=== PATIENT | female | born 1940 | race Caucasian/White ===

== ENCOUNTER 2017-04-05 08:13 | Day surgery (SDC) | payer MEDICARE, OTHER ==
[~2017-04-05 08:13] MED LIST: Lactated Ringers 1,000 ML IV SCH
[2017-04-05] MEDS ORDERED: Propofol 200 MG/20 ML SDV ONE (10:00)
[2017-04-05] MEDS ORDERED: fentaNYL 100 MCG/2 ML SDV ONE (10:00)
[2017-04-05 11:32] VITALS: BP 106/58
--- NOTE | 2017-04-05 15:38 | OR ---
PREOPERATIVE DIAGNOSIS: Screening colonoscopy. POSTOPERATIVE DIAGNOSES: Colonic polyps x3, pancolonic diverticulosis. PROCEDURE PROPOSED: Total flexible colonoscopy. PROCEDURE DONE: Total flexible colonoscopy with hot snare polypectomy x3. INDICATION: This is a 77-year-old female who comes in for screening colonoscopy. Her last examination was 12 years ago. She denies any symptomatology. She does have a history of breast cancer. TECHNIQUE: The patient was brought to the endoscopy suite and placed in left lateral decubitus position. She was sedated with propofol per CARDIOGRAPH OPERATOR. The flexible video colonoscope was then passed transanally and, under visualization, advanced to the cecum. She was found to have an adenomatous polyp in the cecum that was removed by hot snare technique and retrieved with suction. This was removed in 2 pieces. She was noted to have some diverticulosis in the right colon also. The transverse colon was unremarkable as well as the descending colon. The sigmoid colon revealed some diverticulosis and at 20 cm, 2 adenomatous polyps were found, both removed by hot snare technique and retrieved with suction. The rectum was normal. The scope was then withdrawn. She tolerated the procedure well. FINAL IMPRESSION: 1. Colonic polyps x3, removed. 2. Pancolonic diverticulosis. PLAN: She will be sent a letter with pathology report, but I felt at her age that she needs no future examinations. SCM: 04/05/2017 10:36:07 MODL: 04/05/2017 14:19:05 /[id number]
--- NOTE | 2017-04-08 11:37 | LETTER ---
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 Normally, we would wait 5 years and recommend a repeat exam, but based on your age, I feel that you do not need any future examinations. If you have any further questions regarding this, feel free to call. Respectfully,
== END 2017-04-05 12:19 | disposition home or self-care (01) ==
LOC: VM.SDS 08:13
PROVIDERS: ATTEND Surgery
DX: Z12.11 Encounter for screening for malignant neoplasm of colon (principal); D12.0 Benign neoplasm of cecum; K57.30 Diverticulosis of large intestine without perforation or abscess without bleeding; D69.6 Thrombocytopenia, unspecified; F41.9 Anxiety disorder, unspecified; F32.9 Major depressive disorder, single episode, unspecified; I48.1 Persistent atrial fibrillation; E11.42 Type 2 diabetes mellitus with diabetic polyneuropathy; M16.0 Bilateral primary osteoarthritis of hip; E78.5 Hyperlipidemia, unspecified; M10.9 Gout, unspecified; I11.0 Hypertensive heart disease with heart failure; I50.30 Unspecified diastolic (congestive) heart failure; H25.9 Unspecified age-related cataract; H35.3190 Nonexudative age-related macular degeneration, unspecified eye, stage unspecified; K21.9 Gastro-esophageal reflux disease without esophagitis; G47.33 Obstructive sleep apnea (adult) (pediatric); E53.8 Deficiency of other specified B group vitamins; E66.9 Obesity, unspecified; G25.81 Restless legs syndrome; E11.36 Type 2 diabetes mellitus with diabetic cataract; Z86.718 Personal history of other venous thrombosis and embolism; Z79.01 Long term (current) use of anticoagulants; Z79.51 Long term (current) use of inhaled steroids; Z79.84 Long term (current) use of oral hypoglycemic drugs; Z79.899 Other long term (current) drug therapy; Z88.0 Allergy status to penicillin; Z88.1 Allergy status to other antibiotic agents; Z88.7 Allergy status to serum and vaccine; Z88.8 Allergy status to other drugs, medicaments and biological substances; Z91.013 Allergy to seafood; Z91.048 Other nonmedicinal substance allergy status; Z99.89 Dependence on other enabling machines and devices; Z68.35 Body mass index [BMI] 35.0-35.9, adult
CPT/HCPCS: 00810; 36415; 45385; 82962; 85610; J2704; J3010; J7120; 88305

== ENCOUNTER 2017-10-19 16:06 | Inpatient (IN) | payer MEDICARE, OTHER ==
[2017-10-19] MEDS ORDERED: Sodium Chloride 0.9% 10 ML Syringe FLUSH PRN (16:22)
[2017-10-19 17:34] LABS: CHLORIDE,CL 104 mmol/L (98-107); SODIUM,NA 139 mmol/L (136-145)
[2017-10-19] MEDS ORDERED: Iopamidol 612 MG/ML 100 ML Bottle IVPUSH ONE (18:02)
[2017-10-19] MEDS ORDERED: Furosemide 40 MG/4 ML VIAL IV ONE ×2 (19:03→19:04)
[2017-10-19] MEDS ORDERED: Sodium Chloride 0.9% 500 ML IV ONE (19:03)
[2017-10-19] MEDS ORDERED: Cephalexin 500 MG Cap PO SCH (21:10)
[2017-10-19] MEDS ORDERED: Loratadine 10 MG Tab PO PRN (21:13)
[2017-10-19] MEDS ORDERED: Acetaminophen/HYDROcodone 325-5 MG Tab PO SCH (21:25)
[2017-10-19] MEDS ORDERED: Acetaminophen/HYDROcodone 325-5 MG Tab PO PRN (21:26)
[2017-10-19] MEDS ORDERED: Gabapentin 100 MG Cap PO SCH (21:45)
[2017-10-19] MEDS ORDERED: Pramipexole 0.125 MG Tab PO SCH (21:45)
[2017-10-19] MEDS ORDERED: Formoterol/Mometasone 200-5 MCG 8.8 GM Inhaler IH SCH (21:45)
[2017-10-19] MEDS ORDERED: HYDROCODONE PO SCH (22:05)
[2017-10-19] MEDS ORDERED: ACETAMINOPHEN PO SCH (22:05)
[2017-10-19] MEDS ORDERED: HYDROCODONE PO PRN (22:06)
[2017-10-19] MEDS ORDERED: ACETAMINOPHEN PO PRN (22:06)
[2017-10-19] MEDS ORDERED: SYMBICORT INH SCH (22:11)
[2017-10-19] MEDS ORDERED: GABAPENTIN 100 MG PO SCH (22:18)
[2017-10-19] MEDS ORDERED: ESCITALOPRAM 20 MG PO SCH (22:30)
[2017-10-19] MEDS ORDERED: LOVASTATIN 20 MG PO SCH (22:45)
[2017-10-19] MEDS ORDERED: ATENOLOL 100 MG PO SCH (22:45)
[2017-10-19] MEDS: CEPHALEXIN 500 MG PO SCH (22:59)
[2017-10-19] MEDS: PRAMIPEXOLE 0.25 MG PO SCH (22:59)
[2017-10-20] MEDS: Multivitamin, Stress Formula with Zinc Tab PO SCH (07:45)
[2017-10-20] MEDS: Zinc (Zinc Gluconate) 50 MG Tab PO SCH (07:45)
[2017-10-20] MEDS: Potassium Chloride 10 MEQ Tab.ER PO SCH (07:45)
[2017-10-20] MEDS: Famotidine 20 MG Tab PO SCH (07:45)
[2017-10-20] MEDS: Allopurinol 300 MG Tab PO SCH (07:45)
[2017-10-20] MEDS: CEPHALEXIN 500 MG PO SCH ×3 (07:46→20:06)
[2017-10-20] MEDS ORDERED: ENOXAPARIN SUBCUT SCH (08:00)
[2017-10-20] MEDS ORDERED: Digoxin 125 MCG Tab PO SCH (08:00)
[2017-10-20] MEDS ORDERED: SYMBICORT INH SCH (08:00)
[2017-10-20] MEDS: Pramipexole 0.125 MG Tab PO SCH ×2 (08:18→20:16)
[2017-10-20] MEDS: PRAMIPEXOLE 0.25 MG PO SCH (08:20)
[2017-10-20] MEDS ORDERED: Acetaminophen/HYDROcodone 325-5 MG Tab PO PRN (09:24)
[2017-10-20] MEDS: Furosemide 20 MG/2 ML VIAL IV SCH ×2 (09:28→16:50)
[2017-10-20 09:52] LABS: CHLORIDE,CL 103 mmol/L (98-107); SODIUM,NA 142 mmol/L (136-145)
--- NOTE | 2017-10-20 13:46 | PN ---
Progress Note for CHAI CHOUDHURY Date: 10/20/2017 Room #: VM.204 SUBJECTIVE: A 77-year-old, hospital day now #2, admitted for acute hypoxic respiratory failure after a toe surgery in [place] yesterday. The patient had an ulcer of the toe on her left foot with necrosis down to the bone. This is like her 5th surgery since June, so she had a first metatarsal head resection. After surgery, she had oxygen saturations down into the 80s. She has known moderate pulmonary hypertension. She has obstructive sleep apnea. She was requiring some oxygen, but they felt that she would do better when she got home and could use her CPAP. Otherwise, she has no history of coronary artery disease, but does have chronic atrial fibrillation. She also has reactive airway disease and is on inhalers. She did not have any rales or rhonchi documented on exam. When she got home, she was getting weaker. She tells me she just simply did not sleep at all the night before. Her daughter felt like she was doing poor enough, so they had to call the ambulance. ER provider felt she was actually cyanotic, and when she arrived at the emergency room, her saturations were 86% on room air. She never had any chest pain, but tells me in the last week or so, she had about a minute of left-sided chest pain. She otherwise has not been coughing. She feels much better today. She did receive 60 mg of IV Lasix. She also had a fluid bolus after her CT-PE protocol to protect her kidneys. She did not have a PE and her proBNP was elevated on admission to 3392. Troponin was negative. Otherwise, she states her pain in the foot is controlled, but she does have her same pain from neuropathy which is chronic and she does take hydrocodone 2 times per day for that. Otherwise, she does take Neurontin as well. OBJECTIVE: Vital Signs: Her weight was 92.4 kg, on admission it was 93.5. She had temperature of 98, pulse 73, blood pressure 96/45, respiratory rate 20, O2 of 97% on 2.5 L. Repeat blood pressure was 102/52. General: She is in no acute distress. Heart: Irregular with murmur. LUNGS: Sounds are clear to auscultation except for some minor crackles in the extreme bases. Abdomen: Nondistended, nontender. Extremities: She has around 1+ edema at both ankles. Mental Status: She is alert and orientated x3. LABORATORY DATA: Lab work does show her white count normal 6.5, hemoglobin 11.1 and stable, platelets 113, down from 114 yesterday; on 10/12/2017, her platelets were 116. Her creatinine on 10/12/2017 was also 1.35; back in July, it was 0.98. Today, sodium 142, potassium 3.9, chloride 103, bicarb 29, BUN 22, creatinine 1.5, glucose 158, lactic normal on admission yesterday, calcium 8.4. Troponin negative x2. Albumin was 3.3 yesterday. ASSESSMENT AND PLAN: 1. Acute hypoxic respiratory failure, the patient is acutely postop in the same day. She does have underlying pulmonary hypertension. This could have contributed. She does had MAC anesthesia. It is unclear how much fluid they may have given her. I have already contacted Anesthesia. At this point, she seems to be recovering. 2. Acute on chronic diastolic heart failure exacerbation. Ejection fraction was 65% back in June. We will continue with 20 mg IV b.i.d. of Lasix. Monitor blood pressures closely. 3. Mild aortic stenosis in June 2017. We will decide on repeating her echo depending on her clinical course. 4. Mild renal insufficiency. We will monitor closely with diuresis. 5. Recent foot surgery. We will notify Podiatry of her admission. She is supposed to leave the dressing in place until her followup on the . 6. Obesity. 7. Diabetes due to her increased creatinine. I will hold metformin. Monitor her Accu-Cheks q.i.d., give her insulin if needed. 8. Bradycardia with atrial fibrillation. She was monitored on telemetry. Did have a 2.6 second pause, rates were down into the low 40s. It has improved to the 70s this morning. However, we will cut back on her atenolol to 50 mg daily and hold her digoxin. She is on bridging doses of Lovenox. 9. Underlying anxiety and depression. Her condition seems stable. 10.Possible osteomyelitis. This is a chronic condition. It was resected surgically. She is not even on antibiotics. 11.Chronic pain due to osteoarthritis and peripheral neuropathy. We will continue her narcotics. PLAN: At this point, patient will continue under acute care. We will continue IV Lasix and repeat her lab work in the morning. We will continue to monitor with telemetry. MKA: 10/20/2017 12:55:18 MODL: 10/20/2017 13:38:01 /[id number] MTDD
[2017-10-20] MEDS: Gabapentin 100 MG Cap PO SCH ×2 (13:53→20:03)
[2017-10-20] MEDS ORDERED: LOVASTATIN 20 MG PO SCH (20:00)
[2017-10-20] MEDS ORDERED: Citalopram 20 MG Tab PO SCH (20:00)
[2017-10-20] MEDS ORDERED: Warfarin 5 MG Tab PO SCH (20:00)
[2017-10-20] MEDS: Acetaminophen/HYDROcodone 325-5 MG Tab PO SCH (20:00)
[2017-10-20] MEDS: ENOXAPARIN SUBCUT SCH (20:07)
[2017-10-21] MEDS: Zinc (Zinc Gluconate) 50 MG Tab PO SCH (08:00)
[2017-10-21] MEDS: Acetaminophen/HYDROcodone 325-5 MG Tab PO SCH (08:00)
[2017-10-21] MEDS: Furosemide 20 MG/2 ML VIAL IV SCH (08:00)
[2017-10-21] MEDS: Famotidine 20 MG Tab PO SCH (08:00)
[2017-10-21] MEDS: Pramipexole 0.125 MG Tab PO SCH (08:00)
[2017-10-21] MEDS: Multivitamin, Stress Formula with Zinc Tab PO SCH (08:01)
[2017-10-21] MEDS: Allopurinol 300 MG Tab PO SCH (08:01)
[2017-10-21] MEDS: Potassium Chloride 10 MEQ Tab.ER PO SCH (08:01)
[2017-10-21] MEDS: ENOXAPARIN SUBCUT SCH (08:02)
[2017-10-21] MEDS: CEPHALEXIN 500 MG PO SCH ×2 (08:02→13:12)
[2017-10-21] MEDS: Gabapentin 100 MG Cap PO SCH (13:12)
[2017-10-21 14:19] VITALS: BP 127/50
[2017-10-21] MEDS ORDERED: Simvastatin 10 MG Tab PO SCH (20:00)
[2017-10-21] MEDS ORDERED: Atenolol 50 MG Tab PO SCH (20:00)
[2017-10-22] MEDS ORDERED: metFORMIN 500 MG Tab PO SCH (08:00)
--- NOTE | 2017-10-22 11:34 | DISCH ---
PRIMARY DISCHARGE DIAGNOSES: 1. Acute on chronic diastolic heart failure exacerbation with known EF of 65% in June 2017. 2. Underlying aortic stenosis, which is mild. 3. Acute hypoxic respiratory failure secondary to heart failure exacerbation, improved. She is not requiring any oxygen on discharge. 4. Obstructive sleep apnea. 5. Chronic atrial fibrillation. 6. Recent foot surgery for osteomyelitis per Podiatry. They were able to remove it, but did put her on Keflex for a 10-day course. She had a first metatarsal tarsal head resection on the left foot. 7. Mild renal insufficiency. Her creatinine has been around 1.5 and was 1.35 at her preop on 10/12, but was 0.98 in July. She has been on metformin. 8. Obesity. 9. Diabetes, on metformin, previously on hold due to renal insufficiency. 10.Bradycardia with underlying atrial fibrillation with up to 2.6 second pauses. Atenolol dose cut back from 100 to 50 mg. 11.Underlying anxiety and depression. 12.Chronic pain due to osteoarthritis and peripheral neuropathy. REASON FOR ADMISSION: On the date of admission, this 77-year-old female was taken home after her outpatient surgery by her daughter, who is an ER nurse. Her Lasix had been held for the procedure and she received about 800 mL of fluid after further discussion with Anesthesia. After the procedure, she was slightly hypoxic, but was able to cough and take deep breaths and they felt that she was able to return home, but her saturations were in the 80s when the ambulance brought her into the emergency room, she was a little cyanotic. She was given 60 mg of IV Lasix. She felt much better the next morning. Because of her mildly elevated D-dimer, they did do a CT PE protocol, which was negative. She did receive some empiric fluids just to ensure no worsening of her kidney function. Her creatinine was 1.4 on admission and was stable at 1.5 on discharge. The patient is diuresed 600 on the first night. Otherwise, her in's and o's were basically equal, but I suspect her output was not being adequately collected as it was quite low at only 450 in 24 hours and she reported she was peeing quite a bit. She never had any chest pain during her stay. Her incision was evaluated after discussing with Podiatry. There was quite a bit of bleeding. There was even some bleeding when we looked at it, therefore one more Lovenox dose will be ordered for tonight. INR Clinic was updated. She got 5 mg of Coumadin last night. She believes she took 5 mg on the night previous. An INR on her discharge home will be 1.6, it was 1.1 on admission. Otherwise, her blood sugars were under good control. Again, metformin was stopped. She did have mild anemia to during her stay, which was stable with hemoglobin 11.1. DISCHARGE PLANS AND INSTRUCTIONS: She is going to follow up with Dr. Card in the clinic in about 2 weeks time. She will see the diamond blender as planned on the . She will decrease Coumadin to 2.5 daily and we will repeat an INR Tuesday through Home Health. She will also have a BMP and CBC around 11/01 when she has her appointment with me. Lasix doses will be kept the same for now and those doses are 40 mg in the morning, 20 mg in the afternoon. She also finished her Keflex. [id number] encounter did occur on 10/21/2017. Patient requires home health nursing for teaching and assessments of a new heart failure exacerbation with multiple medications that may need to be adjusted and monitoring for bradycardia as well as PT to do assessments and teaching due to a recent event, which was foot surgery for osteomyelitis. The patient is homebound due to her impaired mobility from the foot surgery. She requires assist of another and a walker to leave her home. I will periodically review this plan of care. Her vital signs on discharge include a temperature 97.7, pulse 78, blood pressure 127/50, respiratory rate 16, and O2 of 98% on room air. In general, she is in no acute distress. Her heart is irregular with systolic murmur. Lungs sounds were clear to auscultation bilaterally without crackles or wheezes. Abdomen has positive bowel sounds. Soft and nontender. Extremities warm and dry. She has just trace edema. Mental status, she is alert and orientated x3. Greater than 30 minutes spent. MKA: 10/21/2017 17:36:37 MODL: 10/22/2017 11:24:56 /[id number]
--- NOTE | 2017-10-24 07:40 | EDM.PDOC ---
ED HPI GENERAL MEDICAL PROBLEM - General Chief Complaint: Cardiovascular Problem Time Seen by Provider: 10/19/17 16:06 Source of Information: Reports: Patient History Limitations: Reports: No Limitations - History of Present Illness INITIAL COMMENTS - FREE TEXT/NARRATIVE: Pt. was transported to ER via ambulance. Pt. underwent bunionectomy earlier in the day, and postoperatively she was hypoxic with an O2 sat in the mid 80% range. She was subsequently discharged, and pt. daughter noticed she was short of breath and cyanotic when ambulating. She this was most noticable after she got home. She felt that the pt. was going to lose consciousness and called 911. Pt. has a history of SHERWIN and is on BiPAP. She also has a history of CHF. Improves with: Reports: Rest Worsens with: Reports: Movement Associated Symptoms: Reports: Shortness of Breath Bilateral Leg Pain Score (Numeric/FACES): 2 - Related Data Allergies Allergy/AdvReac Type Severity Reaction Status Date / Time adhesive Allergy Hives Verified 10/19/17 18:56 azithromycin [From Zithromax] Allergy Hives Verified 10/19/17 18:56 clindamycin [From Cleocin] Allergy Mouth Sores Verified 10/19/17 18:56 ezetimibe [From Zetia] Allergy Other Verified 10/19/17 18:56 tetanus toxoid, adsorbed Allergy Cannot Verified 10/19/17 18:56 Remember amoxicillin AdvReac Diarrhea Verified 10/19/17 18:56 atorvastatin calcium AdvReac Muscle Verified 10/19/17 18:56 [From Lipitor] Aches shellfish derived AdvReac Vomiting Verified 10/19/17 18:56 simvastatin [From Zocor] AdvReac Muscle Verified 10/19/17 18:56 Aches IV contrast Allergy Other Uncoded 06/04/17 14:07 Home Meds: Home Meds Allopurinol 300 mg PO DAILY 09/04/14 [History] Cyanocobalamin (Vitamin B-12) [Vitamin B-12] 500 mcg PO BID 09/04/14 [History] Digoxin 0.125 mg PO ASDIRECTED 09/04/14 [History] Escitalopram [Lexapro] 20 mg PO DAILY 09/04/14 [History] Famotidine [Pepcid] 20 mg PO DAILY 09/04/14 [History] Furosemide 40 mg PO DAILY 09/04/14 [History] Loratadine [Claritin] 10 mg PO DAILY PRN 09/04/14 [History] Lovastatin [Mevacor] 20 mg PO DAILY 09/04/14 [History] Multivitamin [Multi-Vitamin Daily] 1 tab PO DAILY 09/04/14 [History] Potassium Chloride 10 meq PO DAILY 09/04/14 [History] Acetaminophen 1 - 2 tab PO Q4H PRN 03/28/15 [History] Zinc Gluconate [Zinc] 50 mg PO DAILY 04/02/15 [History] Chlorhexidine Gluconate [Peridex] 1 applic TOP ASDIRECTED 04/01/17 [History] Fluticasone Propionate [Flonase] 1 spray NASBOTH BID 04/01/17 [History] Fluticasone/Vilanterol [Breo Ellipta 100-25 MCG Inhalation Kit] 1 puff IH BID [History] Chlorhexidine Gluconate [Peridex 0.12% Rinse] 15 ml PO ASDIRECTED 06/04/17 [ History] Furosemide [Lasix] 20 mg PO 1600 06/04/17 [History] Pramipexole [Mirapex] 0.25 mg PO BID 06/04/17 [History] Pramipexole [Mirapex] 0.5 mg PO ASDIRECTED 06/04/17 [History] Sennosides/Docusate Sodium [Senokot-S Tablet] 1 tab PO BEDTIME PRN 06/04/17 [ History] Warfarin [Coumadin] 2.5 mg PO ASDIRECTED 06/04/17 [History] Acetaminophen/HYDROcodone [[place] 325-5 MG] 1 tab PO Q6HR PRN tablet 06/05/17 [ Rx] Acetaminophen/HYDROcodone [[place] 325-5 MG] 1 tab PO BID 10/19/17 [History] Budesonide/Formoterol Fumarate [Symbicort 160-4.5 Mcg Inhaler] 1 puff IH BID 02/28 [History] Cephalexin 500 mg PO TID 10/19/17 [History] Enoxaparin [Lovenox] 100 mg SQ BID 10/19/17 [History] Gabapentin [Neurontin] 200 mg PO BID@1400,2100 10/19/17 [History] Atenolol [Tenormin] 50 mg PO BEDTIME #30 tablet 10/21/17 [Rx] Enoxaparin.100 1 each SUBCUT BID #0 10/21/17 [Rx] Past Medical History HEENT History: Reports: None, Cataract, Macular Degeneration Cardiovascular History: Reports: Afib, Blood Clots/VTE/DVT, Heart Failure, Heart Murmur, High Cholesterol, Pulmonary Hypertension Other Cardiovascular History: Aortic stenosis Respiratory History: Reports: Sleep Apnea, Other (See Below) Other Respiratory History: pneumonia 2013 Gastrointestinal History: Reports: GERD Genitourinary History: Reports: Diabetic Nephropathy, Other (See Below) Other Genitourinary History: Microscopic hematuria [employer]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: Musculoskeletal History: Reports: Gout, Osteoarthritis, Other (See Below) Other Musculoskeletal History: Restless leg syndrome Neurological History: Reports: None Psychiatric History: Reports: Anxiety, Depression Endocrine/Metabolic History: Reports: Diabetes, Type II, Obesity/BMI 30+, Other (See Below) Other Endocrine/Metabolic History: B12 deficiency Hematologic History: Reports: None Immunologic History: Reports: None Oncologic (Cancer) History: Reports: Breast Dermatologic History: Reports: Other (See Below) Other Dermatologic History: dry skin, yeast infections - Past Surgical History HEENT Surgical History: Reports: Cataract Surgery, Tonsillectomy Cardiovascular Surgical History: Reports: None Respiratory Surgical History: Reports: None GI Surgical History: Reports: Appendectomy, Cholecystectomy Female Surgical History: Reports: Hysterectomy, Mastectomy, Tubal Ligation, Other (See Below) Other Female Surgeries/Procedures: left mastectomy Endocrine Surgical History: Reports: None Neurological Surgical History: Reports: None Musculoskeletal Surgical History: Reports: Hip Replacement, Other (See Below) Other Musculoskeletal Surgeries/Procedures:: Left elbow surgery. Chronic osteomyelitis of left foot Oncologic Surgical History: Reports: Mastectomy Dermatological Surgical History: Reports: None Social & Family History - Family History Cardiac: Reports: PVD/COD Oncologic: Reports: Lung - Tobacco Use Smoking Status *Q: Never Smoker Second Hand Smoke Exposure: Yes - Caffeine Use Caffeine Use: Reports: Coffee - Recreational Drug Use Recreational Drug Use: No ED ROS GENERAL - Review of Systems Review Of Systems: See Below Constitutional: Reports: No Symptoms HEENT: Reports: No Symptoms Respiratory: Reports: Shortness of Breath Cardiovascular: Reports: No Symptoms Endocrine: Reports: No Symptoms GI/Abdominal: Reports: No Symptoms : Reports: No Symptoms Musculoskeletal: Reports: No Symptoms Skin: Reports: No Symptoms Neurological: Reports: No Symptoms Psychiatric: Reports: No Symptoms Hematologic/Lymphatic: Reports: No Symptoms Immunologic: Reports: No Symptoms ED EXAM, GENERAL - Physical Exam Exam: See Below Exam Limited By: No Limitations General Appearance: Alert, WD/WN, No Apparent Distress Eye Exam: Bilateral Eye: EOMI, Normal Fundi, Normal Inspection, PERRL Ears: Normal External Exam, Normal Canal, Hearing Grossly Normal, Normal TMs Ear Exam: Bilateral Ear: Auricle Normal, Canal Normal, TM normal Nose: Normal Inspection, Normal Mucosa, No Blood Throat/Mouth: Normal Inspection, Normal Lips, Normal Teeth, Normal Gums, Normal Oropharynx, Normal Voice, No Airway Compromise Head: Atraumatic, Normocephalic Neck: Normal Inspection, Supple, Non-Tender, Full Range of Motion Respiratory/Chest: Decreased Breath Sounds, Crackles Cardiovascular: Normal Peripheral Pulses, Regular Rate, Rhythm, No Edema, No Gallop, No JVD, No Murmur, No Rub Peripheral Pulses: 3+: Radial (L), Radial (R) GI/Abdominal: Normal Bowel Sounds, Soft, Non-Tender, No Organomegaly, No Distention, No Abnormal Bruit, No Mass (Female) Exam: Deferred Rectal (Female) Exam: Deferred Back Exam: Normal Inspection, Full Range of Motion, NT Extremities: Normal Inspection, Normal Range of Motion, Non-Tender, Normal Capillary Refill, No Pedal Edema Neurological: Alert, Oriented, CN II-XII Intact, Normal Cognition, Normal Gait, Normal Reflexes, No Motor/Sensory Deficits Psychiatric: Normal Affect, Normal Mood Skin Exam: Warm, Dry, Intact, Normal Color, No Rash Lymphatic: No Adenopathy Course - Vital Signs Last Recorded V/S: Last Vital Signs Temp 36.5 C 10/21/17 14:00 Pulse 78 10/21/17 14:00 Resp 16 10/21/17 14:00 BP 127/50 L 10/21/17 14:00 Pulse Ox 98 10/21/17 14:00 - Orders/Labs/Meds Labs: Laboratory Tests 10/19/17 10/19/17 10/19/17 Range/Units 16:54 16:54 16:54 WBC 6.2 (4.0-10.0) x10^3/uL RBC 3.79 L (4.00-5.50) x10^6/uL Hgb 11.4 L (12.0-16.0) g/dL Hct 37.5 (33.0-47.0) % MCV 98.9 H (78.0-93.0) fL MCH 30.1 (26.0-32.0) pg MCHC 30.4 L (32.0-36.0) g/dL RDW Coeff of Erum 16.7 H (10.0-15.0) % Plt Count 114 L (130-400) x10^3/uL Neut % (Auto) 64.3 (50.0-80.0) % Lymph % (Auto) 22.0 L (25.0-50.0) % Terrell % (Auto) 11.2 H (2.0-11.0) % Eos % (Auto) 2.2 (0.0-4.0) % Baso % (Auto) 0.3 (0.2-1.2) % PT 12.0 H (9.6-11.4) SEC INR 1.1 L (2.0-3.5) D-Dimer, Quantitative 0.61 H (<=0.58) mg/LFEU POC ABG pH (7.35-7.45) POC ABG pCO2 (35-45) mmHG POC ABG pO2 (80-105) mmHG POC ABG HCO3 (22-26) mmol/L POC ABG Total CO2 (23-27) mmol/L POC ABG O2 Sat (95-98) % POC ABG Base Excess (-2-3) mmol/L POC FiO2 Sodium 139 (136-145) mmol/L Potassium 4.0 (3.5-5.1) mmol/L Chloride 104 (98-107) mmol/L Carbon Dioxide 28 (21-32) mmol/L Anion Gap 11.0 (10-20) mmol/L BUN 22 H (7-18) mg/dL Creatinine 1.4 H (0.55-1.02) mg/dL Est Cr Clr Drug Dosing TNP Estimated GFR (MDRD) 36 Glucose 119 H (74-106) mg/dL Lactic Acid (0.4-2.0) mmol/L Calcium 8.4 L (8.5-10.1) mg/dL Corrected Calcium 8.96 (8.5-10.1) mg/dL Phosphorus 4.7 (2.6-4.7) mg/dL Magnesium 1.8 (1.8-2.4) mg/dL Total Bilirubin 0.6 (0.2-1.0) mg/dL AST 39 H (15-37) U/L ALT 43 (14-59) U/L Alkaline Phosphatase 95 (46-116) U/L Troponin I < 0.017 (<=0.056) ng/mL C-Reactive Protein 0.4 (<=0.9) mg/dL NT-Pro-B Natriuret Pep 3392 H (<=450) pg/mL Total Protein 6.8 (6.4-8.2) g/dL Albumin 3.3 L (3.4-5.0) g/dL Globulin 3.5 Albumin/Globulin Ratio 0.94 10/19/17 10/19/17 Range/Units 16:54 17:48 WBC (4.0-10.0) x10^3/uL RBC (4.00-5.50) x10^6/uL Hgb (12.0-16.0) g/dL Hct (33.0-47.0) % MCV (78.0-93.0) fL MCH (26.0-32.0) pg MCHC (32.0-36.0) g/dL RDW Coeff of Erum (10.0-15.0) % Plt Count (130-400) x10^3/uL Neut % (Auto) (50.0-80.0) % Lymph % (Auto) (25.0-50.0) % Terrell % (Auto) (2.0-11.0) % Eos % (Auto) (0.0-4.0) % Baso % (Auto) (0.2-1.2) % PT (9.6-11.4) SEC INR (2.0-3.5) D-Dimer, Quantitative (<=0.58) mg/LFEU POC ABG pH 7.392 (7.35-7.45) POC ABG pCO2 48 H (35-45) mmHG POC ABG pO2 69 L (80-105) mmHG POC ABG HCO3 29 H (22-26) mmol/L POC ABG Total CO2 31 H (23-27) mmol/L POC ABG O2 Sat 93 L (95-98) % POC ABG Base Excess 4 H (-2-3) mmol/L POC FiO2 0.30 Sodium (136-145) mmol/L Potassium (3.5-5.1) mmol/L Chloride (98-107) mmol/L Carbon Dioxide (21-32) mmol/L Anion Gap (10-20) mmol/L BUN (7-18) mg/dL Creatinine (0.55-1.02) mg/dL Est Cr Clr Drug Dosing Estimated GFR (MDRD) Glucose (74-106) mg/dL Lactic Acid 1.3 (0.4-2.0) mmol/L Calcium (8.5-10.1) mg/dL Corrected Calcium (8.5-10.1) mg/dL Phosphorus (2.6-4.7) mg/dL Magnesium (1.8-2.4) mg/dL Total Bilirubin (0.2-1.0) mg/dL AST (15-37) U/L ALT (14-59) U/L Alkaline Phosphatase (46-116) U/L Troponin I (<=0.056) ng/mL C-Reactive Protein (<=0.9) mg/dL NT-Pro-B Natriuret Pep (<=450) pg/mL Total Protein (6.4-8.2) g/dL Albumin (3.4-5.0) g/dL Globulin Albumin/Globulin Ratio Meds: Medications Discontinued Medications Generic Name Dose Route Start Last Admin Trade Name Pavelq PRN Reason Stop Dose Admin Hydrocodone Bitart/Acetaminophen 1 tab 10/19/17 21:25 10/19/17 23:03 [place] 325-5 Mg PO Not Given BID DOMINIK Hydrocodone Bitart/Acetaminophen 1 tab 10/19/17 21:26 [place] 325-5 Mg PO Q6H PRN Pain (moderate 4-6) Hydrocodone Bitart/Acetaminophen 1 tab 10/20/17 09:24 [place] 325-5 Mg PO Q6H PRN Pain (moderate 4-6) Hydrocodone Bitart/Acetaminophen 1 tab 10/20/17 09:26 10/21/17 08:00 [place] 325-5 Mg PO 1 tab BID DOMINIK Administration Allopurinol 300 mg 10/20/17 08:00 10/21/17 08:01 Zyloprim PO 300 mg DAILY DOMINIK Administration Atenolol 50 mg 10/21/17 20:00 Tenormin PO BEDTIME DOMINIK Cephalexin 500 mg 10/19/17 21:10 10/19/17 23:02 Keflex PO Not Given TID DOMINIK Citalopram Hydrobromide 40 mg 10/20/17 20:00 10/20/17 19:59 Celexa PO 40 mg BEDTIME DOMINIK Administration Digoxin 125 mcg 10/20/17 08:00 10/20/17 08:17 Lanoxin PO 125 mcg [id number] DOMINIK Administration Famotidine 20 mg 10/20/17 08:00 10/21/17 08:00 Pepcid PO 20 mg DAILY DOMINIK Administration Furosemide 40 mg 10/19/17 19:03 10/19/17 23:02 Lasix IV 10/19/17 19:04 Not Given ONETIME ONE Furosemide 60 mg 10/19/17 19:04 10/19/17 19:15 Lasix IV 10/19/17 19:05 60 mg ONETIME ONE Administration Furosemide 20 mg 10/20/17 09:00 10/21/17 08:00 Lasix IV 20 mg BIDDIURETIC DOMINIK Administration Gabapentin 200 mg 10/19/17 21:45 10/19/17 23:03 Neurontin PO Not Given BID@1400,2100 DOMINIK Gabapentin 200 mg 10/20/17 09:32 10/21/17 13:12 Neurontin PO 200 mg BID@1400,2100 DOMINIK Administration Sodium Chloride 500 mls @ 500 mls/hr 10/19/17 19:03 10/19/17 19:14 Normal Saline IV 10/19/17 20:02 500 mls/hr ONETIME ONE Administration Iopamidol 100 ml 10/19/17 18:02 10/19/17 18:29 Isovue-300 (61%) IVPUSH 10/19/17 18:03 100 ml ONETIME ONE Administration Loratadine 10 mg 10/19/17 21:13 Claritin PO DAILY PRN Allergies Metformin HCl 500 mg 10/22/17 08:00 Glucophage PO BIDMEALS [facility] Mometasone Furoate/Formoterol Fumar 0 puff 10/19/17 21:45 10/19/17 23:03 Dulera 200-5 Mcg IH Not Given BIDRT DOMINIK Cephalexin 500mg ( 1 each 10/20/17 12:00 10/21/17 13:12 Own Supply) PO 1 each TID DOMINIK Administration Enoxaparin 100mg ( 1 each 10/20/17 20:00 10/21/17 08:02 Own Supply) SUBCUT 1 each BID DOMINIK Administration Lovastatin 20mg (Own 1 each 10/20/17 20:00 10/20/17 20:55 Supply) PO Not Given BEDTIME DOMINIK Symbicort 160/4.5 ( 1 puff 10/20/17 20:00 10/21/17 08:04 Own Supply) PO 1 puff BID DOMINIK Administration PtomAtenolol 100 0 each 10/19/17 22:45 10/19/17 23:00 Mg Tab PO 1 each BEDTIME DOMINIK Administration PtomEnoxaparin 0 each 10/20/17 08:00 10/20/17 07:47 100 Mg/1 Ml Syringe SUBCUT 1 each BID DOMINIK Administration PtomEscitalopram 0 each 10/19/17 22:30 10/19/17 23:00 20 Mg Tab PO 1 each BEDTIME DOMINIK Administration PtomLovastatin 0 each 10/19/17 22:45 10/19/17 23:00 20 Mg Tab PO 1 each BEDTIME DOMINIK Administration PtomCephalexin 0 each 10/19/17 22:01 10/20/17 07:46 500 Mg Cap PO 1 each TID DOMINIK Administration Ptom 0 each 10/19/17 22:05 10/20/17 07:47 Acetaminophen/ PO 1 each Hydro[place] 325-5 Mg BID DOMINIK Administration Tab Ptom 0 each 10/19/17 22:06 10/19/17 23:00 Acetaminophen/ PO 1 each [place] 325-5 Mg Q6H PRN Administration Tab Pain (moderate 4-6) PtomSymbicort 0 each 10/19/17 22:11 160/4.5 Inh INH BIDRT DOMINIK PtomGabapentin 0 each 10/19/17 22:18 10/19/17 22:59 100 Mg Cap PO 1 each BID@1400,2100 DOMINIK Administration PtomPramipexole 0 each 10/19/17 22:31 10/20/17 08:20 0.25 Mg Tab PO Not Given BID DOMINIK PtomSymbicort 0 each 10/20/17 08:00 10/20/17 07:48 160/4.5 Inh INH 1 each BID@0800,1999 DOMINIK Administration Potassium Chloride 10 meq 10/20/17 08:00 10/21/17 08:01 Klor-Con 10 PO 10 meq DAILY DOMINIK Administration Pramipexole Dihydrochloride 0.25 mg 10/19/17 21:45 10/19/17 23:03 Mirapex PO Not Given BID DOMINIK Pramipexole Dihydrochloride 0.25 mg 10/20/17 08:15 10/21/17 08:00 Mirapex PO 0.25 mg BID DOMINIK Administration Senna/Docusate Sodium 1 tab 10/19/17 21:13 Senna Plus PO BEDTIME PRN Constipation Simvastatin 10 mg 10/21/17 20:00 Zocor PO BEDTIME DOMINIK Sodium Chloride 10 ml 10/19/17 16:22 Saline Flush FLUSH ASDIRECTED PRN Keep Vein Open Vitamin B Complex/Vit C/Vit E/Zinc 1 tab 10/20/17 08:00 10/21/17 08:01 Stress Formula With Zinc PO 1 tab DAILY DOMINIK Administration Warfarin Sodium 5 mg 10/20/17 20:00 10/20/17 20:04 Coumadin PO 5 mg BEDTIME DOMINIK Administration Zinc Gluconate 50 mg 10/20/17 08:00 10/21/17 08:00 Zinc PO 50 mg DAILY DOMINIK Administration Departure - Departure Time of Disposition: 19:42 Disposition: Admitted As Inpatient 64 Clinical Impression: Respiratory failure, CHF (congestive heart failure) - Discharge Information
== END 2017-10-21 16:05 | disposition home health service (06) | DRG 291 ==
LOC: VM.ED 16:06 → VM.MS 19:28
PROVIDERS: ADMIT Internal Medicine; ATTEND Internal Medicine
DX: I11.0 Hypertensive heart disease with heart failure (principal); I50.9 Heart failure, unspecified; J96.91 Respiratory failure, unspecified with hypoxia; J96.01 Acute respiratory failure with hypoxia; I50.33 Acute on chronic diastolic (congestive) heart failure; I48.91 Unspecified atrial fibrillation; G47.33 Obstructive sleep apnea (adult) (pediatric); H35.30 Unspecified macular degeneration; I27.20 Pulmonary hypertension, unspecified; I35.0 Nonrheumatic aortic (valve) stenosis; K21.9 Gastro-esophageal reflux disease without esophagitis; E11.21 Type 2 diabetes mellitus with diabetic nephropathy; M10.9 Gout, unspecified; M19.90 Unspecified osteoarthritis, unspecified site; G25.81 Restless legs syndrome; F41.9 Anxiety disorder, unspecified; F32.9 Major depressive disorder, single episode, unspecified; E66.9 Obesity, unspecified; E53.8 Deficiency of other specified B group vitamins; I48.2 Chronic atrial fibrillation; N28.9 Disorder of kidney and ureter, unspecified; R00.1 Bradycardia, unspecified; E11.42 Type 2 diabetes mellitus with diabetic polyneuropathy; G89.29 Other chronic pain; R79.1 Abnormal coagulation profile; J45.909 Unspecified asthma, uncomplicated; Z85.3 Personal history of malignant neoplasm of breast; Z90.49 Acquired absence of other specified parts of digestive tract; Z90.710 Acquired absence of both cervix and uterus; Z88.7 Allergy status to serum and vaccine; R06.02 Shortness of breath; R23.0 Cyanosis; Z89.422 Acquired absence of other left toe(s); Z79.84 Long term (current) use of oral hypoglycemic drugs; Z88.8 Allergy status to other drugs, medicaments and biological substances; Z88.1 Allergy status to other antibiotic agents; Z91.041 Radiographic dye allergy status; Z86.718 Personal history of other venous thrombosis and embolism; Z91.013 Allergy to seafood; Z79.01 Long term (current) use of anticoagulants; Z79.899 Other long term (current) drug therapy; Z90.12 Acquired absence of left breast and nipple; Z96.649 Presence of unspecified artificial hip joint
CPT/HCPCS: 36415; 36600; 71045; 71275; 80048; 80053; 82803; 82962; 83605; 83735; 83880; 84100; 84484; 85025; 85379; 85610; 86140; 87040; 93005; 94760; 96374; 97116-GP; 97161-GP; 99285; A9270-GY; J1940; J7040; Q9967

== ENCOUNTER 2017-11-15 20:35 | Emergency (ER) | payer MEDICARE, OTHER ==
[2017-11-15] MEDS ORDERED: Sodium Chloride 0.9% 10 ML Syringe FLUSH PRN (22:09)
[2017-11-15 22:40] LABS: CHLORIDE,CL 106 mmol/L (98-107); SODIUM,NA 142 mmol/L (136-145)
[2017-11-15 23:41] VITALS: BP 102/51
--- NOTE | 2017-11-17 07:31 | EDM.PDOC ---
ED HPI GENERAL MEDICAL PROBLEM - General Chief Complaint: General Time Seen by Provider: 11/15/17 20:50 Source of Information: Reports: Patient History Limitations: Reports: No Limitations - History of Present Illness INITIAL COMMENTS - FREE TEXT/NARRATIVE: Pt. presents to ER with complaints of lightheadedness and feeling faint. She was admitted to this facility with CHF following outpatient surgery a month ago. At that time, they increased her lasix to 60mg daily total from 40mg per day. She has also been outside weeding her garden and working in her yard and states that she doesn't tend to drink a lot of water. Pt. denies any chest pain or shortness of breath. She states that she has not been weighing herself. She states that she feels lightheaded, but is not experiencing any vertigo. - Related Data Allergies Allergy/AdvReac Type Severity Reaction Status Date / Time adhesive Allergy Hives Verified 11/15/17 21:02 azithromycin [From Zithromax] Allergy Hives Verified 11/15/17 21:02 clindamycin [From Cleocin] Allergy Mouth Sores Verified 11/15/17 21:02 ezetimibe [From Zetia] Allergy Other Verified 11/15/17 21:02 tetanus toxoid, adsorbed Allergy Cannot Verified 11/15/17 21:02 Remember amoxicillin AdvReac Diarrhea Verified 11/15/17 21:02 atorvastatin calcium AdvReac Muscle Verified 11/15/17 21:02 [From Lipitor] Aches shellfish derived AdvReac Vomiting Verified 11/15/17 21:02 simvastatin [From Zocor] AdvReac Muscle Verified 11/15/17 21:02 Aches IV contrast Allergy Other Uncoded 11/15/17 21:02 Home Meds: Home Meds Allopurinol 300 mg PO DAILY 09/04/14 [History] Cyanocobalamin (Vitamin B-12) [Vitamin B-12] 500 mcg PO BID 09/04/14 [History] Digoxin 0.125 mg PO ASDIRECTED 09/04/14 [History] Escitalopram [Lexapro] 20 mg PO DAILY 09/04/14 [History] Famotidine [Pepcid] 20 mg PO DAILY 09/04/14 [History] Furosemide 40 mg PO DAILY 09/04/14 [History] Loratadine [Claritin] 10 mg PO DAILY PRN 09/04/14 [History] Lovastatin [Mevacor] 20 mg PO DAILY 09/04/14 [History] Multivitamin [Multi-Vitamin Daily] 1 tab PO DAILY 09/04/14 [History] Potassium Chloride 10 meq PO DAILY 09/04/14 [History] Acetaminophen 1 - 2 tab PO Q4H PRN 03/28/15 [History] Zinc Gluconate [Zinc] 50 mg PO DAILY 04/02/15 [History] Chlorhexidine Gluconate [Peridex] 1 applic TOP ASDIRECTED 04/01/17 [History] Fluticasone Propionate [Flonase] 1 spray NASBOTH BID 04/01/17 [History] Fluticasone/Vilanterol [Breo Ellipta 100-25 MCG Inhalation Kit] 1 puff IH BID [History] Chlorhexidine Gluconate [Peridex 0.12% Rinse] 15 ml PO ASDIRECTED 06/04/17 [ History] Furosemide [Lasix] 20 mg PO 1600 06/04/17 [History] Pramipexole [Mirapex] 0.25 mg PO BID 06/04/17 [History] Pramipexole [Mirapex] 0.5 mg PO ASDIRECTED 06/04/17 [History] Sennosides/Docusate Sodium [Senokot-S Tablet] 1 tab PO BEDTIME PRN 06/04/17 [ History] Warfarin [Coumadin] 2.5 mg PO ASDIRECTED 06/04/17 [History] Acetaminophen/HYDROcodone [[place] 325-5 MG] 1 tab PO Q6HR PRN tablet 06/05/17 [ Rx] Acetaminophen/HYDROcodone [[place] 325-5 MG] 1 tab PO BID 10/19/17 [History] Budesonide/Formoterol Fumarate [Symbicort 160-4.5 Mcg Inhaler] 1 puff IH BID 02/28 [History] Cephalexin 500 mg PO TID 10/19/17 [History] Enoxaparin [Lovenox] 100 mg SQ BID 10/19/17 [History] Gabapentin [Neurontin] 200 mg PO BID@1400,2100 10/19/17 [History] Atenolol [Tenormin] 50 mg PO BEDTIME #30 tablet 10/21/17 [Rx] Enoxaparin.100 1 each SUBCUT BID #0 05/11/18 [Rx] Past Medical History HEENT History: Reports: None, Cataract, Macular Degeneration Cardiovascular History: Reports: Afib, Blood Clots/VTE/DVT, Heart Failure, Heart Murmur, High Cholesterol, Pulmonary Hypertension Other Cardiovascular History: Aortic stenosis Respiratory History: Reports: Sleep Apnea, Other (See Below) Other Respiratory History: pneumonia 2014 Gastrointestinal History: Reports: GERD Genitourinary History: Reports: Diabetic Nephropathy, Other (See Below) Other Genitourinary History: Microscopic hematuria FRONT END SPECIALIST History: Reports: Musculoskeletal History: Reports: Gout, Osteoarthritis, Other (See Below) Other Musculoskeletal History: Restless leg syndrome Neurological History: Reports: None Psychiatric History: Reports: Anxiety, Depression Endocrine/Metabolic History: Reports: Diabetes, Type II, Obesity/BMI 30+, Other (See Below) Other Endocrine/Metabolic History: B12 deficiency Hematologic History: Reports: None Immunologic History: Reports: None Oncologic (Cancer) History: Reports: Breast Dermatologic History: Reports: Other (See Below) Other Dermatologic History: dry skin, yeast infections - Past Surgical History HEENT Surgical History: Reports: Cataract Surgery, Tonsillectomy Cardiovascular Surgical History: Reports: None Respiratory Surgical History: Reports: None GI Surgical History: Reports: Appendectomy, Cholecystectomy Female Surgical History: Reports: Hysterectomy, Mastectomy, Tubal Ligation, Other (See Below) Other Female Surgeries/Procedures: left mastectomy Endocrine Surgical History: Reports: None Neurological Surgical History: Reports: None Musculoskeletal Surgical History: Reports: Hip Replacement, Other (See Below) Other Musculoskeletal Surgeries/Procedures:: Left elbow surgery. Chronic osteomyelitis of left foot Oncologic Surgical History: Reports: Mastectomy Dermatological Surgical History: Reports: None Social & Family History - Family History Cardiac: Reports: PVD/COD Oncologic: Reports: Lung - Tobacco Use Smoking Status *Q: Never Smoker - Caffeine Use Caffeine Use: Reports: Coffee - Recreational Drug Use Recreational Drug Use: No ED ROS GENERAL - Review of Systems Review Of Systems: See Below Constitutional: Reports: Fatigue HEENT: Reports: No Symptoms Respiratory: Reports: No Symptoms Cardiovascular: Reports: Lightheadedness Endocrine: Reports: No Symptoms GI/Abdominal: Reports: No Symptoms : Reports: No Symptoms Musculoskeletal: Reports: No Symptoms Skin: Reports: No Symptoms Neurological: Reports: No Symptoms Psychiatric: Reports: No Symptoms Hematologic/Lymphatic: Reports: No Symptoms Immunologic: Reports: No Symptoms ED EXAM, GENERAL - Physical Exam Exam: See Below Exam Limited By: No Limitations General Appearance: Alert, WD/WN, No Apparent Distress Eye Exam: Bilateral Eye: EOMI, Normal Fundi, Normal Inspection, PERRL Ears: Normal External Exam, Normal Canal, Hearing Grossly Normal, Normal TMs Ear Exam: Bilateral Ear: Auricle Normal, Canal Normal, TM normal Nose: Normal Inspection, Normal Mucosa, No Blood Throat/Mouth: Normal Inspection, Normal Lips, Normal Teeth, Normal Gums, Normal Oropharynx, Normal Voice, No Airway Compromise Head: Atraumatic, Normocephalic Neck: Normal Inspection, Supple, Non-Tender, Full Range of Motion Respiratory/Chest: No Respiratory Distress, Lungs Clear, Normal Breath Sounds, No Accessory Muscle Use, Chest Non-Tender Cardiovascular: Normal Peripheral Pulses, Regular Rate, Rhythm, No JVD, No Murmur, Other (Grade 3 systolic ejection murmur) GI/Abdominal: Normal Bowel Sounds, Soft, Non-Tender, No Organomegaly, No Distention, No Abnormal Bruit, No Mass (Female) Exam: Deferred Rectal (Female) Exam: Deferred Back Exam: Normal Inspection, Full Range of Motion, NT Extremities: Normal Inspection, Normal Range of Motion, Non-Tender, Normal Capillary Refill, No Pedal Edema Neurological: Alert, Oriented, CN II-XII Intact, Normal Cognition, Normal Gait, Normal Reflexes, No Motor/Sensory Deficits Psychiatric: Normal Affect, Normal Mood Skin Exam: Warm, Dry, Intact, Normal Color, No Rash Lymphatic: No Adenopathy EKG INTERPRETATION Rhythm: NSR Course - Vital Signs Last Recorded V/S: Last Vital Signs Temp 37.0 C 11/15/17 20:35 Pulse 74 11/15/17 23:09 Resp 16 11/15/17 20:35 BP 102/51 L 11/15/17 23:09 Pulse Ox 95 11/15/17 20:35 - Orders/Labs/Meds Labs: Laboratory Tests 11/15/17 11/15/17 11/15/17 Range/Units 22:02 22:07 22:07 WBC 6.5 (4.0-10.0) x10^3/uL RBC 4.15 (4.00-5.50) x10^6/uL Hgb 12.3 (12.0-16.0) g/dL Hct 39.5 (33.0-47.0) % MCV 95.2 H (78.0-93.0) fL MCH 29.6 (26.0-32.0) pg MCHC 31.1 L (32.0-36.0) g/dL RDW Coeff of Erum 15.7 H (10.0-15.0) % Plt Count 133 (130-400) x10^3/uL Neut % (Auto) 53.2 (50.0-80.0) % Lymph % (Auto) 32.8 (25.0-50.0) % [place] % (Auto) 11.4 H (2.0-11.0) % Eos % (Auto) 2.3 (0.0-4.0) % Baso % (Auto) 0.3 (0.2-1.2) % PT 25.0 H D (9.6-11.4) SEC INR 2.4 (2.0-3.5) Sodium 142 (136-145) mmol/L Potassium 3.9 (3.5-5.1) mmol/L Chloride 106 (98-107) mmol/L Carbon Dioxide 29 (21-32) mmol/L Anion Gap 10.9 (10-20) mmol/L BUN 36 H (7-18) mg/dL Creatinine 1.5 H (0.55-1.02) mg/dL Est Cr Clr Drug Dosing 25.16 mL/min Estimated GFR (MDRD) 33 Glucose 105 (74-106) mg/dL Calcium 8.9 (8.5-10.1) mg/dL Corrected Calcium 9.14 (8.5-10.1) mg/dL Phosphorus 4.3 (2.6-4.7) mg/dL Magnesium 2.1 (1.8-2.4) mg/dL Total Bilirubin 0.6 (0.2-1.0) mg/dL AST 39 H (15-37) U/L ALT 37 (14-59) U/L Alkaline Phosphatase 128 H (46-116) U/L Troponin I < 0.017 (<=0.056) ng/mL C-Reactive Protein 0.6 (<=0.9) mg/dL NT-Pro-B Natriuret Pep 2986 H (<=450) pg/mL Total Protein 7.5 (6.4-8.2) g/dL Albumin 3.7 (3.4-5.0) g/dL Globulin 3.8 Albumin/Globulin Ratio 0.97 Meds: Medications Discontinued Medications Generic Name Dose Route Start Last Admin Trade Name Freq PRN Reason Stop Dose Admin Sodium Chloride 10 ml 11/15/17 22:09 Saline Flush FLUSH ASDIRECTED PRN Keep Vein Open Departure - Departure Time of Disposition: 23:20 Disposition: Home, Self-Care 01 Clinical Impression: Dehydration, Diastolic CHF due to valvular disease - Discharge Information Instructions: Heart Failure, [id number] Referrals: Rea Card, [Primary Care Provider] - Forms: ED Department Discharge Additional Instructions: Decrease your lasix dose by 20mg a day for 3 days. Follow-up in clinic in 5-7 days. The likely cause of your shortness of breath is due to your heart valve problems (likely aortic valve stenosis). Return to ER if you have chest pain, shortness of breath, if passing out.
== END 2017-11-15 23:20 | disposition home or self-care (01) ==
LOC: VM.ED 20:35
DX: I11.0 Hypertensive heart disease with heart failure (principal); I50.30 Unspecified diastolic (congestive) heart failure; E86.0 Dehydration; E11.21 Type 2 diabetes mellitus with diabetic nephropathy; E66.9 Obesity, unspecified; Z88.8 Allergy status to other drugs, medicaments and biological substances; Z88.1 Allergy status to other antibiotic agents; Z91.013 Allergy to seafood; Z91.041 Radiographic dye allergy status; Z79.899 Other long term (current) drug therapy
CPT/HCPCS: 36415; 71046; 80053; 83735; 83880; 84100; 84484; 85025; 85610; 86140; 93005; 93010; 99284; 99284-GF-25

== ENCOUNTER 2018-10-24 11:30 | Inpatient (IN) | payer MEDICARE, OTHER ==
[2018-10-24] MEDS ORDERED: Hydrocortisone 1% Crm 30 GM Tube TOP PRN (12:55)
[2018-10-24] MEDS ORDERED: Ondansetron 4 MG Tab.DIS PO PRN (12:55)
[2018-10-24] MEDS ORDERED: Torsemide 20 MG Tab PO PRN (12:55)
[2018-10-24] MEDS ORDERED: Bisacodyl 5 MG Tab PO PRN (12:55)
[2018-10-24] MEDS ORDERED: Nitroglycerin 0.4 MG Tab.SL SL PRN (12:55)
[2018-10-24] MEDS ORDERED: Fluticasone Propionate Nasal Spray 16 GM Bottle NASBOTH PRN (12:55)
[2018-10-24] MEDS ORDERED: Warfarin 5 MG Tab PO SCH (13:00)
--- NOTE | 2018-10-24 13:55 | CR ---
[id number] RAD/RAD Chest PA And Lateral EXAM: FRONTAL AND LATERAL CHEST INDICATION: Congestive heart failure. COMPARISON: November 15, 2017. DISCUSSION: Stable cardiomegaly with mild central vascular congestion. A small metallic device overlies the left lower lobe airway, correlate with bronchial stent placement history. Small bilateral pleural effusions are new relative to the prior study. IMPRESSION: 1. Cardiomegaly with mild pulmonary edema and small bilateral pleural effusions consistent with congestive heart failure. Jose Manuel Prince MD 10/24/18 1382 Thank you for allowing us to participate in the care of your patient.
[2018-10-24] MEDS: Zinc (Zinc Gluconate) 50 MG Tab PO SCH (16:15)
[2018-10-24] MEDS: Torsemide 20 MG Tab PO SCH (16:15)
[2018-10-24] MEDS: Pramipexole 0.125 MG Tab PO SCH (16:15)
[2018-10-24] MEDS: Acetaminophen/HYDROcodone 325-5 MG Tab PO SCH ×2 (16:15→20:31)
[2018-10-24] MEDS: Cyanocobalamin (Vitamin B12) 1,000 MCG Tab PO SCH (16:15)
[2018-10-24] MEDS: Gabapentin 100 MG Cap PO SCH ×2 (16:15→20:30)
[2018-10-24] MEDS: Allopurinol 300 MG Tab PO SCH (16:15)
--- NOTE | 2018-10-24 18:50 | HP ---
CHIEF COMPLAINT: Weakness post surgery. HISTORY OF PRESENT ILLNESS: The patient is an 78-year-old female who underwent right toe surgery with amputation due to nonhealing ulcer that is related to cellulitis and diabetic neuropathy of her foot. She had been on vancomycin postop and then was just switched to Augmentin. The patient has gained 7 pounds since surgery. She had gone to [facility] on 10/18/2018, had surgery on 10/20/2018. She normally has Dr. Rea Card as her provider. She normally has Dr. Roby Gardner as her screen machine operator with Dr. Panchito Card with on-call had done her surgery. The patient does feel little bit short of breath. She does have noted chronic atrial fibrillation. Her daughter is an RN and closely involved with the patient's care. MEDICATIONS: The patient's medications that she is currently on are, Augmentin, her Coumadin has just been recently restarted, the patient has taken digoxin 125 mcg 1 pill 6 days a week skipping Wednesdays, [place] 5/ one pill twice a day, multivitamin 1 pill a day, zinc 50 mg 1 pill every day, Tylenol 500 mg takes 2 pills as needed, Zyloprim 300 mg 1 pill daily at 4 p.m., Tenormin 50 mg 1 pill daily at bedtime, Symbicort 160/4.5 one puff b.i.d., possibly she is on Keflex, vitamin B12 1000 mcg 1 pill twice a day, Lexapro 20 mg 1 pill at bedtime, Pepcid 20 mg 1 pill at night, Flonase 1 spray each nostril twice a day, Neurontin 100 mg 1 pill in the morning and 2 in the evening, lovastatin 20 mg 1 pill daily, nitroglycerin 0.4 p.r.n. chest pain x3, Zofran 4 mg tablets every 6 hours as needed, Protonix 40 mg 1 pill daily, Mirapex 0.25 mg 1 pill at 4 and 2 pills 2 hours before bedtime, Senokot 1 pill twice a day, Aldactone 25 mcg 2 pills once a day, Demadex 20 mg 1 pill a day as needed for fluid and 20 mg 2 pills twice a day, Coumadin per nursing protocol. ALLERGIES: Adhesive, Zithromax, amoxicillin causes diarrhea, Cleocin causes mouth sores, peppers which gets upset stomach, Lipitor with myalgias. The patient had IVP dye reaction 40 years ago, but no problems with CT dye. Seasonal allergies, shellfish, crabs, tetanus toxoids, Zetia with LFT elevation, Zocor, myalgias. PAST MEDICAL HISTORY: She had osteomyelitis of her left foot, anxiety, aortic stenosis, arthritis, atrial fib, chronic breast cancer, cellulitis, cataract surgery, CHF and uses steroid. She has had breast cancer, depression, type 2 diabetes mellitus, diabetic neuropathy, diastolic CHF. She has had DVTs in the past, gastroesophageal reflux disease, gout of her left hand, heart failure with an implantable device called a CardioMEMS placed by Dr. Kohli 03/01/2018 due to severe pulmonary hypertension and elevated pulmonary pressure. She has had hyperlipidemia, hypertension, swelling of her legs, hematuria, osteoarthritis, obesity, obstructive sleep apnea, osteopenia, primary hypertension, reactive airway disease, restless legs syndrome, sleep apnea, shortness of breath, syncope, vitamin B12 deficiency. PAST SURGICAL HISTORY: She has had amputation of her 4th toe in the past in 2014, amputation of left in 2015. She has had amputation on 05/31/2017, amputation on 07/17/2017, amputation of the left on 06/12/2018, amputation of left on and now amputation of right great toe on 10/20/2018. She has had an appendectomy, bunionectomy on 10/19/2017. She has had cataract surgery bilaterally. She has had cholecystectomy, elbow fracture surgery on the left, hysterectomy, mastectomy in 2002 on the left, tonsillectomy, total hip on the right on 03/24/2015. She has had Yag laser surgery. FAMILY MEDICAL HISTORY: Mother has had lung cancer. Father had heart disease. Sister had heart disease and cataracts. Maternal grandmother with glaucoma. A niece had breast cancer. SOCIAL HISTORY: She is . She has 3 children, one daughter is an RN who works at [employer]. 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 She has never smoked. She will occasionally consume alcohol on a monthly basis. REVIEW OF SYSTEMS: She does feel more short of breath. No chest pain. She has had some grayish stools. Does have dressing on her right foot. Does have dry ulcer on her left foot. Mood has been good. OBJECTIVE: Vital Signs: Objectively, her vital signs show that her weight is 89.72 kg, temperature is 35.9, pulse 69, blood pressure is 141/63, respirations 18, saturations are 95. General: Objectively, she is alert, pleasant to visit with. HEENT: Pharynx is normal. Pupils reactive to light. Heart: Irregularly irregular with a 3/6 systolic ejection murmur. Lungs: Some crackles on bases. Abdomen: Soft and nontender. Extremities: Lower extremities have 1+ edema. Her right toe is dressed. Her left second toe has a scab at the end of her toe, which is dry. There is no surrounding erythema. Neurologic: She is alert, pleasant to visit with. IMPRESSION: 1. Postamputation of right great toe. 2. Weakness. 3. Congestive heart failure with pulmonary hypertension. 4. Chronic atrial fibrillation. 5. Type 2 diabetes mellitus. 6. Obstructive sleep apnea. 7. Hypercholesterolemia. 8. Chronic kidney disease stage 3. 9. Chronic diastolic heart failure. 10.Restless legs syndrome. 11.Mood disorder. PLAN: The patient will be admitted to swing bed for rehab with strengthening to get stronger to be able to return home. She will have physical therapy and occupational therapy. We will check a chest x-ray to see about her fluid with her weight gain that she has had 10 pounds over the past week's time and she just may need resumption of her diuretic medications. Also, her INR will need to be monitored carefully, and her code level status is do not resuscitate/do not intubate. Dr. Rea Card will assume her care when she returns next week. In the meantime, we will care for the patient while she is here. We will do lab work tomorrow. GM10/24/2018 12:55:22 MODL: 10/24/2018 18:42:33 /[id number]
[2018-10-24] MEDS: Citalopram 20 MG Tab PO SCH (20:27)
[2018-10-24] MEDS: Cephalexin 500 MG Cap PO SCH (20:28)
[2018-10-24] MEDS: Pramipexole 0.5 MG Tab PO SCH (20:29)
[2018-10-24] MEDS: Atenolol 50 MG Tab PO SCH (20:32)
[2018-10-25 07:07] LABS: ANION GAP 12.2 mmol/L (10-20)
[2018-10-25] MEDS: Spironolactone 25 MG Tab PO SCH (07:48)
[2018-10-25] MEDS: Torsemide 20 MG Tab PO SCH ×2 (07:49→15:58)
[2018-10-25] MEDS: Digoxin 125 MCG Tab PO SCH (07:49)
[2018-10-25] MEDS: Multivitamins with Iron/Calcium/Folic Acid/Minerals Tab PO SCH (07:50)
[2018-10-25] MEDS: Cephalexin 500 MG Cap PO SCH ×2 (07:50→20:47)
[2018-10-25] MEDS: Cyanocobalamin (Vitamin B12) 1,000 MCG Tab PO SCH ×2 (07:50→15:57)
[2018-10-25] MEDS: Famotidine 20 MG Tab PO SCH (07:50)
[2018-10-25] MEDS: [UNRECOGNIZED DRUG - OTHER] IH SCH (07:51)
[2018-10-25] MEDS: VILANTEROL IH SCH (07:51)
[2018-10-25] MEDS: Acetaminophen 500 MG Tab PO PRN ×2 (07:52→13:36)
[2018-10-25] MEDS: Magnesium Oxide 400 MG Tab PO SCH ×2 (08:47→20:46)
[2018-10-25] MEDS: Zinc (Zinc Gluconate) 50 MG Tab PO SCH (15:57)
[2018-10-25] MEDS: Pramipexole 0.125 MG Tab PO SCH (15:57)
[2018-10-25] MEDS: Acetaminophen/HYDROcodone 325-5 MG Tab PO SCH ×2 (15:58→20:47)
[2018-10-25] MEDS: Allopurinol 300 MG Tab PO SCH (15:58)
[2018-10-25] MEDS: Gabapentin 100 MG Cap PO SCH ×2 (15:58→20:49)
[2018-10-25] MEDS: Citalopram 20 MG Tab PO SCH (20:47)
[2018-10-25] MEDS: Pramipexole 0.5 MG Tab PO SCH (20:49)
[2018-10-25] MEDS: LOVASTATIN 20 MG PO SCH (20:50)
[2018-10-25] MEDS: Atenolol 50 MG Tab PO SCH (20:55)
[2018-10-26] MEDS: Acetaminophen 500 MG Tab PO PRN (06:22)
[2018-10-26] MEDS: Digoxin 125 MCG Tab PO SCH (08:00)
[2018-10-26] MEDS: Torsemide 20 MG Tab PO SCH ×2 (08:01→16:37)
[2018-10-26] MEDS: Magnesium Oxide 400 MG Tab PO SCH ×2 (08:01→20:48)
[2018-10-26] MEDS: Spironolactone 25 MG Tab PO SCH (08:02)
[2018-10-26] MEDS: Cyanocobalamin (Vitamin B12) 1,000 MCG Tab PO SCH ×2 (08:02→16:37)
[2018-10-26] MEDS: Famotidine 20 MG Tab PO SCH (08:02)
[2018-10-26] MEDS: Cephalexin 500 MG Cap PO SCH ×2 (08:03→20:48)
[2018-10-26] MEDS: [UNRECOGNIZED DRUG - OTHER] IH SCH (09:34)
[2018-10-26] MEDS: VILANTEROL IH SCH (09:34)
[2018-10-26] MEDS ORDERED: Acetaminophen/HYDROcodone 325-5 MG Tab PO PRN (10:32)
[2018-10-26] MEDS: Gabapentin 100 MG Cap PO SCH ×2 (16:37→20:48)
[2018-10-26] MEDS: Zinc (Zinc Gluconate) 50 MG Tab PO SCH (16:38)
[2018-10-26] MEDS: Allopurinol 300 MG Tab PO SCH (16:38)
[2018-10-26] MEDS: Pramipexole 0.125 MG Tab PO SCH (16:38)
[2018-10-26] MEDS: Acetaminophen/HYDROcodone 325-5 MG Tab PO SCH ×2 (16:39→20:49)
[2018-10-26] MEDS: Citalopram 20 MG Tab PO SCH (20:48)
[2018-10-26] MEDS: Atenolol 50 MG Tab PO SCH (20:50)
[2018-10-26] MEDS: Pramipexole 0.5 MG Tab PO SCH (20:50)
[2018-10-26] MEDS: LOVASTATIN 20 MG PO SCH (20:51)
[2018-10-27 06:04] VITALS: BP 110/58
[2018-10-27] MEDS ORDERED: Torsemide 20 MG Tab PO SCH (08:00)
[2018-10-27] MEDS: Cyanocobalamin (Vitamin B12) 1,000 MCG Tab PO SCH (08:37)
[2018-10-27] MEDS: Multivitamins with Iron/Calcium/Folic Acid/Minerals Tab PO SCH (08:37)
[2018-10-27] MEDS: Cephalexin 500 MG Cap PO SCH (08:37)
[2018-10-27] MEDS: Digoxin 125 MCG Tab PO SCH (08:37)
[2018-10-27] MEDS: Magnesium Oxide 400 MG Tab PO SCH (08:39)
[2018-10-27] MEDS: Famotidine 20 MG Tab PO SCH (08:39)
[2018-10-27] MEDS: Spironolactone 25 MG Tab PO SCH (08:39)
[2018-10-27] MEDS: [UNRECOGNIZED DRUG - OTHER] IH SCH (08:45)
[2018-10-27] MEDS: VILANTEROL IH SCH (08:45)
--- NOTE | 2018-10-27 10:07 | PN ---
Progress Note for CHAI CHOUDHURY Date: 10/27/2018 Room #: VM.206 SUBJECTIVE: The patient is getting better. She feels that she will be able to manage at home. She did have more pain yesterday and we did have to add some p.r.n. pain medications for her. Also, with her heart device that she had a study the other night, showed that she was retaining some fluid and so they recommend increasing her diuretics from the [facility]. The patient's daughter also feels the patient is ready to go home. The patient does not request home health to see her. OBJECTIVE: Vital Signs: Her weight is 85.8 kg which is down 4 kg from admission, which is 8 pounds. Her blood pressure is 110/58, pulse 66, saturations are 98%. Skin: [place], warm, and dry. Extremities: Her right toe was dressed as well as left second toe was dressed. Heart: Irregularly irregular with a 2/6 systolic ejection murmur. Lungs: Diminished breath sounds on bases, but no crackles. LABORATORY DATA: Her INR today is 1.7, which is just down slightly. Her blood sugar is 124. Her lab had been done on 10/25/2018, which showed her hemoglobin 10.9, white blood cell count 6.2, platelets 147. Sodium is 142, potassium 4.2, creatinine 1.4, BUN 36, glucose 109. Her magnesium had been 1.4. ProBNP is 5608, albumin 2.9. Urine had been checked on admission, was normal, digoxin level was normal 1.33. IMPRESSION: 1. Weakness post right great toe amputation. 2. Left second toe ulcer. 3. Diabetic foot ulcerations. 4. Congestive heart failure with slight exacerbation. 5. Chronic atrial fibrillation. 6. Type 2 diabetes mellitus. 7. Hypomagnesemia. 8. Sleep apnea. 9. Hypercholesterolemia. PLAN: The patient wants to go home today. She is safe per therapies for ambulation. We had increased her Demadex last evening. She will need to be follow up with Dr. Rea Card, in a week's time. GM10/27/2018 08:37:54 MODL: 10/27/2018 09:26:31 /[id number]
--- NOTE | 2018-10-28 04:49 | DISCH ---
PRIMARY DIAGNOSES: 1. Deconditioning post right great toe amputation. 2. Congestive heart failure exacerbation. 3. Diabetic ulcer on left great toe. 4. Recent osteomyelitis. 5. Hypomagnesemia. 6. Chronic atrial fibrillation. 7. Type 2 diabetes mellitus. 8. Pulmonary hypertension. 9. Obstructive sleep apnea. SUMMARY OF HOSPITAL COURSE: The patient came to swing bed after deconditioning post right toe amputation. She was noted to be quite weak, having a difficult time getting around. She has been on vancomycin. She was switched to Augmentin. It is to note that while she had been at the hospital in [place], she had gained 7 to 10 pounds which family was concerned about. She was feeling a bit short of breath when she came here. OBJECTIVE: Vital Signs: Objectively, her weight was 89.7 kg, temperature was 35, pulse 69, blood pressure is 141/63, respirations 18, saturations 95. Extremities: Have 1+ edema. Her right great toe was dressed. Second toe had a scab at the end of it, but was dry around it, not red. SUMMARY OF SWING BED COURSE: The patient received PT and OT. She had had a chest x-ray which did show some mild bilateral pleural effusions. It was felt that her being back on her regular diuretics would help. To note her daily weight was monitored, and her weight had gone down by 3 kg the first day she was here. However, on the night of 10/26/2018 after doing an overnight heart failure monitor test, there was concern that she had pulmonary congestion, so they had recommended increasing her Demadex to 60 mg b.i.d. By 10/27/2018, her weight was down to 85.8 kg. Her laboratory data when she was admitted showed her hemoglobin was 10.9, white blood cell count 6.2, platelets 147. INR was 1.8. Sodium 142, potassium 4.2, creatinine 1.4, GFR 36. Glucoses were monitored which stayed between 100 to 200. Her magnesium was low at 1.4 on admission. LFTs were normal. Albumin was low at 2.9. Urinalysis was normal. Digoxin level was normal at 1.33. The patient rapidly improved with physical therapy and family is willing to be discharged home by 10/27/2018. Her magnesium level had not been checked as I had been planning to repeat lab work on 10/30/2018 for the patient, but in light of her wanting to go home will allow her to go home and not do any followup lab work until she is seen in the clinic as an outpatient. Her last INR at the hospital was 1.7 on 10/27/2018. The patient did have to have some p.r.n. pain pills ordered as well as she was having some breakthrough pain. MEDICATIONS: At the time of discharge are, 1. Allopurinol 300 mg 1 pill daily. 2. Lexapro 20 mg 1 pill at bedtime. 3. Pepcid 20 mg 1 pill daily. 4. Mevacor 20 mg 1 pill at bedtime. 5. Digoxin 0.125 mg daily. 6. Vitamin B12 of 1000 mcg daily. 7. Multivitamin 1 pill daily. 8. Zinc 50 mg 1 pill daily. 9. Flonase 1 spray b.i.d. p.r.n. 10.She takes Mirapex 0.25 mg. She will take 1 pill at 1600 and 2 pills as directed. 11.Her Coumadin is at 2.5 mg pill, take as directed. 12.Symbicort 160 one puff b.i.d. 13.[place] 325/5 one pill daily at 1600. 14.Atenolol 50 mg 1 pill at bedtime. 15.Tylenol 1000 mg q.4 hours p.r.n. 16.Bisacodyl 5 mg 1 pill daily p.r.n. 17.Neurontin 200 mg at bedtime and 100 mg in the morning. 18.Anusol 1 applicator q.4 hours p.r.n. 19.Nitroglycerin 0.4 every 5 minutes x3 p.r.n. chest pain. 20.Zofran 4 mg q.6 hours p.r.n. 21.Spironolactone 50 mg 1 pill daily. 22.Torsemide 20 mg 1 pill daily as needed. 23.Keflex 50 mg 1 p.o. b.i.d. for another day. 24.Tylenol/hydrocodone 325/5 one pill at bedtime. 25.Magnesium 400 mg 1 p.o. b.i.d. 26.The patient will have hydrocodone 325 one b.i.d. p.r.n. The patient will follow up with Dr. Rea Card in a week's time. The patient's resuscitation status at the time of discharge is do not resuscitate, do not intubate. GM10/27/2018 08:52:53 MODL: 10/28/2018 04:42:44 /[id number]
== END 2018-10-27 15:20 | disposition home or self-care (01) | DRG 560 ==
LOC: VM.MS 11:30
PROVIDERS: ADMIT Family Medicine; ATTEND Internal Medicine
DX: Z47.81 Encounter for orthopedic aftercare following surgical amputation (principal); I13.0 Hypertensive heart and chronic kidney disease with heart failure and stage 1 through stage 4 chronic kidney disease, or unspecified chronic kidney disease; I50.32 Chronic diastolic (congestive) heart failure; Z66 Do not resuscitate; N18.3 Chronic kidney disease, stage 3 (moderate); E11.22 Type 2 diabetes mellitus with diabetic chronic kidney disease; I48.2 Chronic atrial fibrillation; E83.42 Hypomagnesemia; I27.20 Pulmonary hypertension, unspecified; G47.33 Obstructive sleep apnea (adult) (pediatric); E11.621 Type 2 diabetes mellitus with foot ulcer; L97.529 Non-pressure chronic ulcer of other part of left foot with unspecified severity; E11.42 Type 2 diabetes mellitus with diabetic polyneuropathy; M19.90 Unspecified osteoarthritis, unspecified site; F32.9 Major depressive disorder, single episode, unspecified; K21.9 Gastro-esophageal reflux disease without esophagitis; M10.9 Gout, unspecified; E78.5 Hyperlipidemia, unspecified; G25.81 Restless legs syndrome; E53.8 Deficiency of other specified B group vitamins; Z96.641 Presence of right artificial hip joint; R53.1 Weakness; F39 Unspecified mood [affective] disorder; Z89.411 Acquired absence of right great toe; Z79.01 Long term (current) use of anticoagulants; Z88.1 Allergy status to other antibiotic agents; Z91.041 Radiographic dye allergy status; Z88.7 Allergy status to serum and vaccine; Z88.8 Allergy status to other drugs, medicaments and biological substances; Z91.018 Allergy to other foods; Z91.048 Other nonmedicinal substance allergy status; Z85.3 Personal history of malignant neoplasm of breast; Z86.718 Personal history of other venous thrombosis and embolism; Z90.49 Acquired absence of other specified parts of digestive tract; Z98.42 Cataract extraction status, left eye; Z98.41 Cataract extraction status, right eye; Z90.12 Acquired absence of left breast and nipple
CPT/HCPCS: 36415; 71046; 80053; 80162; 81003; 82962; 83735; 83880; 85025; 85610; 97110-GO; 97110-GP; 97116-GP; 97161-GP; 97165-GO; 97530-GP; A9270-GY

== ENCOUNTER 2018-11-28 16:39 | Inpatient (IN) | payer MEDICARE, OTHER ==
[2018-11-28] MEDS ORDERED: Sodium Chloride 0.9% 10 ML Syringe FLUSH PRN (16:51)
--- NOTE | 2018-11-28 17:24 | CR ---
[id number] RAD/RAD Chest PA or AP 1V EXAM: RAD Chest PA or AP 1V INDICATION: FEVER,SYNCOPAL. COMPARISON: October 24, 2018. DISCUSSION: Stable metallic foreign body overlying the left lower lobe airway consistent with bronchial stent. Cardiomediastinal silhouette is stable in size and contour. No infiltrate, effusion, pneumothorax, or edema. Low lung volumes with associated vascular crowding. IMPRESSION: No acute cardiopulmonary abnormality. Rodrick Washburn DO 11/28/18 [id number] Thank you for allowing us to participate in the care of your patient.
--- NOTE | 2018-11-28 17:53 | EDM.PDOC ---
ED HPI GENERAL MEDICAL PROBLEM - General Chief Complaint: General Stated Complaint: CONFUSION,TIRED Time Seen by Provider: 11/28/18 16:51 Source of Information: Reports: Old Records History Limitations: Reports: No Limitations - History of Present Illness INITIAL COMMENTS - FREE TEXT/NARRATIVE: Patient seen today in the clinic for being tired and weak. While there INR draw found to be elevated at 4.5 with an associated hematoma to the left anterior forehead. She does not remember how she received this injury and also stated she was incontinent of urine today as well. She denies chest pain, SOB, urinary pain, blood in urine or stools, denies abdominal pain. Does endorse weakness that has progressively worsened. Does have amputated right great toe due to diabetes complications. Duration: Getting Worse Location: Reports: Generalized Associated Symptoms: Reports: Weakness - Related Data Allergies Allergy/AdvReac Type Severity Reaction Status Date / Time adhesive Allergy Hives Verified 11/28/18 17:27 azithromycin [From Zithromax] Allergy Hives Verified 11/28/18 17:27 ezetimibe [From Zetia] Allergy Other Verified 11/28/18 17:27 tetanus toxoid, adsorbed Allergy Cannot Verified 11/28/18 17:27 Remember amoxicillin AdvReac Diarrhea Verified 11/28/18 17:27 atorvastatin calcium AdvReac Muscle Verified 11/28/18 17:27 [From Lipitor] Aches clindamycin [From Cleocin] AdvReac Mouth Sores Verified 11/28/18 17:27 shellfish derived AdvReac Vomiting Verified 11/28/18 17:27 simvastatin [From Zocor] AdvReac Muscle Verified 11/28/18 17:27 Aches IV contrast Allergy Other Uncoded 10/24/18 09:33 Home Meds: Home Meds Allopurinol 300 mg PO DAILY@1600 09/04/14 [History] Cyanocobalamin (Vitamin B-12) [Vitamin B-12] 1,000 mcg PO BID@0800,1600 [History] Digoxin 0.125 mg PO DAILY 09/04/14 [History] Escitalopram [Lexapro] 20 mg PO BEDTIME 09/04/14 [History] Famotidine [Pepcid] 20 mg PO DAILY 09/04/14 [History] Lovastatin [Mevacor] 20 mg PO BEDTIME 09/04/14 [History] Multivitamin [Multi-Vitamin Daily] 1 tab PO MOWEFR@0800 09/04/14 [History] Zinc Gluconate [Zinc] 50 mg PO DAILY@1600 04/02/15 [History] Fluticasone Propionate [Flonase] 1 spray NASBOTH BID PRN 04/01/17 [History] Pramipexole [Mirapex] 0.25 mg PO DAILY@1600 06/04/17 [History] Pramipexole [Mirapex] 0.5 mg PO ASDIRECTED 06/04/17 [History] Warfarin [Coumadin] 2.5 mg PO ASDIRECTED 06/04/17 [History] Acetaminophen/HYDROcodone [[place] 325-5 MG] 1 tab PO DAILY@1600 10/19/17 [History ] Budesonide/Formoterol Fumarate [Symbicort 160-4.5 Mcg Inhaler] 1 puff IH BID 02/28 [History] Atenolol [Tenormin] 50 mg PO BEDTIME #30 tablet 10/21/17 [Rx] Acetaminophen 1,000 mg PO Q6HR PRN 10/24/18 [History] Acetaminophen/HYDROcodone [[place] 325-5 MG] 1 tab PO BEDTIME 10/24/18 [History] Bisacodyl [Dulcolax] 5 mg PO DAILY PRN 10/24/18 [History] Gabapentin [Neurontin] 100 mg PO DAILY@1600 10/24/18 [History] Gabapentin [Neurontin] 200 mg PO BEDTIME 10/24/18 [History] Hydrocortisone [Anusol-HC] 1 applic RC Q4HR PRN 10/24/18 [History] Nitroglycerin [Nitrostat] 0.4 mg SL ASDIRECTED PRN 10/24/18 [History] Ondansetron HCl [Ondansetron] 4 mg PO Q6HR PRN 10/24/18 [History] Spironolactone [Aldactone] 50 mg PO DAILY 10/24/18 [History] Torsemide 20 mg PO ASDIRECTED PRN 10/24/18 [History] Torsemide [Demadex] 60 mg PO BIDDIURETIC #60 tablet 10/27/18 [Rx] Past Medical History HEENT History: Reports: None, Allergic Rhinitis, Cataract, Macular Degeneration , Other (See Below) Other HEENT History: astigmatism, presbyopia, myopia, pseudophakia Cardiovascular History: Reports: Afib, Blood Clots/VTE/DVT, Heart Failure, Heart Murmur, High Cholesterol, Pulmonary Hypertension Other Cardiovascular History: Aortic stenosis, leg swelling Respiratory History: Reports: Sleep Apnea, Other (See Below) Other Respiratory History: pneumonia 2014, reactive airway disease that is not asthma Gastrointestinal History: Reports: GERD Genitourinary History: Reports: Diabetic Nephropathy, Other (See Below) Other Genitourinary History: Microscopic hematuria DISEASE CASE MANAGER History: Reports: Musculoskeletal History: Reports: Gout, Osteoarthritis, Other (See Below) Other Musculoskeletal History: Restless leg syndrome Neurological History: Reports: None, Neuropathy, Diabetic, Other (See Below) Other Neuro History: syncope Psychiatric History: Reports: Anxiety, Depression Endocrine/Metabolic History: Reports: Diabetes, Type II, Obesity/BMI 30+, Osteopenia, Other (See Below) Other Endocrine/Metabolic History: B12 deficiency Hematologic History: Reports: None Immunologic History: Reports: None Oncologic (Cancer) History: Reports: Breast Dermatologic History: Reports: Cellulitis, Other (See Below) Other Dermatologic History: dry skin, yeast infections, diabetic foot ulcer, gangerene of left foot - Past Surgical History HEENT Surgical History: Reports: Cataract Surgery, Tonsillectomy, Other (See Below) Other HEENT Surgeries/Procedures: capsulotomy Cardiovascular Surgical History: Reports: None Respiratory Surgical History: Reports: None GI Surgical History: Reports: Appendectomy, Cholecystectomy Female Surgical History: Reports: Hysterectomy, Mastectomy, Tubal Ligation, Other (See Below) Other Female Surgeries/Procedures: left mastectomy Endocrine Surgical History: Reports: None Neurological Surgical History: Reports: None Musculoskeletal Surgical History: Reports: Hip Replacement, Other (See Below) Other Musculoskeletal Surgeries/Procedures:: Left elbow surgery. Chronic osteomyelitis of left foot Oncologic Surgical History: Reports: Mastectomy Dermatological Surgical History: Reports: None Social & Family History - Family History Family Medical History: Noncontributory Cardiac: Reports: PVD/COD Oncologic: Reports: Lung - Tobacco Use Smoking Status *Q: Never Smoker - Caffeine Use Caffeine Use: Reports: Tea ED ROS GENERAL - Review of Systems Review Of Systems: See Below Constitutional: Reports: Fever HEENT: Reports: No Symptoms Respiratory: Reports: No Symptoms Cardiovascular: Reports: No Symptoms Endocrine: Reports: No Symptoms GI/Abdominal: Reports: No Symptoms : Reports: Incontinence Musculoskeletal: Reports: No Symptoms Skin: Reports: No Symptoms Neurological: Reports: Weakness Psychiatric: Reports: No Symptoms Hematologic/Lymphatic: Reports: No Symptoms Immunologic: Reports: No Symptoms ED EXAM, GENERAL - Physical Exam Exam: See Below Exam Limited By: No Limitations General Appearance: Alert, WD/WN, No Apparent Distress Eye Exam: Bilateral Eye: EOMI, Normal Inspection, PERRL Ears: Normal TMs Nose: Normal Inspection, Normal Mucosa, No Blood Throat/Mouth: Other (oral mucosa dry) Head: Other (left anterior forehead with ecchmosis and swelling) Neck: Normal Inspection, Supple, Non-Tender, Full Range of Motion Respiratory/Chest: Rales (right lower lobe) Cardiovascular: Systolic Murmur, Irregularly Irregular Peripheral Pulses: 1+: Posterior Tibial (L), Posterior Tibial (R), Dorsalis Pedis (L), Dorsalis Pedis (R) GI/Abdominal: Normal Bowel Sounds, Soft, Non-Tender, No Organomegaly, No Distention, No Abnormal Bruit, No Mass Back Exam: Normal Inspection, Full Range of Motion, NT Extremities: Pedal Edema (2-3+, mild pitting) Neurological: Alert, Oriented, CN II-XII Intact, Normal Cognition, No Motor/ Sensory Deficits Psychiatric: Normal Affect, Normal Mood Skin Exam: Warm, Dry, Normal Color, No Rash, Wound/Incision (right great toe does have wound in various stages of healing with scabs. No sign of infection) Lymphatic: No Adenopathy Course - Vital Signs Last Recorded V/S: Last Vital Signs Temp 37.7 C 11/28/18 16:50 Pulse 64 11/28/18 16:50 Resp 18 11/28/18 16:50 BP 108/46 L 11/28/18 16:50 Pulse Ox 93 L 11/28/18 16:50 - Orders/Labs/Meds Orders: Active Orders 24 hr Category Date Time Status EKG 12 Lead [EKG Documentation Completion] [RC] STAT Care 11/28/18 16:53 Ordered Head wo Cont [CT] Stat Exams 11/28/18 16:51 Ordered CULTURE BLOOD [BC] Stat Lab 11/28/18 16:59 Ordered CULTURE BLOOD [BC] Stat Lab 11/28/18 16:59 Ordered DIGOXIN [CHEM] Stat Lab 11/28/18 17:06 Ordered LACTIC ACID [CHEM] Stat Lab 11/28/18 16:59 Ordered MAGNESIUM [CHEM] Stat Lab 11/28/18 16:51 Ordered PRO B-TYPE NATRIUR PEPT,BNPPRO [CHEM] Stat Lab 11/28/18 16:51 Ordered TROPONIN I [CHEM] Stat Lab 11/28/18 16:59 Ordered TSH ULTRASENSITIVE [CHEM] Stat Lab 11/28/18 16:51 Ordered UA W/MICROSCOPIC [URIN] Stat Lab 11/28/18 16:51 Ordered Sodium Chloride 0.9% [Saline Flush] Med 11/28/18 16:51 Ordered 10 ml FLUSH ASDIRECTED PRN Blood Culture x2 Reflex Set [OM.PC] Stat Oth 11/28/18 16:59 Ordered Saline Lock Insert [OM.PC] Routine Oth 11/28/18 16:51 Ordered Medication Orders Sodium Chloride (Saline Flush) 10 ml FLUSH ASDIRECTED PRN PRN Reason: Keep Vein Open Labs: Laboratory Tests 11/28/18 Range/Units 17:10 WBC 10.3 H (4.0-10.0) x10^3/uL RBC 4.16 (4.00-5.50) x10^6/uL Hgb 12.9 D (12.0-16.0) g/dL Hct 40.3 (33.0-47.0) % MCV 96.9 H (78.0-93.0) fL MCH 31.0 (26.0-32.0) pg MCHC 32.0 (32.0-36.0) g/dL RDW Coeff of Erum 14.6 (10.0-15.0) % Plt Count 103 L (130-400) x10^3/uL Neut % (Auto) 79.8 (50.0-80.0) % Lymph % (Auto) 14.1 L (25.0-50.0) % Reagan % (Auto) 5.7 (2.0-11.0) % Eos % (Auto) 0.2 (0.0-4.0) % Baso % (Auto) 0.2 (0.2-1.2) % Meds: Medications Generic Name Dose Route Start Last Admin Trade Name Freq PRN Reason Stop Dose Admin Sodium Chloride 10 ml 11/28/18 16:51 Saline Flush FLUSH ASDIRECTED PRN Keep Vein Open - Radiology Interpretation Free Text/Narrative:: Ct of head reviewed with no acute process. Chest x-ray shows no acute process Departure - Departure Time of Disposition: 19:45 Disposition: Admitted As Inpatient 64 Condition: Fair Clinical Impression: Urinary tract infection, Supratherapeutic INR, Elevated digoxin level - Discharge Information *PRESCRIPTION DRUG MONITORING PROGRAM REVIEWED*: Not Applicable *COPY OF PRESCRIPTION DRUG MONITORING REPORT IN PATIENT SHASHI: Not Applicable Forms: ED Department Discharge ED Communication - ED Communication Date/Time Date: 11/28/18 Time Called: 18:40 - Discussed Case With (1) Discussed Case With (1): Admitting Provider (Dr. Elliott contacted regarding patient. Report given, she will accept patient as acute.) - Problem List & Annotations (1) Elevated digoxin level SNOMED Code(s): 385752436 Code(s): R78.89 - FINDING OF OTH SUBSTANCES, NOT NORMALLY FOUND IN BLOOD Status: Acute Priority: Low Current Visit: Yes (2) Supratherapeutic INR SNOMED Code(s): 185030759 Code(s): R79.1 - ABNORMAL COAGULATION PROFILE Status: Acute Priority: Low Current Visit: Yes (3) Urinary tract infection SNOMED Code(s): 54735033 Code(s): N39.0 - URINARY TRACT INFECTION, SITE NOT SPECIFIED Status: Acute Priority: Low Current Visit: Yes Qualifiers: Urinary tract infection type: acute cystitis Hematuria presence: with hematuria Qualified Code(s): N30.01 - Acute cystitis with hematuria - Problem List Review Problem List Initiated/Reviewed/Updated: Yes - My Orders Last 24 Hours: My Active Orders 11/28/18 16:51 Head wo Cont [CT] Stat MAGNESIUM [CHEM] Stat PRO B-TYPE NATRIUR PEPT,BNPPRO [CHEM] Stat TSH ULTRASENSITIVE [CHEM] Stat UA W/MICROSCOPIC [URIN] Stat Sodium Chloride 0.9% [Saline Flush] 10 ml FLUSH ASDIRECTED PRN Saline Lock Insert [OM.PC] Routine 11/28/18 16:53 EKG 12 Lead [EKG Documentation Completion] [RC] STAT 11/28/18 16:59 CULTURE BLOOD [BC] Stat CULTURE BLOOD [BC] Stat LACTIC ACID [CHEM] Stat TROPONIN I [CHEM] Stat Blood Culture x2 Reflex Set [OM.PC] Stat 11/28/18 17:06 DIGOXIN [CHEM] Stat - Assessment/Plan Last 24 Hours: My Active Orders 11/28/18 16:51 Head wo Cont [CT] Stat MAGNESIUM [CHEM] Stat PRO B-TYPE NATRIUR PEPT,BNPPRO [CHEM] Stat TSH ULTRASENSITIVE [CHEM] Stat UA W/MICROSCOPIC [URIN] Stat Sodium Chloride 0.9% [Saline Flush] 10 ml FLUSH ASDIRECTED PRN Saline Lock Insert [OM.PC] Routine 11/28/18 16:53 EKG 12 Lead [EKG Documentation Completion] [RC] STAT 11/28/18 16:59 CULTURE BLOOD [BC] Stat CULTURE BLOOD [BC] Stat LACTIC ACID [CHEM] Stat TROPONIN I [CHEM] Stat Blood Culture x2 Reflex Set [OM.PC] Stat 11/28/18 17:06 DIGOXIN [CHEM] Stat Assessment:: acute cystitis with hematuria acute kidney injury elevated INR elevated digoxin level Plan: Dr. Elliott to admit to inpatient. She is here doing admission currently. Patient remained stable in the ED.
--- NOTE | 2018-11-28 18:28 | CT ---
[id number] CT/CT Head WO IV EXAM: CT Head WO IV CLINICAL DATA: FALL, HEAD HEMATOME,HIGH INR. COMPARISON STUDY: None FINDINGS: No intracranial hemorrhage, extra-axial fluid collection, mass, or acute ischemia. Generalized parenchymal atrophy with scattered areas of nonspecific white matter disease, commonly seen as sequela of chronic microvascular ischemia. Right frontal scalp hematoma without underlying calvarial fracture. Paranasal sinuses and mastoid air cells are clear. IMPRESSION: No acute intracranial findings. Rodrick Washburn DO 11/28/18 1826 Thank you for allowing us to participate in the care of your patient.
[2018-11-28] MEDS ORDERED: Lactated Ringers 1,000 ML IV SCH (18:30)
[2018-11-28] MEDS ORDERED: Ciprofloxacin 250 MG Tab PO ONE (18:51)
[2018-11-28] MEDS ORDERED: Sodium Chloride 0.9% 1,000 ML IV SCH (19:00)
[2018-11-28] MEDS ORDERED: Ciprofloxacin 500 MG Tab ONE (19:04)
[2018-11-28] MEDS ORDERED: Torsemide 20 MG Tab PO PRN (19:33)
[2018-11-28] MEDS ORDERED: HYDROCORTISONE RC PRN (19:33)
[2018-11-28] MEDS ORDERED: Fluticasone Propionate Nasal Spray 16 GM Bottle NASBOTH PRN (19:33)
[2018-11-28] MEDS ORDERED: Nitroglycerin 0.4 MG Tab.SL SL PRN (19:33)
[2018-11-28] MEDS ORDERED: Bisacodyl 5 MG Tab PO PRN (19:33)
[2018-11-28] MEDS ORDERED: Ondansetron 4 MG Tab.DIS PO PRN (19:45)
[2018-11-28] MEDS ORDERED: LOVASTATIN 20 MG PO SCH (20:00)
--- NOTE | 2018-11-28 20:42 | CT ---
[id number] CT/CT Cervical Spine WO IV Exam: CT Cervical Spine WO IV CLINICAL DATA: NECK PAIN, CONFUSION, HEAD CONTUSION. COMPARISON: None. FINDINGS: No fracture or subluxation is seen. The C1-C2 articulation is unremarkable. The prevertebral soft tissues are within normal limits. Multilevel degenerative changes of the cervical spine including loss of disc space height, facet arthropathy and osteophyte formation. These findings are most pronounced at C3-C4, and C6-C7. IMPRESSION: 1. NO ACUTE FRACTURE OR SUBLUXATION. 2. MULTILEVEL DEGENERATIVE CHANGES OF THE CERVICAL SPINE DESCRIBED ABOVE. Rodrick Washburn DO 11/28/182039 Thank you for allowing us to participate in the care of your patient.
[2018-11-28] MEDS: Acetaminophen/HYDROcodone 325-5 MG Tab PO SCH (21:28)
[2018-11-28] MEDS: Citalopram 20 MG Tab PO SCH (21:29)
[2018-11-28] MEDS: Atenolol 50 MG Tab PO SCH (21:29)
[2018-11-28] MEDS: Gabapentin 100 MG Cap PO SCH (21:30)
[2018-11-28] MEDS: Pramipexole 0.5 MG Tab PO SCH (21:31)
[2018-11-29] MEDS: Acetaminophen 500 MG Tab PO PRN ×2 (00:18→16:25)
[2018-11-29 07:29] LABS: ANION GAP 13.2 mmol/L (10-20)
[2018-11-29] MEDS ORDERED: Spironolactone 25 MG Tab PO SCH (08:00)
[2018-11-29] MEDS ORDERED: Torsemide 20 MG Tab PO SCH (08:00)
[2018-11-29] MEDS: Famotidine 20 MG Tab PO SCH (08:02)
[2018-11-29] MEDS: Multivitamins with Iron/Calcium/Folic Acid/Minerals Tab PO SCH (08:02)
[2018-11-29] MEDS: Cyanocobalamin (Vitamin B12) 1,000 MCG Tab PO SCH ×2 (08:02→16:25)
--- NOTE | 2018-11-29 09:50 | HP ---
CHIEF COMPLAINT: Confusion. HISTORY OF PRESENT ILLNESS: The patient is an 78-year-old female who came initially to the clinic to have her INR drawn. She was noted to be not making much sense. She had a bruise on her forehead. She had been incontinent when she was out playing cards, and so she was assessed by clinic RN and brought over to the emergency department. She was seen by Boni Myers, nurse practitioner, and she was noted to be not her normal self. Her family, whose daughter is an RN, works in the emergency room, came down and stated that the patient's status was different, confused. She had an incontinence episode while playing cards this afternoon in the community. She had fallen and hit her head, but the patient has no recollection of how or why it happened. The daughter was unaware that it had happened. To note, the patient had recently been placed on swing bed from 10/24/2018 to 10/27/2018 after she had deconditioned after her toe amputation surgery. The patient does have a known history of CHF, which is very touchy. While she had been hospitalized on acute care, she had gained 10 pounds. When she was discharged from swing bed, her torsemide had been resumed back to 60 mg b.i.d. The patient had lab work done in the clinic, and it had shown that her creatinine was increasing slightly, but it was about 1.8 when last checked at her clinic visit on 11/07/2018, so she was continued on the same dose of diuretic. In the emergency department, it was noted that she had a bladder infection as well as her digoxin level was elevated at 2.4. The patient did have a normal documented digoxin level at 1.33 during her swing bed stay. The patient has no idea as to when she took her last digoxin medication as certainly the timing of taking pills can affect level. When she was in the emergency room, she was given Cipro 250 mg as well as IV fluids. The patient had a head scan done which showed no acute intracranial injury, showed hematoma on her scalp. She ended up having a chest x-ray done which showed cardiomegaly, but no acute failure. She had a stent in her bronchial tubes. MEDICATIONS: That she is currently on are Tylenol 1000 mg q.6 hours p.r.n., she is on allopurinol 600 mg daily, Lexapro 20 mg at bedtime, Pepcid 20 mg daily, Mevacor 20 mg 1 pill at bedtime, digoxin 0.125 mg/2.5 ml she takes 0.125 mg daily. She takes vitamin B12 1000 mcg tablets 1 p.o. b.i.d.; multivitamin 1 pill Tuesday, Tuesday, and Tuesday; zinc gluconate 50 mg 1 pill daily; Flonase 1 spray b.i.d. p.r.n.; Mirapex 0.25 mg, she takes 2 pills as directed and 0.25 mg at 1600 hours daily. She takes Coumadin per INR Clinic. I am not certain of her maintenance dose right now. Symbicort 160/4.5, 1 puff b.i.d. Acetaminophen/hydrocodone 325/5 one pill daily at 1600 hours. Tenormin 50 mg 1 pill at bedtime. Acetaminophen 500 mg 2 pills every 6 hours as needed, bisacodyl 5 mg tablet daily p.r.n., Neurontin 2 pills at bedtime and 100 mg daily at 4 p.m., hydrocortisone AC 1 applicator q.4 hours p.r.n., nitroglycerin 0.4 sublingual q.5 minutes x3 p.r.n., Zofran 4 mg q.6 hours p.r.n., spironolactone 50 mg 1 pill daily, torsemide 20 mg 1 pill daily as needed for extra fluid, Tylenol 325/5 one pill at bedtime. Torsemide 20 mg 3 pills b.i.d. ALLERGIES: Adhesive, azithromycin, Zetia, tetanus toxoid, amoxicillin, Lipitor, clindamycin, shellfish, simvastatin, IV contrast. PAST MEDICAL HISTORY: The patient has had osteomyelitis of her left foot; anxiety; aortic stenosis; atrial fibrillation, chronic; breast cancer; cellulitis; cataract surgery; CHF; uses steroids. She has had breast cancer, depression, type 2 diabetes mellitus, diabetic neuropathy, diastolic CHF. She has had DVTs in the past. Gastroesophageal reflux disease. Gout of her hand. Heart failure with an implantable device called CardioMEMS placed by Dr. Kohli on 03/01/2018 due to severe pulmonary hypertension and elevated pulmonary pressure. She has had hyperlipidemia, hypertension, swelling of her legs, hematuria, osteoarthritis, obesity, obstructive sleep apnea, osteopenia, primary hypertension, reactive airway disease, restless legs, sleep apnea, shortness of breath, syncope, vitamin B12 deficiency. PAST SURGICAL HISTORY: She has had amputation of her 4th toe in 2014, amputation of left toe in 2015, amputation on 05/31/2017, amputation on 07/17/2017, amputation of left on 06/12/2018, amputation of left on 08/09/2018, and the right great toe amputated on 10/20/2018. She has had an appendectomy, bunionectomy 10/19/2017. She has had cataracts surgery, cholecystectomy, elbow fracture on the left, hysterectomy, mastectomy 2003 on the left, tonsillectomy, total hip on the right on 03/24/2015, and she has had a YAG laser surgery. She has also had some type of fatty tumor removed from her abdomen, unknown when or details. FAMILY MEDICAL HISTORY: Mother has had lung cancer. Father has heart disease. Sister has had heart disease, cataracts. Maternal grandmother has had glaucoma. Niece has had breast cancer. SOCIAL HISTORY: She is . She has 3 children. One daughter is an RN who works at [facility]. 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 She has never smoked. She occasionally consumes alcohol on a monthly basis. She uses CPAP at night. She does use a walker to ambulate around. REVIEW OF SYSTEMS: She does have a little bit of a headache. She does complain of a neck ache. No double vision. No nausea. No chest pain. No shortness of breath. She does complain of neck pain. She is forgetful. Mood has been good. OBJECTIVE: Vital Signs: Weight is 80.73 kg, which is down 5 kg from 10/27/2018. Her temperature is 37.7, pulse 64 and regular, blood pressure is 108/46, respiratory rate is 18, and sats are 93%. General: She is pleasant, calmly lying in the gurney. She does have a 3 cm hematoma on the top part of her scalp. There is no step-off. There is no crepitus. Her conjunctivae are clear. HEENT: Pupils are equal and reactive to light. No raccoon eyes. Tympanic membranes are normal bilaterally with no hemotympanum. The patient does complain of pain at the base of her neck. There are no bruises or swelling there. Pharynx is normal. Jaw is nontender. Neck: No thyromegaly. No carotid bruits. Heart: Irregularly irregular. Lungs: Clear to auscultation. Abdomen: Obese, soft, and nontender. No hepatosplenomegaly. Breasts: Deferred. Extremities: She does have a bruise on her left elbow. No open excoriations. Her toes are not examined as she has wraps on. Mood: She is pleasantly talkative. She is forgetful. She does not remember things. LABORATORY DATA: INR in the clinic was therapeutic. Lab in the clinic had showed her sodium is 136, potassium 4.5, creatinine 2.9 which is elevated from 2 weeks ago, glucose 172, BUN 75, GFR 16, calcium 10.2, CO2 of 29, chloride 93. Her lab done at [facility] showed that her white blood cell count was 10.3, hemoglobin 12.9, and platelets were 103; 79 segs, 14 lymphocytes. Her lactic acid was 2.0, magnesium 2.3, total bilirubin 0.9, AST 23, ALT 21, alkaline phosphatase 126, direct bilirubin 0.25, indirect bilirubin 0.65. Troponin less than 0.017. ProBNP 4474, which is lower than it had been at previous hospitalization on 10/25/2018 at 5608. Her albumin was 4.1. TSH 2.021. Urine was turbid. Specific gravity 1.010 with leukocyte esterase large, 0 to 5 red blood cells, greater than 100 white blood cells, many epithelial cells, many bacteria, rare mucus; no yeast. Digoxin level was 2.48. EKG showed atrial fibrillation, rate in the 60s. Chest x-ray was done which showed no heart failure, just showed cardiomegaly with coil in her lung. Head CT showed hematoma, but no intracranial abnormalities. IMPRESSION: 1. Confusion, multifactorial. 2. Head contusion. 3. Urinary tract infection. 4. Acute kidney injury. 5. Chronic congestive heart failure. 6. Type 2 diabetes mellitus. 7. Elevated digoxin level, unclear if it is toxic as there are no EKG changes. Unclear as to when she took her last dose. PLAN: The patient will be admitted to acute care. We will monitor her heart rhythm. Monitor her oxygen. We will monitor her blood sugars. We will currently hold her blood thinner right now because of the head contusion just to make certain she would not deteriorate overnight. We will also hold her evening dose of torsemide as she may need a dose reduction for tomorrow. We will CT scan her neck because of concerns with neck pain right now. Her code level status is do not resuscitate, do not intubate. The patient will be placed on her CPAP at night. The patient will need to get up with assistance. We will have Physical Therapy assess the patient. The patient will be admitted to Dr. Rea Card's service. However, Dr. Rea Card will not be able to see her tomorrow. I will attend to her in the morning, and she will resume her care on 12/30/2018. We will place the patient on SCDs because of not wanting to use her Coumadin right now even though she is therapeutic. To note, the patient's condition may continue to deteriorate. If she would have neurological decompensation, she would need urgent transfer to [place], and she possibly could from her current health problems. GM11/28/2018 19:55:05 MODL: 11/29/2018 01:03:10 /[id number]
--- NOTE | 2018-11-29 09:50 | PN ---
Progress Note for CHAI CHOUDHURY Date: 11/29/2018 Room #: VM.216 SUBJECTIVE: The patient has minimal pain on her head. She is thinking a little bit more clear today. She denies coughing or feeling short of breath. She otherwise has had no problems during the night. She did have a neck CT done at the time of admission to make sure there is no cervical fractures, and it came back negative and only showed arthritis in her neck. OBJECTIVE: Vital Signs: Her weight is 76.0 kg which is up 0.8 from yesterday. Her temperature is 36.7, pulse is 50 and irregular, blood pressure is 95/46, respiratory rate 16, and saturations are 91% on 2 L. General: She has bruising of her forehead, bruising of her arms. Heart: Irregularly irregular, but slow. Lungs: Clear to auscultation. Abdomen: Soft. Extremities: Lower extremities have SCDs on them. LABORATORY DATA: Her urine cultures growing gram-negative moshe. Her INR is 3.4 today, which is improved from 4.5. Sodium is 137, potassium 4.2, creatinine has stayed the same at 2.6. BUN has gone up at 71, GFR is 18, glucose is 102. Her repeat lactic acid was 1.5 from admission where it was 2.0. Her magnesium is 2.2. LFTs are normal. CRP is elevated at 6.3. ProBNP is elevated at 8114, which may be reflective of reduced renal function and not worsening CHF. Her digoxin level this morning was 2.31. IMPRESSION: 1. Confusion, multifactorial. 2. Head contusion with head hematoma. 3. Acute kidney injury from dehydration from over-diuresis. 4. Urinary tract infection with gram-negative rods. 5. Type 2 diabetes mellitus. PLAN: The patient's torsemide will be reduced to 40 b.i.d., it was held last evening. The patient's Coumadin will still be held today since she is still high. We will hold her digoxin today since her level is also still high. We will increase her IV rate to see if this helps with renal function rebound, however, need to be careful about not worsening heart failure. Dr. Rea Card to be here tomorrow to resume care. We will check an EKG tomorrow as well. GM11/29/2018 08:31:06 MODL: 11/29/2018 09:07:51 /[id number]
[2018-11-29] MEDS: Sodium Chloride 0.9% 1,000 ML IV SCH (12:30)
--- NOTE | 2018-11-29 13:51 | PCM.SN ---
- Free Text/Narrative Note: Per orders from cardiology, spironolactone is discontinued.
[2018-11-29] MEDS: Zinc (Zinc Gluconate) 50 MG Tab PO SCH (16:25)
[2018-11-29] MEDS: Allopurinol 300 MG Tab PO SCH (16:25)
[2018-11-29] MEDS: Gabapentin 100 MG Cap PO SCH ×2 (16:25→21:10)
[2018-11-29] MEDS: Pramipexole 0.125 MG Tab PO SCH (16:25)
[2018-11-29] MEDS: Torsemide 20 MG Tab PO SCH (16:26)
[2018-11-29] MEDS: Ciprofloxacin 250 MG Tab PO SCH (16:26)
[2018-11-29] MEDS ORDERED: Acetaminophen/HYDROcodone 325-5 MG Tab PO STA (18:31)
[2018-11-29] MEDS: Pramipexole 0.5 MG Tab PO SCH (21:11)
[2018-11-29] MEDS: Acetaminophen/HYDROcodone 325-5 MG Tab PO SCH (21:12)
[2018-11-29] MEDS: Citalopram 20 MG Tab PO SCH (21:12)
[2018-11-29] MEDS: Atenolol 50 MG Tab PO SCH (21:16)
[2018-11-30] MEDS ORDERED: Acetaminophen/HYDROcodone 325-5 MG Tab PO ONE (00:20)
[2018-11-30] MEDS ORDERED: Acetaminophen/HYDROcodone 325-5 MG Tab PO STA (00:45)
[2018-11-30] MEDS: Sodium Chloride 0.9% 1,000 ML IV SCH (01:56)
[2018-11-30 07:30] LABS: ANION GAP 12.8 mmol/L (10-20)
[2018-11-30] MEDS: Famotidine 20 MG Tab PO SCH (08:26)
[2018-11-30] MEDS: Cyanocobalamin (Vitamin B12) 1,000 MCG Tab PO SCH ×2 (08:26→16:12)
[2018-11-30] MEDS: Torsemide 20 MG Tab PO SCH ×2 (08:26→16:12)
[2018-11-30] MEDS: Fluticasone-Salmeterol 232-14 MCG Powder Inhalent INH SCH ×2 (08:46→21:18)
--- NOTE | 2018-11-30 09:31 | PN ---
Progress Note for CHAI CHOUDHURY Date: 11/30/2018 Room #: .216 SUBJECTIVE: Hospital day #3 on an 78-year-old admitted with confusion, fall, head injury, and UTI. Culture is growing gram negatives. She has been afebrile. She does admit to having a little bit of burning today, but states she held it too long. She otherwise states she does that, and then she has incontinence. She is not having any trouble breathing. She had renal failure on admission. Creatinine up to 2.9. Cardiology yesterday based on her readings did recommend a decrease down to torsemide 40 b.i.d. She has been getting some IV fluids. She has been consuming 100% of her meals. She does have a history of diabetes and Accu-Cheks have all been acceptable, less than 200. She is only on oral agents, but actually on no meds currently, as she had to be taken off metformin in the past due to renal insufficiency. She also has painful neuropathy, did require some extra doses of hydrocodone last night to help her sleep. OBJECTIVE: Vital Signs: Objectively, her weight is up to 81.7 kg, temp 97.8, pulse 54, blood pressure 101/44, respiratory rate 16, and O2 of 94% on 2 L. General: She is in no acute distress. Cardiovascular: Her heart is irregularly irregular with murmur. Lungs: Sounds are clear to auscultation bilaterally without crackles or wheezes. Abdomen: Nondistended. Extremities: Warm and dry. She has no edema. Mental Status: She is alert. She is orientated x3. Skin: She does have multiple bruising. LABORATORY DATA: Lab work done today does show her white count 5, hemoglobin 11.3, and platelets 81. INR 2.3. Sodium 137, potassium 3.8, chloride 99, bicarb 29, BUN 64, and creatinine 2.4. CRP 6.1. BNP down to 6238. Digoxin level down now to 1.53. ASSESSMENT AND PLAN: 1. Confusion and delirium related to urinary tract infection. 2. Gram-negative urinary tract infection, on Cipro day #3 oral, tolerating med. Culture pending. 3. Acute kidney injury from over-diuresis. This is improving. We will continue to monitor. 4. Type 2 diabetes, controlled off medications. 5. Head contusion and head hematoma. The patient's mentation is improving. 6. Atrial fibrillation with supratherapeutic INR. INR is now back in range. We can restart anticoagulation. 7. Chronic diastolic heart failure. We are adjusting diuretics and monitoring her CardioMEMS device. 8. Obesity. 9. Recent toe amputation with diabetic neuropathy, which is painful. We will get her back on her regular scheduled hydrocodone. PLAN: At this point, the patient will continue on oral torsemide 40 mg twice daily. We will restart her Coumadin today. We will continue to hold her digoxin. I will stop her atenolol and change her over to Toprol due to her renal insufficiency and heart rates down into the 40s yesterday on telemetry. Otherwise, we will stop her IV fluids and repeat lab work tomorrow. MKA: 11/30/2018 09:02:35 MODL: 11/30/2018 09:23:41 /[id number]
[2018-11-30] MEDS ORDERED: Acetaminophen/HYDROcodone 325-5 MG Tab PO SCH (16:00)
[2018-11-30] MEDS: Pramipexole 0.125 MG Tab PO SCH (16:11)
[2018-11-30] MEDS: Allopurinol 300 MG Tab PO SCH (16:12)
[2018-11-30] MEDS: Zinc (Zinc Gluconate) 50 MG Tab PO SCH (16:12)
[2018-11-30] MEDS: Gabapentin 100 MG Cap PO SCH ×2 (16:12→21:12)
[2018-11-30] MEDS: Ciprofloxacin 250 MG Tab PO SCH (16:13)
[2018-11-30] MEDS ORDERED: Metoprolol Succinate 50 MG Tab.ER PO SCH (20:00)
[2018-11-30] MEDS ORDERED: Warfarin 2.5 MG Tab PO SCH (20:00)
[2018-11-30] MEDS: Pramipexole 0.5 MG Tab PO SCH (21:12)
[2018-11-30] MEDS: Acetaminophen/HYDROcodone 325-5 MG Tab PO SCH (21:12)
[2018-11-30] MEDS: Citalopram 20 MG Tab PO SCH (21:12)
[2018-12-01 07:21] LABS: ANION GAP 11.1 mmol/L (10-20)
[2018-12-01] MEDS: Famotidine 20 MG Tab PO SCH (08:00)
[2018-12-01] MEDS: Torsemide 20 MG Tab PO SCH (08:00)
[2018-12-01] MEDS: Multivitamins with Iron/Calcium/Folic Acid/Minerals Tab PO SCH (08:00)
[2018-12-01] MEDS: Cyanocobalamin (Vitamin B12) 1,000 MCG Tab PO SCH (08:00)
[2018-12-01] MEDS: Fluticasone-Salmeterol 232-14 MCG Powder Inhalent INH SCH (08:01)
[2018-12-01 11:18] VITALS: BP 103/62
--- NOTE | 2018-12-01 13:26 | DISCH ---
PRIMARY DISCHARGE DIAGNOSES: 1. Escherichia coli urinary tract infection with acute delirium. 2. Fall. The patient unaware of passing out, but likely she became bradycardic and fell. 3. Bradycardia due to medications with digoxin. 4. Acute kidney injury from overdiuresis with furosemide and Aldactone. 5. Supratherapeutic INR with bruising over the forehead and left hip. Head CT normal. 6. Type 2 diabetes, controlled. 7. Head contusion and hematoma, improved. Normal mentation on discharge. 8. Atrial fibrillation, rate controlled. Digoxin stopped, and atenolol changed to metoprolol and decreased to 25 mg daily the morning of discharge as she still was having heart rates down as low as 39. 9. Chronic diastolic heart failure with CardioMEMS device. She was having no acute exacerbation and her dose was actually decreased to 40 mg twice daily. 10.Obesity. 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 She also has a left second toe eschar scab noted. It was not deep. No cellulitis. She does have followup plan with Podiatry. 12.Painful diabetic neuropathy and generalized osteoarthritis, on hydrocodone. 13.Restless legs syndrome. 14.Thrombocytopenia. 15.Obstructive sleep apnea. REASON FOR ADMISSION: On the date of admission, this 78-year-old female came into the clinic for an INR check, was found to be very confused, and was sent over to the ER for further evaluation as she had also had that bruise on her head. She had some incontinence, which she says she has normally when she waits too long. She really does not remember all the events of that day. Creatinine was up to 2.9. Her digoxin level was elevated. She was placed on acute cares, placed on telemetry, and had many heart rates down into the 40s and up to 2.6 second pauses. Therefore, digoxin was stopped and atenolol was adjusted, especially since it is renally cleared. Her creatinine improved down to 2.2, which is near her range, which has been fluctuating in the 1.5 to just around 2 range for quite some time. She does get quite frequent monitoring by the [facility]. White count, which was initially elevated, did normalize. She was afebrile. She was receiving Cipro, which she was tolerating. Culture grew E. coli, which was sensitive. Given her renal insufficiency and other allergies, we elected to keep her on Cipro to complete a full 5-day course. Hemoglobin on discharge was 11.8 and platelets were 85, but they dipped down to 81. She was not having any worsening bleeding. She has always been an easy bruiser because of the Coumadin. Her dose was held for several days and restarted, and she is 1.6 on discharge. Normally would take 1.25 today, but plans to take 2.5 over the weekend and recheck Tuesday. Blood sugars were all in the last 24 hours less than 154. Her proBNP was elevated on admission, but with her renal insufficiency, I am not even quite sure what that means as she was clearly dehydrated. Pressures were monitored by [place] with the CardioMEMS. They had actually come down lower than previous readings. The patient also has obstructive sleep apnea and used her home device during her stay. PHYSICAL EXAMINATION: Vital Signs: Discharge vitals include a temperature of 97.6, pulse 47, blood pressure 110/88, respiratory rate 14, and O2 of 92 and later charted at 98 on room air. General: She is in no acute distress. Heart: Regularly irregular with murmur noted. Lungs: Lung sounds are clear to auscultation bilaterally without crackles or wheezes. Abdomen: Nondistended and nontender. Extremities: Warm and dry. Actually, the patient has no edema when compared to previous exams. She did have that scabbed eschar on the left toe, but there is no swelling or surrounding redness or warmth. Mental Status: She is alert. She is orientated x3. She is answering questions appropriately, and she is quite excited and hopeful to return home. She did have temperature up to 100.6 on admission also, but had no further fevers throughout her stay. DISCHARGE PLANS AND INSTRUCTIONS: She is going home without Home Health. She declines Home Health. She will have her diabetic low-sodium diet. She will follow up with Dr. Card in the clinic on 12/07/2018 at 1 p.m. She will take Cipro for 5 more doses. She will stop the digoxin, stop the atenolol, and be on metoprolol 25 mg daily. She will return to the clinic on Tuesday for an INR, and should have her blood pressure and heart rate checked at that time. She will see Podiatry about her toe. She will be on torsemide 40 mg twice daily unless otherwise directed by Cardiology and she will be on Coumadin 2.5 daily with an INR on Tuesday. I will also check a BMP and CBC when she sees me on 12/07/2018. Greater than 30 minutes spent on this discharge process. MKA: 12/01/2018 10:43:32 MODL: 12/01/2018 13:18:29 /[id number]
[2018-12-01] MEDS ORDERED: Warfarin 2.5 MG Tab PO SCH (20:00)
== END 2018-12-01 13:45 | disposition home or self-care (01) | DRG 683 ==
LOC: VM.ED 16:39 → VM.MS 18:53
PROVIDERS: ADMIT Family Medicine; ATTEND Internal Medicine
DX: N17.9 Acute kidney failure, unspecified (principal); I50.32 Chronic diastolic (congestive) heart failure; N30.01 Acute cystitis with hematuria; R79.1 Abnormal coagulation profile; I48.2 Chronic atrial fibrillation; R79.89 Other specified abnormal findings of blood chemistry; Z77.021 Contact with and (suspected) exposure to benzene; Z88.1 Allergy status to other antibiotic agents; E78.5 Hyperlipidemia, unspecified; I11.0 Hypertensive heart disease with heart failure; G47.33 Obstructive sleep apnea (adult) (pediatric); E66.9 Obesity, unspecified; J45.909 Unspecified asthma, uncomplicated; E53.8 Deficiency of other specified B group vitamins; W19.XXXA Unspecified fall, initial encounter; S00.83XA Contusion of other part of head, initial encounter; E86.0 Dehydration; R00.1 Bradycardia, unspecified; T46.0X5A Adverse effect of cardiac-stimulant glycosides and drugs of similar action, initial encounter; T50.1X5A Adverse effect of loop [high-ceiling] diuretics, initial encounter; T50.0X5A Adverse effect of mineralocorticoids and their antagonists, initial encounter; M15.9 Polyosteoarthritis, unspecified; G25.81 Restless legs syndrome; Z91.041 Radiographic dye allergy status; Z91.013 Allergy to seafood; Z89.411 Acquired absence of right great toe; Z90.49 Acquired absence of other specified parts of digestive tract; Z88.7 Allergy status to serum and vaccine; Z98.49 Cataract extraction status, unspecified eye; Z88.8 Allergy status to other drugs, medicaments and biological substances; Z85.3 Personal history of malignant neoplasm of breast; Z88.5 Allergy status to narcotic agent; Z91.040 Latex allergy status; Z68.29 Body mass index [BMI] 29.0-29.9, adult; Z91.048 Other nonmedicinal substance allergy status; Z79.01 Long term (current) use of anticoagulants; Z79.899 Other long term (current) drug therapy; H35.30 Unspecified macular degeneration; I48.91 Unspecified atrial fibrillation; Z86.718 Personal history of other venous thrombosis and embolism; I50.9 Heart failure, unspecified; E78.00 Pure hypercholesterolemia, unspecified; G47.30 Sleep apnea, unspecified; K21.9 Gastro-esophageal reflux disease without esophagitis; E11.21 Type 2 diabetes mellitus with diabetic nephropathy; E11.40 Type 2 diabetes mellitus with diabetic neuropathy, unspecified; F32.9 Major depressive disorder, single episode, unspecified; F41.9 Anxiety disorder, unspecified
CPT/HCPCS: 36415; 51798; 70450; 71045; 72125; 80048; 80053; 80076; 80162; 81001; 82962; 83605; 83735; 83880; 84443; 84484; 85025; 85610; 86140; 87040; 87086; 87088; 87186; 93005; 94760; 96360; 96361; 97161-GP; 99284-GF; 99285-25; A9270-GY; G0515-GO; J7030; J7120

== ENCOUNTER 2019-01-13 10:17 | Emergency (ER) | payer MEDICARE, OTHER ==
[2019-01-13] MEDS ORDERED: cefTRIAXone 1 GM, Lidocaine 1% 2.1 ML IM ONE ×2 (10:43)
--- NOTE | 2019-01-13 10:43 | EDM.PDOC ---
ED HPI GENERAL MEDICAL PROBLEM - General Chief Complaint: Wound Recheck Stated Complaint: POSSIBLE INFECTION IN RT FOOT Time Seen by Provider: 01/13/19 10:37 Source of Information: Reports: Patient, RN, RN Notes Reviewed History Limitations: Reports: No Limitations - History of Present Illness INITIAL COMMENTS - FREE TEXT/NARRATIVE: Patient presents to the ED at [facility] for the evaluation of LLE redness, swelling, warmth, and erythema. Patient had a distal toe removed a little while ago and states that has been healing well. She has some discomfort/ache to the LLE. No fevers or chills. Onset: Gradual Onset Date: 01/12/19 - Related Data Allergies Allergy/AdvReac Type Severity Reaction Status Date / Time adhesive Allergy Hives Verified 01/13/19 10:18 azithromycin [From Zithromax] Allergy Hives Verified 01/13/19 10:18 ezetimibe [From Zetia] Allergy Other Verified 01/13/19 10:18 tetanus toxoid, adsorbed Allergy Cannot Verified 01/13/19 10:18 Remember amoxicillin AdvReac Diarrhea Verified 01/13/19 10:18 atorvastatin calcium AdvReac Muscle Verified 01/13/19 10:18 [From Lipitor] Aches clindamycin [From Cleocin] AdvReac Mouth Sores Verified 01/13/19 10:18 shellfish derived AdvReac Vomiting Verified 01/13/19 10:18 simvastatin [From Zocor] AdvReac Muscle Verified 01/13/19 10:18 Aches IV contrast Allergy Other Uncoded 10/24/18 09:33 Home Meds: Home Meds Allopurinol 300 mg PO DAILY@1600 09/04/14 [History] Cyanocobalamin (Vitamin B-12) [Vitamin B-12] 1,000 mcg PO BID@0800,1600 [History] Escitalopram [Lexapro] 20 mg PO BEDTIME 09/04/14 [History] Famotidine [Pepcid] 20 mg PO DAILY 09/04/14 [History] Lovastatin [Mevacor] 20 mg PO BEDTIME 09/04/14 [History] Multivitamin [Multi-Vitamin Daily] 1 tab PO MOWEFR@0800 09/04/14 [History] Zinc Gluconate [Zinc] 50 mg PO DAILY@1600 04/02/15 [History] Fluticasone Propionate [Flonase] 1 spray NASBOTH BID PRN 04/01/17 [History] Pramipexole [Mirapex] 0.25 mg PO DAILY@1600 06/04/17 [History] Pramipexole [Mirapex] 0.5 mg PO ASDIRECTED 06/04/17 [History] Warfarin [Coumadin] 2.5 mg PO ASDIRECTED 06/04/17 [History] Acetaminophen/HYDROcodone [[place] 325-5 MG] 1 tab PO DAILY@1600 10/19/17 [History ] Budesonide/Formoterol Fumarate [Symbicort 160-4.5 Mcg Inhaler] 1 puff IH BID 02/28 [History] Acetaminophen 1,000 mg PO Q6HR PRN 10/24/18 [History] Acetaminophen/HYDROcodone [[place] 325-5 MG] 1 tab PO BEDTIME 10/24/18 [History] Bisacodyl [Dulcolax] 5 mg PO DAILY PRN 10/24/18 [History] Gabapentin [Neurontin] 100 mg PO DAILY@1600 10/24/18 [History] Gabapentin [Neurontin] 200 mg PO BEDTIME 10/24/18 [History] Hydrocortisone [Anusol-HC] 1 applic RC Q4HR PRN 10/24/18 [History] Nitroglycerin [Nitrostat] 0.4 mg SL ASDIRECTED PRN 10/24/18 [History] Ondansetron HCl [Ondansetron] 4 mg PO Q6HR PRN 10/24/18 [History] Torsemide 20 mg PO ASDIRECTED PRN 10/24/18 [History] Ciprofloxacin [Ciprofloxacin HCl] 250 mg PO DAILY@1700 #5 tablet 12/01/18 [Rx] Metoprolol Succinate [Toprol XL 50mg] 25 mg PO BEDTIME #30 tab.er 12/01/18 [Rx] Torsemide [Demadex] 40 mg PO BIDDIURETIC tablet 12/01/18 [Rx] Past Medical History HEENT History: Reports: None, Allergic Rhinitis, Cataract, Macular Degeneration , Other (See Below) Other HEENT History: astigmatism, presbyopia, myopia, pseudophakia Cardiovascular History: Reports: Afib, Blood Clots/VTE/DVT, Heart Failure, Heart Murmur, High Cholesterol, Pulmonary Hypertension Other Cardiovascular History: Aortic stenosis, leg swelling Respiratory History: Reports: Sleep Apnea, Other (See Below) Other Respiratory History: pneumonia 2014, reactive airway disease that is not asthma Gastrointestinal History: Reports: GERD Genitourinary History: Reports: Diabetic Nephropathy, Other (See Below) Other Genitourinary History: Microscopic hematuria [employer]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: Musculoskeletal History: Reports: Gout, Osteoarthritis, Other (See Below) Other Musculoskeletal History: Restless leg syndrome Neurological History: Reports: None, Neuropathy, Diabetic, Other (See Below) Other Neuro History: syncope Psychiatric History: Reports: Anxiety, Depression Endocrine/Metabolic History: Reports: Diabetes, Type II, Obesity/BMI 30+, Osteopenia, Other (See Below) Other Endocrine/Metabolic History: B12 deficiency Hematologic History: Reports: None Immunologic History: Reports: None Oncologic (Cancer) History: Reports: Breast Dermatologic History: Reports: Cellulitis, Other (See Below) Other Dermatologic History: dry skin, yeast infections, diabetic foot ulcer, gangerene of left foot - Past Surgical History HEENT Surgical History: Reports: Cataract Surgery, Tonsillectomy, Other (See Below) Other HEENT Surgeries/Procedures: capsulotomy Cardiovascular Surgical History: Reports: None Respiratory Surgical History: Reports: None GI Surgical History: Reports: Appendectomy, Cholecystectomy Female Surgical History: Reports: Hysterectomy, Mastectomy, Tubal Ligation, Other (See Below) Other Female Surgeries/Procedures: left mastectomy Endocrine Surgical History: Reports: None Neurological Surgical History: Reports: None Musculoskeletal Surgical History: Reports: Hip Replacement, Other (See Below) Other Musculoskeletal Surgeries/Procedures:: Left elbow surgery. Chronic osteomyelitis of left foot Oncologic Surgical History: Reports: Mastectomy Dermatological Surgical History: Reports: None Social & Family History - Family History Family Medical History: Noncontributory Cardiac: Reports: PVD/COD Oncologic: Reports: Lung - Tobacco Use Smoking Status *Q: Never Smoker - Caffeine Use Caffeine Use: Reports: Tea - Alcohol Use Days Per Week of Alcohol Use: 7 Number of Drinks Per Day: 1 Total Drinks Per Week: 7 - Recreational Drug Use Recreational Drug Use: No ED ROS GENERAL - Review of Systems Review Of Systems: See Below Constitutional: Denies: Fever, Chills Respiratory: Denies: Shortness of Breath, Cough Cardiovascular: Denies: Chest Pain, Palpitations Skin: Reports: Erythema, Wound Neurological: Reports: No Symptoms ED EXAM, SKIN/RASH Exam: See Below Exam Limited By: No Limitations General Appearance: Alert, No Apparent Distress Respiratory/Chest: No Respiratory Distress, Lungs Clear, Normal Breath Sounds Cardiovascular: Normal Peripheral Pulses, Regular Rate, Rhythm, Other (+3 dependent pitting edema LLE; red, warm, and erythematous consistent with a cellulitis) Neurological: Alert, Oriented Skin: Warm, Dry, Intact Course - Vital Signs Last Recorded V/S: Last Vital Signs Temp 97.8 F 01/13/19 10:19 Pulse 90 01/13/19 10:19 Resp 16 01/13/19 10:19 BP 136/62 01/13/19 10:19 Pulse Ox 96 01/13/19 10:19 Departure - Departure Time of Disposition: 10:43 Disposition: Home, Self-Care 01 Condition: Good Clinical Impression: Cellulitis Qualifiers: Site of cellulitis: extremity Site of cellulitis of extremity: lower extremity Laterality: left Qualified Code(s): L03.116 - Cellulitis of left lower limb - Discharge Information *PRESCRIPTION DRUG MONITORING PROGRAM REVIEWED*: Not Applicable *COPY OF PRESCRIPTION DRUG MONITORING REPORT IN PATIENT SHASHI: Not Applicable Instructions: Cellulitis, Adult Referrals: Rea Card DO [Physician] - Additional Instructions: 1. Stay well hydrated and rest 2. Take antibiotics for the full coarse, even is symptoms are better 3. Rest, elevate, and ice lower left leg several times a day 4. Recommend seeing Dr. Card next week for a recheck 5. Call us if you have any questions or concerns - Problem List Review Problem List Initiated/Reviewed/Updated: Yes - Assessment/Plan Assessment:: Cellulitis of LLE Plan: Will give 1 gram of IM Rocephin today and have patient start Cephalexin TID for 10 days starting tomorrow. Rest, elevate, and ice the LLE several times a day. See PCP next week for a recheck.
[2019-01-13 11:28] VITALS: BP 137/53; PULSE 99
== END 2019-01-13 11:28 | disposition home or self-care (01) ==
LOC: VM.ED 10:17
DX: L03.116 Cellulitis of left lower limb (principal); E11.40 Type 2 diabetes mellitus with diabetic neuropathy, unspecified; I48.91 Unspecified atrial fibrillation; I50.9 Heart failure, unspecified; E11.21 Type 2 diabetes mellitus with diabetic nephropathy; F41.9 Anxiety disorder, unspecified; F32.9 Major depressive disorder, single episode, unspecified; K21.9 Gastro-esophageal reflux disease without esophagitis; E78.00 Pure hypercholesterolemia, unspecified; Z79.899 Other long term (current) drug therapy; Z91.09 Other allergy status, other than to drugs and biological substances; Z88.1 Allergy status to other antibiotic agents; Z88.7 Allergy status to serum and vaccine; Z91.041 Radiographic dye allergy status; Z88.8 Allergy status to other drugs, medicaments and biological substances
CPT/HCPCS: 96372; 99283; J0696; J2001

== ENCOUNTER 2019-02-18 17:27 | Inpatient (IN) | payer MEDICARE, OTHER ==
--- NOTE | 2019-02-18 17:50 | EDM.PDOC ---
ED HPI GENERAL MEDICAL PROBLEM - General Chief Complaint: Respiratory Problem Stated Complaint: Shortness of breath ongoing for last couple days Time Seen by Provider: 02/18/19 17:40 Source of Information: Reports: Patient, Family - History of Present Illness INITIAL COMMENTS - FREE TEXT/NARRATIVE: PT states over the last couple days she's been having increased shortness of breath states that her implanted CHF device cardiomems readings has been coming back elevated a little more each day. She also has complaints of bilateral foot pain and ulcerations secondary to chronic diabetic foot ulcers she was last seen Tuesday at [place] in the ER for this she has been currently getting treatment with podiatry. She has no complaints at this time currently takes Coumadin for chronic A. fib Duration: Day(s): Improves with: Reports: Medication Worsens with: Reports: None Associated Symptoms: Reports: Shortness of Breath. 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: Reports: Other (see below) (Patient takes torosomide daily for CHF) - Related Data Allergies Allergy/AdvReac Type Severity Reaction Status Date / Time adhesive Allergy Hives Verified 02/18/19 18:03 atorvastatin [From Lipitor] Allergy Muscle Verified 02/18/19 18:03 Aches azithromycin [From Zithromax] Allergy Hives Verified 02/18/19 18:03 cefazolin [From Ancef] Allergy Anaphylactic Verified 02/18/19 18:03 Shock ezetimibe [From Zetia] Allergy Other Verified 02/18/19 18:03 tetanus toxoid, adsorbed Allergy Cannot Verified 02/18/19 18:03 Remember amoxicillin AdvReac Diarrhea Verified 02/18/19 18:03 atorvastatin calcium AdvReac Muscle Verified 02/18/19 18:03 [From Lipitor] Aches clindamycin [From Cleocin] AdvReac Mouth Sores Verified 02/18/19 18:03 shellfish derived AdvReac Vomiting Verified 02/18/19 18:03 simvastatin [From Zocor] AdvReac Muscle Verified 02/18/19 18:03 Aches IV contrast Allergy Other Uncoded 10/24/18 09:33 Home Meds: Home Meds Allopurinol 300 mg PO DAILY@1600 09/04/14 [History] Cyanocobalamin (Vitamin B-12) [Vitamin B-12] 1,000 mcg PO BID@0800,1600 [History] Escitalopram [Lexapro] 20 mg PO BEDTIME 09/04/14 [History] Lovastatin [Mevacor] 20 mg PO BEDTIME 09/04/14 [History] Multivitamin [Multi-Vitamin Daily] 1 tab PO MOWEFR@0800 09/04/14 [History] Zinc Gluconate [Zinc] 50 mg PO DAILY@1600 04/02/15 [History] Fluticasone Propionate [Flonase] 1 spray NASBOTH BID PRN 04/01/17 [History] Pramipexole [Mirapex] 0.25 mg PO DAILY@1600 06/04/17 [History] Pramipexole [Mirapex] 0.5 mg PO ASDIRECTED 06/04/17 [History] Warfarin [Coumadin] 2.5 mg PO ASDIRECTED 06/04/17 [History] Budesonide/Formoterol Fumarate [Symbicort 160-4.5 Mcg Inhaler] 1 puff IH BID 02/28 [History] Acetaminophen 1,000 mg PO Q6HR PRN 10/24/18 [History] Acetaminophen/HYDROcodone [[place] 325-5 MG] 5 - 325 mg PO BID 10/24/18 [History] Gabapentin [Neurontin] 100 mg PO DAILY 10/24/18 [History] Gabapentin [Neurontin] 200 mg PO BEDTIME 10/24/18 [History] Hydrocortisone [Anusol-HC] 1 applic RC Q4HR PRN 10/24/18 [History] Nitroglycerin [Nitrostat] 0.4 mg SL ASDIRECTED PRN 10/24/18 [History] Ondansetron HCl [Ondansetron] 4 mg PO Q6HR PRN 10/24/18 [History] Metoprolol Succinate [Toprol XL 50mg] 25 mg PO BEDTIME #30 tab.er 12/01/18 [Rx] Pantoprazole Sodium [Protonix] 40 mg PO DAILY 01/13/19 [History] Torsemide [Demadex] 60 mg PO BIDDIURETIC 01/13/19 [History] Past Medical History HEENT History: Reports: None, Allergic Rhinitis, Cataract, Macular Degeneration , Other (See Below) Other HEENT History: astigmatism, presbyopia, myopia, pseudophakia Cardiovascular History: Reports: Afib, Blood Clots/VTE/DVT, Heart Failure, Heart Murmur, High Cholesterol, Pulmonary Hypertension Other Cardiovascular History: Aortic stenosis, leg swelling Respiratory History: Reports: Sleep Apnea, Other (See Below) Other Respiratory History: pneumonia 2014, reactive airway disease that is not asthma Gastrointestinal History: Reports: GERD Genitourinary History: Reports: Diabetic Nephropathy, Other (See Below) Other Genitourinary History: Microscopic hematuria GLUE MAKER 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 History: Reports: Musculoskeletal History: Reports: Gout, Osteoarthritis, Other (See Below) Other Musculoskeletal History: Restless leg syndrome Neurological History: Reports: None, Neuropathy, Diabetic, Other (See Below) Other Neuro History: syncope Psychiatric History: Reports: Anxiety, Depression Endocrine/Metabolic History: Reports: Diabetes, Type II, Obesity/BMI 30+, Osteopenia, Other (See Below) Other Endocrine/Metabolic History: B12 deficiency Hematologic History: Reports: None Immunologic History: Reports: None Oncologic (Cancer) History: Reports: Breast Dermatologic History: Reports: Cellulitis, Other (See Below) Other Dermatologic History: dry skin, yeast infections, diabetic foot ulcer, gangerene of left foot - Past Surgical History HEENT Surgical History: Reports: Cataract Surgery, Tonsillectomy, Other (See Below) Other HEENT Surgeries/Procedures: capsulotomy Cardiovascular Surgical History: Reports: None Respiratory Surgical History: Reports: None GI Surgical History: Reports: Appendectomy, Cholecystectomy Female Surgical History: Reports: Hysterectomy, Mastectomy, Tubal Ligation, Other (See Below) Other Female Surgeries/Procedures: left mastectomy Endocrine Surgical History: Reports: None Neurological Surgical History: Reports: None Musculoskeletal Surgical History: Reports: Hip Replacement, Other (See Below) Other Musculoskeletal Surgeries/Procedures:: Left elbow surgery. Chronic osteomyelitis of left foot Oncologic Surgical History: Reports: Mastectomy Dermatological Surgical History: Reports: None Social & Family History - Family History Family Medical History: Noncontributory Cardiac: Reports: PVD/COD Oncologic: Reports: Lung - Caffeine Use Caffeine Use: Reports: Tea ED ROS GENERAL - Review of Systems Review Of Systems: See Below Constitutional: Reports: No Symptoms. Denies: Fever, Chills, Malaise, Weakness , Fatigue HEENT: Reports: No Symptoms Respiratory: Reports: Shortness of Breath. Denies: Wheezing, Pleuritic Chest Pain, Cough, Sputum, Hemoptysis Cardiovascular: Reports: No Symptoms Endocrine: Reports: No Symptoms GI/Abdominal: Reports: No Symptoms : Reports: No Symptoms Musculoskeletal: Reports: Other (Bilateral heel pain secondary to ulcerations). Denies: Joint Swelling Skin: Reports: No Symptoms, Other (Noted erythema to the right ankle) Neurological: Reports: No Symptoms Psychiatric: Reports: No Symptoms Hematologic/Lymphatic: Reports: No Symptoms Immunologic: Reports: No Symptoms ED EXAM, GENERAL - Physical Exam Exam: See Below Exam Limited By: No Limitations General Appearance: Alert, WD/WN, No Apparent Distress, Other (Patient with a normal gait using a walker to enter the ER no noted dyspnea on exertion or shortness of breath and normal speech) Eye Exam: Bilateral Eye: PERRL Ears: Normal External Exam Throat/Mouth: Normal Inspection, Normal Lips, Normal Teeth, Normal Gums, Normal Oropharynx, Normal Voice, No Airway Compromise Neck: Normal Inspection, Supple, Non-Tender, Full Range of Motion, Other ( Negative JVD) Respiratory/Chest: No Respiratory Distress, Lungs Clear, Normal Breath Sounds, No Accessory Muscle Use, Chest Non-Tender Cardiovascular: Normal Peripheral Pulses, No JVD, Systolic Murmur, Other (+1 bilateral pedal edema). No: Regular Rate, Rhythm, No Edema, No Gallop, No Murmur GI/Abdominal: Normal Bowel Sounds, Soft, Non-Tender, No Organomegaly, No Distention, Other (No hepatojugular reflux) Extremities: Normal Range of Motion, Other (Noted bilateral ulcerations stage I left 4x 5 cm on the right 4 x 6 cm noted mild erythematous streaking from the ankle proximally to the distal tibia or noted). No: Normal Inspection, Non- Tender, No Pedal Edema Neurological: Alert, Oriented, CN II-XII Intact, Normal Cognition, Normal Gait, No Motor/Sensory Deficits Psychiatric: Normal Affect, Normal Mood Skin Exam: Warm, Dry, Normal Color, Erythema, Other (As noted above). No: Intact Lymphatic: No Adenopathy Course - Vital Signs Text/Narrative:: CBC BMP coags chest x-ray BNP EKG chronic A. fib no acute findings Patient will be admitted for CHF cellulitis to the right foot chronic renal insufficiency subtherapeutic Coumadin level bilateral foot ulcers Patient will be admitted by Dr. Rea Card Last Recorded V/S: Last Vital Signs Temp 36.9 C 02/18/19 17:29 Pulse 99 02/18/19 18:30 Resp 20 02/18/19 18:30 BP 115/58 L 02/18/19 18:30 Pulse Ox 89 L 02/18/19 18:30 - Orders/Labs/Meds Orders: Active Orders 24 hr Category Date Time Status EKG 12 Lead [EKG Documentation Completion] [RC] STAT Care 02/18/19 17:44 Ordered Labs: Laboratory Tests 02/18/19 02/18/19 02/18/19 Range/Units 18:02 18:02 18:02 WBC 7.8 (4.0-10.0) x10^3/uL RBC 3.53 L (4.00-5.50) x10^6/uL Hgb 10.9 L (12.0-16.0) g/dL Hct 33.7 (33.0-47.0) % MCV 95.5 H (78.0-93.0) fL MCH 30.9 (26.0-32.0) pg MCHC 32.3 (32.0-36.0) g/dL RDW Coeff of Erum 15.9 H (10.0-15.0) % Plt Count 126 L (130-400) x10^3/uL PT 13.7 H (10.0-12.8) SEC INR 1.2 L (2.0-3.5) Sodium 136 (136-145) mmol/L Potassium 4.6 (3.5-5.1) mmol/L Chloride 98 (98-107) mmol/L Carbon Dioxide 30 (21-32) mmol/L Anion Gap 12.6 (10-20) mmol/L BUN 39 H (7-18) mg/dL Creatinine 1.7 H (0.55-1.02) mg/dL Est Cr Clr Drug Dosing TNP Estimated GFR (MDRD) 29 Glucose 115 H (74-106) mg/dL Calcium 8.7 (8.5-10.1) mg/dL NT-Pro-B Natriuret Pep 5123 H (<=450) pg/mL Departure - Departure Time of Disposition: 19:00 Disposition: Admitted As Inpatient 64 Condition: Good Clinical Impression: CHF (congestive heart failure), Diabetic foot ulcers, Renal insufficiency, Cellulitis in diabetic foot - Discharge Information Forms: ED Department Discharge - Problem List & Annotations (1) CHF (congestive heart failure) SNOMED Code(s): 75268630 Code(s): I50.9 - HEART FAILURE, UNSPECIFIED Status: Acute Current Visit: Yes (2) Renal insufficiency SNOMED Code(s): 455455372, 141829235 Code(s): N28.9 - DISORDER OF KIDNEY AND URETER, UNSPECIFIED Status: Acute Current Visit: Yes (3) Cellulitis in diabetic foot SNOMED Code(s): 265520042 Code(s): E11.628 - TYPE 2 DIABETES MELLITUS WITH OTHER SKIN COMPLICATIONS; L03.119 - CELLULITIS OF UNSPECIFIED PART OF LIMB Status: Acute Current Visit : Yes (4) Diabetic foot ulcers SNOMED Code(s): 415132161 Code(s): E11.621 - TYPE 2 DIABETES MELLITUS WITH FOOT ULCER; L97.509 - NON- PRESSURE CHRONIC ULCER OTH PRT UNSP FOOT W UNSP SEVERITY Status: Acute Current Visit: Yes Qualifiers: Diabetic foot ulcer location: heel - My Orders Last 24 Hours: My Active Orders 02/18/19 17:44 EKG 12 Lead [EKG Documentation Completion] [RC] STAT - Assessment/Plan Last 24 Hours: My Active Orders 02/18/19 17:44 EKG 12 Lead [EKG Documentation Completion] [RC] STAT
--- NOTE | 2019-02-18 18:18 | CR ---
[id number] RAD/RAD Chest PA or AP 1V EXAM: FRONTAL CHEST INDICATION: Shortness of breath and history of congestive heart failure. COMPARISON: November 28, 2018. DISCUSSION: There is stable cardiomegaly with borderline central vascular congestion. No acute infiltrates are identified. A metallic device overlies the left hilum similar to the previous examination. IMPRESSION: 1. Stable cardiomegaly with borderline central vascular congestion. Jose Manuel Prince MD 02/18/19 4601 Thank you for allowing us to participate in the care of your patient.
[2019-02-18 18:35] LABS: ANION GAP 12.6 mmol/L (10-20); CHLORIDE,CL 98 mmol/L (98-107); SODIUM,NA 136 mmol/L (136-145)
[2019-02-18] MEDS ORDERED: Furosemide 40 MG/4 ML VIAL IV ONE (19:57)
[2019-02-18] MEDS ORDERED: Nitroglycerin 0.4 MG Tab.SL SL PRN (19:58)
[2019-02-18] MEDS ORDERED: Pramipexole 0.5 MG Tab PO PRN (19:58)
[2019-02-18] MEDS ORDERED: Ondansetron 4 MG Tab.DIS PO PRN (19:58)
[2019-02-18] MEDS ORDERED: Piperacillin/Tazobactam 3.375 GM in Sodium Chloride 0.9% 100 ML IV SCH (20:00)
[2019-02-18] MEDS ORDERED: Non-Formulary Medication 1 Each (Budesonide/Formoterol 1 PUFF) IH SCH (20:00)
[2019-02-18] MEDS: Citalopram 20 MG Tab PO SCH (21:00)
[2019-02-18] MEDS: Acetaminophen/HYDROcodone 325-5 MG Tab PO SCH (21:00)
[2019-02-18] MEDS: Metoprolol Succinate 25 MG Tab.ER PO SCH (21:00)
[2019-02-18] MEDS: Gabapentin 100 MG Cap PO SCH (21:00)
[2019-02-18] MEDS: Fluticasone-Salmeterol 232-14 MCG Powder Inhalent INH SCH (21:30)
[2019-02-18] MEDS ORDERED: Piperacillin/Tazobactam 4.5 GM in Sodium Chloride 0.9% 100 ML IV ONE (21:30)
--- NOTE | 2019-02-18 21:35 | HP ---
CHIEF COMPLAINT: Shortness of breath and foot pain. HISTORY OF PRESENT ILLNESS: This is an 79-year-old female with a known history of diastolic heart failure, who actually has recurrent heart failure and a CardioMEMS device. Her broker in charge has reached out to me that she has had increasing pressures over the past weeks. They are questioning if she is taking her medications appropriately. Even though she is on Coumadin, her level is also down to just 1.2. The patient denied any chest pain, but she has needed to sleep in her chair. She has not been using her CPAP when she is in her chair. She was also recently in the ER in [place] as she was trying to get into Podiatry for some bilateral heel ulcers that developed. She has had multiple previous diabetic foot ulcers and osteomyelitis, even though her diabetes is well controlled. She has painful diabetic neuropathy. She has had increasing pain. She has had some increasing redness and drainage, but no fevers. ALLERGIES: Otherwise, the patient's allergies newly, allergy is Ancef. She apparently got red when she got it prior to surgery. She is allergic to Zetia, azithromycin, atorvastatin, adhesives, tetanus, amoxicillin, Lipitor, clindamycin, shellfish, simvastatin, and IV contrast. PAST MEDICAL HISTORY: Aortic stenosis, atrial fibrillation, chronic history of breast cancer, anxiety, chronic diastolic heart failure with CardioMEMS device, depression, type 2 diabetes with painful diabetic neuropathy, remote history of DVT, GERD, hip replacement, cataract surgery, previous gout, severe pulmonary hypertension, hyperlipidemia, essential hypertension, obstructive sleep apnea, osteoarthritis, osteopenia, previous bladder infection with E coli, reactive airway disease, restless legs, and vitamin B12 deficiency. PAST SURGICAL HISTORY: She has had the multiple amputations of her toes on the left. Most recently, she has also had a right great toe amputated in 10/2018. She has had an appendectomy, bunionectomy, cataract, cholecystectomy, elbow surgery, hysterectomy, mastectomy on the left, tonsillectomy, total hip on the right, YAG laser surgery, and probably lipoma removal. FAMILY HISTORY: Mother is , had lung cancer. Father is , had heart disease. Sister with heart disease. SOCIAL HISTORY: She is . She has 3 children. Her 1 daughter, Arianna, is an emergency room nurse, who keeps an eye on her. 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 She never smoked. She does live independently. REVIEW OF SYSTEMS: General: She has not had any fever or chills. She is not aware of any significant weight changes. She had gained some weight earlier this January, but appears went back down. HEENT: No sore throat. Cardiac: No chest pain. No new palpitations, but has had orthopnea. Respiratory: No cough. Abdominal: She has been more constipated, but does not want to take laxatives, as then she gets diarrhea. Genitourinary: She has had cloudy urine, but no burning. Neurologic: She denies any increased forgetfulness, but it sounds like she has had to take a few extra pain pills due to increasing foot pain. Otherwise, all systems are reviewed and found to be negative unless otherwise stated. PHYSICAL EXAMINATION: Vital Signs: She does have a temperature of 98.4, her blood pressure of 115/58, respiratory rate of 20, and O2 of 89 on room air. General: She is in no acute distress. Heart: Irregularly irregular with murmur noted. Lungs: Lung sounds are decreased bilaterally, but no crackles or wheezes are appreciated. Abdomen: Positive bowel sounds. Soft, nondistended, and nontender. Extremities: Warm and dry. She does have an ulcer, which the skin has now been removed, to both heels, affecting the subcutaneous tissue, but it all appears to be healthy tissue, no necrotic, no deeper source to the bones. There is no active drainage. Her left 4th toe has some scabbing, but otherwise, all incisions are well healed. Mental Status: She is alert. She is orientated x3. LABORATORY DATA: Lab work does show her to have a normal white count of 7.8; hemoglobin 10.9, which is a decrease from her recent clinic hemoglobin; and platelets 126, actually up from her previous readings. INR is down to 1.2. Sodium 136, potassium 4.6, chloride 98, bicarb 30, BUN 39, creatinine 1.7, and glucose 115. ProBNP 5123. Calcium 8.7. Chest x-ray did not show any severe CHF concerns, but does have cardiomegaly with some borderline vascular congestion. Otherwise, the patient does have known atrial fibrillation. She is not having any history of stenting. No troponin had been requested. EKG shows atrial fibrillation. ASSESSMENT AND PLAN: 1. Acute on chronic diastolic heart failure exacerbation with known CardioMEMS. EF 65 % in 06/30. She also has aortic stenosis and pulmonary hypertension. We will notify the Cardiology Clinic of her admission. We can probably get her CardioMEMS reading here. It is supposed to be like around 30, and she has been up around 40. We will give her a dose of 20 mg of IV Lasix tonight, hold off on her torsemide, get her using her continuous positive airway pressure, I think that will help, with oxygen if needed. We will monitor ins and outs and daily weights. 2. Bilateral heel ulcers with a diabetic foot infection, seems to be more redness over the right ha, some redness on that left foot. Both areas are at risk for infection. Given her history, I am going to start her on some IV Zosyn. Nothing is available, however, to culture currently. We will just see how she responds. She has no history of MRSA. 3. Atrial fibrillation. She is on Coumadin. She is subtherapeutic. I will put her on deep venous thrombosis prophylaxis doses of Lovenox and give her 2.5 of Coumadin daily. Normally, she alternates with 1.25. 4. Obesity. 5. Diabetes with painful neuropathy. We will continue her Neurontin and her narcotics. We will do t.i.d. Accu-Cheks. Currently, she is diet controlled. We will give her insulin if needed. 6. Reactive airway disease. We will continue her on her inhalers. I do not believe she is having an asthma exacerbation leading to her breathing problems. 7. Essential hypertension. We will continue her home medications. 8. Anemia. We will repeat laboratory work and monitor. I think with diuresis, her hemoglobin will improve. 9. History of urinary tract infections. We will check a UA. PLAN: The patient will be admitted for acute cares. We will have her on some Lovenox and give her Coumadin. We will do wound cares. We will have her seen by Therapies. We will get Social Work involved. Anticipate she may even need a swing bed stay. The patient is agreeable. She is a code level 3. MKA: 02/18/2019 20:12:49 MODL: 02/18/2019 21:28:54 /[id number] KELLY
[2019-02-18] MEDS: Warfarin 2.5 MG Tab PO SCH (21:56)
[2019-02-18] MEDS: Enoxaparin 30 MG/0.3 ML Syringe SUBCUT SCH (22:16)
[2019-02-19] MEDS: Piperacillin/Tazobactam 3.375 GM in Sodium Chloride 0.9% 100 ML IV SCH ×3 (06:03→21:34)
[2019-02-19] MEDS: Fluticasone-Salmeterol 232-14 MCG Powder Inhalent INH SCH ×2 (06:04→20:11)
[2019-02-19] MEDS: Omeprazole 20 MG Cap.CR PO SCH (06:48)
[2019-02-19 07:16] LABS: ANION GAP 13.9 mmol/L (10-20)
[2019-02-19] MEDS: Gabapentin 100 MG Cap PO SCH ×2 (07:57→20:09)
[2019-02-19] MEDS: Multivitamin, Stress Formula with Zinc Tab PO SCH (07:57)
[2019-02-19] MEDS: Cyanocobalamin (Vitamin B12) 1,000 MCG Tab PO SCH ×2 (07:57→15:20)
[2019-02-19] MEDS: Acetaminophen/HYDROcodone 325-5 MG Tab PO SCH ×2 (07:57→20:10)
[2019-02-19] MEDS ORDERED: Pantoprazole 40 MG Tab.CR PO SCH (08:00)
[2019-02-19] MEDS: Furosemide 20 MG/2 ML VIAL IV SCH ×2 (08:32→15:19)
[2019-02-19] MEDS: Digoxin 500 MCG/2 ML Amp IVPUSH SCH ×2 (09:57→15:19)
--- NOTE | 2019-02-19 10:22 | PN ---
Progress Note for CHAI CHOUDHURY Date: 02/19/2019 Room #: [facility] SUBJECTIVE: Dictation #1 on an 79-year-old, hospital day #2 for heart failure exacerbation. She did get 40 mg of IV Lasix last night. She had a 1.9 L diuresis. She did have her CardioMEMS pressures at 48. Ideally, they should be around 30. They were going to add metolazone through the Heart Failure Clinic, but she has already been admitted. She feels her breathing is better. However, her foot pain is not any better. She has not had any fever or chills. She has been tachycardic with rates over 100 with her AFib on telemetry and some higher rates over 120. Otherwise, she is able to be on room air now, was 89% on admission. This morning, she is up to 94. She is not coughing. No abdominal pain. No chest pain. OBJECTIVE: Vital Signs: Her weight 83.59 kg, temp 97.8, pulse 102, blood pressure 105/77, respiratory rate 20, and O2 of 94% on room air. She did use her CPAP during the night. General: She is in no acute distress. Heart: Regularly irregular with murmur. Lungs: Lung sounds are clear to auscultation, but slightly decreased with some crackles in the low bases. Abdomen: Positive bowel sounds. Soft, nondistended, nontender. Extremities: Warm and dry. She does have some traces of edema. Mental Status: She is alert. She is orientated x3. LABORATORY DATA: Lab work does show her white count normal at 5.9, hemoglobin stable at 10.9, platelets 124. INR yesterday was low at 1.2. Sodium 139, potassium 3.9, chloride 109, bicarb 29, BUN 36, creatinine stable at 1.7, glucose 102, calcium 8.9, CRP 8.8, ESR was 65. UA did show 40 to 50 wbc's. ASSESSMENT: 1. [id number] diastolic heart failure exacerbation. EF 65% in 2018. We will give her 20 mg IV Lasix twice daily. She is normally on torsemide 60 b.i.d. Her blood pressures are trending lower. We will try to keep an eye on that and adjust diuretics as needed. 2. Atrial fibrillation with rapid ventricular response. I am going to restart her on digoxin 250 IV x2 today and 125 daily. We will continue with telemetry monitoring. 3. Bilateral heel ulcers and diabetic foot infection. She also has urinary tract infection. We will continue IV Zosyn and await her urine culture. 4. Obesity. 5. Painful diabetic neuropathy. She is on her Neurontin and has hydrocodone available. 6. Reactive airway disease. She is doing well. Continue home inhalers. 7. Obstructive sleep apnea. She will use her CPAP. 8. Essential hypertension. We will continue her metoprolol medication as this is also for rate control. She is otherwise on no other blood pressure medications. 9. Diabetes, diet controlled. Looks like blood sugars are looking okay. We will follow today and probably discontinue tomorrow if they are all excellent. 10.Anemia. Hemoglobin is stable. PLAN: At this point, the patient is to continue acute care. She is getting Lovenox, DVT prophylaxis doses as she is subtherapeutic on Coumadin. We will repeat an INR tomorrow. We will continue with wound cares. We will continue with IV Zosyn. We will continue with IV Lasix. Start her on IV digoxin and monitor with telemetry. She is a code level 3. MKA: 02/19/2019 09:17:49 MODL: 02/19/2019 10:15:33 /[id number]
[2019-02-19] MEDS: Pramipexole 0.125 MG Tab PO SCH (15:19)
[2019-02-19] MEDS: Allopurinol 300 MG Tab PO SCH (15:20)
[2019-02-19] MEDS: Zinc (Zinc Gluconate) 50 MG Tab PO SCH (15:20)
[2019-02-19] MEDS: Acetaminophen 500 MG Tab PO PRN (16:14)
[2019-02-19] MEDS: Citalopram 20 MG Tab PO SCH (20:09)
[2019-02-19] MEDS: Enoxaparin 30 MG/0.3 ML Syringe SUBCUT SCH (20:09)
[2019-02-19] MEDS: Warfarin 2.5 MG Tab PO SCH (20:11)
[2019-02-19] MEDS: Metoprolol Succinate 25 MG Tab.ER PO SCH (20:15)
[2019-02-20] MEDS: Omeprazole 20 MG Cap.CR PO SCH (06:04)
[2019-02-20] MEDS: Piperacillin/Tazobactam 3.375 GM in Sodium Chloride 0.9% 100 ML IV SCH (06:07)
[2019-02-20 06:46] LABS: ANION GAP 12.2 mmol/L (10-20)
[2019-02-20] MEDS: Fluticasone-Salmeterol 232-14 MCG Powder Inhalent INH SCH ×2 (07:27→20:02)
[2019-02-20] MEDS: Acetaminophen/HYDROcodone 325-5 MG Tab PO SCH ×2 (07:27→19:59)
[2019-02-20] MEDS: Furosemide 20 MG/2 ML VIAL IV SCH ×2 (07:27→15:44)
[2019-02-20] MEDS: Digoxin 125 MCG Tab PO SCH (07:28)
[2019-02-20] MEDS: Gabapentin 100 MG Cap PO SCH ×2 (07:28→20:00)
[2019-02-20] MEDS: Cyanocobalamin (Vitamin B12) 1,000 MCG Tab PO SCH ×2 (07:28→15:44)
--- NOTE | 2019-02-20 10:39 | PN ---
Progress Note for CHAI CHOUDHURY Date: 02/20/2019 Room #: VM.206 SUBJECTIVE: This is hospital day #3 on an 79-year-old admitted with a heart failure exacerbation and diabetic foot ulcers with cellulitis. She has been afebrile. She feels like her foot pain is improving. Yesterday, she was restarted on IV digoxin, bloated due to tachycardia. She still had some heart rates up into the 120s last evening, but much improved this morning. Her breathing is better. She is on IV Lasix. She has had good urine output. She is a -3 L so far. She is eating 100% of her meals including some snack of chips last night, although she states they were low salt. She does report some constipation, but did have a bowel movement yesterday. She declines laxatives. OBJECTIVE: Vital Signs: This morning, her temperature is 97.5, pulse 93, blood pressure 121/67, respiratory rate 20, O2 of 93% on 2 L. General: She is in no acute distress. Heart: Irregularly irregular with murmur noted. Lungs: Lung sounds are clear to auscultation bilaterally without crackles or wheezes. Abdomen: Nondistended, soft, nontender. Extremities: Warm and dry. No edema. Mental Status: Alert and orientated x3. LABORATORY DATA: Lab work reviewed today does show a normal white count 5.3, hemoglobin stable at 10.5, platelets 125, stable. INR 1.2, still low. Sodium 140, potassium 4.2, chloride 102, bicarb 30, BUN 34, creatinine 1.8, glucose 167, calcium 8.5. ASSESSMENT: 1. Fzbge-pj-qxrhort diastolic heart failure exacerbation, known EF 65% in 2018. We will continue with IV Lasix. We will look for her CardioMEMS reading and further discuss adjustments with Cardiology. 2. Atrial fibrillation with some improved rates on the digoxin and metoprolol. We will continue to monitor with telemetry to ensure no bradycardia. 3. Bilateral heel ulcers with diabetic foot infection. She is on now day #3 of IV Zosyn. I am switching her over to oral Augmentin. She also has urine culture that is pending. 4. Obesity. 5. Painful diabetic neuropathy. She is on her home medications. 6. Reactive airway disease. She is doing well on home inhalers. 7. Obstructive sleep apnea. She is using CPAP. 8. Essential hypertension, controlled. 9. Diet-controlled diabetes. We will discontinue Accu-Cheks. 10.Anemia. Hemoglobin is stable. PLAN: At this point, we are working on arrangements for further wound cares with the [facility]. We are doing twice a day dressing changes. Currently, she is on Lovenox due to subtherapeutic INR. We will give her 5 mg of Coumadin today, repeat an INR with lab work tomorrow. We will switch her IV Zosyn over to oral Augmentin, but continue the IV Lasix. Continue to monitor with telemetry. Wound clinic can see her Tuesday at 1 pm they recommend doing a double layer of Aquacell and otherwise using the same dressing they will work with the surgical shoe for offloading next week. MKA: 02/20/2019 09:33:28 MODL: 02/20/2019 10:29:04 /[id number] KELLY
[2019-02-20] MEDS: Allopurinol 300 MG Tab PO SCH (15:44)
[2019-02-20] MEDS: Pramipexole 0.125 MG Tab PO SCH (15:44)
[2019-02-20] MEDS: Zinc (Zinc Gluconate) 50 MG Tab PO SCH (15:44)
[2019-02-20] MEDS: Acetaminophen 500 MG Tab PO PRN (16:52)
[2019-02-20] MEDS: Amoxicillin/Clavulanate K 600-42.9 MG/5 ML Susp 125 ML Bottle PO SCH (18:12)
[2019-02-20] MEDS ORDERED: Warfarin 5 MG Tab PO SCH (20:00)
[2019-02-20] MEDS: Citalopram 20 MG Tab PO SCH (20:00)
[2019-02-20] MEDS: Enoxaparin 30 MG/0.3 ML Syringe SUBCUT SCH (20:01)
[2019-02-20] MEDS: Metoprolol Succinate 25 MG Tab.ER PO SCH (20:20)
[2019-02-21 02:09] VITALS: PULSE 77
[2019-02-21 05:49] VITALS: BP 132/75
[2019-02-21] MEDS: Omeprazole 20 MG Cap.CR PO SCH (06:34)
[2019-02-21 07:02] LABS: ANION GAP 12.9 mmol/L (10-20)
[2019-02-21] MEDS: Furosemide 20 MG/2 ML VIAL IV SCH (07:25)
[2019-02-21] MEDS: Multivitamin, Stress Formula with Zinc Tab PO SCH (07:26)
[2019-02-21] MEDS: Digoxin 125 MCG Tab PO SCH (07:26)
[2019-02-21] MEDS: Gabapentin 100 MG Cap PO SCH (07:26)
[2019-02-21] MEDS: Cyanocobalamin (Vitamin B12) 1,000 MCG Tab PO SCH (07:27)
[2019-02-21] MEDS: Amoxicillin/Clavulanate K 600-42.9 MG/5 ML Susp 125 ML Bottle PO SCH (08:03)
[2019-02-21] MEDS ORDERED: Acetaminophen/HYDROcodone 325-10 MG Tab PO PRN (09:02)
[2019-02-21] MEDS: Acetaminophen/HYDROcodone 325-5 MG Tab PO SCH (09:18)
[2019-02-21] MEDS: Fluticasone-Salmeterol 232-14 MCG Powder Inhalent INH SCH (09:47)
--- NOTE | 2019-02-21 10:05 | CR ---
[id number] RAD/RAD Chest PA And Lateral EXAM: RAD Chest PA And Lateral CLINICAL DATA: COUGH COMPARISON: CORRELATION IS MADE WITH THE EXAM OF 2018 FINDINGS: A left atrial occlusion device seen in The lungs are clear but hyperaerated The cardiomediastinal contour is prominent but stable. The left breast is not well seen currently IMPRESSION: PROBABLE AIRWAY DISEASE Tito Pan MD 02/21/19 [id number] Thank you for allowing us to participate in the care of your patient.
[2019-02-21] MEDS ORDERED: Acetaminophen/HYDROcodone 325-5 MG Tab PO SCH (16:00)
[2019-02-21] MEDS ORDERED: Pramipexole 0.5 MG Tab PO SCH (20:00)
[2019-02-21] MEDS ORDERED: Warfarin 2.5 MG Tab PO SCH (20:00)
--- NOTE | 2019-02-22 12:08 | DISCH ---
PRIMARY DISCHARGE DIAGNOSES: 1. Acute on chronic diastolic heart failure exacerbation with ejection fraction of 65%. 2. Bilateral heel ulcers with diabetic foot infection and cellulitis, improved with IV Zosyn, now tolerating Augmentin. 3. Atrial fibrillation with rapid ventricular response, but improved rates on restarting digoxin, subtherapeutic on Coumadin, getting Lovenox. 4. Obesity. 5. Diet-controlled diabetes, but with painful neuropathy. 6. Reactive airway disease. 7. Obstructive sleep apnea. 8. Essential hypertension. 9. Anemia with stable hemoglobins. REASON FOR ADMISSION: On the date of admission, this 79-year-old female with known history of heart failure, in fact, she follows with the [facility] had increasing shortness of breath. She had been sleeping in her chair. She had been unable to use her CPAP. Her CardioMEMS device had higher readings. There was some concern of how appropriately she was taking her medications and certainly her INR was very low at 1.2. The patient was admitted. She had some increasing redness and pain, especially in that right leg. She was started on IV Zosyn. She remained afebrile. White counts were normal. Her pain did improve yesterday in the afternoon. She had a little bit more pain, but she normally takes her pain pill in the afternoon and at night instead of in the morning and at night. She was given Tylenol, this helped some. Her breathing improved some. She did develop a little bit of a cough today like a tickle in her throat. Repeat x-rays were not showing any fluid or pneumonia. Overall, she did have oxygen at night with her CPAP. Otherwise, was 89% on room air when she came, so she used some oxygen initially, and was 94% on room air by discharge. She was doing well with IV Lasix 40 mg initially, then 20 b.i.d., diuresing a total of over 5 L. She was also tending to be more constipated and having diarrhea, but refusing laxatives. She was seen by PT. They felt she was doing well with walking, but OT had not seen her and cleared her to go home plus we were doing twice a day wound cares with Aquacel protective covering, wrapping with Luigi wraps to help with fluid, and arrangements are being made for outpatient wound clinic followup. The patient was agreeable to be on swing bed and transfer over to the care center if needed for further cares to help heal her diabetic foot ulcers and also to manage her heart failure. PHYSICAL EXAMINATION: Vital Signs: On discharge include weight 84 kg, temperature 97.2, pulse 77, blood pressure 132/75, respiratory rate 22, O2 of 94% on room air. General: She is in no acute distress. Heart: Irregularly irregular. Lungs: Sounds were clear to auscultation bilaterally without crackles or wheezes. Abdomen: Positive bowel sounds. Soft, nontender. Extremities: Warm and dry. Just trace edema in the ankles. Mental Status: Alert and orientated x3. Heart rates on telemetry were all now under 100 within the last 24 hours and she had previously been having tachycardic episodes up into the 120s prior to restarting digoxin, which was stopped a few months ago due to bradycardia, and her atenolol was changed to Toprol at that time. DISCHARGE PLANS AND INSTRUCTIONS: She is going over to swing bed. She will complete another day and a half of Augmentin. She is on yogurt to prevent diarrhea. She will go back on the Torsemide 60 mg twice daily. We will repeat lab work tomorrow including her INR as she did get 5 mg yesterday and will go on 2.5 daily dosing. Will be on Lovenox until INR greater than at least 1.8. We will likely transfer to [facility] for further cares once a bed is available. Wound clinic visit on 02/26 at 1 pm planned. Greater than 30 minutes spent on this discharge process. MKA: 02/21/2019 12:58:13 MODL: 02/22/2019 12:00:55 /[id number] MTDD
== END 2019-02-21 10:17 | disposition swing bed (61) | DRG 291 ==
LOC: VM.ED 17:27 → VM.MS 19:48
PROVIDERS: ADMIT Internal Medicine; ATTEND Internal Medicine
DX: I13.0 Hypertensive heart and chronic kidney disease with heart failure and stage 1 through stage 4 chronic kidney disease, or unspecified chronic kidney disease (principal); I50.33 Acute on chronic diastolic (congestive) heart failure; L97.429 Non-pressure chronic ulcer of left heel and midfoot with unspecified severity; I50.9 Heart failure, unspecified; L03.116 Cellulitis of left lower limb; L97.529 Non-pressure chronic ulcer of other part of left foot with unspecified severity; L97.519 Non-pressure chronic ulcer of other part of right foot with unspecified severity; L03.115 Cellulitis of right lower limb; M86.9 Osteomyelitis, unspecified; L97.419 Non-pressure chronic ulcer of right heel and midfoot with unspecified severity; N39.0 Urinary tract infection, site not specified; E66.9 Obesity, unspecified; G47.33 Obstructive sleep apnea (adult) (pediatric); E11.22 Type 2 diabetes mellitus with diabetic chronic kidney disease; D64.9 Anemia, unspecified; Z86.718 Personal history of other venous thrombosis and embolism; E78.00 Pure hypercholesterolemia, unspecified; I27.20 Pulmonary hypertension, unspecified; N18.9 Chronic kidney disease, unspecified; G47.30 Sleep apnea, unspecified; E11.621 Type 2 diabetes mellitus with foot ulcer; I48.2 Chronic atrial fibrillation; J45.909 Unspecified asthma, uncomplicated; K21.9 Gastro-esophageal reflux disease without esophagitis; E11.628 Type 2 diabetes mellitus with other skin complications; H35.30 Unspecified macular degeneration; I35.0 Nonrheumatic aortic (valve) stenosis; E11.21 Type 2 diabetes mellitus with diabetic nephropathy; K59.00 Constipation, unspecified; M85.80 Other specified disorders of bone density and structure, unspecified site; E11.40 Type 2 diabetes mellitus with diabetic neuropathy, unspecified; F41.9 Anxiety disorder, unspecified; Z96.641 Presence of right artificial hip joint; F32.9 Major depressive disorder, single episode, unspecified; Z96.649 Presence of unspecified artificial hip joint; R79.1 Abnormal coagulation profile; N28.9 Disorder of kidney and ureter, unspecified; M10.9 Gout, unspecified; M19.90 Unspecified osteoarthritis, unspecified site; E78.5 Hyperlipidemia, unspecified; E53.8 Deficiency of other specified B group vitamins; G25.81 Restless legs syndrome; Z90.49 Acquired absence of other specified parts of digestive tract; Z90.710 Acquired absence of both cervix and uterus; Z90.89 Acquired absence of other organs; Z90.12 Acquired absence of left breast and nipple; Z98.890 Other specified postprocedural states; Z91.048 Other nonmedicinal substance allergy status; Z85.3 Personal history of malignant neoplasm of breast; Z98.49 Cataract extraction status, unspecified eye; Z88.7 Allergy status to serum and vaccine; Z79.01 Long term (current) use of anticoagulants; Z79.899 Other long term (current) drug therapy; Z98.51 Tubal ligation status; Z88.1 Allergy status to other antibiotic agents; Z88.0 Allergy status to penicillin; Z88.8 Allergy status to other drugs, medicaments and biological substances; Z91.013 Allergy to seafood; Z91.041 Radiographic dye allergy status; Z68.35 Body mass index [BMI] 35.0-35.9, adult
CPT/HCPCS: 36415; 71045; 71046; 80048; 80053; 81001; 82962; 83880; 84484; 85025; 85027; 85610; 85652; 86140; 87086; 87088; 87186; 93005; 94660; 94760; 97161-GP; 97530-GP; 97597; 99284-GF; 99285-25; A9270-GY; J1160; J1650; J1940; J2543; J7050

== ENCOUNTER 2019-02-21 10:06 | Inpatient (IN) | payer MEDICARE, OTHER ==
[2019-02-21] MEDS ORDERED: Acetaminophen 500 MG Tab PO PRN (12:45)
[2019-02-21] MEDS ORDERED: Acetaminophen/HYDROcodone 325-10 MG Tab PO PRN (12:45)
[2019-02-21] MEDS ORDERED: Ondansetron 4 MG Tab.DIS PO PRN (12:45)
[2019-02-21] MEDS ORDERED: Nitroglycerin 0.4 MG Tab.SL SL PRN (12:45)
[2019-02-21] MEDS: Torsemide 20 MG Tab PO SCH ×2 (13:36→17:04)
[2019-02-21] MEDS: Allopurinol 300 MG Tab PO SCH (17:03)
[2019-02-21] MEDS: Amoxicillin/Clavulanate K 600-42.9 MG/5 ML Susp 125 ML Bottle PO SCH (17:03)
[2019-02-21] MEDS: Acetaminophen/HYDROcodone 325-5 MG Tab PO SCH ×2 (17:03→19:28)
[2019-02-21] MEDS: Zinc (Zinc Gluconate) 50 MG Tab PO SCH (17:04)
[2019-02-21] MEDS: Pramipexole 0.125 MG Tab PO SCH (17:04)
[2019-02-21] MEDS: Cyanocobalamin (Vitamin B12) 1,000 MCG Tab PO SCH (17:04)
[2019-02-21] MEDS: Metoprolol Succinate 25 MG Tab.ER PO SCH (19:27)
[2019-02-21] MEDS: Citalopram 20 MG Tab PO SCH (19:28)
[2019-02-21] MEDS: Pramipexole 0.5 MG Tab PO SCH (19:28)
[2019-02-21] MEDS: Gabapentin 100 MG Cap PO SCH (19:28)
[2019-02-21] MEDS: Enoxaparin 30 MG/0.3 ML Syringe SUBCUT SCH (19:29)
[2019-02-21] MEDS: Warfarin 2.5 MG Tab PO SCH (19:29)
[2019-02-21] MEDS: Fluticasone-Salmeterol 232-14 MCG Powder Inhalent INH SCH (20:00)
[2019-02-22] MEDS: Omeprazole 20 MG Cap.CR PO SCH (06:24)
[2019-02-22 06:51] LABS: ANION GAP 14.9 mmol/L (10-20)
[2019-02-22] MEDS: Digoxin 125 MCG Tab PO SCH (07:37)
[2019-02-22] MEDS: Amoxicillin/Clavulanate K 600-42.9 MG/5 ML Susp 125 ML Bottle PO SCH ×2 (07:37→18:55)
[2019-02-22] MEDS: Gabapentin 100 MG Cap PO SCH ×2 (07:37→20:25)
[2019-02-22] MEDS: Torsemide 20 MG Tab PO SCH ×2 (07:38→15:50)
[2019-02-22] MEDS: Cyanocobalamin (Vitamin B12) 1,000 MCG Tab PO SCH ×2 (07:38→15:50)
[2019-02-22] MEDS: Fluticasone-Salmeterol 232-14 MCG Powder Inhalent INH SCH ×2 (07:39→20:28)
[2019-02-22] MEDS: Allopurinol 300 MG Tab PO SCH (15:49)
[2019-02-22] MEDS: Acetaminophen/HYDROcodone 325-5 MG Tab PO SCH ×2 (15:49→20:25)
[2019-02-22] MEDS: Pramipexole 0.125 MG Tab PO SCH (15:51)
[2019-02-22] MEDS: Zinc (Zinc Gluconate) 50 MG Tab PO SCH (15:52)
[2019-02-22] MEDS: Enoxaparin 30 MG/0.3 ML Syringe SUBCUT SCH (20:24)
[2019-02-22] MEDS: Citalopram 20 MG Tab PO SCH (20:25)
[2019-02-22] MEDS: Warfarin 2.5 MG Tab PO SCH (20:25)
[2019-02-22] MEDS: Metoprolol Succinate 25 MG Tab.ER PO SCH (20:27)
[2019-02-22] MEDS: Pramipexole 0.5 MG Tab PO SCH (20:28)
[2019-02-23] MEDS ORDERED: Multivitamin, Stress Formula with Zinc Tab PO SCH (08:00)
[2019-02-23] MEDS: Omeprazole 20 MG Cap.CR PO SCH (08:02)
[2019-02-23] MEDS: Torsemide 20 MG Tab PO SCH (09:06)
[2019-02-23] MEDS: Gabapentin 100 MG Cap PO SCH (09:06)
[2019-02-23] MEDS: Cyanocobalamin (Vitamin B12) 1,000 MCG Tab PO SCH (09:07)
[2019-02-23] MEDS: Digoxin 125 MCG Tab PO SCH (09:07)
[2019-02-23] MEDS: Fluticasone-Salmeterol 232-14 MCG Powder Inhalent INH SCH (09:11)
[2019-02-23 09:22] VITALS: BP 125/68; PULSE 82
--- NOTE | 2019-02-23 11:27 | DISCH ---
PRIMARY DISCHARGE DIAGNOSES: 1. Bilateral heel ulcers with cellulitis. 2. Foot pain due to restless legs and painful diabetic neuropathy. 3. Acute on chronic diastolic heart failure exacerbation with ejection fraction 65%. 4. Atrial fibrillation with rapid ventricular response, but improved rates with medication changes. 5. Obesity. 6. Diet-controlled diabetes. 7. Reactive airway disease. 8. Obstructive sleep apnea. 9. Essential hypertension. 10.Chronic anemia with stable hemoglobin. REASON FOR ADMISSION: On the date of admission, this 79-year-old female who had completed a 3-day stay on acute care for heart failure was diuresed with IV Lasix for several liters. She was breathing better, in fact, it was over 5 L, and she was placed back on her oral torsemide. She had a repeat chest x-ray which was not showing any fluid or pneumonia. She also was monitored with telemetry and had heart rates up into the 140. She was reinstituted on digoxin and her Toprol was increased. She tolerated these changes and all heart rates were under 100 prior to discharge. She remained afebrile during her stay. She was initially on IV Zosyn and then completed a 5-day course of antibiotics with Augmentin yesterday. She was not having any diarrhea. She was still having her foot pain, gets worse later in the afternoon. She was receiving her hydrocodone, which she normally takes at home for it in addition to Tylenol. Overall, also she had CardioMEMS monitors through [facility] as well as INR monitoring daily, and she is 1.5 on discharge. She was getting Lovenox for DVT prophylaxis doses while she was here. She thinks possibly she was taking half pills at home instead of full pills. DISCHARGE PLANS AND INSTRUCTIONS: She is going over to [facility] for further cares, particularly wound cares, twice a day dressing changes on her legs and a wound care consult on Tuesday. She is walking with surgical shoes. They will do some adjustments to that when she is at the [facility]. She will also have lab work on Tuesday including an INR and a BMP. Otherwise, the [facility] does manage her diuretics torsemide currently 60 mg twice daily. She will have PT, OT at the group home. PHYSICAL EXAMINATION: Vital Signs: On discharge include a temperature of 98.7, pulse 94, weight 80.1 kg, blood pressure 125/68, respiratory rate 20, O2 of 95% on room air. General: She is in no acute distress. Heart: Regularly irregular with murmur. Lungs: Sounds are clear to auscultation bilaterally without crackles or wheezes. Abdomen: Positive bowel sounds. Nondistended, nontender. Extremities: Warm and dry. She has just trace edema. She has Luigi wraps in place. I had been evaluating the wounds on previous date, so did not examine them today. Overall, she is pleasant. She is answering questions appropriately. Agreeable to go to the group home for further cares, but does not plan to stay there permanently. Greater than 30 minutes spent on the discharge process. MKA: 02/23/2019 10:37:51 MODL: 02/23/2019 11:10:02 /[id number]
== END 2019-02-23 10:00 | DRG 292 ==
LOC: VM.MS 10:19
PROVIDERS: ADMIT Internal Medicine; ATTEND Internal Medicine
DX: I11.0 Hypertensive heart disease with heart failure (principal); L97.429 Non-pressure chronic ulcer of left heel and midfoot with unspecified severity; L97.419 Non-pressure chronic ulcer of right heel and midfoot with unspecified severity; L03.116 Cellulitis of left lower limb; L03.115 Cellulitis of right lower limb; I50.33 Acute on chronic diastolic (congestive) heart failure; I48.91 Unspecified atrial fibrillation; G47.33 Obstructive sleep apnea (adult) (pediatric); D64.9 Anemia, unspecified; E11.621 Type 2 diabetes mellitus with foot ulcer; J45.909 Unspecified asthma, uncomplicated; E11.40 Type 2 diabetes mellitus with diabetic neuropathy, unspecified; E66.9 Obesity, unspecified; G25.81 Restless legs syndrome; Z99.81 Dependence on supplemental oxygen; Z68.33 Body mass index [BMI] 33.0-33.9, adult
CPT/HCPCS: 36415; 80048; 85025; 85610; 97165-GO; A9270-GY; J1650

== ENCOUNTER 2019-03-28 16:33 | Observation (INO) | payer MEDICARE, OTHER ==
[2019-03-28] MEDS ORDERED: Sodium Chloride 0.9% 10 ML Syringe FLUSH PRN (16:39)
[2019-03-28] MEDS ORDERED: Ondansetron 4 MG/2 ML SDV IV PRN (16:39)
[2019-03-28] MEDS ORDERED: HYDROmorphone 1 MG/ML Syringe IVPUSH PRN (16:39)
[2019-03-28] MEDS ORDERED: Acetaminophen 325 MG Tab PO PRN (16:39)
[2019-03-28] MEDS ORDERED: Polyethylene Glycol 3350 Powder 17 GM Packet PO PRN (16:39)
[2019-03-28] MEDS ORDERED: Acetaminophen/HYDROcodone 325-10 MG Tab PO PRN (16:45)
[2019-03-28] MEDS ORDERED: Acetaminophen 500 MG Tab PO PRN (16:45)
[2019-03-28] MEDS ORDERED: Nitroglycerin 0.4 MG Tab.SL SL PRN (16:45)
--- NOTE | 2019-03-28 16:53 | PCM.HP.2 ---
H&P History of Present Illness - General Date of Service: 03/28/19 Admit Problem/Dx: Admission Diagnosis/Problem Admission Diagnosis/Problem Dehydration - History of Present Illness Initial Comments - Free Text/Narative: Assessment / Plan Chronic diastolic congestive heart failure (HCC) Diabetic polyneuropathy associated with diabetes mellitus due to underlying condition (HCC) Pulmonary hypertension (HCC) Diabetes mellitus due to underlying condition with diabetic polyneuropathy, without long-term current use of insulin (HCC) Chronic, continuous use of opioids Chronic atrial fibrillation shelter current use of 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 History of DVT (deep vein thrombosis) Reactive airway disease that is not asthma Tubular adenoma Dependence on supplemental oxygen Cognitive impairment LUX (acute kidney injury) (HCC) PAD (peripheral artery disease) (HCC) Intractable vomiting with nausea, unspecified vomiting type Constipation, unspecified constipation type Plan:Admit for vomiting and constipation Couple of small AFL by xrays nonspecific, will do CT to r/o SBO or other acute pathology Chronic opioids could contribute too Miralax or enema PRN LUX on CKD prior to above vomiting on chem 2d ago; will recheck now and in AM Likely iatrogenic form very high doses of diuretics, wt today 180lb, she thinks baseline is maybe closer to 190 but has been anywhere from 175 to 205 past couple of years BUN >100 and likely contraction alkalosis K bit low too Start NaCl w/ K @125cc/hr, hold diuretic should term Monitor closely given hx of CHF that appears more R sided/PAH Coumadin for hx of afib and DVT Check INR DNR PCP to follow in AM No follow-ups on file. HPI / History / ROS Constipationvery constipated for 2d. Bisacodyl tablets given, suppository and Mag citrate given with no results. Vomitingsmall amounts of bile off and on for 1-2 days Weaker/unsteady. Normally pt is independant. Afebrile now, maybe temp to 101 other day. Not eating much or drinking much. BUN quite high by recent chem 2d ago, >100, 2x baseline. Diuretics per cards/ CHF in [place] [place] [facility] Cl low, looks alkalotic. Nonsmoker. DNR, lives in [place]. Has heart failure that looks more right sided and diastolic: "acute on chronic diastolic heart failure. In fact, she has had CardioMEMS placed by Dr. Medel on March 01, 2018. At that time right heart catheterization revealed mean right atrial pressure of 15 mmHg, right ventricular systolic pressure was 81 with an end-diastolic pressure of 19. PA systolic was 78 with diastolic of 37 and a mean PA of 53 and an end expiratory wedge pressure of 29 mmHg. Her PA saturation was 44%. Cardiac output was 2.36, and pulmonary vascular resistance was around 10 Wood units. Essentially, the patient has severe mixed pulmonary hypertension, predominantly pulmonary venous hypertension and the long-standing chronic nature of which has led to some degree of pulmonary artery hypertension and RV failure." Admitted 4w ago for PAD/ulcer: "Tamiko Faria is an 79 year old female with chronic PAD and multiple toe amputations that was seen in [facility] on 02/27 where her bilateral heal ulcers were being cared for. They performed a TCOM that was concerning for chronic limb ischemia. She was transferred here for possible intervention. Vascular surgery saw her and repeated ABIs and duplex US. There were no acute vascular interventions needed. Wound nurses were consulted for heal ulcer care. Digoxin was held on admission. Discussion about her digoxin was had with the hospitalist team and pharmacy. She is rate controlled on metoprolol alone and there is concern for accumulation in setting of CKD. Will discontinue on discharge and recommend discussion with PCP on starting it again in the future if rates do not remain controlled. Could consider every other day dosing. " Medications w MedicationsPriortoVisit w Outpatient Medications Prior to Visit Medication Sig Dispense Refill magnesium citrate SOLN Take 300 mL by mouth 1 time for 1 dose 1 Bottle 0 senna-docusate sodium (SENOKOT-S;PERICOLACE) 8.6-50 MG tablet Take 1 tablet by mouth 1 time per day 30 tablet 11 torsemide (DEMADEX) 20 mg tablet Take 5 tablets (100 mg) by mouth two times a day (in the morning and mid- afternoon). 720 tablet 0 metOLazone (ZAROXOLYN) 5 mg tablet Take 1 tablet (5 mg) by mouth on Tuesday and Tuesday 15 tablet 0 potassium chloride (KLOR-CON M20) 20 MEQ CR tablet Take 4 tablets (80 mEq) by mouth 1 time per day for 1 day, THEN 2 tablets (40 mEq) 1 time per day. 190 tablet 3 HYDROcodone-acetaminophen (NORCO) 5-325 mg tablet TAKE 1 TABLET BY MOUTH AT 4 PM & TAKE 1 TABLET AT BEDTIME 60 tablet 0 gabapentin (NEURONTIN) 100 mg capsule TAKE 1 CAPSULE BY MOUTH EVERY MORNING & TAKE 2 CAPSULES BY MOUTH EVERY NIGHT AT BEDTIME 90 capsule 5 HYDROcodone-acetaminophen (NORCO) 5-325 mg tablet Earliest Fill Date: 02/28/19 Take 1 tablet at 4 pm and 1 at bedtime 30 tablet 0 metoprolol succinate (TOPROL XL) 50 mg SR tablet (24 hr) Take 1 tablet (50 mg) by mouth 1 time per day 30 tablet 0 pantoprazole (PROTONIX) 40 mg enteric coated tablet Take 1 tablet (40 mg) by mouth 1 time a day as needed for other (Specify) ( heartburn) (Patient taking differently: Take 40 mg by mouth 1 time a day in the morning ) 30 tablet 1 allopurinol (ZYLOPRIM) 300 mg tablet TAKE 1 TABLET BY MOUTH DAILY AT 4PM 90 tablet 0 lovastatin (MEVACOR) 20 mg tablet TAKE 1 TABLET BY MOUTH NIGHTLY AT BEDTIME 90 tablet 0 hydrocortisone, rectal, (ANUSOL-HC) 2.5 % cream Insert rectally Every 4 hours as needed for itching (pain relief from hemorrhoids) 30 g 0 acetaminophen (TYLENOL) 500 mg tablet Take 2 tablets (1,000 mg) by mouth every 6 hours as needed for mild pain 30 tablet 0 fluticasone (FLONASE) 50 mcg/spray nasal spray [place] 1 spray into each nostril 2 times a day as needed (congestion) cyanocobalamin (VITAMIN B-12) 1000 mcg tablet Take 1 tablet by mouth twice a day in the morning and at 4pm. Round pink speckled. 30 tablet 12 Zinc (ZINC) 50 MG CAPS TAKE ONE TABLET BY MOUTH EVERY DAY AT 4PM. 100 each 4 pramipexole (MIRAPEX) 0.25 mg tablet TAKE 1 TABLET BY MOUTH AT 4PM AND TAKE 2 TABLETS BY MOUTH 2 HOURS BEFORE BEDTIME FOR RESTLESS LEGS (Patient taking differently: Take 0.25 mg by mouth every night at bedtime TAKE 1 TABLET BY MOUTH AT 4PM AND TAKE 2 TABLETS BY MOUTH 2 HOURS BEFORE BEDTIME FOR RESTLESS LEGS) 270 tablet 3 budesonide-formoterol (SYMBICORT) 160-4.5 mcg/puff inhaler INHALE 1 PUFF ORALLY 2 TIMES A DAY SHAKE WELL BEFORE USING. RINSE MOUTH AFTER USE. (Patient taking differently: Inhale 1 puff orally 1 time per day INHALE 1 PUFF ORALLY 2 TIMES A DAY SHAKE WELL BEFORE USING. RINSE MOUTH AFTER USE.) 30.6 g 4 escitalopram (LEXAPRO) 20 mg tablet TAKE 1 TABLET BY MOUTH NIGHTLY AT BEDTIME 90 tablet 3 ondansetron (ZOFRAN) 4 mg tablet Take 1 tablet (4 mg) by mouth every 6 hours as needed for nausea or vomiting 25 tablet 0 warfarin (COUMADIN) 2.[address] [facility] Anticoagulation Pt:Take as directed. (Insurance Purposes: 1.25- 2.5 mg daily dose range) Call [phone] if ? 90 tablet 2 nitroglycerin (NITROSTAT) 0.4 mg sublingual tablet Dissolve 1 tablet (0.4 mg) under the tongue Every 5 minutes as needed for chest pain for up to 3 doses May repeat every 5 minutes for a total of 3 doses. 25 tablet 0 blood glucose test strip (ACCU-CHEK ENE) Check blood glucose 1-2 times daily. 1 box 0 lancets (ACCU-CHEK MULTICLIX) 1 box 0 MULTIPLE VITAMIN PO Take 1 tablet by mouth 3 times a week No facility-administered medications prior to visit. Allergies w w w w w Allergies l Allergen l Reactions w w Adhesives w Hives (High) and Rash w w Ancef [Cefazolin] w Anaphylaxis (High) w w w Reacted to medications in the OR. Possibly the ancef. Became itchy and hypotensive w w Zithromax [Azithromycin] w Hives (High) and Rash w w Amoxicillin w Diarrhea w w w cefalexin ok w w Cleocin [Clindamycin] w Other (Specify in Comments) w w w Mouth sores w w Ezetimibe w Other (Specify in Comments) w w w Muscle aches w w Lipitor [Atorvastatin Calcium] w Other (Specify in Comments) w w w myalgias w w Other: See Comments w Other (Specify in Comments) w w w Pt. States had IVP due reaction about 40 yrs. Ago : heart palpitations, but no problems with CT dye. w w Seasonal w Other (Specify in Comments) w w w Nasal drainage w w Shellfish-Derived Products w Nausea and Vomiting w w w Crab w w Tetanus Toxoids w Other (Specify in Comments) w w w !!!!!!! pamp lists "tetanus" As allergen!!!!!!! 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 w w Nonspecific abnormal results of liver function study w w Astigmatism w w Presbyopia w w Myopia w w Microscopic hematuria w w Osteoarthritis w w Diastolic CHF (HCC) w w Senile cataract w w Nonexudative senile macular degeneration of retina w w History of DVT (deep vein thrombosis) w w Hypertriglyceridemia w w Diabetic neuropathy (HCC) w w Pulmonary hypertension (HCC) w w Osteopenia w w Depression w w Leg swelling w w Diabetes mellitus (HCC) w w Cataract, senile - Both w w GERD (gastroesophageal reflux disease) w w Obstructive sleep apnea syndrome w w Family history of breast cancer w w RLS (restless legs syndrome) w w Seasonal allergies w w Aortic valve stenosis w w Obesity w w B12 deficiency w w Dermatochalasis w w Chronic osteomyelitis of left foot w w History of total hip replacement w w Reactive airway disease that is not asthma w w 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) w w Cataract, secondary - Both w w Pain medication agreement signed w w S/P YAG capsulotomy w w Pseudophakia - Both w w Dry senile macular degeneration - Both w w Chronic, continuous use of opioids w w Tubular adenoma w w Mixed anxiety depressive disorder w w Muscle weakness of extremity w w Osteomyelitis (HCC) w w Syncope w w Heart failure managed at heart failure clinic ([facility]) w w Dependence on supplemental oxygen w w Diabetic foot ulcer (HCC) w w Cellulitis of right lower extremity w w Acute blood loss anemia w w Gangrene of left foot ([facility]) w w E. coli UTI w w Cognitive impairment w w PAD (peripheral artery disease) ([facility]) Medical/Surgical/Family/SocialHistory w PastMedicalHistory w Past Medical History: Diagnosis Date Acute osteomyelitis of left foot (HCC) Anxiety Aortic stenosis Arthritis Atrial fibrillation (HCC) chronic Breast cancer (HCC) Cataract Cellulitis of toe of left foot CHF (congestive heart failure) ([facility]) Chronic osteomyelitis of left foot (HCC) Chronic, continuous use of opioids DCIS (ductal carcinoma in situ) Depression Dermatochalasis Diabetes mellitus (HCC) type 2 Diabetic neuropathy (HCC) Diastolic CHF (HCC) DVT (deep venous thrombosis) ([facility]) GERD (gastroesophageal reflux disease) Gout left hand Heart failure managed at heart failure clinic ([facility]) Hyperlipidemia Hypertension Hypertriglyceridemia Irregular heart beat Leg 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 of 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 Macular degeneration Microscopic hematuria Murmur OA (osteoarthritis) of hip both hips Obesity SHERWIN (obstructive sleep apnea) syndrome Osteopenia Pain medication agreement signed Pulmonary hypertension ([facility]) Reactive airway disease that is not asthma RLS (restless legs syndrome) Seasonal allergies Sleep apnea SOB (shortness of breath) on exertion Syncope Vitamin B 12 deficiency w PastSurgicalHistory w Past Surgical History: Procedure Laterality Date AMPUTATION MINOR Left 01/10/2015 Procedure: LEFT 4TH TOE DISTAL INTERPHALANGEAL JOINT AMPUTATION;; Surgeon: Panchito Card DPM AMPUTATION MINOR Left 10/28/2015 Procedure: LEFT FOOT DISTAL 3RD TOE AMPUTATION, LEFT 2ND TOE FLEXOR TENOTOMY;; Surgeon: Yariel Eaton DPM AMPUTATION MINOR Left 05/31/2017 Procedure: LEFT 2ND DIGIT DISTAL SYMES AMPUTATION ;; Surgeon: Yariel Eaton DPM AMPUTATION MINOR Left 07/17/2017 Procedure: LEFT FOOT 5th digit amputation ;; Surgeon: Roby Gardner DPM AMPUTATION MINOR Left 04/12/2018 Procedure: LEFT 3RD TOE PARTIAL AMPUTATION;; Surgeon: Roby Gardner DPM AMPUTATION MINOR Left 08/09/2018 Procedure: LEFT FOOT 4TH TOE PARTIAL AMPUTATION;; Surgeon: Roby Gardner DPM AMPUTATION MINOR Right 10/20/2018 Procedure: RIGHT HALLUX AMPUTATION;; Surgeon: Panchito Card DPM AMPUTATION MINOR Left 12/27/2018 Procedure: LEFT FOOT 2ND TOE PARTIAL AMPUTATION;; Surgeon: Roby Gardner DPM AMPUTATION MINOR Left 01/23/2019 Procedure: LEFT SECOND TOE AMPUTATION;; Surgeon: Panchito Card DPM APPENDECTOMY BUNIONECTOMY Left 10/19/2017 Procedure: LEFT FOOT FIRST METATARSAL HEAD RESECTION;; Surgeon: Roby Gardner DPM CATARACT EXTRACTION Left 11/06/2014 Dr. card CATARACT W PHACO Right 12/04/14 daniele CATARACT W PHACO CHOLECYSTECTOMY ELBOW FRACTURE SURGERY Left HYSTERECTOMY MASTECTOMY Left 2002 TONSILLECTOMY TOTAL HIP Right 03/24/2015 Procedure: ARTHROPLASTY HIP;; Surgeon: Royce Giraldo MD VAGINAL DELIVERY ONLY(WWO EPISIOTOMY & OR FORCEPS) [id number] YAG LASER Bilateral 03/04/2016 - Yag laser Capsultomy OU w FamilyHistory w Family History Problem Relation Age of Onset Not otherwise listed - Cancer Mother Lung Cancer Heart Disease Father Heart Disease Sister Cataracts Sister Glaucoma Maternal Grandmother Breast Cancer Niece 45 Macular Degeneration Neg Hx Retinal Detachment Neg Hx Amblyopia Neg Hx Blindness Neg Hx Diabetes Neg Hx Strabismus Neg Hx w SocialHistory w Social History Socioeconomic History Marital status: Spouse name: Not on file Number of children: 3 Years of education: 16 Highest education level: Not on file Occupational History 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 Negative forunexpected weight change. Respiratory: Negative forcoughand shortness of breath. Cardiovascular: Negative forchest pain,palpitationsand leg swelling. Gastrointestinal: Positive forconstipation,nauseaand vomiting. Negative for abdominal pain,blood in stooland diarrhea. Genitourinary: Positive fordecreased urine volume. Negative fordysuria. Neurological: Negative forspeech difficulty. Psychiatric/Behavioral: Negative forconfusion. Physical / Results BP 106/62 Pulse 80 Temp 98.9 F (37.2 C) (Tympanic) SpO2 95%|| Physical Exam Constitutional: She appearswell-developedand well-nourished.No distress. HENT: Mouth/Throat:Oropharynx is clear and moist. Cardiovascular:Normal rateand regular rhythm. Murmurheard. Pulmonary/Chest:Effort normaland breath sounds normal. Abdominal:Soft. There isno tenderness. There isno guarding. Musculoskeletal:Normal range of motion. She exhibits noedema. Skin: Skin iswarmand dry. She isnot diaphoretic. Psychiatric: She has anormal mood and affect. Herbehavior is normal. - Related Data Allergies/Adverse Reactions: Allergies Allergy/AdvReac Type Severity Reaction Status Date / Time cefazolin [From [facility]] Allergy Severe Anaphylactic Verified 02/21/19 13:03 Shock adhesive Allergy Intermediate Hives Verified 02/21/19 13:03 azithromycin [From Zithromax] Allergy Intermediate Hives Verified 02/21/19 13:03 ezetimibe [From Zetia] Allergy Other Verified 02/21/19 10:38 tetanus toxoid, adsorbed Allergy Cannot Verified 02/21/19 10:38 Remember amoxicillin AdvReac Diarrhea Verified 02/21/19 10:38 atorvastatin [From Lipitor] AdvReac Muscle Verified 02/21/19 13:03 Aches atorvastatin calcium AdvReac Muscle Verified 02/21/19 10:38 [From Lipitor] Aches clindamycin [From Cleocin] AdvReac Mouth Sores Verified 02/21/19 10:38 shellfish derived AdvReac Vomiting Verified 02/21/19 10:38 simvastatin [From Zocor] AdvReac Muscle Verified 02/21/19 10:38 Aches IV contrast Allergy Other Uncoded 02/21/19 10:38 Home Medications: Home Meds Allopurinol 300 mg PO DAILY@1600 09/04/14 [History] Cyanocobalamin (Vitamin B-12) [Vitamin B-12] 1,000 mcg PO BID@0800,1600 [History] Escitalopram [Lexapro] 20 mg PO BEDTIME 09/04/14 [History] Lovastatin [Mevacor] 20 mg PO BEDTIME 09/04/14 [History] Multivitamin [Multi-Vitamin Daily] 1 tab PO MOWEFR@0800 09/04/14 [History] Zinc Gluconate [Zinc] 50 mg PO DAILY@1600 04/02/15 [History] Fluticasone Propionate [Flonase] 1 spray NASBOTH BID PRN 04/01/17 [History] Pramipexole [Mirapex] 0.25 mg PO DAILY@1600 06/04/17 [History] Pramipexole [Mirapex] 0.5 mg PO ASDIRECTED 06/04/17 [History] Warfarin [Coumadin] 2.5 mg PO ASDIRECTED 06/04/17 [History] Budesonide/Formoterol Fumarate [Symbicort 160-4.5 Mcg Inhaler] 1 puff IH BID 02/28 [History] Acetaminophen 1,000 mg PO Q6HR PRN 10/24/18 [History] Acetaminophen/HYDROcodone [Ackerman 325-5 MG] 5 - 325 mg PO BID 10/24/18 [History] Gabapentin [Neurontin] 100 mg PO DAILY 10/24/18 [History] Gabapentin [Neurontin] 200 mg PO BEDTIME 10/24/18 [History] Hydrocortisone [Anusol-HC] 1 applic RC Q4HR PRN 10/24/18 [History] Nitroglycerin [Nitrostat] 0.4 mg SL ASDIRECTED PRN 10/24/18 [History] Ondansetron HCl [Ondansetron] 4 mg PO Q6HR PRN 10/24/18 [History] Pantoprazole Sodium [Protonix] 40 mg PO DAILY 01/13/19 [History] Torsemide [Demadex] 60 mg PO BIDDIURETIC 01/13/19 [History] Acetaminophen/HYDROcodone [Ackerman 325-10 MG] 1 tab PO Q12H PRN tablet 02/22/19 [ Rx] Digoxin 125 mcg PO DAILY #30 tablet 02/22/19 [Rx] Metoprolol Succinate [Toprol XL 50mg] 25 mg PO BEDTIME #30 tab.er 02/22/19 [Rx] Warfarin [Coumadin] 2.5 mg PO BEDTIME tablet 02/22/19 [Rx] Past Medical History HEENT History: Reports: None, Allergic Rhinitis, Cataract, Macular Degeneration , Other (See Below) Other HEENT History: astigmatism, presbyopia, myopia, pseudophakia Cardiovascular History: Reports: Afib, Blood Clots/VTE/DVT, Heart Failure, Heart Murmur, High Cholesterol, Pulmonary Hypertension Other Cardiovascular History: Aortic stenosis, leg swelling Respiratory History: Reports: Sleep Apnea, Other (See Below) Other Respiratory History: pneumonia 2014, reactive airway disease that is not asthma Gastrointestinal History: Reports: GERD Genitourinary History: Reports: Diabetic Nephropathy, Other (See Below) Other Genitourinary History: Microscopic hematuria 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: Reports: Musculoskeletal History: Reports: Gout, Osteoarthritis, Other (See Below) Other Musculoskeletal History: Restless leg syndrome Neurological History: Reports: None, Neuropathy, Diabetic, Other (See Below) Other Neuro History: syncope Psychiatric History: Reports: Anxiety, Depression Endocrine/Metabolic History: Reports: Diabetes, Type II, Obesity/BMI 30+, Osteopenia, Other (See Below) Other Endocrine/Metabolic History: B12 deficiency Hematologic History: Reports: None Immunologic History: Reports: None Oncologic (Cancer) History: Reports: Breast Dermatologic History: Reports: Cellulitis, Other (See Below) Other Dermatologic History: dry skin, yeast infections, diabetic foot ulcer, gangerene of left foot - Past Surgical History HEENT Surgical History: Reports: Cataract Surgery, Tonsillectomy, Other (See Below) Other HEENT Surgeries/Procedures: capsulotomy Cardiovascular Surgical History: Reports: None Respiratory Surgical History: Reports: None GI Surgical History: Reports: Appendectomy, Cholecystectomy Female Surgical History: Reports: Hysterectomy, Mastectomy, Tubal Ligation, Other (See Below) Other Female Surgeries/Procedures: left mastectomy Endocrine Surgical History: Reports: None Neurological Surgical History: Reports: None Musculoskeletal Surgical History: Reports: Hip Replacement, Other (See Below) Other Musculoskeletal Surgeries/Procedures:: Left elbow surgery. Chronic osteomyelitis of left foot Oncologic Surgical History: Reports: Mastectomy Dermatological Surgical History: Reports: None Social & Family History - Family History Family Medical History: Noncontributory Cardiac: Reports: PVD/COD Oncologic: Reports: Lung - Caffeine Use Caffeine Use: Reports: Tea H&P Review of Systems - Review of Systems: Review Of Systems: See Below Exam - Exam Exam: See Below Problem List Initiated/Reviewed/Updated: Yes Orders Last 24hrs: Active Orders 24 hr Category Date Time Status Admission Status [Patient Status] [ADT] Routine ADT 03/28/19 16:34 Active Patient Status [ADT] Routine ADT 03/28/19 16:39 Ordered Oxygen Therapy [RC] PRN Care 03/28/19 16:39 Ordered Up With Assistance [RC] ASDIRECTED Care 03/28/19 16:39 Ordered VTE/DVT Education [RC] PER UNIT ROUTINE Care 03/28/19 16:39 Ordered Vital Signs [RC] Q4H Care 03/28/19 16:39 Ordered Clear Liquid Diet [DIET] Diet 03/28/19 Dinner Ordered Abdomen Pelvis wo Cont [CT] Routine Exams 03/28/19 16:44 Ordered AMYLASE [CHEM] Routine Lab 03/28/19 16:44 Ordered BLOOD GAS VENOUS [BG] Routine Lab 03/28/19 16:44 Ordered C-REACTIVE PROTEIN [CHEM] Routine Lab 03/28/19 16:39 Ordered CBC WITH AUTO DIFF [HEME] Routine Lab 03/28/19 16:39 Ordered COMPREHENSIVE METABOLIC PN,CMP [CHEM] Routine Lab 03/28/19 16:39 Ordered DIGOXIN [CHEM] Routine Lab 03/28/19 16:47 Ordered INR,PT,PROTHROMBIN TIME [COAG] Routine Lab 03/28/19 16:47 Ordered MAGNESIUM [CHEM] Routine Lab 03/28/19 16:39 Ordered UA W/MICROSCOPIC [URIN] Routine Lab 03/28/19 16:39 Ordered Acetaminophen [Tylenol Extra Strength] Med 03/28/19 16:45 Ordered 1,000 mg PO Q6HR PRN Acetaminophen [Tylenol] Med 03/28/19 16:39 Ordered 650 mg PO Q4H PRN Acetaminophen/HYDROcodone [Ackerman 325-10 MG] Med 03/28/19 16:45 Ordered 1 tab PO Q12H PRN Acetaminophen/HYDROcodone [Ackerman 325-5 MG] Med 03/28/19 20:00 Ordered 5 - 325 mg PO BID Budesonide/Formoterol Med 03/28/19 20:00 Ordered 1 puff IH BID Escitalopram [Lexapro] Med 03/28/19 20:00 Ordered 20 mg PO BEDTIME Fluticasone Propionate [Flonase] Med 03/28/19 16:45 Ordered 1 spray NASBOTH BID PRN Gabapentin [Neurontin] Med 03/29/19 08:00 Ordered 100 mg PO DAILY Gabapentin [Neurontin] Med 03/28/19 20:00 Ordered 200 mg PO BEDTIME HYDROmorphone [Dilaudid] Med 03/28/19 16:39 Ordered 0.25 mg IVPUSH Q2H PRN Lovastatin [Mevacor] Med 03/28/19 20:00 Ordered 20 mg PO BEDTIME Metoprolol Succinate [Toprol XL] Med 03/28/19 20:00 Ordered 25 mg PO BEDTIME Nitroglycerin [Nitrostat] Med 03/28/19 16:45 Ordered 0.4 mg SL ASDIRECTED PRN Ondansetron Med 03/28/19 16:45 Ordered 4 mg PO Q6HR PRN Ondansetron [Zofran] Med 03/28/19 16:39 Ordered 4 mg IV Q4H PRN Pantoprazole [ProTONIX] Med 03/29/19 08:00 Ordered 40 mg PO DAILY Polyethylene Glycol 3350 [MiraLAX] Med 03/28/19 16:39 Ordered 17 gm PO DAILY PRN Pramipexole Med 03/29/19 16:00 Ordered 0.25 mg PO DAILY@1600 Pramipexole Med 03/28/19 16:45 Ordered 0.5 mg PO ASDIRECTED Sodium Chloride 0.9% [Saline Flush] Med 03/28/19 16:39 Ordered 10 ml FLUSH ASDIRECTED PRN Sodium Chloride 0.9% with KCl [Normal Saline with 40 Med 03/28/19 16:45 Ordered mEq KCl] 1,000 ml IV ASDIRECTED Warfarin [Coumadin] Med 03/28/19 16:45 Ordered 2.5 mg PO ASDIRECTED Warfarin [Coumadin] Med 03/28/19 20:00 Ordered 2.5 mg PO BEDTIME Peripheral IV Insertion Adult [OM.PC] Routine Oth 03/28/19 16:39 Ordered Resuscitation Status Routine Resus Stat 03/28/19 16:39 Ordered Medication Orders Acetaminophen (Tylenol) 650 mg PO Q4H PRN PRN Reason: Pain (Mild 1-3)/fever Acetaminophen (Tylenol Extra Strength) 1,000 mg PO Q6HR PRN PRN Reason: Pain Hydrocodone Bitart/Acetaminophen (Ackerman 325-10 Mg) 1 tab PO Q12H PRN PRN Reason: Pain Hydrocodone Bitart/Acetaminophen (Ackerman 325-5 Mg) tab PO BID DOMINIK Fluticasone Propionate (Flonase) gm NASBOTH BID PRN PRN Reason: Congestion Gabapentin (Neurontin) 100 mg PO DAILY DOMINIK Gabapentin (Neurontin) 200 mg PO BEDTIME DOMINIK Hydromorphone HCl (Dilaudid) 0.25 mg IVPUSH Q2H PRN PRN Reason: Pain (severe 7-10) Potassium Chloride/Sodium Chloride (Normal Saline With 40 Meq Kcl) 1,000 mls @ 125 mls/hr IV ASDIRECTED DOMINIK Lovastatin (Mevacor) 20 mg PO BEDTIME [facility]IN[facility] Metoprolol Succinate (Toprol Xl) 25 mg PO BEDTIME [facility] Nitroglycerin (Nitrostat) 0.4 mg SL ASDIRECTED PRN PRN Reason: Chest Pain Non-Formulary Medication (Budesonide/Formoterol) 1 puff IH BID DOMINIK Non-Formulary Medication (Escitalopram [Lexapro]) 20 mg PO BEDTIME [facility] Non-Formulary Medication (Ondansetron) 4 mg PO Q6HR PRN PRN Reason: Nausea Non-Formulary Medication (Pramipexole) 0.25 mg PO DAILY@1600 DOMINIK Non-Formulary Medication (Pramipexole) 0.5 mg PO ASDIRECTED [facility] Ondansetron HCl (Zofran) 4 mg IV Q4H PRN PRN Reason: Nausea/Vomiting Pantoprazole Sodium (Protonix) 40 mg PO DAILY [facility] Polyethylene Glycol (Miralax) 17 gm PO DAILY PRN PRN Reason: Constipation Sodium Chloride (Saline Flush) 10 ml FLUSH ASDIRECTED PRN PRN Reason: Keep Vein Open Warfarin Sodium (Coumadin) 2.5 mg PO BEDTIME [facility] Warfarin Sodium (Coumadin) 2.5 mg PO ASDIRECTED DOMINIK
[2019-03-28] MEDS ORDERED: Ondansetron 4 MG Tab.DIS PO PRN (17:45)
[2019-03-28] MEDS ORDERED: Pramipexole 0.5 MG Tab PO SCH ×2 (17:45→20:00)
[2019-03-28] MEDS: Sodium Chloride 0.9% with KCl 1,000 ML IV SCH ×2 (18:25→22:15)
[2019-03-28] MEDS ORDERED: Fluticasone Propionate Nasal Spray 16 GM Bottle NASBOTH PRN (18:30)
[2019-03-28 18:33] LABS: ANION GAP 12.9 mmol/L (10-20)
--- NOTE | 2019-03-28 18:42 | CT ---
[id number] CT/CT Abdomen Pelvis WO IV Exam: CT Abdomen Pelvis WO IV Clinical Data: VOMITING ABDOMINAL PAIN COMPARISON: NO PREVIOUS SIMILAR EXAM IS AVAILABLE FINDINGS: There is mild small bowel distention IV contrast was not used The gallbladder has been removed There is no evidence of appendicitis The pelvis shows no mass or adenopathy The uterus and ovaries appear to have been removed The liver and spleen show no acute abnormalities There appear to be small bilateral renal cysts There is no hydronephrosis of either kidney The aorta and pancreas show no acute abnormalities The adrenals show no acute abnormalities IMPRESSION: MILD ILEUS Tito Pan MD 03/28/19 0318 Thank you for allowing us to participate in the care of your patient.
[2019-03-28] MEDS: Non-Formulary Medication 1 Each (Budesonide/Formoterol 1 PUFF) IH SCH (19:52)
[2019-03-28] MEDS: Acetaminophen/HYDROcodone 325-5 MG Tab PO SCH (19:55)
[2019-03-28] MEDS ORDERED: Non-Formulary Medication 1 Each (Escitalopram [Lexapro] 20 MG) PO SCH ×2 (20:00)
[2019-03-28] MEDS ORDERED: Metoprolol Succinate 25 MG Tab.ER PO SCH (20:00)
[2019-03-28] MEDS ORDERED: Warfarin 2.5 MG Tab PO SCH (20:00)
[2019-03-28] MEDS ORDERED: Non-Formulary Medication 1 Each (Budesonide/Formoterol 1 PUFF) IH SCH (20:00)
[2019-03-28] MEDS ORDERED: Gabapentin 100 MG Cap PO SCH (20:00)
[2019-03-29] MEDS ORDERED: Pantoprazole 40 MG Tab.CR PO SCH (07:00)
[2019-03-29] MEDS: Acetaminophen/HYDROcodone 325-5 MG Tab PO SCH (07:28)
[2019-03-29] MEDS: Non-Formulary Medication 1 Each (Budesonide/Formoterol 1 PUFF) IH SCH (07:29)
[2019-03-29] MEDS ORDERED: Gabapentin 100 MG Cap PO SCH (08:00)
[2019-03-29 09:03] LABS: ANION GAP 14.1 mmol/L (10-20)
[2019-03-29] MEDS ORDERED: Potassium Chloride 10 MEQ Tab.ER PO SCH (09:31)
[2019-03-29 09:50] VITALS: BP 93/49; PULSE 80
[2019-03-29] MEDS ORDERED: Potassium Chloride 10 MEQ Tab.ER PO ONE (10:23)
--- NOTE | 2019-03-29 16:35 | DISCH ---
PRIMARY DISCHARGE DIAGNOSES: 1. Nausea, vomiting, and constipation with mild ileus by CT. 2. Acute on chronic renal failure probably due to dehydration from over- diuresis with elevated BUN, possibly contributing to nausea. 3. Contraction alkalosis. 4. Chronic diastolic heart failure, stable, without exacerbation. The patient did get 1.3 L of fluid and had 1 L positive fluid balance. Her breathing was good. 5. Bilateral heel ulcers, improving on exam. No sign of infection. 6. Pyuria, but no urinary tract infection symptoms, possibly due to dehydration. Culture sent. 7. Chronic atrial fibrillation, on Coumadin. INR was 1.7 on discharge. 8. Anxiety and depression. 9. Underlying cognitive impairment, mild, [facility]. 10.B12 deficiency. 11.Type 2 diabetes. 12.Gastroesophageal reflux disease. 13.Obesity. 14.Sleep apnea. 15.Peripheral arterial disease, not severe. 16.Pulmonary hypertension. 17.Restless legs syndrome. 18.Reactive airway disease that is not asthma. REASON FOR ADMISSION: On the date of admission, this 79-year-old female came in with not feeling well. She was vomiting, has not vomited now since yesterday. Has not had a bowel movement, was getting laxatives. She was found to have a creatinine up to 2.4 recently in the clinic, 2.6 at the hospital. BUN 114. She was admitted to give IV fluids to do a CT scan, which showed a mild ileus. She received some IV fluids with potassium due to her potassium level being low previously. She overall had bowel movements. No further vomiting. She was feeling well, hoping to be [facility] to the [facility]. She had no signs or symptoms of heart failure. Vitals did show her to be mildly hypotensive with 1 blood pressure 86/40, but these improved by discharge. She was eating well on a clear liquid diet and in fact was hoping to get back to a regular diet. PHYSICAL EXAMINATION: Vital Signs: Discharge vitals show weight 81.7 kg, temperature 98.4, pulse 80, blood pressure 93/49, respiratory rate 16, and 96% on room air. General: She is in no acute distress. Heart: Regularly irregular with murmur. Lungs: Sounds are clear to auscultation bilaterally without crackles or wheezes. Abdomen: Has positive bowel sounds. Soft, nontender. Extremities: Warm and dry. Just trace edema at the ankles. No pitting. She has had heel ulcers, the left she states is the worst one that is showing significant improvement with no surrounding redness or drainage from my previous exams. Mental Status: She is alert and orientated x3. DISCHARGE PLANS AND INSTRUCTIONS: She will follow up on 04/11/2019 on [facility] rounds unless she is discharged. We will do a BMP, mag, and CBC in 1 week. We will stop her metolazone, but keep her torsemide at 100 b.i.d. She will resume PT, OT at the [facility]. MKA: 03/29/2019 10:31:13 MODL: 03/29/2019 16:29:14 /[id number]
[2019-03-30] MEDS ORDERED: Warfarin 5 MG Tab PO SCH (20:00)
== END 2019-03-29 12:54 ==
LOC: INTOOBSV 16:34 → VM.MS 16:34
PROVIDERS: ADMIT Family Medicine; ATTEND Internal Medicine
DX: K56.7 Ileus, unspecified (principal); E86.0 Dehydration; K59.00 Constipation, unspecified; N17.9 Acute kidney failure, unspecified; E11.22 Type 2 diabetes mellitus with diabetic chronic kidney disease; N18.9 Chronic kidney disease, unspecified; I50.32 Chronic diastolic (congestive) heart failure; I48.20 Chronic atrial fibrillation, unspecified; I27.20 Pulmonary hypertension, unspecified; E87.3 Alkalosis; E11.51 Type 2 diabetes mellitus with diabetic peripheral angiopathy without gangrene; E11.42 Type 2 diabetes mellitus with diabetic polyneuropathy; E53.8 Deficiency of other specified B group vitamins; E66.9 Obesity, unspecified; F41.9 Anxiety disorder, unspecified; F32.9 Major depressive disorder, single episode, unspecified; K21.9 Gastro-esophageal reflux disease without esophagitis; R82.81 Pyuria; G31.84 Mild cognitive impairment of uncertain or unknown etiology; G47.30 Sleep apnea, unspecified; G25.81 Restless legs syndrome; Z88.1 Allergy status to other antibiotic agents; Z91.013 Allergy to seafood; Z88.7 Allergy status to serum and vaccine; Z88.8 Allergy status to other drugs, medicaments and biological substances; Z91.048 Other nonmedicinal substance allergy status; Z99.81 Dependence on supplemental oxygen; Z66 Do not resuscitate; Z79.01 Long term (current) use of anticoagulants; Z79.891 Long term (current) use of opiate analgesic; Z79.51 Long term (current) use of inhaled steroids; Z79.899 Other long term (current) drug therapy
CPT/HCPCS: 36415; 74176; 80048; 80053; 80162; 81001; 82150; 82803; 82962; 83735; 83880; 85025; 85610; 86140; 87086; 87088; 87186; 96360; 96361; A9270; G0378; G0379; J3480

== ENCOUNTER 2019-03-30 09:12 | Inpatient (IN) | payer MEDICARE, OTHER ==
[2019-03-30] MEDS ORDERED: cefTRIAXone 1 GM Vial IVPUSH ONE (09:40)
--- NOTE | 2019-03-30 09:55 | EDM.PDOC ---
ED HPI GENERAL MEDICAL PROBLEM - General Chief Complaint: Fever Stated Complaint: HIGH TEMPS Time Seen by Provider: 03/30/19 09:15 Source of Information: Reports: Patient History Limitations: Reports: No Limitations - History of Present Illness INITIAL COMMENTS - FREE TEXT/NARRATIVE: patient comes into the emergency department with concerns from the assisted staff of fever, increased confusion, and increased weakness. Patient was just released from the hospital approximately 24 hours prior to her emergency room visit for observation status of the possible bowel obstruction. After patient was discharged assisted state things were going fairly well for a short period time however during the night she developed a high fever of 102. They did give her Tylenol and was relieved to 101. The were concerned with increased confusion. They contacted her primary care provider who suggested she be evaluated in the emergency department. Upon arrival to the emergency department. Patient is alert and oriented and is able to describe the past 24 hours without any difficulty. She states that she does feel more weak however it is not any worse than it has been in the last week. She denies feeling short of breath despite her oxygenation been in the 80s. She also denies any concerns with headache, confusion, dizziness, chest pain, abdominal discomfort, bladder concerns, or lower extremity edema. Patient states she feels fairly well compared to when she was in the hospital. She currently has no concerns or complaints. She does not feel personally that she needs to be here in emergency department. Patient's oxygen saturation however was in the 80s upon arrival. Nursing staff initiated oxygen at 3 L nasal cannula to maintain oxygen levels at 93-94%. Onset: Gradual Location: Reports: Other Quality: Reports: Other Severity: Mild Improves with: Reports: None Worsens with: Reports: None Context: Reports: Other Associated Symptoms: Reports: No Other Symptoms (assisted staff report confusion and weakness at the assisted. ) - Related Data Allergies Allergy/AdvReac Type Severity Reaction Status Date / Time cefazolin [From Ancef] Allergy Severe Anaphylactic Verified 03/30/19 09:57 Shock adhesive Allergy Intermediate Hives Verified 03/30/19 09:57 azithromycin [From Zithromax] Allergy Intermediate Hives Verified 03/30/19 09:57 ezetimibe [From Zetia] Allergy Other Verified 03/30/19 09:57 tetanus toxoid, adsorbed Allergy Cannot Verified 03/30/19 09:57 Remember amoxicillin AdvReac Diarrhea Verified 03/30/19 09:57 atorvastatin [From Lipitor] AdvReac Muscle Verified 03/30/19 09:57 Aches atorvastatin calcium AdvReac Muscle Verified 03/30/19 09:57 [From Lipitor] Aches clindamycin [From Cleocin] AdvReac Mouth Sores Verified 03/30/19 09:57 shellfish derived AdvReac Vomiting Verified 03/30/19 09:57 simvastatin [From Zocor] AdvReac Muscle Verified 03/30/19 09:57 Aches IV contrast Allergy Other Uncoded 03/30/19 09:57 Home Meds: Home Meds Allopurinol 300 mg PO DAILY@1600 09/04/14 [History] Cyanocobalamin (Vitamin B-12) [Vitamin B-12] 1,000 mcg PO BID@0800,1600 [History] Escitalopram [Lexapro] 20 mg PO BEDTIME 09/04/14 [History] Lovastatin [Mevacor] 20 mg PO BEDTIME 09/04/14 [History] Multivitamin [Multi-Vitamin Daily] 1 tab PO MOWEFR@0800 09/04/14 [History] Zinc Gluconate [Zinc] 50 mg PO DAILY@1600 04/02/15 [History] Fluticasone Propionate [Flonase] 1 spray NASBOTH BID PRN 04/01/17 [History] Pramipexole [Mirapex] 0.25 mg PO DAILY@1600 06/04/17 [History] Pramipexole [Mirapex] 0.5 mg PO BEDTIME 06/04/17 [History] Warfarin [Coumadin] 2.5 mg PO ASDIRECTED 06/04/17 [History] Budesonide/Formoterol Fumarate [Symbicort 160-4.5 Mcg Inhaler] 1 puff IH BID 02/28 [History] Acetaminophen 1,000 mg PO Q6HR PRN 10/24/18 [History] Acetaminophen/HYDROcodone [[place] 325-5 MG] 5 - 325 mg PO BID 10/24/18 [History] Gabapentin [Neurontin] 100 mg PO DAILY 10/24/18 [History] Gabapentin [Neurontin] 200 mg PO BEDTIME 10/24/18 [History] Hydrocortisone [Anusol-HC] 1 applic RC Q4HR PRN 10/24/18 [History] Nitroglycerin [Nitrostat] 0.4 mg SL ASDIRECTED PRN 10/24/18 [History] Ondansetron HCl [Ondansetron] 4 mg PO Q6HR PRN 10/24/18 [History] Pantoprazole Sodium [Protonix] 40 mg PO WEEKLY 01/13/19 [History] Torsemide [Demadex] 100 mg PO BIDDIURETIC 01/13/19 [History] Acetaminophen/HYDROcodone [[place] 325-10 MG] 1 tab PO Q12H PRN tablet 02/22/19 [ Rx] Metoprolol Succinate [Toprol XL 50mg] 25 mg PO BEDTIME #30 tab.er 02/22/19 [Rx] Warfarin [Coumadin] 2.5 mg PO BEDTIME tablet 02/22/19 [Rx] Bisacodyl 5 mg PO ASDIRECTED PRN 03/28/19 [History] Magnesium Citrate 300 ml PO DAILY PRN 03/28/19 [History] Sennosides [Senokot] 1 tab PO DAILY 03/28/19 [History] Polyethylene Glycol 3350 [MiraLAX] 17 gm PO DAILY PRN packet 03/29/19 [Rx] Potassium Chloride [Klor-Con 10] 20 meq PO BIDMEALS #60 tab.er 03/29/19 [Rx] Past Medical History HEENT History: Reports: None, Allergic Rhinitis, Cataract, Macular Degeneration , Other (See Below) Other HEENT History: astigmatism, presbyopia, myopia, pseudophakia Cardiovascular History: Reports: Afib, Blood Clots/VTE/DVT, Heart Failure, Heart Murmur, High Cholesterol, Pulmonary Hypertension Other Cardiovascular History: Aortic stenosis, leg swelling Respiratory History: Reports: Sleep Apnea, Other (See Below) Other Respiratory History: pneumonia 2014, reactive airway disease that is not asthma Gastrointestinal History: Reports: GERD Genitourinary History: Reports: Diabetic Nephropathy, Other (See Below) Other Genitourinary History: Microscopic hematuria 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: Reports: Musculoskeletal History: Reports: Gout, Osteoarthritis, Other (See Below) Other Musculoskeletal History: Restless leg syndrome Neurological History: Reports: None, Neuropathy, Diabetic, Other (See Below) Other Neuro History: syncope Psychiatric History: Reports: Anxiety, Depression Endocrine/Metabolic History: Reports: Diabetes, Type II, Obesity/BMI 30+, Osteopenia, Other (See Below) Other Endocrine/Metabolic History: B12 deficiency Hematologic History: Reports: None Immunologic History: Reports: None Oncologic (Cancer) History: Reports: Breast Dermatologic History: Reports: Cellulitis, Other (See Below) Other Dermatologic History: dry skin, yeast infections, diabetic foot ulcer, gangerene of left foot - Past Surgical History HEENT Surgical History: Reports: Cataract Surgery, Tonsillectomy, Other (See Below) Other HEENT Surgeries/Procedures: capsulotomy Cardiovascular Surgical History: Reports: None Respiratory Surgical History: Reports: None GI Surgical History: Reports: Appendectomy, Cholecystectomy Female Surgical History: Reports: Hysterectomy, Mastectomy, Tubal Ligation, Other (See Below) Other Female Surgeries/Procedures: left mastectomy Endocrine Surgical History: Reports: None Neurological Surgical History: Reports: None Musculoskeletal Surgical History: Reports: Hip Replacement, Other (See Below) Other Musculoskeletal Surgeries/Procedures:: Left elbow surgery. Chronic osteomyelitis of left foot Oncologic Surgical History: Reports: Mastectomy Dermatological Surgical History: Reports: None Social & Family History - Family History Family Medical History: Noncontributory Cardiac: Reports: PVD/COD Oncologic: Reports: Lung - Caffeine Use Caffeine Use: Reports: Tea ED ROS GENERAL - Review of Systems Review Of Systems: See Below Constitutional: Reports: Weakness HEENT: Reports: No Symptoms Respiratory: Reports: Cough Cardiovascular: Reports: No Symptoms Endocrine: Reports: No Symptoms GI/Abdominal: Reports: No Symptoms : Reports: No Symptoms Musculoskeletal: Reports: No Symptoms Skin: Reports: No Symptoms Neurological: Reports: No Symptoms Psychiatric: Reports: No Symptoms Hematologic/Lymphatic: Reports: No Symptoms Immunologic: Reports: No Symptoms ED EXAM, GENERAL - Physical Exam Exam: See Below Exam Limited By: No Limitations General Appearance: Alert, WD/WN, No Apparent Distress Eye Exam: Bilateral Eye: PERRL Nose: Normal Inspection, Normal Mucosa Throat/Mouth: Normal Inspection, Normal Oropharynx Head: Atraumatic, Normocephalic Neck: Normal Inspection, Supple, Non-Tender, Full Range of Motion Respiratory/Chest: Respiratory Distress, Decreased Breath Sounds Cardiovascular: Normal Peripheral Pulses, Tachycardia Back Exam: Normal Inspection Extremities: Normal Inspection, Normal Range of Motion Neurological: Alert, Oriented, Normal Cognition Skin Exam: Warm, Dry, Intact Course - Vital Signs Last Recorded V/S: Last Vital Signs Temp 36.6 C 03/30/19 09:14 Pulse 108 H 03/30/19 09:14 Resp 20 03/30/19 09:14 BP 87/53 L 03/30/19 09:14 Pulse Ox 86 L 03/30/19 09:25 - Orders/Labs/Meds Orders: Active Orders 24 hr Category Date Time Status Admission Status [Patient Status] [ADT] Routine ADT 03/30/19 11:40 Active EKG 12 Lead [EKG Documentation Completion] [RC] STAT Care 03/30/19 09:42 Active Oxygen Therapy, ED [] ASDIRECTED Care 03/30/19 10:57 Active Chest wo Cont [CT] Stat Exams 03/30/19 11:38 Ordered CULTURE BLOOD [BC] Stat Lab 03/30/19 10:05 Results CULTURE BLOOD [BC] Stat Lab 03/30/19 10:05 Results Sodium Chloride 0.9% [Saline Flush] Med 03/30/19 09:40 Active 10 ml FLUSH ASDIRECTED PRN Blood Culture x2 Reflex Set [OM.PC] Stat Oth 03/30/19 09:40 Ordered Peripheral IV Insertion Adult [OM.PC] Routine Oth 03/30/19 09:40 Ordered Medication Orders Sodium Chloride (Saline Flush) 10 ml FLUSH ASDIRECTED PRN PRN Reason: Keep Vein Open Last Admin: 03/30/19 11:57 Dose: 10 ml Labs: Laboratory Tests 03/30/19 03/30/19 03/30/19 Range/Units 10:10 10:10 10:10 WBC 8.2 (4.0-10.0) x10^3/uL RBC 3.65 L (4.00-5.50) x10^6/uL Hgb 11.2 L (12.0-16.0) g/dL Hct 34.2 (33.0-47.0) % MCV 93.7 H (78.0-93.0) fL MCH 30.7 (26.0-32.0) pg MCHC 32.7 (32.0-36.0) g/dL RDW Coeff of Erum 14.8 (10.0-15.0) % Plt Count 94 L (130-400) x10^3/uL Neut % (Auto) 66.5 (50.0-80.0) % Lymph % (Auto) 22.7 L (25.0-50.0) % Dyer % (Auto) 10.6 (2.0-11.0) % Eos % (Auto) 0.0 (0.0-4.0) % Baso % (Auto) 0.2 (0.2-1.2) % PT 20.2 H (10.0-12.8) SEC INR 1.8 L (2.0-3.5) Sodium 133 L (69-191) mmol/L Potassium 3.5 (1.5-9.9) mmol/L Chloride 90 L (54-184) mmol/L Carbon Dioxide 33 H (21-32) mmol/L Anion Gap 13.5 (10-20) mmol/L BUN 118 H* (7-18) mg/dL Creatinine 3.1 H* (0.55-1.02) mg/dL Est Cr Clr Drug Dosing 10.74 mL/min Estimated GFR (MDRD) 14 Glucose 161 H (74-106) mg/dL Lactic Acid (0.4-2.0) mmol/L Calcium 9.2 (8.5-10.1) mg/dL Corrected Calcium 9.60 (8.5-10.1) mg/dL Total Bilirubin 0.8 (0.2-1.0) mg/dL AST 54 H (15-37) U/L ALT 36 (14-59) U/L Alkaline Phosphatase 150 H (46-116) U/L Troponin I (<=0.056) ng/mL NT-Pro-B Natriuret Pep 16423 H (<=450) pg/mL Total Protein 8.1 (6.4-8.2) g/dL Albumin 3.5 (3.4-5.0) g/dL Globulin 4.6 Albumin/Globulin Ratio 0.76 03/30/19 03/30/19 Range/Units 10:10 10:10 WBC (4.0-10.0) x10^3/uL RBC (4.00-5.50) x10^6/uL Hgb (12.0-16.0) g/dL Hct (33.0-47.0) % MCV (78.0-93.0) fL MCH (26.0-32.0) pg MCHC (32.0-36.0) g/dL RDW Coeff of Erum (10.0-15.0) % Plt Count (130-400) x10^3/uL Neut % (Auto) (50.0-80.0) % Lymph % (Auto) (25.0-50.0) % Dyer % (Auto) (2.0-11.0) % Eos % (Auto) (0.0-4.0) % Baso % (Auto) (0.2-1.2) % PT (10.0-12.8) SEC INR (2.0-3.5) Sodium (69-191) mmol/L Potassium (1.5-9.9) mmol/L Chloride (54-184) mmol/L Carbon Dioxide (21-32) mmol/L Anion Gap (10-20) mmol/L BUN (7-18) mg/dL Creatinine (0.55-1.02) mg/dL Est Cr Clr Drug Dosing mL/min Estimated GFR (MDRD) Glucose (74-106) mg/dL Lactic Acid 1.2 (0.4-2.0) mmol/L Calcium (8.5-10.1) mg/dL Corrected Calcium (8.5-10.1) mg/dL Total Bilirubin (0.2-1.0) mg/dL AST (15-37) U/L ALT (14-59) U/L Alkaline Phosphatase (46-116) U/L Troponin I 0.092 H* (<=0.056) ng/mL NT-Pro-B Natriuret Pep (<=450) pg/mL Total Protein (6.4-8.2) g/dL Albumin (3.4-5.0) g/dL Globulin Albumin/Globulin Ratio Meds: Medications Generic Name Dose Route Start Last Admin Trade Name Freq PRN Reason Stop Dose Admin Sodium Chloride 10 ml 03/30/19 09:40 03/30/19 11:57 Saline Flush FLUSH 10 ml ASDIRECTED PRN Administration Keep Vein Open Discontinued Medications Generic Name Dose Route Start Last Admin Trade Name Freq PRN Reason Stop Dose Admin Ceftriaxone Sodium 1 gm 03/30/19 09:40 03/30/19 10:18 Rocephin IVPUSH 03/30/19 09:41 1 gm STAT ONE Administration Furosemide 20 mg 03/30/19 11:39 03/30/19 11:57 Lasix IV 03/30/19 11:40 20 mg ONETIME ONE Administration Departure - Departure Time of Disposition: 11:45 Disposition: Admitted As Inpatient 64 Condition: Fair Clinical Impression: NSTEMI (non-ST elevated myocardial infarction), Acute kidney injury, Hypoxia, SOBOE (shortness of breath on exertion) CHF (congestive heart failure) Qualifiers: Heart failure type: unspecified Heart failure chronicity: acute on chronic Qualified Code(s): I50.9 - Heart failure, unspecified Respiratory failure Qualifiers: Chronicity: acute on chronic Respiratory failure complication: hypoxia Qualified Code(s): J96.21 - Acute and chronic respiratory failure with hypoxia - Discharge Information *PRESCRIPTION DRUG MONITORING PROGRAM REVIEWED*: Not Applicable *COPY OF PRESCRIPTION DRUG MONITORING REPORT IN PATIENT SHASHI: Not Applicable Referrals: Rea Card DO [Primary Care Provider] - Forms: ED Department Discharge - My Orders Last 24 Hours: My Active Orders 03/30/19 09:40 Sodium Chloride 0.9% [Saline Flush] 10 ml FLUSH ASDIRECTED PRN Blood Culture x2 Reflex Set [OM.PC] Stat Peripheral IV Insertion Adult [OM.PC] Routine 03/30/19 09:42 EKG 12 Lead [EKG Documentation Completion] [RC] STAT 03/30/19 10:05 CULTURE BLOOD [BC] Stat CULTURE BLOOD [BC] Stat 03/30/19 10:57 Oxygen Therapy, ED [RC] ASDIRECTED 03/30/19 11:38 Chest wo Cont [CT] Stat 03/30/19 11:40 Admission Status [Patient Status] [ADT] Routine - Assessment/Plan Last 24 Hours: My Active Orders 03/30/19 09:40 Sodium Chloride 0.9% [Saline Flush] 10 ml FLUSH ASDIRECTED PRN Blood Culture x2 Reflex Set [OM.PC] Stat Peripheral IV Insertion Adult [OM.PC] Routine 03/30/19 09:42 EKG 12 Lead [EKG Documentation Completion] [RC] STAT 03/30/19 10:05 CULTURE BLOOD [BC] Stat CULTURE BLOOD [BC] Stat 03/30/19 10:57 Oxygen Therapy, ED [RC] ASDIRECTED 03/30/19 11:38 Chest wo Cont [CT] Stat 10/18/19 11:40 Admission Status [Patient Status] [ADT] Routine Assessment:: 1. fever 2. Hypoxia 3. Respiratory failure requiring O2 Plan: 1. Labs completed. Results reviewed with the patient 2. X-ray completed in the ER. Results reviewed with patient 3. EKG completed in ER results reviewed with patient 4. Sepsis protocol utilized. Blood cultures obtained. Delay in submitting orders due to computer/[employer] issues. 5. 1gm Rocephin IV 6. IV initiated in ER. 7. Oxygen administered via Nasal Cannula to keep saturation greater than 92% 8. Dr. Rea Card contacted regarding patients status and test findings. Dr. Rea Card will contact Dr. Isaac Card who will be assuming care. 11: 25 9.11:45. Return call. Dr. Isaac Card will admit to acute care. His request prior to being admitted is to complete a chest CT without contrast for further evaluation of fluid status. 10. 20mg IV lasix given prior to admit per Dr. Rea Card request. 11. Shelter contacted regarding update and request for CHF clinic phone number for device readings: [phone] [facility]. 12. Patient updated on all test results and admission. 13. All questions and concerns addressed prior to admit.
--- NOTE | 2019-03-30 10:12 | CR ---
[id number] RAD/RAD Chest PA or AP 1V EXAM: SINGLE VIEW CHEST. INDICATION: LOW OXYGEN SATURATION COMPARISON: CORRELATION IS MADE WITH THE EXAM OF 2018 FINDINGS: Cardiac surgical changes are seen The lungs are clear The cardiac silhouette is stable IMPRESSION: NO PNEUMONIA OR EDEMA Tito Pan MD 03/30/19 1011 Thank you for allowing us to participate in the care of your patient.
[2019-03-30 10:56] LABS: ANION GAP 13.5 mmol/L (10-20)
[2019-03-30] MEDS ORDERED: Furosemide 20 MG/2 ML VIAL IV ONE (11:39)
[2019-03-30] MEDS: Sodium Chloride 0.9% 10 ML Syringe FLUSH PRN ×2 (11:57→15:03)
--- NOTE | 2019-03-30 13:33 | CT ---
[id number] CT/CT Chest WO IV Exam: CT Chest WO IV Clinical Data: SHORTNESS OF BREATH COMPARISON: CORRELATION IS MADE WITH THE EARLIER CHEST RADIOGRAPH FINDINGS: There is minimal pleural reaction bilaterally There is no pulmonary parenchymal mass or infiltrate There is no mediastinal mass or adenopathy IV contrast was not used. IMPRESSION: NO OBVIOUS ACUTE ABNORMALITY Tito Pan MD 03/30/19 2533 Thank you for allowing us to participate in the care of your patient.
[2019-03-30] MEDS ORDERED: Ondansetron 4 MG/2 ML SDV IV PRN (14:15)
[2019-03-30] MEDS ORDERED: HYDROmorphone 1 MG/ML Syringe IVPUSH PRN (14:15)
--- NOTE | 2019-03-30 14:15 | PCM.HP.2 ---
H&P History of Present Illness - General Date of Service: 03/30/19 Admit Problem/Dx: Admission Diagnosis/Problem Admission Diagnosis/Problem CHF, Congestive heart failure - History of Present Illness Initial Comments - Free Text/Narative: Chronic diastolic congestive heart failure (HCC) Diabetic polyneuropathy associated with diabetes mellitus due to underlying condition (HCC) Pulmonary hypertension (HCC) Diabetes mellitus due to underlying condition with diabetic polyneuropathy, without long-term current use of insulin (HCC) Chronic, continuous use of opioids Chronic atrial fibrillation [facility] current use of 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 History of DVT (deep vein thrombosis) Reactive airway disease that is not asthma Tubular adenoma Dependence on supplemental oxygen Cognitive impairment LUX (acute kidney injury) (HCC) PAD (peripheral artery disease) (HCC) Intractable vomiting with nausea, unspecified vomiting type Constipation, unspecified constipation type Plan: ID - Probable sepsis by O2, CRP, hypotension, tachycardia BC pending Nothing focal by CT chest/abd/pelvis UA + with GNR, UC/S pending = empiric rocephin for UTI which is only source of infection seen so far Does have remote hx of osteomyelitis Cardiac - elevated BNP, Trop likely secondary to LUX and sepsis No chest pain No CHF by imaging, last echo showed fairly normal LV - PAH seems to be bigger issue Still appears dry by exam Continue home cardiac meds for now Pulm - hypoxia likely from sepsis and PAH No PNA or CHF by CT FEV1 normal in past Supplement to keep >92% FEN, LUX on CKD Appears dry by exam and imaging 125 cc NaCl w/ 20mEq KCL Clears then ADAT GI Zofran PRN nausea Miralax PRN constipation Coumadin for past hx of DVT and Afib DNR CC: Fever, vomiting, constipation still after recent d/c HPI / History / ROS Constipationvery constipated for 4d. Bisacodyl tablets given, suppository and Mag citrate given with no results. Vomitingsmall amounts of bile off and on for 4 days Admitted 2d ago for IVF, feeling better, d/c home Temp came back again up to 102F, again without much focal sx CT Abd/pelv neg on prior stay. UA was pos, UC growing GNR Nonsmoker. DNR, lives in [place]. Has heart failure that looks more right sided and diastolic: "acute on chronic diastolic heart failure. In fact, she has had CardioMEMS placed by Dr. Medel on March 01, 2018. At that time right heart catheterization revealed mean right atrial pressure of 15 mmHg, right ventricular systolic pressure was 81 with an end-diastolic pressure of 19. PA systolic was 78 with diastolic of 37 and a mean PA of 53 and an end expiratory wedge pressure of 29 mmHg. Her PA saturation was 44%. Cardiac output was 2.36, and pulmonary vascular resistance was around 10 Wood units. Essentially, the patient has severe mixed pulmonary hypertension, predominantly pulmonary venous hypertension and the long-standing chronic nature of which has led to some degree of pulmonary artery hypertension and RV failure." Admitted 4w ago for PAD/ulcer: "Tamiko Faria is an 79 year old female with chronic PAD and multiple toe amputations that was seen in [facility] on 02/27 where her bilateral heal ulcers were being cared for. They performed a TCOM that was concerning for chronic limb ischemia. She was transferred here for possible intervention. Vascular surgery saw her and repeated ABIs and duplex US. There were no acute vascular interventions needed. Wound nurses were consulted for heal ulcer care. Digoxin was held on admission. Discussion about her digoxin was had with the hospitalist team and pharmacy. She is rate controlled on metoprolol alone and there is concern for accumulation in setting of CKD. Will discontinue on discharge and recommend discussion with PCP on starting it again in the future if rates do not remain controlled. Could consider every other day dosing. " Medications w MedicationsPriortoVisit w Outpatient Medications Prior to Visit Medication Sig Dispense Refill magnesium citrate SOLN Take 300 mL by mouth 1 time for 1 dose 1 Bottle 0 senna-docusate sodium (SENOKOT-S;PERICOLACE) 8.6-50 MG tablet Take 1 tablet by mouth 1 time per day 30 tablet 11 torsemide (DEMADEX) 20 mg tablet Take 5 tablets (100 mg) by mouth two times a day (in the morning and mid- afternoon). 720 tablet 0 metOLazone (ZAROXOLYN) 5 mg tablet Take 1 tablet (5 mg) by mouth on Tuesday and Tuesday 15 tablet 0 potassium chloride (KLOR-CON M20) 20 MEQ CR tablet Take 4 tablets (80 mEq) by mouth 1 time per day for 1 day, THEN 2 tablets (40 mEq) 1 time per day. 190 tablet 3 HYDROcodone-acetaminophen (NORCO) 5-325 mg tablet TAKE 1 TABLET BY MOUTH AT 4 PM & TAKE 1 TABLET AT BEDTIME 60 tablet 0 gabapentin (NEURONTIN) 100 mg capsule TAKE 1 CAPSULE BY MOUTH EVERY MORNING & TAKE 2 CAPSULES BY MOUTH EVERY NIGHT AT BEDTIME 90 capsule 5 HYDROcodone-acetaminophen (NORCO) 5-325 mg tablet Earliest Fill Date: 02/28/19 Take 1 tablet at 4 pm and 1 at bedtime 30 tablet 0 metoprolol succinate (TOPROL XL) 50 mg SR tablet (24 hr) Take 1 tablet (50 mg) by mouth 1 time per day 30 tablet 0 pantoprazole (PROTONIX) 40 mg enteric coated tablet Take 1 tablet (40 mg) by mouth 1 time a day as needed for other (Specify) ( heartburn) (Patient taking differently: Take 40 mg by mouth 1 time a day in the morning ) 30 tablet 1 allopurinol (ZYLOPRIM) 300 mg tablet TAKE 1 TABLET BY MOUTH DAILY AT 4PM 90 tablet 0 lovastatin (MEVACOR) 20 mg tablet TAKE 1 TABLET BY MOUTH NIGHTLY AT BEDTIME 90 tablet 0 hydrocortisone, rectal, (ANUSOL-HC) 2.5 % cream Insert rectally Every 4 hours as needed for itching (pain relief from hemorrhoids) 30 g 0 acetaminophen (TYLENOL) 500 mg tablet Take 2 tablets (1,000 mg) by mouth every 6 hours as needed for mild pain 30 tablet 0 fluticasone (FLONASE) 50 mcg/spray nasal spray [place] 1 spray into each nostril 2 times a day as needed (congestion) cyanocobalamin (VITAMIN B-12) 1000 mcg tablet Take 1 tablet by mouth twice a day in the morning and at 4pm. Round pink speckled. 30 tablet 12 Zinc (ZINC) 50 MG CAPS TAKE ONE TABLET BY MOUTH EVERY DAY AT 4PM. 100 each 4 pramipexole (MIRAPEX) 0.25 mg tablet TAKE 1 TABLET BY MOUTH AT 4PM AND TAKE 2 TABLETS BY MOUTH 2 HOURS BEFORE BEDTIME FOR RESTLESS LEGS (Patient taking differently: Take 0.25 mg by mouth every night at bedtime TAKE 1 TABLET BY MOUTH AT 4PM AND TAKE 2 TABLETS BY MOUTH 2 HOURS BEFORE BEDTIME FOR RESTLESS LEGS) 270 tablet 3 budesonide-formoterol (SYMBICORT) 160-4.5 mcg/puff inhaler INHALE 1 PUFF ORALLY 2 TIMES A DAY SHAKE WELL BEFORE USING. RINSE MOUTH AFTER USE. (Patient taking differently: Inhale 1 puff orally 1 time per day INHALE 1 PUFF ORALLY 2 TIMES A DAY SHAKE WELL BEFORE USING. RINSE MOUTH AFTER USE.) 30.6 g 4 escitalopram (LEXAPRO) 20 mg tablet TAKE 1 TABLET BY MOUTH NIGHTLY AT BEDTIME 90 tablet 3 ondansetron (ZOFRAN) 4 mg tablet Take 1 tablet (4 mg) by mouth every 6 hours as needed for nausea or vomiting 25 tablet 0 warfarin (COUMADIN) 2.5 MG tablet Anticoagulation Pt:Take as directed. (Insurance Purposes: 1.25- 2.5 mg daily dose range) Call [phone] if ? 90 tablet 2 nitroglycerin (NITROSTAT) 0.4 mg sublingual tablet Dissolve 1 tablet (0.4 mg) under the tongue Every 5 minutes as needed for chest pain for up to 3 doses May repeat every 5 minutes for a total of 3 doses. 25 tablet 0 blood glucose test strip (ACCU-CHEK ENE) Check blood glucose 1-2 times daily. 1 box 0 lancets (ACCU-CHEK MULTICLIX) 1 box 0 MULTIPLE VITAMIN PO Take 1 tablet by mouth 3 times a week No facility-administered medications prior to visit. Allergies w w w w w Allergies l Allergen l Reactions w w Adhesives w Hives (High) and Rash w w Ancef [Cefazolin] w Anaphylaxis (High) w w w Reacted to medications in the OR. Possibly the ancef. Became itchy and hypotensive w w Zithromax [Azithromycin] w Hives (High) and Rash w w Amoxicillin w Diarrhea w w w cefalexin ok w w Cleocin [Clindamycin] w Other (Specify in Comments) w w w Mouth sores w w Ezetimibe w Other (Specify in Comments) w w w Muscle aches w w Lipitor [Atorvastatin Calcium] w Other (Specify in Comments) w w w myalgias w w Other: See Comments w Other (Specify in Comments) w w w Pt. States had IVP due reaction about 40 yrs. Ago : heart palpitations, but no problems with CT dye. w w Seasonal w Other (Specify in Comments) w w w Nasal drainage w w Shellfish-Derived Products w Nausea and Vomiting w w w Crab w w Tetanus Toxoids w Other (Specify in Comments) w w w !!!!!!! pamp lists "tetanus" As allergen!!!!!!! Injection site and arm swells and gets very sore and infected w w Zocor [Simvastatin] w Other (Specify in Comments) w w w myalgia Problem List w w w Patient Active Problem List l Diagnosis w w Hyperlipidemia with target LDL less than 100 w w Anxiety state w w Chronic atrial fibrillation w w DCIS (ductal carcinoma in situ) w w Gout w w [facility] current use of 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 w w Nonspecific abnormal results of liver function study w w Astigmatism w w Presbyopia w w Myopia w w Microscopic hematuria w w Osteoarthritis w w Diastolic CHF (HCC) w w Senile cataract w w Nonexudative senile macular degeneration of retina w w History of DVT (deep vein thrombosis) w w Hypertriglyceridemia w w Diabetic neuropathy (HCC) w w Pulmonary hypertension (HCC) w w Osteopenia w w Depression w w Leg swelling w w Diabetes mellitus (HCC) w w Cataract, senile - Both w w GERD (gastroesophageal reflux disease) w w Obstructive sleep apnea syndrome w w Family history of breast cancer w w RLS (restless legs syndrome) w w Seasonal allergies w w Aortic valve stenosis w w Obesity w w B12 deficiency w w Dermatochalasis w w Chronic osteomyelitis of left foot w w History of total hip replacement w w Reactive airway disease that is not asthma w w 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 coli UTI w w Cognitive impairment w w PAD (peripheral artery disease) ([facility]) Medical/Surgical/Family/SocialHistory w PastMedicalHistory w Past Medical History: Diagnosis Date Acute osteomyelitis of left foot (HCC) Anxiety Aortic stenosis Arthritis Atrial fibrillation (HCC) chronic Breast cancer (HCC) Cataract Cellulitis of toe of left foot CHF (congestive heart failure) (HCC) Chronic osteomyelitis of left foot (HCC) Chronic, continuous use of opioids DCIS (ductal carcinoma in situ) Depression Dermatochalasis Diabetes mellitus (HCC) type 2 Diabetic neuropathy (HCC) Diastolic CHF (HCC) DVT (deep venous thrombosis) ([facility]) GERD (gastroesophageal reflux disease) Gout left hand Heart failure managed at heart failure clinic ([facility]) Hyperlipidemia Hypertension Hypertriglyceridemia Irregular heart beat Leg swelling [facility] current use of 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 Macular degeneration Microscopic hematuria Murmur OA (osteoarthritis) of hip both hips Obesity SHERWIN (obstructive sleep apnea) syndrome Osteopenia Pain medication agreement signed Pulmonary hypertension ([facility]) Reactive airway disease that is not asthma RLS (restless legs syndrome) Seasonal allergies Sleep apnea SOB (shortness of breath) on exertion Syncope Vitamin B 12 deficiency w PastSurgicalHistory w Past Surgical History: Procedure Laterality Date AMPUTATION MINOR Left 01/10/2015 Procedure: LEFT 4TH TOE DISTAL INTERPHALANGEAL JOINT AMPUTATION;; Surgeon: Panchito Card DPM AMPUTATION MINOR Left 10/28/2015 Procedure: LEFT FOOT DISTAL 3RD TOE AMPUTATION, LEFT 2ND TOE FLEXOR TENOTOMY;; Surgeon: Yariel Eaton DPM AMPUTATION MINOR Left 05/31/2017 Procedure: LEFT 2ND DIGIT DISTAL SYMES AMPUTATION ;; Surgeon: Yariel Eaton DPM AMPUTATION MINOR Left 07/17/2017 Procedure: LEFT FOOT 5th digit amputation ;; Surgeon: Roby Gardner DPM AMPUTATION MINOR Left 04/12/2018 Procedure: LEFT 3RD TOE PARTIAL AMPUTATION;; Surgeon: Roby Gardner DPM AMPUTATION MINOR Left 08/09/2018 Procedure: LEFT FOOT 4TH TOE PARTIAL AMPUTATION;; Surgeon: Roby Gardner DPM AMPUTATION MINOR Right 10/20/2018 Procedure: RIGHT HALLUX AMPUTATION;; Surgeon: Panchito Card DPM AMPUTATION MINOR Left 12/27/2018 Procedure: LEFT FOOT 2ND TOE PARTIAL AMPUTATION;; Surgeon: Roby Gardner DPM AMPUTATION MINOR Left 01/23/2019 Procedure: LEFT SECOND TOE AMPUTATION;; Surgeon: Panchito Card DPM APPENDECTOMY BUNIONECTOMY Left 10/19/2017 Procedure: LEFT FOOT FIRST METATARSAL HEAD RESECTION;; Surgeon: Roby Gardner DPM CATARACT EXTRACTION Left 11/06/2014 Dr. card CATARACT W PHACO Right 12/04/14 daniele CATARACT W PHACO CHOLECYSTECTOMY ELBOW FRACTURE SURGERY Left HYSTERECTOMY MASTECTOMY Left 2002 TONSILLECTOMY TOTAL HIP Right 03/24/2015 Procedure: ARTHROPLASTY HIP;; Surgeon: Royce Giraldo MD VAGINAL DELIVERY ONLY(WWO EPISIOTOMY & OR FORCEPS) [id number] YAG LASER Bilateral 03/04/2016 - Yag laser Capsultomy OU w FamilyHistory w Family History Problem Relation Age of Onset Not otherwise listed - Cancer Mother Lung Cancer Heart Disease Father Heart Disease Sister Cataracts Sister Glaucoma Maternal Grandmother Breast Cancer Niece 45 Macular Degeneration Neg Hx Retinal Detachment Neg Hx Amblyopia Neg Hx Blindness Neg Hx Diabetes Neg Hx Strabismus Neg Hx w SocialHistory w Social History Socioeconomic History Marital status: Spouse name: Not on file Number of children: 3 Years of education: 16 Highest education level: Not on file Occupational History 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 Negative forunexpected weight change. Respiratory: Negative forcoughand shortness of breath. Cardiovascular: Negative forchest pain,palpitationsand leg swelling. Gastrointestinal: Positive forconstipation,nauseaand vomiting. Negative for abdominal pain,blood in stooland diarrhea. Genitourinary: Positive fordecreased urine volume. dysuria. Neurological: Negative forspeech difficulty. Psychiatric/Behavioral: Negative forconfusion. Physical / Results BP 87/53 Pulse 108 Temp 98 F (Tympanic) SpO2 86%RA, 92% 3L Physical Exam Constitutional: She appearswell-developedand well-nourished.No distress. Happy, smiling, sitting in chair reading a book HENT: Mouth/Throat:Oropharynx is clear and moist. Cardiovascular:Normal rateand regular rhythm. Murmurheard. Pulmonary/Chest:Effort normaland breath sounds normal. Abdominal:Soft. There isno tenderness. There isno guarding. Musculoskeletal:Normal range of motion. She exhibits noedema. Skin: Skin iswarmand dry. She isnot diaphoretic. Psychiatric: She has anormal mood and affect. Herbehavior is normal. - Related Data Allergies/Adverse Reactions: Allergies Allergy/AdvReac Type Severity Reaction Status Date / Time cefazolin [From Ancef] Allergy Severe Anaphylactic Verified 03/30/19 09:57 Shock adhesive Allergy Intermediate Hives Verified 03/30/19 09:57 azithromycin [From Zithromax] Allergy Intermediate Hives Verified 03/30/19 09:57 ezetimibe [From Zetia] Allergy Other Verified 03/30/19 09:57 tetanus toxoid, adsorbed Allergy Cannot Verified 03/30/19 09:57 Remember amoxicillin AdvReac Diarrhea Verified 03/30/19 09:57 atorvastatin [From Lipitor] AdvReac Muscle Verified 03/30/19 09:57 Aches atorvastatin calcium AdvReac Muscle Verified 03/30/19 09:57 [From Lipitor] Aches clindamycin [From Cleocin] AdvReac Mouth Sores Verified 03/30/19 09:57 shellfish derived AdvReac Vomiting Verified 03/30/19 09:57 simvastatin [From Zocor] AdvReac Muscle Verified 03/30/19 09:57 Aches IV contrast Allergy Other Uncoded 03/30/19 09:57 Home Medications: Home Meds Allopurinol 300 mg PO DAILY@1600 09/04/14 [History] Cyanocobalamin (Vitamin B-12) [Vitamin B-12] 1,000 mcg PO BID@0800,1600 [History] Escitalopram [Lexapro] 20 mg PO BEDTIME 09/04/14 [History] Lovastatin [Mevacor] 20 mg PO BEDTIME 09/04/14 [History] Multivitamin [Multi-Vitamin Daily] 1 tab PO MOWEFR@0800 09/04/14 [History] Zinc Gluconate [Zinc] 50 mg PO DAILY@1600 04/02/15 [History] Fluticasone Propionate [Flonase] 1 spray NASBOTH BID PRN 04/01/17 [History] Pramipexole [Mirapex] 0.25 mg PO DAILY@1600 06/04/17 [History] Pramipexole [Mirapex] 0.5 mg PO BEDTIME 06/04/17 [History] Warfarin [Coumadin] 2.5 mg PO ASDIRECTED 06/04/17 [History] Budesonide/Formoterol Fumarate [Symbicort 160-4.5 Mcg Inhaler] 1 puff IH BID 02/28 [History] Acetaminophen 1,000 mg PO Q6HR PRN 10/24/18 [History] Acetaminophen/HYDROcodone [Lillian 325-5 MG] 5 - 325 mg PO BID 10/24/18 [History] Gabapentin [Neurontin] 100 mg PO DAILY 10/24/18 [History] Gabapentin [Neurontin] 200 mg PO BEDTIME 10/24/18 [History] Hydrocortisone [Anusol-HC] 1 applic RC Q4HR PRN 10/24/18 [History] Nitroglycerin [Nitrostat] 0.4 mg SL ASDIRECTED PRN 10/24/18 [History] Ondansetron HCl [Ondansetron] 4 mg PO Q6HR PRN 10/24/18 [History] Pantoprazole Sodium [Protonix] 40 mg PO DAILY 01/13/19 [History] Torsemide [Demadex] 100 mg PO BIDDIURETIC 01/13/19 [History] Acetaminophen/HYDROcodone [Lillian 325-10 MG] 1 tab PO Q12H PRN tablet 02/22/19 [ Rx] Metoprolol Succinate [Toprol XL 50mg] 25 mg PO BEDTIME #30 tab.er 02/22/19 [Rx] Warfarin [Coumadin] 2.5 mg PO BEDTIME tablet 02/22/19 [Rx] Bisacodyl 5 mg PO ASDIRECTED PRN 03/28/19 [History] Magnesium Citrate 300 ml PO DAILY PRN 03/28/19 [History] Sennosides [Senokot] 1 tab PO DAILY 03/28/19 [History] Polyethylene Glycol 3350 [MiraLAX] 17 gm PO DAILY PRN packet 03/29/19 [Rx] Potassium Chloride [Klor-Con 10] 20 meq PO BIDMEALS #60 tab.er 03/29/19 [Rx] Lovastatin 20 mg PO DAILY 03/30/19 [History] Past Medical History HEENT History: Reports: None, Allergic Rhinitis, Cataract, Macular Degeneration , Other (See Below) Other HEENT History: astigmatism, presbyopia, myopia, pseudophakia Cardiovascular History: Reports: Afib, Blood Clots/VTE/DVT, Heart Failure, Heart Murmur, High Cholesterol, Pulmonary Hypertension Other Cardiovascular History: Aortic stenosis, leg swelling Respiratory History: Reports: Sleep Apnea, Other (See Below) Other Respiratory History: pneumonia 2014, reactive airway disease that is not asthma Gastrointestinal History: Reports: GERD Genitourinary History: Reports: Diabetic Nephropathy, Other (See Below) Other Genitourinary History: Microscopic hematuria 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 ANALYST History: Reports: Musculoskeletal History: Reports: Gout, Osteoarthritis, Other (See Below) Other Musculoskeletal History: Restless leg syndrome Neurological History: Reports: None, Neuropathy, Diabetic, Other (See Below) Other Neuro History: syncope Psychiatric History: Reports: Anxiety, Depression Endocrine/Metabolic History: Reports: Diabetes, Type II, Obesity/BMI 30+, Osteopenia, Other (See Below) Other Endocrine/Metabolic History: B12 deficiency Hematologic History: Reports: None Immunologic History: Reports: None Oncologic (Cancer) History: Reports: Breast Dermatologic History: Reports: Cellulitis, Other (See Below) Other Dermatologic History: dry skin, yeast infections, diabetic foot ulcer, gangerene of left foot - Past Surgical History HEENT Surgical History: Reports: Cataract Surgery, Tonsillectomy, Other (See Below) Other HEENT Surgeries/Procedures: capsulotomy Cardiovascular Surgical History: Reports: None Respiratory Surgical History: Reports: None GI Surgical History: Reports: Appendectomy, Cholecystectomy Female Surgical History: Reports: Hysterectomy, Mastectomy, Tubal Ligation, Other (See Below) Other Female Surgeries/Procedures: left mastectomy Endocrine Surgical History: Reports: None Neurological Surgical History: Reports: None Musculoskeletal Surgical History: Reports: Hip Replacement, Other (See Below) Other Musculoskeletal Surgeries/Procedures:: Left elbow surgery. Chronic osteomyelitis of left foot Oncologic Surgical History: Reports: Mastectomy Dermatological Surgical History: Reports: None Social & Family History - Family History Family Medical History: Noncontributory Cardiac: Reports: PVD/COD Oncologic: Reports: Lung - Tobacco Use Smoking Status *Q: Never Smoker Second Hand Smoke Exposure: No - Caffeine Use Caffeine Use: Reports: None - Alcohol Use Days Per Week of Alcohol Use: 3 Number of Drinks Per Day: 0 Total Drinks Per Week: 0 - Recreational Drug Use Recreational Drug Use: No H&P Review of Systems - Review of Systems: Review Of Systems: See Below Exam - Exam Exam: See Below - Vital Signs Vital Signs: Last Vital Signs Temp 36.1 C 03/30/19 12:25 Pulse 72 03/30/19 12:25 Resp 16 03/30/19 12:25 BP 97/49 L 03/30/19 12:25 Pulse Ox 92 L 03/30/19 13:52 Weight: 81.193 kg - Patient Data Lab Results Last 24 hrs: Laboratory Results - last 24 hr 03/30/19 03/30/19 03/30/19 Range/Units 10:10 10:10 10:10 WBC 8.2 (4.0-10.0) x10^3/uL RBC 3.65 L (4.00-5.50) x10^6/uL Hgb 11.2 L (12.0-16.0) g/dL Hct 34.2 (33.0-47.0) % MCV 93.7 H (78.0-93.0) fL MCH 30.7 (26.0-32.0) pg MCHC 32.7 (32.0-36.0) g/dL RDW Coeff of Erum 14.8 (10.0-15.0) % Plt Count 94 L (130-400) x10^3/uL Neut % (Auto) 66.5 (50.0-80.0) % Lymph % (Auto) 22.7 L (25.0-50.0) % Beaver % (Auto) 10.6 (2.0-11.0) % Eos % (Auto) 0.0 (0.0-4.0) % Baso % (Auto) 0.2 (0.2-1.2) % PT 20.2 H (10.0-12.8) SEC INR 1.8 L (2.0-3.5) Sodium 133 L (69-191) mmol/L Potassium 3.5 (1.5-9.9) mmol/L Chloride 90 L (54-184) mmol/L Carbon Dioxide 33 H (21-32) mmol/L Anion Gap 13.5 (10-20) mmol/L BUN 118 H* (7-18) mg/dL Creatinine 3.1 H* (0.55-1.02) mg/dL Est Cr Clr Drug Dosing 10.74 mL/min Estimated GFR (MDRD) 14 Glucose 161 H (74-106) mg/dL Lactic Acid (0.4-2.0) mmol/L Calcium 9.2 (8.5-10.1) mg/dL Corrected Calcium 9.60 (8.5-10.1) mg/dL Total Bilirubin 0.8 (0.2-1.0) mg/dL AST 54 H (15-37) U/L ALT 36 (14-59) U/L Alkaline Phosphatase 150 H (46-116) U/L Troponin I (<=0.056) ng/mL C-Reactive Protein (<=0.9) mg/dL NT-Pro-B Natriuret Pep 12688 H (<=450) pg/mL Total Protein 8.1 (6.4-8.2) g/dL Albumin 3.5 (3.4-5.0) g/dL Globulin 4.6 Albumin/Globulin Ratio 0.76 03/30/19 03/30/19 03/30/19 Range/Units 10:10 10:10 10:10 WBC (4.0-10.0) x10^3/uL RBC (4.00-5.50) x10^6/uL Hgb (12.0-16.0) g/dL Hct (33.0-47.0) % MCV (78.0-93.0) fL MCH (26.0-32.0) pg MCHC (32.0-36.0) g/dL RDW Coeff of Erum (10.0-15.0) % Plt Count (130-400) x10^3/uL Neut % (Auto) (50.0-80.0) % Lymph % (Auto) (25.0-50.0) % Beaver % (Auto) (2.0-11.0) % Eos % (Auto) (0.0-4.0) % Baso % (Auto) (0.2-1.2) % PT (10.0-12.8) SEC INR (2.0-3.5) Sodium (69-191) mmol/L Potassium (1.5-9.9) mmol/L Chloride (54-184) mmol/L Carbon Dioxide (21-32) mmol/L Anion Gap (10-20) mmol/L BUN (7-18) mg/dL Creatinine (0.55-1.02) mg/dL Est Cr Clr Drug Dosing mL/min Estimated GFR (MDRD) Glucose (74-106) mg/dL Lactic Acid 1.2 (0.4-2.0) mmol/L Calcium (8.5-10.1) mg/dL Corrected Calcium (8.5-10.1) mg/dL Total Bilirubin (0.2-1.0) mg/dL AST (15-37) U/L ALT (14-59) U/L Alkaline Phosphatase (46-116) U/L Troponin I 0.092 H* (<=0.056) ng/mL C-Reactive Protein 12.6 H (<=0.9) mg/dL NT-Pro-B Natriuret Pep (<=450) pg/mL Total Protein (6.4-8.2) g/dL Albumin (3.4-5.0) g/dL Globulin Albumin/Globulin Ratio Result Diagrams: 03/30/19 10:10 03/30/19 10:10 Ken Results Last 24 hrs: Microbiology 03/30/19 10:05 Anaerobic Blood Culture - Final Blood - Venous - Lab Draw 03/30/19 10:05 Anaerobic Blood Culture - Final Blood - Venous Problem List Initiated/Reviewed/Updated: Yes Orders Last 24hrs: Active Orders 24 hr Category Date Time Status Admission Status [Patient Status] [ADT] Routine ADT 03/30/19 11:40 Active Daily Weight [Height and Weight] [RC] 07 Care 03/31/19 07:00 Active Oxygen Therapy [RC] 08,20 Care 03/30/19 13:52 Active CULTURE BLOOD [BC] Stat Lab 03/30/19 10:05 Results CULTURE BLOOD [BC] Stat Lab 03/30/19 10:05 Results PROCALCITONIN [REF] Routine Lab 03/30/19 10:10 Received Sodium Chloride 0.9% [Saline Flush] Med 03/30/19 09:40 Active 10 ml FLUSH ASDIRECTED PRN Blood Culture x2 Reflex Set [OM.PC] Stat Oth 03/30/19 09:40 Ordered Peripheral IV Insertion Adult [OM.PC] Routine Oth 03/30/19 09:40 Ordered Medication Orders Sodium Chloride (Saline Flush) 10 ml FLUSH ASDIRECTED PRN PRN Reason: Keep Vein Open Last Admin: 03/30/19 11:57 Dose: 10 ml
[2019-03-30] MEDS ORDERED: Bisacodyl 5 MG Tab PO PRN (14:19)
[2019-03-30] MEDS ORDERED: Magnesium Citrate Solution 296 ML Bottle PO PRN (14:19)
[2019-03-30] MEDS ORDERED: Polyethylene Glycol 3350 Powder 17 GM Packet PO PRN (14:19)
[2019-03-30] MEDS ORDERED: Nitroglycerin 0.4 MG Tab.SL SL PRN (14:19)
[2019-03-30] MEDS ORDERED: Acetaminophen 500 MG Tab PO PRN (14:19)
[2019-03-30] MEDS ORDERED: Acetaminophen/HYDROcodone 325-10 MG Tab PO PRN ×3 (14:19→16:40)
[2019-03-30] MEDS ORDERED: Warfarin 5 MG Tab PO SCH ×2 (14:30→20:00)
[2019-03-30] MEDS: NS + KCl 20mEq/L 1,000 ML IV SCH ×2 (15:03→23:07)
[2019-03-30] MEDS ORDERED: Ondansetron 4 MG Tab.DIS PO PRN (15:15)
[2019-03-30] MEDS: Pramipexole 0.125 MG Tab PO SCH (16:27)
[2019-03-30] MEDS: Potassium Chloride 10 MEQ Tab.ER PO SCH (18:40)
[2019-03-30] MEDS ORDERED: Warfarin 2.5 MG Tab PO SCH (20:00)
[2019-03-30] MEDS ORDERED: Metoprolol Succinate 50 MG Tab.ER PO SCH (20:00)
[2019-03-30] MEDS: Acetaminophen/HYDROcodone 325-5 MG Tab PO SCH (21:13)
[2019-03-30] MEDS: Pramipexole 0.5 MG Tab PO SCH (21:13)
[2019-03-30] MEDS: Gabapentin 100 MG Cap PO SCH (21:14)
[2019-03-30] MEDS: Metoprolol Succinate 50 MG Tab.ER PO SCH (21:15)
[2019-03-30] MEDS: Fluticasone-Salmeterol 232-14 MCG Powder Inhalent INH SCH (21:20)
[2019-03-31] MEDS: NS + KCl 20mEq/L 1,000 ML IV SCH (06:56)
[2019-03-31] MEDS ORDERED: Sennosides 8.6 MG Tab PO SCH (08:00)
[2019-03-31] MEDS: Potassium Chloride 10 MEQ Tab.ER PO SCH ×2 (08:11→17:28)
[2019-03-31] MEDS: Acetaminophen/HYDROcodone 325-5 MG Tab PO SCH ×2 (08:11→23:23)
[2019-03-31] MEDS: Gabapentin 100 MG Cap PO SCH ×2 (08:11→23:24)
[2019-03-31 08:12] LABS: ANION GAP 13.3 mmol/L (10-20)
[2019-03-31] MEDS: Pantoprazole 40 MG Tab.CR PO SCH (08:12)
[2019-03-31] MEDS: cefTRIAXone 1 GM Vial IVPUSH SCH (08:13)
[2019-03-31] MEDS: Fluticasone-Salmeterol 232-14 MCG Powder Inhalent INH SCH ×2 (08:13→23:26)
[2019-03-31] MEDS: A AND D TOP SCH (08:13)
--- NOTE | 2019-03-31 10:09 | PCM.PN ---
- General Info Date of Service: 03/31/19 Admission Dx/Problem (Free Text): Admission Diagnosis/Problem Admission Diagnosis/Problem CHF, Congestive heart failure Subjective Update: Patient offers no specific health concerns today. Her only concern she states is having to pay for a NH bed while she is in the hospital. She denies any problems with urination or BM's. States she has issues with constipation. Denies any SOB or chest pain. Is on chronic pain medication, so seems a bit slow with verbal responses. Functional Status: Reports: Pain Controlled, Tolerating Diet, Ambulating, Urinating. Denies: New Symptoms Pain Score: 0 - Review of Systems General: Denies: Fever, Chills Pulmonary: Denies: Shortness of Breath, Cough Cardiovascular: Denies: Chest Pain, Palpitations Gastrointestinal: Denies: Abdominal Pain, Nausea, Vomiting Skin: Reports: No Symptoms Neurological: Reports: No Symptoms - Patient Data Vitals - Most Recent: Last Vital Signs Temp 96.9 F 03/31/19 05:41 Pulse 86 03/31/19 05:41 Resp 16 03/31/19 05:41 BP 106/67 03/31/19 05:41 Pulse Ox 95 03/31/19 07:03 Weight - Most Recent: 180 lb 8 oz I&O - Last 24 Hours: Intake & Output 03/30/19 03/31/19 03/31/19 22:59 06:59 14:59 Intake Total 1600 400 Output Total 400 Balance 1200 400 Lab Results Last 24 Hours: Laboratory Results - last 24 hr 03/30/19 03/30/19 03/30/19 Range/Units 10:10 10:10 10:10 WBC 8.2 (4.0-10.0) x10^3/uL RBC 3.65 L (4.00-5.50) x10^6/uL Hgb 11.2 L (12.0-16.0) g/dL Hct 34.2 (33.0-47.0) % MCV 93.7 H (78.0-93.0) fL MCH 30.7 (26.0-32.0) pg MCHC 32.7 (32.0-36.0) g/dL RDW Coeff of [place]rum 14.8 (10.0-15.0) % Plt Count 94 L (130-400) x10^3/uL Neut % (Auto) 66.5 (50.0-80.0) % Lymph % (Auto) 22.7 L (25.0-50.0) % [place] % (Auto) 10.6 (2.0-11.0) % Eos % (Auto) 0.0 (0.0-4.0) % Baso % (Auto) 0.2 (0.2-1.2) % PT 20.2 H (10.0-12.8) SEC INR 1.8 L (2.0-3.5) Sodium 133 L (69-191) mmol/L Potassium 3.5 (1.5-9.9) mmol/L Chloride 90 L (54-184) mmol/L Carbon Dioxide 33 H (21-32) mmol/L Anion Gap 13.5 (10-20) mmol/L BUN 118 H* (7-18) mg/dL Creatinine 3.1 H* (0.55-1.02) mg/dL Est Cr Clr Drug Dosing 10.74 mL/min Estimated GFR (MDRD) 14 Glucose 161 H (74-106) mg/dL POC Glucose (74-106) mg/dL Lactic Acid (0.4-2.0) mmol/L Calcium 9.2 (8.5-10.1) mg/dL Corrected Calcium 9.60 (8.5-10.1) mg/dL Total Bilirubin 0.8 (0.2-1.0) mg/dL AST 54 H (15-37) U/L ALT 36 (14-59) U/L Alkaline Phosphatase 150 H (46-116) U/L Troponin I (<=0.056) ng/mL C-Reactive Protein (<=0.9) mg/dL NT-Pro-B Natriuret Pep 06214 H (<=450) pg/mL Total Protein 8.1 (6.4-8.2) g/dL Albumin 3.5 (3.4-5.0) g/dL Globulin 4.6 Albumin/Globulin Ratio 0.76 Procalcitonin (<0.10) ng/mL 03/30/19 03/30/19 03/30/19 Range/Units 10:10 10:10 10:10 WBC (4.0-10.0) x10^3/uL RBC (4.00-5.50) x10^6/uL Hgb (12.0-16.0) g/dL Hct (33.0-47.0) % MCV (78.0-93.0) fL MCH (26.0-32.0) pg MCHC (32.0-36.0) g/dL RDW Coeff of [place]rum (10.0-15.0) % Plt Count (130-400) x10^3/uL Neut % (Auto) (50.0-80.0) % Lymph % (Auto) (25.0-50.0) % [place] % (Auto) (2.0-11.0) % Eos % (Auto) (0.0-4.0) % Baso % (Auto) (0.2-1.2) % PT (10.0-12.8) SEC INR (2.0-3.5) Sodium (69-191) mmol/L Potassium (1.5-9.9) mmol/L Chloride (54-184) mmol/L Carbon Dioxide (21-32) mmol/L Anion Gap (10-20) mmol/L BUN (7-18) mg/dL Creatinine (0.55-1.02) mg/dL Est Cr Clr Drug Dosing mL/min Estimated GFR (MDRD) Glucose (74-106) mg/dL POC Glucose (74-106) mg/dL Lactic Acid 1.2 (0.4-2.0) mmol/L Calcium (8.5-10.1) mg/dL Corrected Calcium (8.5-10.1) mg/dL Total Bilirubin (0.2-1.0) mg/dL AST (15-37) U/L ALT (14-59) U/L Alkaline Phosphatase (46-116) U/L Troponin I 0.092 H* (<=0.056) ng/mL C-Reactive Protein (<=0.9) mg/dL NT-Pro-B Natriuret Pep (<=450) pg/mL Total Protein (6.4-8.2) g/dL Albumin (3.4-5.0) g/dL Globulin Albumin/Globulin Ratio Procalcitonin 2.95 H (<0.10) ng/mL 03/30/19 03/30/1903/31/19 Range/Units 10:10 17:46 05:48 WBC (4.0-10.0) x10^3/uL RBC (4.00-5.50) x10^6/uL Hgb (12.0-16.0) g/dL Hct (33.0-47.0) % MCV (78.0-93.0) fL MCH (26.0-32.0) pg MCHC (32.0-36.0) g/dL RDW Coeff of [place]rum (10.0-15.0) % Plt Count (130-400) x10^3/uL Neut % (Auto) (50.0-80.0) % Lymph % (Auto) (25.0-50.0) % [place] % (Auto) (2.0-11.0) % Eos % (Auto) (0.0-4.0) % Baso % (Auto) (0.2-1.2) % PT (10.0-12.8) SEC INR (2.0-3.5) Sodium (69-191) mmol/L Potassium (1.5-9.9) mmol/L Chloride (54-184) mmol/L Carbon Dioxide (21-32) mmol/L Anion Gap (10-20) mmol/L BUN (7-18) mg/dL Creatinine (0.55-1.02) mg/dL Est Cr Clr Drug Dosing mL/min Estimated GFR (MDRD) Glucose (74-106) mg/dL POC Glucose 138 H 136 H (74-106) mg/dL Lactic Acid (0.4-2.0) mmol/L Calcium (8.5-10.1) mg/dL Corrected Calcium (8.5-10.1) mg/dL Total Bilirubin (0.2-1.0) mg/dL AST (15-37) U/L ALT (14-59) U/L Alkaline Phosphatase (46-116) U/L Troponin I (<=0.056) ng/mL C-Reactive Protein 12.6 H (<=0.9) mg/dL NT-Pro-B Natriuret Pep (<=450) pg/mL Total Protein (6.4-8.2) g/dL Albumin (3.4-5.0) g/dL Globulin Albumin/Globulin Ratio Procalcitonin (<0.10) ng/mL 03/31/19 03/31/19 03/31/19 Range/Units 07:32 07:32 07:32 WBC 7.0 (4.0-10.0) x10^3/uL RBC 3.34 L (4.00-5.50) x10^6/uL Hgb 10.3 L (12.0-16.0) g/dL Hct 31.6 L (33.0-47.0) % MCV 94.6 H (78.0-93.0) fL MCH 30.8 (26.0-32.0) pg MCHC 32.6 (32.0-36.0) g/dL RDW Coeff of [place]rum 14.4 (10.0-15.0) % Plt Count 94 L (130-400) x10^3/uL Neut % (Auto) 62.9 (50.0-80.0) % Lymph % (Auto) 22.2 L (25.0-50.0) % [place] % (Auto) 14.0 H (2.0-11.0) % Eos % (Auto) 0.6 (0.0-4.0) % Baso % (Auto) 0.3 (0.2-1.2) % PT 21.7 H (10.0-12.8) SEC INR 1.9 L (2.0-3.5) Sodium 134 L (69-191) mmol/L Potassium 3.3 L (1.5-9.9) mmol/L Chloride 92 L (54-184) mmol/L Carbon Dioxide 32 (21-32) mmol/L Anion Gap 13.3 (10-20) mmol/L BUN 103 H* (7-18) mg/dL Creatinine 2.6 H (0.55-1.02) mg/dL Est Cr Clr Drug Dosing 12.81 mL/min Estimated GFR (MDRD) 18 Glucose 155 H (74-106) mg/dL POC Glucose (74-106) mg/dL Lactic Acid (0.4-2.0) mmol/L Calcium 8.5 (8.5-10.1) mg/dL Corrected Calcium (8.5-10.1) mg/dL Total Bilirubin (0.2-1.0) mg/dL AST (15-37) U/L ALT (14-59) U/L Alkaline Phosphatase (46-116) U/L Troponin I (<=0.056) ng/mL C-Reactive Protein (<=0.9) mg/dL NT-Pro-B Natriuret Pep (<=450) pg/mL Total Protein (6.4-8.2) g/dL Albumin (3.4-5.0) g/dL Globulin Albumin/Globulin Ratio Procalcitonin (<0.10) ng/mL Ken Results Last 24 Hours: Microbiology 03/30/19 10:05 Anaerobic Blood Culture - Final Blood - Venous - Lab Draw 03/30/19 10:05 Anaerobic Blood Culture - Final Blood - Venous Med Orders - Current: Current Medications Acetaminophen (Tylenol Extra Strength) 1,000 mg PO Q6HR PRN PRN Reason: Pain Hydrocodone Bitart/Acetaminophen ([place] 325-5 Mg) 1 tab PO BID [facility] Last Admin: 03/31/19 08:11 Dose: 1 tab Hydrocodone Bitart/Acetaminophen ([place] 325-10 Mg) 1 tab PO Q12HR PRN PRN Reason: PAIN Bisacodyl (Dulcolax) 5 mg PO ASDIRECTED PRN PRN Reason: Constipation Ceftriaxone Sodium (Rocephin) 1 gm IVPUSH DAILY [facility] Last Admin: 03/31/19 08:13 Dose: 1 gm Citalopram Hydrobromide (Celexa) 40 mg PO BEDTIME [facility] Gabapentin (Neurontin) 200 mg PO BEDTIME [facility] Last Admin: 03/30/19 21:14 Dose: 200 mg Gabapentin (Neurontin) 100 mg PO DAILY [facility] Last Admin: 03/31/19 08:11 Dose: 100 mg Hydromorphone HCl (Dilaudid) 0.25 mg IVPUSH Q2H PRN PRN Reason: Pain (severe 7-10) Potassium Chloride/Sodium Chloride (Normal Saline With 20 Meq Kcl) 1,000 mls @ 125 mls/hr IV ASDIRECTED [facility] Last Admin: 03/31/19 06:56 Dose: 125 mls/hr Lovastatin (Mevacor) 20 mg PO BEDTIME [facility] Last Admin: 03/30/19 22:22 Dose: Not Given Magnesium Citrate (Citrate Of Magnesia) 300 ml PO DAILY PRN PRN Reason: Constipation Metoprolol Succinate (Toprol Xl) 50 mg PO BEDTIME [facility] Last Admin: 03/30/19 21:15 Dose: 50 mg Nitroglycerin (Nitrostat) 0.4 mg SL ASDIRECTED PRN PRN Reason: Chest Pain Non-Formulary Medication 1 Each A And D Oint 1 each TOP DAILY [facility] Last Admin: 03/31/19 08:13 Dose: 1 each Ondansetron HCl (Zofran) 4 mg IV Q6H PRN PRN Reason: Nausea/Vomiting Ondansetron HCl (Zofran Odt) 4 mg PO Q6H PRN PRN Reason: Nausea/Vomiting Pantoprazole Sodium (Protonix) 40 mg PO DAILY [facility] Last Admin: 03/31/19 08:12 Dose: 40 mg Polyethylene Glycol (Miralax) 17 gm PO DAILY PRN PRN Reason: Constipation Potassium Chloride (Klor-Con 10) 20 meq PO BIDMEALS [facility] Last Admin: 03/31/19 08:11 Dose: 20 meq Pramipexole Dihydrochloride (Mirapex) 0.25 mg PO DAILY@1600 [facility] Last Admin: 03/30/19 16:27 Dose: 0.25 mg Pramipexole Dihydrochloride (Mirapex) 0.5 mg PO BEDTIME [facility] Last Admin: 03/30/19 21:13 Dose: 0.5 mg Fluticasone/Salmeterol (Fluticasone-Salmeterol 232-14 Mcg Powder Inha) 0 puff INH BID [facility] Last Admin: 03/31/19 08:13 Dose: 1 puff Senna/Docusate Sodium (Senna Plus) 1 tab PO DAILY [facility] Last Admin: 03/31/19 08:12 Dose: 1 tab Sodium Chloride (Saline Flush) 10 ml FLUSH ASDIRECTED PRN PRN Reason: Keep Vein Open Last Admin: 03/30/19 15:03 Dose: 10 ml Warfarin Sodium (Coumadin) 5 mg PO MOFR@2000 [facility] Last Admin: 03/30/19 21:14 Dose: 5 mg Warfarin Sodium (Coumadin) 2.5 mg PO SUTUWETHSA [facility] Discontinued Medications Hydrocodone Bitart/Acetaminophen ([place] 325-10 Mg) 1 tab PO Q12H PRN PRN Reason: Pain Hydrocodone Bitart/Acetaminophen ([place] 325-10 Mg) 1 tab PO BID PRN PRN Reason: PAIN Ceftriaxone Sodium (Rocephin) 1 gm IVPUSH STAT ONE Stop: 03/30/19 09:41 Last Admin: 03/30/19 10:18 Dose: 1 gm Furosemide (Lasix) 20 mg IV ONETIME ONE Stop: 03/30/19 11:40 Last Admin: 03/30/19 11:57 Dose: 20 mg Metoprolol Succinate (Toprol Xl) 25 mg PO BEDTIME [facility] Polyethylene Glycol (Miralax) 17 gm PO DAILY PRN PRN Reason: Constipation Senna (Senna) 8.6 mg PO DAILY [facility] Warfarin Sodium (Coumadin) 2.5 mg PO BEDTIME [facility] Warfarin Sodium (Coumadin) 2.5 mg PO ASDIRECTED [facility] - Exam Quality Assessment: Supplemental Oxygen, DVT Prophylaxis (chronic Coumadin use for AFib) General: Alert, Oriented, Cooperative, No Acute Distress Lungs: Clear to Auscultation, Normal Respiratory Effort Cardiovascular: Regular Rate, Regular Rhythm GI/Abdominal Exam: Soft, Non-Tender, Abnormal Bowel Sounds (Hypoactive) Skin: Warm, Dry Neurological: No New Focal Deficit - Problem List Review Problem List Initiated/Reviewed/Updated: Yes - Assessment Assessment:: 1. Acute CHF exacerbation 2. LUX on CKD 3. Hypoxia 4. DM Type 2 5. Afib 6. HTN - Plan Plan:: No changes with any medications today. Will stop IVF and give PO KCL. Recheck labs in AM. Encourage ambulation. Monitor weights. Anticipate stay 3-4 days. Patient absolutely does not want to be transferred to a higher level of care. Patient is a Code II.
[2019-03-31] MEDS ORDERED: Potassium Chloride 20 MEQ Tab.ER PO ONE (10:10)
[2019-03-31] MEDS: Pramipexole 0.125 MG Tab PO SCH (16:50)
[2019-03-31] MEDS: Pramipexole 0.5 MG Tab PO SCH (23:23)
[2019-03-31] MEDS: Citalopram 20 MG Tab PO SCH (23:24)
[2019-03-31] MEDS: Metoprolol Succinate 50 MG Tab.ER PO SCH (23:25)
[2019-03-31] MEDS: Warfarin 2.5 MG Tab PO SCH (23:29)
[2019-04-01] MEDS: Pantoprazole 40 MG Tab.CR PO SCH ×2 (06:54→08:13)
--- NOTE | 2019-04-01 07:37 | PCM.PN ---
- General Info Date of Service: 04/01/19 Admission Dx/Problem (Free Text): Admission Diagnosis/Problem Admission Diagnosis/Problem CHF, Congestive heart failure Subjective Update: Patient offers no specific health concerns today. Her only concern she states is having to pay for a NH bed while she is in the hospital. She denies any problems with urination or BM's. States she has issues with constipation. Denies any SOB or chest pain. Is on chronic pain medication, so seems a bit slow with verbal responses. Functional Status: Reports: Pain Controlled, Tolerating Diet, Urinating. Denies : New Symptoms Pain Score: 0 - Review of Systems General: Denies: Fever, Chills Pulmonary: Denies: Shortness of Breath, Cough Cardiovascular: Denies: Chest Pain, Palpitations Gastrointestinal: Denies: Abdominal Pain, Nausea, Vomiting Skin: Reports: No Symptoms Neurological: Reports: No Symptoms - Patient Data Vitals - Most Recent: Last Vital Signs Temp 95.9 F 04/01/19 05:12 Pulse 63 04/01/19 05:12 Resp 17 04/01/19 05:12 BP 99/53 L 04/01/19 05:12 Pulse Ox 87 L 04/01/19 07:09 Weight - Most Recent: 182 lb 9.6 oz I&O - Last 24 Hours: Intake & Output 03/31/19 04/01/19 04/01/19 22:59 06:59 14:59 Intake Total 2395 600 Balance 2395 600 Lab Results Last 24 Hours: Laboratory Results - last 24 hr 03/31/19 03/31/19 03/31/19 Range/Units 07:32 07:32 07:32 WBC 7.0 (4.0-10.0) x10^3/uL RBC 3.34 L (4.00-5.50) x10^6/uL Hgb 10.3 L (12.0-16.0) g/dL Hct 31.6 L (33.0-47.0) % MCV 94.6 H (78.0-93.0) fL MCH 30.8 (26.0-32.0) pg MCHC 32.6 (32.0-36.0) g/dL RDW Coeff of Erum 14.4 (10.0-15.0) % Plt Count 94 L (130-400) x10^3/uL Neut % (Auto) 62.9 (50.0-80.0) % Lymph % (Auto) 22.2 L (25.0-50.0) % [place] % (Auto) 14.0 H (2.0-11.0) % Eos % (Auto) 0.6 (0.0-4.0) % Baso % (Auto) 0.3 (0.2-1.2) % PT 21.7 H (10.0-12.8) SEC INR 1.9 L (2.0-3.5) Sodium 134 L (69-191) mmol/L Potassium 3.3 L (1.5-9.9) mmol/L Chloride 92 L (54-184) mmol/L Carbon Dioxide 32 (21-32) mmol/L Anion Gap 13.3 (10-20) mmol/L BUN 103 H* (7-18) mg/dL Creatinine 2.6 H (0.55-1.02) mg/dL Est Cr Clr Drug Dosing 12.81 mL/min Estimated GFR (MDRD) 18 Glucose 155 H (74-106) mg/dL POC Glucose (74-106) mg/dL Calcium 8.5 (8.5-10.1) mg/dL 03/31/19 03/31/19 04/01/19 Range/Units 11:55 17:27 05:29 WBC (4.0-10.0) x10^3/uL RBC (4.00-5.50) x10^6/uL Hgb (12.0-16.0) g/dL Hct (33.0-47.0) % MCV (78.0-93.0) fL MCH (26.0-32.0) pg MCHC (32.0-36.0) g/dL RDW Coeff of [place]rum (10.0-15.0) % Plt Count (130-400) x10^3/uL Neut % (Auto) (50.0-80.0) % Lymph % (Auto) (25.0-50.0) % [place] % (Auto) (2.0-11.0) % Eos % (Auto) (0.0-4.0) % Baso % (Auto) (0.2-1.2) % PT (10.0-12.8) SEC INR (2.0-3.5) Sodium (69-191) mmol/L Potassium (1.5-9.9) mmol/L Chloride (54-184) mmol/L Carbon Dioxide (21-32) mmol/L Anion Gap (10-20) mmol/L BUN (7-18) mg/dL Creatinine (0.55-1.02) mg/dL Est Cr Clr Drug Dosing mL/min Estimated GFR (MDRD) Glucose (74-106) mg/dL POC Glucose 133 H 216 H 205 H (74-106) mg/dL Calcium (8.5-10.1) mg/dL Ken Results Last 24 Hours: Microbiology 03/30/19 10:05 Aerobic Blood Culture - Preliminary Blood - Venous - Lab Draw NO GROWTH AFTER 1 DAY Anaerobic Blood Culture - Final 03/30/19 10:05 Aerobic Blood Culture - Preliminary Blood - Venous NO GROWTH AFTER 1 DAY Anaerobic Blood Culture - Final Med Orders - Current: Current Medications Acetaminophen (Tylenol Extra Strength) 1,000 mg PO Q6HR PRN PRN Reason: Pain Hydrocodone Bitart/Acetaminophen ([place] 325-5 Mg) 1 tab PO BID [facility] Last Admin: 03/31/19 23:23 Dose: 1 tab Hydrocodone Bitart/Acetaminophen ([place] 325-10 Mg) 1 tab PO Q12HR PRN PRN Reason: PAIN Bisacodyl (Dulcolax) 5 mg PO ASDIRECTED PRN PRN Reason: Constipation Last Admin: 04/01/19 00:29 Dose: 5 mg Ceftriaxone Sodium (Rocephin) 1 gm IVPUSH DAILY [facility] Last Admin: 03/31/19 08:13 Dose: 1 gm Citalopram Hydrobromide (Celexa) 40 mg PO BEDTIME [facility] Last Admin: 03/31/19 23:24 Dose: 40 mg Gabapentin (Neurontin) 200 mg PO BEDTIME [facility] Last Admin: 03/31/19 23:24 Dose: 200 mg Gabapentin (Neurontin) 100 mg PO DAILY [facility] Last Admin: 03/31/19 08:11 Dose: 100 mg Hydromorphone HCl (Dilaudid) 0.25 mg IVPUSH Q2H PRN PRN Reason: Pain (severe 7-10) Lovastatin (Mevacor) 20 mg PO BEDTIME [facility] Last Admin: 04/01/19 00:08 Dose: Not Given Magnesium Citrate (Citrate Of Magnesia) 300 ml PO DAILY PRN PRN Reason: Constipation Metoprolol Succinate (Toprol Xl) 50 mg PO BEDTIME [facility] Last Admin: 03/31/19 23:25 Dose: 50 mg Nitroglycerin (Nitrostat) 0.4 mg SL ASDIRECTED PRN PRN Reason: Chest Pain Non-Formulary Medication 1 Each A And D Oint 1 each TOP DAILY [facility] Last Admin: 03/31/19 08:13 Dose: 1 each Ondansetron HCl (Zofran) 4 mg IV Q6H PRN PRN Reason: Nausea/Vomiting Ondansetron HCl (Zofran Odt) 4 mg PO Q6H PRN PRN Reason: Nausea/Vomiting Pantoprazole Sodium (Protonix) 40 mg PO DAILY [facility] Last Admin: 04/01/19 06:54 Dose: 40 mg Polyethylene Glycol (Miralax) 17 gm PO DAILY PRN PRN Reason: Constipation Potassium Chloride (Klor-Con 10) 20 meq PO BIDMEALS [facility] Last Admin: 03/31/19 17:28 Dose: 20 meq Pramipexole Dihydrochloride (Mirapex) 0.25 mg PO DAILY@1600 [facility] Last Admin: 03/31/19 16:50 Dose: 0.25 mg Pramipexole Dihydrochloride (Mirapex) 0.5 mg PO BEDTIME [facility] Last Admin: 03/31/19 23:23 Dose: 0.5 mg Fluticasone/Salmeterol (Fluticasone-Salmeterol 232-14 Mcg Powder Inha) 0 puff INH BID [facility] Last Admin: 03/31/19 23:26 Dose: 1 puff Senna/Docusate Sodium (Senna Plus) 1 tab PO DAILY [facility] Last Admin: 03/31/19 08:12 Dose: 1 tab Sodium Chloride (Saline Flush) 10 ml FLUSH ASDIRECTED PRN PRN Reason: Keep Vein Open Last Admin: 03/30/19 15:03 Dose: 10 ml Warfarin Sodium (Coumadin) 5 mg PO MOFR@2000 [facility] Last Admin: 03/30/19 21:14 Dose: 5 mg Warfarin Sodium (Coumadin) 2.5 mg PO SUTUWETHSA [facility] Last Admin: 03/31/19 23:29 Dose: 2.5 mg Discontinued Medications Hydrocodone Bitart/Acetaminophen ([place] 325-10 Mg) 1 tab PO Q12H PRN PRN Reason: Pain Hydrocodone Bitart/Acetaminophen ([place] 325-10 Mg) 1 tab PO BID PRN PRN Reason: PAIN Ceftriaxone Sodium (Rocephin) 1 gm IVPUSH STAT ONE Stop: 03/30/19 09:41 Last Admin: 03/30/19 10:18 Dose: 1 gm Furosemide (Lasix) 20 mg IV ONETIME ONE Stop: 03/30/19 11:40 Last Admin: 03/30/19 11:57 Dose: 20 mg Potassium Chloride/Sodium Chloride (Normal Saline With 20 Meq Kcl) 1,000 mls @ 125 mls/hr IV ASDIRECTED [facility] Last Admin: 03/31/19 06:56 Dose: 125 mls/hr Metoprolol Succinate (Toprol Xl) 25 mg PO BEDTIME [facility] Polyethylene Glycol (Miralax) 17 gm PO DAILY PRN PRN Reason: Constipation Potassium Chloride (Klor-Con M20) 40 meq PO ONETIME ONE Stop: 03/31/19 10:11 Last Admin: 03/31/19 11:14 Dose: 40 meq Senna (Senna) 8.6 mg PO DAILY [facility] Warfarin Sodium (Coumadin) 2.5 mg PO BEDTIME [facility] Warfarin Sodium (Coumadin) 2.5 mg PO ASDIRECTED [facility] - Exam Quality Assessment: Supplemental Oxygen, Skin Breakdown General: Alert, Cooperative, No Acute Distress Lungs: Clear to Auscultation, Normal Respiratory Effort Cardiovascular: Regular Rate, Regular Rhythm GI/Abdominal Exam: Soft, Non-Tender, Abnormal Bowel Sounds (Hypoactive) Skin: Warm, Dry Neurological: No New Focal Deficit - Problem List Review Problem List Initiated/Reviewed/Updated: Yes - My Orders Last 24 Hours: My Active Orders 04/01/19 05:11 BASIC METABOLIC PANEL,BMP [CHEM] Routine CBC WITH AUTO DIFF [HEME] Routine INR,PT,PROTHROMBIN TIME [COAG] Routine MAGNESIUM [CHEM] Routine 04/01/19 Breakfast ADA Diabetic [[place] [employer] Diet] [DIET] - Assessment Assessment:: 1. Acute CHF exacerbation 2. LUX on CKD 3. Hypoxia 4. DM Type 2 5. Afib 6. HTN - Plan Plan:: No changes with any medications today. Upgrade diet to ADA clears. Awaiting labs this AM. Encourage ambulation. Monitor weights. Anticipate stay 3-4 days. Patient absolutely does not want to be transferred to a higher level of care. Patient is a Code II.
[2019-04-01] MEDS: Fluticasone-Salmeterol 232-14 MCG Powder Inhalent INH SCH ×2 (07:42→22:31)
[2019-04-01] MEDS: Acetaminophen/HYDROcodone 325-5 MG Tab PO SCH ×2 (07:42→22:29)
[2019-04-01] MEDS: Gabapentin 100 MG Cap PO SCH ×2 (07:42→22:28)
[2019-04-01] MEDS: Potassium Chloride 10 MEQ Tab.ER PO SCH ×2 (07:43→17:25)
[2019-04-01] MEDS: A AND D TOP SCH (07:43)
[2019-04-01] MEDS: Sodium Chloride 0.9% 10 ML Syringe FLUSH PRN (08:15)
[2019-04-01] MEDS: cefTRIAXone 1 GM Vial IVPUSH SCH (08:16)
[2019-04-01 09:13] LABS: ANION GAP 13.4 mmol/L (10-20)
[2019-04-01] MEDS: Pramipexole 0.125 MG Tab PO SCH (15:25)
[2019-04-01] MEDS: Polyethylene Glycol 3350 Powder 17 GM Packet PO PRN (20:29)
[2019-04-01] MEDS: Citalopram 20 MG Tab PO SCH (22:28)
[2019-04-01] MEDS: Metoprolol Succinate 50 MG Tab.ER PO SCH (22:29)
[2019-04-01] MEDS: Pramipexole 0.5 MG Tab PO SCH (22:29)
[2019-04-01] MEDS: Warfarin 2.5 MG Tab PO SCH (22:33)
[2019-04-02] MEDS ORDERED: Pantoprazole 40 MG Tab.CR PO SCH (07:00)
[2019-04-02 07:03] LABS: ANION GAP 10.4 mmol/L (10-20)
[2019-04-02] MEDS: Fluticasone-Salmeterol 232-14 MCG Powder Inhalent INH SCH (07:58)
[2019-04-02] MEDS: Potassium Chloride 10 MEQ Tab.ER PO SCH (07:58)
[2019-04-02] MEDS: Polyethylene Glycol 3350 Powder 17 GM Packet PO PRN (07:58)
[2019-04-02] MEDS: cefTRIAXone 1 GM Vial IVPUSH SCH (07:58)
[2019-04-02] MEDS: Acetaminophen/HYDROcodone 325-5 MG Tab PO SCH (07:59)
[2019-04-02] MEDS: Gabapentin 100 MG Cap PO SCH (07:59)
[2019-04-02] MEDS: A AND D TOP SCH (07:59)
[2019-04-02] MEDS: Sodium Chloride 0.9% 10 ML Syringe FLUSH PRN (08:00)
[2019-04-02] MEDS ORDERED: Enoxaparin 40 MG/0.4 ML Syringe SUBCUT ONE (08:10)
[2019-04-02 10:08] VITALS: BP 92/52; PULSE 78
--- NOTE | 2019-04-02 14:23 | DISCH ---
PRIMARY DISCHARGE DIAGNOSES: 1. Sepsis secondary to urinary tract infection. 2. Escherichia coli urinary tract infection. 3. Acute on chronic renal failure due to dehydration from diuresis for heart failure. 4. Chronic diastolic heart failure. 5. Severe pulmonary hypertension. 6. 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 7. Mild ileus, resolved with constipation due to continuous opioid use. 8. Chronic atrial fibrillation. 9. Remote history of deep venous thrombosis. 10.Reactive airway disease. 11.Cognitive impairment, mild. 12.Peripheral arterial disease. 13.Anxiety and depression. REASON FOR ADMISSION: On the date of admission, this 79-year-old female who had just been transferred back to the [facility] after an admit for nausea, vomiting, and constipation, was having more lethargy on the same evening that she was transferred back. She spiked a fever up to 102 the next morning, so she was transferred back to the ER for a sepsis workup. Blood cultures were negative. The urine culture from the previous admission was showing gram- negative so she received IV Rocephin. The patient had no symptoms of UTI and she states she has had them before with burning, so clinically she was not having urine infection symptoms, but it was the only source of infection, and she had actually underwent a CT abdomen on the previous observation stay. She underwent a CT of her lungs, which did not show any fluid or infection. Blood cultures were taken and were negative. She did receive some IV fluids 1 L, then she had a positive fluid balance yesterday, actually totaling 3595 with no output listed. However, I suspect that was an error. She did require some oxygen initially in her stay and her heart failure test was elevated. ProBNP was elevated up to 15,000, however, her diuretics were held and she actually improved. Troponin was 0.092, but on repeat it was normal. She did have a procalcitonin level that was 2.95. Her lactic acids were actually normal. The patient was managed medically as she had absolutely refused to be transferred to [facility] for further care. She did have INRs that were mildly subtherapeutic at 1.7 to 1.9, and she did receive a dose of Lovenox today. Her creatinine which had been 2.5 on discharge on the previous day, had went up to 3.1 and her BUN up to 118. This gradually improved today, now down to a BUN of 75, creatinine of 1.6. Her potassium was also mildly low and this was replaced orally at 3.4 on discharge. Magnesium levels were actually running higher, but she did receive some mag citrate at the [facility] to help with constipation. The patient was having bowel movements, a couple small yesterday, even 1 small this morning, but still felt she was constipated, so continued on the MiraLAX and senna. Her hemoglobins remained stable at 10.0 through her stay, actually was 14.3 on the , but suspicion was that she was very dehydrated. The patient otherwise was up feeling better today, was hoping to be discharged. Her oxygen levels had been up to 98% on her CPAP during the night, but had been in the mid 90s on room air. This morning she was around 90. Therefore, I recommended she be on oxygen at all times, especially given her known pulmonary hypertension. PHYSICAL EXAMINATION: Vital Signs: Discharging weight was 82.1 kg, temperature 97.1, pulse 56, blood pressure 92/60, respiratory rate 16, O2 of 90% on room air. General: She is in no acute distress. Heart: Regularly irregular with murmur. Lungs: Sounds are clear to auscultation bilaterally without crackles or wheezes. Abdomen: Had positive bowel sounds. It is soft, nondistended, nontender. Extremities: Warm and dry. No edema. Mental Status: She is alert. She is orientated x3. DISCHARGE PLANS AND INSTRUCTIONS: She will be going back to [facility]. She will have a CardioMEMS reading when she gets back there as that is where her equipment is. Her pulmonary diastolic pressure had been 33, but numerous readings had been up in the 40s. She is felt to have end-stage heart failure by [facility] Failure [facility]. Other discharge plans, instructions include a BMP, mag, and CBC in 1 week and INR Tuesday, and I will increase Coumadin to 5 mg Tuesday, Tuesday, Tuesday instead of just Tuesday and Tuesday, and 2.5 the rest of the week. Note sent to the [facility]R Clinic by the pharmacist. Keflex will be 250 four times a day for another 6 doses to treat her urine infection and I will see her on 04/11/2019, which is [facility] rounds. She will be on torsemide, decreased to 60 mg twice daily. We will continue the same wound cares for her heels if she does follow with the [facility]. She will be on oxygen 2 L at all times and she will continue MiraLax and senna. She may continue her hydrocodone twice daily and the additional 1 tablet every 12 hours as needed, which she did get at least 1 dose here. Greater than 30 minutes spent on this discharge process. MKA: 04/02/2019 09:51:29 MODL: 04/02/2019 14:15:45 /[id number]
== END 2019-04-02 10:10 | DRG 871 ==
LOC: VM.ED 09:12 → VM.MS 11:40
PROVIDERS: ADMIT Family Medicine; ATTEND Internal Medicine
PROC: 5A09357 Assistance with Respiratory Ventilation, Less than 24 Consecutive Hours, Continuous Positive Airway Pressure (ICD-10-PCS; principal; 2019-04-01)
DX: J96.21 Acute and chronic respiratory failure with hypoxia (principal); A41.51 Sepsis due to Escherichia coli [E. coli]; I11.0 Hypertensive heart disease with heart failure; I50.32 Chronic diastolic (congestive) heart failure; R50.9 Fever, unspecified; R41.0 Disorientation, unspecified; R53.1 Weakness; I48.91 Unspecified atrial fibrillation; I50.33 Acute on chronic diastolic (congestive) heart failure; E11.42 Type 2 diabetes mellitus with diabetic polyneuropathy; N39.0 Urinary tract infection, site not specified; N17.9 Acute kidney failure, unspecified; E78.00 Pure hypercholesterolemia, unspecified; K56.7 Ileus, unspecified; I48.20 Chronic atrial fibrillation, unspecified; I13.0 Hypertensive heart and chronic kidney disease with heart failure and stage 1 through stage 4 chronic kidney disease, or unspecified chronic kidney disease; Z66 Do not resuscitate; N18.9 Chronic kidney disease, unspecified; E86.0 Dehydration; E11.40 Type 2 diabetes mellitus with diabetic neuropathy, unspecified; I73.9 Peripheral vascular disease, unspecified; G31.84 Mild cognitive impairment of uncertain or unknown etiology; I27.20 Pulmonary hypertension, unspecified; E11.22 Type 2 diabetes mellitus with diabetic chronic kidney disease; E78.5 Hyperlipidemia, unspecified; M10.9 Gout, unspecified; H52.4 Presbyopia; H52.10 Myopia, unspecified eye; M19.90 Unspecified osteoarthritis, unspecified site; H35.3190 Nonexudative age-related macular degeneration, unspecified eye, stage unspecified; E78.1 Pure hyperglyceridemia; M85.80 Other specified disorders of bone density and structure, unspecified site; K21.9 Gastro-esophageal reflux disease without esophagitis; Z96.641 Presence of right artificial hip joint; E53.8 Deficiency of other specified B group vitamins; Z96.1 Presence of intraocular lens; I35.0 Nonrheumatic aortic (valve) stenosis; F41.9 Anxiety disorder, unspecified; E66.9 Obesity, unspecified; K59.03 Drug induced constipation; T40.2X5A Adverse effect of other opioids, initial encounter; G25.81 Restless legs syndrome; G47.30 Sleep apnea, unspecified; Z89.432 Acquired absence of left foot; Z98.41 Cataract extraction status, right eye; Z98.42 Cataract extraction status, left eye; Z89.422 Acquired absence of other left toe(s); Z90.49 Acquired absence of other specified parts of digestive tract; Z90.710 Acquired absence of both cervix and uterus; Z90.89 Acquired absence of other organs; Z79.899 Other long term (current) drug therapy; Z90.12 Acquired absence of left breast and nipple; Z98.51 Tubal ligation status; Z99.81 Dependence on supplemental oxygen; Z79.4 Long term (current) use of insulin; Z86.718 Personal history of other venous thrombosis and embolism; Z91.048 Other nonmedicinal substance allergy status; Z88.1 Allergy status to other antibiotic agents; Z88.8 Allergy status to other drugs, medicaments and biological substances; Z91.013 Allergy to seafood; Z88.7 Allergy status to serum and vaccine; Z79.01 Long term (current) use of anticoagulants; Z85.3 Personal history of malignant neoplasm of breast; Z68.34 Body mass index [BMI] 34.0-34.9, adult
CPT/HCPCS: 36415; 71045; 71250; 80048; 80053; 82962; 83605; 83735; 83880; 84145; 84484; 85025; 85610; 86140; 87040; 93005; 94760; 96374; 96375; 99284-GF; 99285-25; A9270-GY; J0696; J1650; J1940; J3480

== ENCOUNTER 2019-05-11 15:18 | Inpatient (IN) | payer MEDICARE, OTHER ==
[2019-05-11] MEDS ORDERED: Magnesium Citrate Solution 296 ML Bottle PO PRN (15:40)
[2019-05-11] MEDS ORDERED: Acetaminophen 500 MG Tab PO PRN (15:40)
[2019-05-11] MEDS ORDERED: Bisacodyl 5 MG Tab PO PRN (15:40)
[2019-05-11] MEDS ORDERED: Acetaminophen/HYDROcodone 325-10 MG Tab PO PRN (15:40)
[2019-05-11] MEDS ORDERED: Nitroglycerin 0.4 MG Tab.SL SL PRN (15:40)
[2019-05-11] MEDS ORDERED: Polyethylene Glycol 3350 Powder 17 GM Packet PO PRN (15:40)
[2019-05-11] MEDS ORDERED: Ondansetron 4 MG Tab.DIS PO PRN (17:15)
[2019-05-11] MEDS: Allopurinol 300 MG Tab PO SCH (17:16)
[2019-05-11] MEDS: Furosemide 40 MG/4 ML VIAL IV SCH (17:16)
[2019-05-11] MEDS: Cyanocobalamin (Vitamin B12) 1,000 MCG Tab PO SCH (17:16)
[2019-05-11] MEDS: Acetaminophen/HYDROcodone 325-5 MG Tab PO SCH ×2 (17:17→20:22)
[2019-05-11] MEDS: Potassium Chloride 10 MEQ Tab.ER PO SCH (18:08)
[2019-05-11] MEDS: Pramipexole 0.125 MG Tab PO SCH (18:25)
[2019-05-11] MEDS: Zinc (Zinc Gluconate) 50 MG Tab PO SCH (18:26)
--- NOTE | 2019-05-11 19:04 | HP ---
CHIEF COMPLAINT: Foot wound and increased shortness of breath. HISTORY OF PRESENT ILLNESS: This is an 79-year-old female with diabetes and neuropathy with multiple previous diabetic foot ulcers, who actually had just gotten discharged from the [facility] a week or so ago after healing up bilateral heel ulcers through the Wound Clinic. She is not sure exactly which day this started, but she has a blister on her foot. Her feet are hurting worse. It is bleeding. She has not felt the best, she told the nurse, with some fever and chills, but she denied any fever to me. She has had chronic diastolic heart failure and in fact had the CardioMEMS device for pulmonary artery pressures, but it was discontinued as her pressures were significantly elevated, and increasing diuretics caused renal failure, and she really did not feel any better when she was on them. Her EF is 65%. She also has moderate pulmonary hypertension and some mild aortic stenosis. She otherwise had refused to go home with home health. She has had several vascular evaluations, including most recently in February, which showed heavily-calcified vessels, but no stenotic segments. The patient denies any chest pain. She has had a little bit of a cough, but not bad. She just feels heavy and full like she is retaining some fluid in her stomach. ALLERGIES: Include adhesives; Ancef, reaction in the OR, but she has tolerated Keflex; azithromycin, hives and rash; amoxicillin, diarrhea; Cleocin, mouth sores; ezetimibe, muscle aches; Lipitor, myalgias, but she is tolerating other statins; seasonal allergies with nasal drainage; crab allergy; tetanus; and Zocor. MEDICATIONS: Her medication list is reviewed. She is currently on Coumadin, Tuesday and Tuesday are 5 mg, 2.5 the rest of the week; hydrocodone 5/325 at 4 p.m. and bedtime; potassium 20 mEq b.i.d.; Neurontin 100 in the morning and 200 at bedtime; Demadex 60 mg twice daily; Senokot daily; Toprol 50 mg daily; Protonix 40 mg in the morning; allopurinol 300 daily; Mevacor 20 at bedtime; Anusol suppositories; Tylenol; Flonase; B12; zinc; Mirapex 0.25 at 4 p.m. and then 2 tablets at bedtime; Symbicort; Lexapro 20 mg daily; Zofran as needed; and nitroglycerin as needed. PAST MEDICAL HISTORY: Quite complex and does include chronic anxiety; aortic stenosis; B12 deficiency; chronic atrial fibrillation; previous osteomyelitis of the feet; multiple toe resections; diabetes, which is well controlled off any insulin; chronic kidney insufficiency with worsening recently due to increased diuresis for heart failure; cognitive impairment, 26/30 on her MoCA in the past; history of breast cancer; uses oxygen 1 L at night into her CPAP; sleep apnea; depression; diastolic heart failure, again EF is 65%; obesity; gout; GERD; previous UTIs, admit in 2019 with E coli; hypertriglyceridemia; diabetic neuropathy; osteoarthritis; previous hip replacement on the right; osteopenia; peripheral arterial disease, but not severe; reactive airway disease that is not asthma; restless legs syndrome; seasonal allergies; previous colon polyps, done at age 77 per the patient's request, with some weight loss; and tubular adenoma. PAST SURGICAL HISTORY: The patient has had multiple surgeries, as above, and in addition, she has had YAG laser capsulotomy, tonsillectomy, right total hip, mastectomy, hysterectomy, elbow fracture surgery, cholecystectomy, cataracts, bunions, and appendectomy, and she has had at least 9 toe surgeries for amputations over the past 4 years. SOCIAL HISTORY: The patient is . She lives independently now in her own home. 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 She has a daughter, who is a nurse, who lives in town. She has 2 other children. She is a nonsmoker. She denies any excessive alcohol use. FAMILY HISTORY: Both parents are . Her mother had lung cancer. Father had heart disease. REVIEW OF SYSTEMS: General: The patient has not had any significant weight gain or loss. No fever is reported. HEENT: No sore throat. No trouble swallowing. Cardiac: She has not had any chest pain or palpitations but has been more short of breath and winded. Respiratory: Just mild cough, no wheezing. Abdominal: Constipation improved after increase in senna. She has been eating yogurt. Musculoskeletal: She has had more foot and leg pain lately due to her diabetic neuropathy. Otherwise, all systems are reviewed and found to be negative unless otherwise stated. PHYSICAL EXAMINATION: Vital Signs: On admission to [facility], the patient has a weight of 84.36 kg, temperature 98.7, pulse 80, blood pressure 118/69, respiratory rate 24, and O2 of 98 on room air. General: She is in no acute distress. Heart: Irregular, irregular with murmur. Lungs: Lung sounds are clear to auscultation bilaterally without crackles or wheezes. Abdomen: Slightly distended but positive bowel sounds. Nontender. Extremities: Warm and dry. She does have 1+ edema. The right foot is examined. On the plantar aspect, she has a 6 x 4 cm opened area, appears that she has a blister there. There is just minimal surrounding redness, no warmth. Clear drainage and bleeding are noted. The 3rd digit on that right foot has a large 2 cm blister. She has been wearing like the surgical shoes. Otherwise, she has been dressing it with gauze and an A and D ointment. She is unable to get into the Wound Clinic today. RADIOGRAPHIC DATA: Chest x-ray did not show any severe pulmonary edema. No infiltrates. DIAGNOSTIC DATA: An EKG did show a rate-controlled atrial fibrillation at 88, no ST changes. LABORATORY DATA: Troponin is negative, and proBNP is 3350. ASSESSMENT: 1. Acute on chronic diastolic heart failure with a known ejection fraction of 65%. Last echocardiogram was back in 2018. 2. Atrial fibrillation, rate controlled on Coumadin with therapeutic INR at 2.3. 3. Diabetic foot infection, mild. Her sedimentation rate is only 32. I think she just needs dedicated wound cares, but we will treat with some oral Keflex, given the mild surrounding infection. There is nothing to culture. 4. Chronic anemia, mild. Hemoglobin is actually up to 11.8 today. 5. Mild thrombocytopenia. Platelets are actually 116 today in the clinic. It should be noted her white count is normal. 6. Chronic kidney disease with some recent acute worsening, probably due to the congestive heart failure. She may not be absorbing the Demadex. We will get her started on some IV Lasix 40 mg q.12, given her low blood pressure. We can increase the frequency to every 8 hours or the dosing as needed. Her most recent creatinine had been down to 1.6, but she has had numerous readings over 2. 7. Obesity and sleep apnea. She hopefully will have a family member bring in her continuous positive airway pressure. She has done this before. 8. Anxiety and depression that is chronic. We will get Rotary Shear Operator involved, given her recurrent wounds. She did so well at the residential and did not do well at home. Therefore, she may need to do at least some home health services. 9. Reactive airway disease that is not asthma. 10.Pulmonary hypertension. We will continue to encourage her to use oxygen with her continuous positive airway pressure. PLAN: The patient is admitted for acute cares with IV Lasix. We will repeat lab work tomorrow, including an INR. We will keep her on telemetry to keep a close eye on her heart rates. She is a code level 3, no CPR. She will be on her Coumadin for DVT prophylaxis. MKA: 05/11/2019 16:31:33 MODL: 05/11/2019 18:55:58 /[id number]
[2019-05-11] MEDS: Warfarin 5 MG Tab PO SCH (20:22)
[2019-05-11] MEDS: Gabapentin 100 MG Cap PO SCH (20:22)
[2019-05-11] MEDS: Citalopram 20 MG Tab PO SCH (20:22)
[2019-05-11] MEDS: Cephalexin 250 MG Cap PO SCH (20:22)
[2019-05-11] MEDS: Pramipexole 0.5 MG Tab PO SCH (20:25)
[2019-05-11] MEDS: Fluticasone-Salmeterol 232-14 MCG Powder Inhalent INH SCH (20:25)
[2019-05-12] MEDS: Potassium Chloride 10 MEQ Tab.ER PO SCH ×2 (07:46→17:17)
[2019-05-12] MEDS: Pantoprazole 40 MG Tab.CR PO SCH (07:46)
[2019-05-12] MEDS: Furosemide 40 MG/4 ML VIAL IV SCH ×2 (07:46→16:01)
[2019-05-12] MEDS: Gabapentin 100 MG Cap PO SCH ×2 (07:46→19:49)
[2019-05-12] MEDS: Cephalexin 250 MG Cap PO SCH ×4 (07:46→19:48)
[2019-05-12] MEDS: Metoprolol Succinate 50 MG Tab.ER PO SCH (07:47)
[2019-05-12] MEDS: Polyethylene Glycol 3350 Powder 17 GM Packet PO SCH (07:47)
[2019-05-12] MEDS: Cyanocobalamin (Vitamin B12) 1,000 MCG Tab PO SCH ×2 (07:47→16:01)
[2019-05-12] MEDS: Fluticasone-Salmeterol 232-14 MCG Powder Inhalent INH SCH ×2 (07:48→19:49)
[2019-05-12 08:13] LABS: ANION GAP 14.3 mmol/L (10-20)
--- NOTE | 2019-05-12 10:54 | PN ---
Progress Note for CHAI CHOUDHURY Date: 05/12/2019 Room #: VM.212 SUBJECTIVE: This is hospital day #2 for an 79-year-old admitted through the clinic for an acute on chronic diastolic heart failure exacerbation and a right foot wound. The [facility]. She has blisters over her 3rd, 4th, 5th digits. They are still intact, but the entire distal plantar aspect is an open wound. It is superficial. Had some mild redness, but there is no drainage. She was started on Keflex. It is looking better today. She has been afebrile. She feels like her breathing is a little better. She is not coughing. OBJECTIVE: Vital Signs: Temperature is 98.6. Her weight is 83 kg. Her pulse is 94, blood pressure 127/56, respiratory rate 20, and O2 is 90 on room air. She does have her CPAP device, which she used overnight. She had blood pressure down as low as 79/47. She is normally on Demadex 60 mg twice daily. We started Lasix just 40 IV b.i.d. due to the lower blood pressures. General: She is in no acute distress. Heart: Regularly irregular with systolic murmur. Lungs: Lung sounds are clear to auscultation bilaterally without crackles or wheezes appreciated today. Abdomen: Nondistended, nontender. Extremities: Warm, dry. She does has trace edema. The right foot again has the large plantar blister that has been ruptured. No scabbing is noted there. She still has intact blisters on the 3rd, 4th, 5th digits distally. LABORATORY DATA: Lab work did show white count normal 8.5, hemoglobin 11.1, and platelets 111. INR 1.8. Sodium 138; potassium 4.3; chloride 101; bicarb 27; BUN 38; creatinine 1.7, which is down from 1.9 yesterday; glucose 126. ASSESSMENT AND PLAN: 1. Acute on chronic diastolic heart failure exacerbation with known EF of 65%. Continue with IV diuresis. We will keep the dose the same as we are monitoring closely for low blood pressures. 2. Atrial fibrillation. Her rates are controlled. She does have a history of rapid ventricular response. We will monitor her with telemetry. 3. Diabetic foot infection, mild. We will continue with the oral Keflex and local wound cares with nonadherent gauze and wrapping. We will just basically keep her off her foot. Discussed with her in depth that she will likely need to spend some time on swing bed or at the Care Center to heal up this wound again. 4. Chronic anemia. Hemoglobin stable. 5. Mild thrombocytopenia, stable. We will continue to monitor. 6. Chronic kidney disease, stable. We will monitor closely with IV diuresis. 7. Obesity and sleep apnea. She is on her CPAP. 8. Anxiety and depression, which is chronic. 9. Cognitive impairment. We will get OT involved again to do a cognitive assessment. I suspect the patient will not be at the point of needing a guardian. I feel she is just stubborn in making decisions that she wants to go home even though she has physically been unable to adequately care for herself. We will get Pollution Control Engineer involved. 10.Reactive airway disease, that is not asthma. 11.Pulmonary hypertension. We will have her on oxygen 2 L continuously. She uses it also with her CPAP at night. PLAN: The patient is to continue on acute cares with IV Lasix on oxygen. We will continue to monitor lab work. She is on Coumadin for DVT prophylaxis. She is just slightly subtherapeutic, but did get her higher dose last night. She is a code level 3. MKA: 05/12/2019 10:21:53 MODL: 05/12/2019 10:49:21 /[id number]
[2019-05-12] MEDS: Allopurinol 300 MG Tab PO SCH (16:01)
[2019-05-12] MEDS: Zinc (Zinc Gluconate) 50 MG Tab PO SCH (16:01)
[2019-05-12] MEDS: Pramipexole 0.125 MG Tab PO SCH (16:01)
[2019-05-12] MEDS: Acetaminophen/HYDROcodone 325-5 MG Tab PO SCH ×2 (16:01→19:48)
[2019-05-12] MEDS: Warfarin 2.5 MG Tab PO SCH (19:48)
[2019-05-12] MEDS: Citalopram 20 MG Tab PO SCH (19:48)
[2019-05-12] MEDS: Pramipexole 0.5 MG Tab PO SCH (19:49)
[2019-05-13 07:55] LABS: ANION GAP 13.2 mmol/L (10-20)
[2019-05-13] MEDS: Potassium Chloride 10 MEQ Tab.ER PO SCH ×3 (07:56→18:13)
[2019-05-13] MEDS: Pantoprazole 40 MG Tab.CR PO SCH (07:57)
[2019-05-13] MEDS: Cephalexin 250 MG Cap PO SCH ×4 (07:57→19:39)
[2019-05-13] MEDS: Cyanocobalamin (Vitamin B12) 1,000 MCG Tab PO SCH ×2 (07:57→16:35)
[2019-05-13] MEDS: Furosemide 40 MG/4 ML VIAL IV SCH ×3 (07:58→16:37)
[2019-05-13] MEDS: Polyethylene Glycol 3350 Powder 17 GM Packet PO SCH (07:58)
[2019-05-13] MEDS: Gabapentin 100 MG Cap PO SCH ×2 (07:58→19:39)
[2019-05-13] MEDS: Metoprolol Succinate 50 MG Tab.ER PO SCH (07:58)
[2019-05-13] MEDS: Fluticasone-Salmeterol 232-14 MCG Powder Inhalent INH SCH ×2 (07:59→19:40)
[2019-05-13] MEDS ORDERED: Oxymetazoline 0.05% Nasal Spray 30 ML Bottle NAS PRN (10:55)
[2019-05-13] MEDS ORDERED: Warfarin 2.5 MG Tab PO ONE (11:02)
--- NOTE | 2019-05-13 11:30 | PN ---
Progress Note for CHAI CHOUDHURY Date: 05/13/2019 Room #: VM.212 SUBJECTIVE: This is hospital day #3 on an 79-year-old admitted with an acute on chronic diastolic heart failure exacerbation and a right foot wound with concern for diabetic foot infection. The patient feels like her breathing is better. She is still having some mucus and cough, but she feels like it is coming from her sinuses. She has been afebrile. She has not had any significant urine output, but states she is peeing well. Weights are staying the same. Diuresis is limited by lower blood pressures. Otherwise, her kidney function has remained stable. She is not having any upset stomach. She is having bowel movements. Her pain is controlled for her neuropathy. OBJECTIVE: Vital Signs: Her temperature is 97.2, pulse 81, blood pressure 113/77, respiratory rate 19, and O2 of 99 on 2 L. Weight 83.2 kg. General: She is in no acute distress. Heart: Regularly irregular with murmur. Lungs: Lung sounds are clear to auscultation bilaterally without crackles or wheezes. Abdomen: Positive bowel sounds. Soft and nontender. Extremities: Warm, dry, but no edema. Mental Status: She is alert. She is orientated x3. DIAGNOSTIC STUDIES: Her telemetry did show rates up to 125 this morning. Otherwise, she has mostly been in the 90s with her atrial fibrillation. No bradycardia. LABORATORY DATA: Lab work did show white count normal at 6, hemoglobin 11.5, and platelets 104. INR 1.8. Sodium 139, potassium 4.2, chloride 103, bicarb 27, BUN 36, creatinine 1.7, glucose 125, calcium 8.6. ASSESSMENT: 1. Acute on chronic diastolic heart failure exacerbation. Ejection fraction 65%. At this point, we will increase the Lasix to 40 mg t.i.d. repeat lab work tomorrow. 2. Atrial fibrillation, rate controlled. INR is subtherapeutic. I will increase her Coumadin by an extra 2.5 mg tonight. 3. Diabetic foot infection, mild. We will continue the oral Keflex and local wound cares. We will work on a referral to the Wound Clinic tomorrow and also get Social Work involved. Anticipate she will need skilled care like she did previously to heal up this wound. 4. Chronic anemia. Hemoglobin is stable. 5. Mild thrombocytopenia, stable. 6. Chronic kidney disease. Creatinine is at around her baseline at 1.7. 7. Obstructive sleep apnea, on CPAP. 8. Chronic anxiety and depression. 9. Cognitive impairment. We will again get OT involved to do a cognitive assessment tomorrow. 10.Reactive airway disease. It is not asthma. 11.Pulmonary hypertension. She is on her CPAP. She is also supposed to be on oxygen 2 L continuously. PLAN: At this point, the patient will continue acute cares. We will increase IV Lasix to t.i.d. We will repeat lab work tomorrow. We will increase Coumadin. She is a code level 3. We will get her up working with therapies tomorrow. MKA: 05/13/2019 11:00:37 MODL: 05/13/2019 11:26:42 /[id number]
[2019-05-13] MEDS: Sodium Chloride 0.9% 10 ML Syringe FLUSH PRN ×2 (11:46→16:37)
[2019-05-13] MEDS: Allopurinol 300 MG Tab PO SCH (16:33)
[2019-05-13] MEDS: Zinc (Zinc Gluconate) 50 MG Tab PO SCH (16:34)
[2019-05-13] MEDS: Pramipexole 0.125 MG Tab PO SCH (16:34)
[2019-05-13] MEDS: Acetaminophen/HYDROcodone 325-5 MG Tab PO SCH ×2 (16:35→19:39)
[2019-05-13] MEDS: Warfarin 2.5 MG Tab PO SCH (19:39)
[2019-05-13] MEDS: Citalopram 20 MG Tab PO SCH (19:39)
[2019-05-13] MEDS: Pramipexole 0.5 MG Tab PO SCH (19:39)
[2019-05-14 07:22] LABS: ANION GAP 11.4 mmol/L (10-20)
[2019-05-14] MEDS: Potassium Chloride 10 MEQ Tab.ER PO SCH ×2 (07:51→17:39)
[2019-05-14] MEDS: Cephalexin 250 MG Cap PO SCH ×4 (07:51→20:42)
[2019-05-14] MEDS: Gabapentin 100 MG Cap PO SCH ×2 (07:51→20:42)
[2019-05-14] MEDS: Metoprolol Succinate 50 MG Tab.ER PO SCH (07:51)
[2019-05-14] MEDS: Pantoprazole 40 MG Tab.CR PO SCH (07:51)
[2019-05-14] MEDS: Cyanocobalamin (Vitamin B12) 1,000 MCG Tab PO SCH ×2 (07:51→15:31)
[2019-05-14] MEDS: Furosemide 40 MG/4 ML VIAL IV SCH ×3 (07:52→15:30)
[2019-05-14] MEDS: Fluticasone-Salmeterol 232-14 MCG Powder Inhalent INH SCH ×2 (07:52→20:41)
[2019-05-14] MEDS: Polyethylene Glycol 3350 Powder 17 GM Packet PO SCH (07:55)
[2019-05-14] MEDS: Acetaminophen/HYDROcodone 325-5 MG Tab PO SCH ×2 (15:31→20:43)
[2019-05-14] MEDS: Allopurinol 300 MG Tab PO SCH (15:31)
[2019-05-14] MEDS: Pramipexole 0.125 MG Tab PO SCH (15:31)
[2019-05-14] MEDS: Zinc (Zinc Gluconate) 50 MG Tab PO SCH (15:32)
--- NOTE | 2019-05-14 15:55 | PN ---
Progress Note for CHAI CHOUDHURY Date: 05/14/2019 Room #: VM.212 SUBJECTIVE: This is hospital day #4 on an 79-year-old admitted with an acute on chronic diastolic heart failure exacerbation. The patient feels that her ankle swelling went down. Her breathing is much better. She is not having any chest pain. She has not had any new coughing. She has been afebrile. Her heart rates did go up this morning into the 120s on telemetry, but are now back down in the 90s. She is still on metoprolol 50. She used to take digoxin in the past. Otherwise, her pain is under good control in the mornings, but it gets worse as the day goes on in her feet due to the diabetic neuropathy. She is needing arrangements to follow up in the Wound Clinic. She has not yet seen Physical Therapy, but they personally called me to ask about weightbearing. OBJECTIVE: Vital Signs: Her temperature is 97.5, pulse 97, blood pressure 125/78, respiratory rate 19, O2 of 95% on 2 L. General: She is in no acute distress. Heart: Regularly irregular with murmur. Lungs: Sounds are clear to auscultation bilaterally without crackles or wheezes. Abdomen: Nondistended, nontender. Extremities: Warm and dry. No edema. The right foot is again examined. She still has the blisters noted, still mostly fluid-filled over the 2nd, 3rd, 4th digits. The plantar surface does appear clean. There is no significant drainage. There is no surrounding redness. She has been on the Keflex. LABORATORY DATA: Otherwise, her lab work today does show her white count normal at 5.9, hemoglobin 11.6, platelets 115. Sodium 138, potassium 4.4, chloride 101, bicarb 30, BUN 36, creatinine 1.6, glucose 113, calcium 8.9. INR is 1.8. ASSESSMENT: 1. Acute on chronic diastolic heart failure exacerbation. Ejection fraction of 65%. She was increased to 40 t.i.d. of IV Lasix yesterday. So far, this is going well. We will continue with the same. 2. Atrial fibrillation and some rapid ventricular response. She has not had any bradycardia. We will continue to monitor today and reinstitute digoxin if needed. 3. Diabetic foot infection, mild. She is on the Keflex. She will complete her 1 week course on 05/18. Arrangements are being made for her to go back to the Wound Clinic. She will likely go on swing bed tomorrow to continue working with therapies using the walker to stay off that foot. Potential need to return to the Care Center was also discussed. 4. Chronic anemia. Hemoglobin stable. We will continue to monitor. 5. Chronic thrombocytopenia. 6. Chronic kidney disease. Her creatinine is actually around baseline. 7. Obstructive sleep apnea, on CPAP. 8. Pulmonary hypertension. She is to be on oxygen 2 L at all times. 9. Chronic anxiety and depression. 10.Cognitive impairment. We are awaiting the OT cognitive eval. 11.Reactive airway disease that is not asthma. She is on her home inhalers. PLAN: At this point, the patient will continue acute care. She will continue the IV Lasix. We will continue to monitor her heart rates. She is also on Coumadin. We had increased the dose slightly, and we will see if her INR is therapeutic by tomorrow. It has been 1.8. Otherwise, Social Service is involved in her care. MKA: 05/14/2019 15:24:22 MODL: 05/14/2019 15:49:59 /[id number]
[2019-05-14] MEDS: Citalopram 20 MG Tab PO SCH (20:42)
[2019-05-14] MEDS: Pramipexole 0.5 MG Tab PO SCH (20:43)
[2019-05-14] MEDS: Warfarin 5 MG Tab PO SCH (20:44)
[2019-05-15 07:19] LABS: ANION GAP 14.4 mmol/L (10-20)
[2019-05-15] MEDS ORDERED: Torsemide 20 MG Tab PO SCH (08:10)
[2019-05-15] MEDS: Polyethylene Glycol 3350 Powder 17 GM Packet PO SCH (08:55)
[2019-05-15] MEDS: Metoprolol Succinate 50 MG Tab.ER PO SCH (08:57)
[2019-05-15] MEDS: Furosemide 40 MG/4 ML VIAL IV SCH (09:00)
[2019-05-15] MEDS: Potassium Chloride 10 MEQ Tab.ER PO SCH (09:00)
[2019-05-15] MEDS: Pantoprazole 40 MG Tab.CR PO SCH (09:00)
[2019-05-15] MEDS: Cephalexin 250 MG Cap PO SCH (09:00)
[2019-05-15] MEDS: Cyanocobalamin (Vitamin B12) 1,000 MCG Tab PO SCH (09:00)
[2019-05-15] MEDS: Gabapentin 100 MG Cap PO SCH (09:00)
[2019-05-15 09:01] VITALS: BP 104/74; PULSE 88
[2019-05-15] MEDS: Fluticasone-Salmeterol 232-14 MCG Powder Inhalent INH SCH (09:01)
--- NOTE | 2019-05-15 23:30 | DISCH ---
PRIMARY DISCHARGE DIAGNOSES: 1. Acute on chronic diastolic heart failure exacerbation with known EF of 65% back in 2018. 2. Right foot diabetic foot ulcer with toe blisters and mild infection. 3. Atrial fibrillation with slight rapid ventricular rates, especially in the mornings over 120. Digoxin restarted on discharge. 4. Chronic anemia, mild, stable with hemoglobin of 11.6 on discharge. 5. Chronic thrombocytopenia, platelets up to 123 on discharge. 6. Chronic kidney disease with stable creatinine at 1.5, improved from admission on discharge. 7. Obesity and sleep apnea. She uses CPAP. 8. Pulmonary hypertension, severe. 9. Anxiety and depression. 10.Reactive airway disease that is not asthma. 11.Diabetes, well controlled with neuropathy but not on long-term insulin use. REASON FOR ADMISSION: On the date of admission, this 79-year-old female who had recently about 2 weeks ago got out of the [facility] to go back home, she refused home health. She did come in today with her foot draining. She had blisters on her toes. She has had multiple previous amputations. Her diabetes is actually under fairly good control. The patient otherwise has had increased shortness of breath, some more swelling in her legs and her abdomen. She has not had any fever or chills. No chest pain. She had previously [facility] and has had increasing doses of metolazone and Demadex, which unfortunately did lead to renal failure and admission for dehydration at one point. The patient decided to discontinue following with the Heart Failure Clinic as they were recommending her for hospice. Her weights have not significantly changed. Her troponin was negative. EKG was showing AFib, but no acute changes. Chest x-ray was not showing any increased pulmonary edema. She was admitted. She was placed on IV Lasix. She diuresed. Her breathing improved. Otherwise, she had received initially 40 mg b.i.d., but increased to t.i.d. Did have a few lower blood pressures, that is why we elected to do a lower dose more frequently. She received local wound cares. Arrangements were made then for followup in the Wound Clinic. The patient had worked with therapy using the walker, trying to stay off that right foot. Decision was made that she would benefit from a swing bed stay. PHYSICAL EXAMINATION: Vital Signs: Discharge vitals today include a temperature of 98.4, pulse 72, blood pressure 116/68, O2 is 96% on 2 L, respiratory rate 20. General: She is in no acute distress. Heart: Regularly irregular with murmur. Lungs: Sounds are clear to auscultation bilaterally without crackles or wheezes. Abdomen: Nondistended, nontender. Extremities: Warm and dry. No edema. The right foot is examined again. She continues to have blisters. Some of them have now drained, but still has a protective coating overlying the 2nd through 5th toes really and the whole distal plantar aspect, but no surrounding redness or warmth. Mental Status: Otherwise she is alert, she is orientated x3. We had a long discussion regarding need for further cares. The patient is only willing to go to the [facility] if insurance pays for it. States she would rather at home than with 4 tiny villalobos. Unfortunately, she is unable to adequately care for herself at home and has been very reluctant to getting home health. She absolutely refuses hospice. It should be also noted the patient has been on Keflex 250 q.i.d. since admission. She will complete her course of a week on 05/18. DISCHARGE PLANS AND INSTRUCTIONS: The patient is going over to swing bed. She will complete Keflex on 05/18. She will have local wound cares. I will contact the wound clinic for further instructions since she is not seeing them until 05/22. I did have to give her an extra 2.5 mg dose of warfarin. Her INR was 1.9 today. We will repeat lab work in 2 days. We increased her torsemide dosing to 80 mg twice daily now that she is off IV Lasix. She was on 60 twice daily before. Greater than 30 minutes spent on the discharge process. MKA: 05/15/2019 18:58:36 MODL: 05/15/2019 23:20:27 /[id number]
== END 2019-05-15 11:40 | disposition swing bed (61) | DRG 292 ==
LOC: VM.MS 15:21
PROVIDERS: ADMIT Internal Medicine; ATTEND Internal Medicine
PROC: 5A09357 Assistance with Respiratory Ventilation, Less than 24 Consecutive Hours, Continuous Positive Airway Pressure (ICD-10-PCS; principal; 2019-05-11)
DX: I50.33 Acute on chronic diastolic (congestive) heart failure (principal); I48.20 Chronic atrial fibrillation, unspecified; E11.621 Type 2 diabetes mellitus with foot ulcer; L97.519 Non-pressure chronic ulcer of other part of right foot with unspecified severity; S90.424A Blister (nonthermal), right lesser toe(s), initial encounter; D69.6 Thrombocytopenia, unspecified; E66.9 Obesity, unspecified; G47.30 Sleep apnea, unspecified; I27.20 Pulmonary hypertension, unspecified; F41.9 Anxiety disorder, unspecified; F32.9 Major depressive disorder, single episode, unspecified; E11.42 Type 2 diabetes mellitus with diabetic polyneuropathy; G31.84 Mild cognitive impairment of uncertain or unknown etiology; E11.22 Type 2 diabetes mellitus with diabetic chronic kidney disease; N18.9 Chronic kidney disease, unspecified; K21.9 Gastro-esophageal reflux disease without esophagitis; Z96.641 Presence of right artificial hip joint; Z88.1 Allergy status to other antibiotic agents; Z88.0 Allergy status to penicillin; Z88.8 Allergy status to other drugs, medicaments and biological substances; Z79.01 Long term (current) use of anticoagulants; Z79.899 Other long term (current) drug therapy; Z85.3 Personal history of malignant neoplasm of breast; Z90.710 Acquired absence of both cervix and uterus; Z90.49 Acquired absence of other specified parts of digestive tract; Z68.36 Body mass index [BMI] 36.0-36.9, adult; X58.XXXA Exposure to other specified factors, initial encounter
CPT/HCPCS: 36415; 80048; 82962; 85025; 85610; 94660; 94760; 97116-GP; 97161-GP; A9270-GY; G0515-GO; J1940

== ENCOUNTER 2019-05-15 08:46 | Inpatient (IN) | payer MEDICARE, OTHER ==
[2019-05-15] MEDS ORDERED: Nitroglycerin 0.4 MG Tab.SL SL PRN (09:23)
[2019-05-15] MEDS ORDERED: Acetaminophen/HYDROcodone 325-10 MG Tab PO PRN (09:23)
[2019-05-15] MEDS ORDERED: Oxymetazoline 0.05% Nasal Spray 30 ML Bottle NAS PRN (09:23)
[2019-05-15] MEDS ORDERED: Polyethylene Glycol 3350 Powder 17 GM Packet PO PRN (09:23)
[2019-05-15] MEDS ORDERED: Acetaminophen 500 MG Tab PO PRN (09:23)
[2019-05-15] MEDS ORDERED: Ondansetron 4 MG Tab.DIS PO PRN (09:23)
[2019-05-15] MEDS ORDERED: Bisacodyl 5 MG Tab PO PRN (09:23)
[2019-05-15] MEDS ORDERED: Magnesium Citrate Solution 296 ML Bottle PO PRN (09:23)
[2019-05-15] MEDS: Cephalexin 250 MG Cap PO SCH ×3 (13:48→19:53)
[2019-05-15] MEDS: Digoxin 125 MCG Tab PO SCH (13:48)
[2019-05-15] MEDS: Acetaminophen/HYDROcodone 325-5 MG Tab PO SCH ×2 (15:33→19:51)
[2019-05-15] MEDS: Torsemide 20 MG Tab PO SCH (15:33)
[2019-05-15] MEDS: Zinc (Zinc Gluconate) 50 MG Tab PO SCH (15:34)
[2019-05-15] MEDS: Cyanocobalamin (Vitamin B12) 1,000 MCG Tab PO SCH (15:34)
[2019-05-15] MEDS: Allopurinol 300 MG Tab PO SCH (15:34)
[2019-05-15] MEDS: Pramipexole 0.125 MG Tab PO SCH (15:34)
[2019-05-15] MEDS: Potassium Chloride 10 MEQ Tab.ER PO SCH (18:03)
[2019-05-15] MEDS: Gabapentin 100 MG Cap PO SCH (19:51)
[2019-05-15] MEDS: Pramipexole 0.5 MG Tab PO SCH (19:51)
[2019-05-15] MEDS: Warfarin 2.5 MG Tab PO SCH (19:53)
[2019-05-15] MEDS: Citalopram 20 MG Tab PO SCH (19:53)
[2019-05-15] MEDS: Sodium Chloride 0.65% Nasal Spray 45 ML Bottle NAS SCH (19:54)
[2019-05-15] MEDS: Fluticasone-Salmeterol 232-14 MCG Powder Inhalent INH SCH ×2 (19:55→19:56)
[2019-05-16] MEDS: Torsemide 20 MG Tab PO SCH ×2 (08:35→15:41)
[2019-05-16] MEDS: Polyethylene Glycol 3350 Powder 17 GM Packet PO SCH (08:35)
[2019-05-16] MEDS: Cephalexin 250 MG Cap PO SCH ×4 (08:36→20:31)
[2019-05-16] MEDS: Metoprolol Succinate 50 MG Tab.ER PO SCH (08:36)
[2019-05-16] MEDS: Potassium Chloride 10 MEQ Tab.ER PO SCH ×2 (08:36→17:58)
[2019-05-16] MEDS: Gabapentin 100 MG Cap PO SCH ×2 (08:36→20:31)
[2019-05-16] MEDS: Digoxin 125 MCG Tab PO SCH (08:41)
[2019-05-16] MEDS: Sodium Chloride 0.65% Nasal Spray 45 ML Bottle NAS SCH ×2 (08:41→20:32)
[2019-05-16] MEDS: Cyanocobalamin (Vitamin B12) 1,000 MCG Tab PO SCH ×2 (08:41→15:41)
[2019-05-16] MEDS: Pantoprazole 40 MG Tab.CR PO SCH (08:41)
[2019-05-16] MEDS: Fluticasone-Salmeterol 232-14 MCG Powder Inhalent INH SCH ×2 (08:42→20:32)
[2019-05-16] MEDS: Acetaminophen/HYDROcodone 325-5 MG Tab PO SCH ×2 (15:41→20:31)
[2019-05-16] MEDS: Allopurinol 300 MG Tab PO SCH (15:41)
[2019-05-16] MEDS: Zinc (Zinc Gluconate) 50 MG Tab PO SCH (15:41)
[2019-05-16] MEDS: Pramipexole 0.125 MG Tab PO SCH (15:41)
[2019-05-16] MEDS: Pramipexole 0.5 MG Tab PO SCH (20:31)
[2019-05-16] MEDS: Warfarin 2.5 MG Tab PO SCH (20:31)
[2019-05-16] MEDS: Citalopram 20 MG Tab PO SCH (20:32)
[2019-05-17 07:32] LABS: CHLORIDE,CL 102 mmol/L (98-107); SODIUM,NA 141 mmol/L (136-145)
[2019-05-17 07:35] LABS: ANION GAP 12.1 mmol/L (10-20)
[2019-05-17] MEDS: Polyethylene Glycol 3350 Powder 17 GM Packet PO SCH (09:06)
[2019-05-17] MEDS: Torsemide 20 MG Tab PO SCH ×2 (09:06→16:09)
[2019-05-17] MEDS: Cephalexin 250 MG Cap PO SCH ×4 (09:07→19:57)
[2019-05-17] MEDS: Potassium Chloride 10 MEQ Tab.ER PO SCH ×2 (09:07→17:42)
[2019-05-17] MEDS: Digoxin 125 MCG Tab PO SCH (09:07)
[2019-05-17] MEDS: Metoprolol Succinate 50 MG Tab.ER PO SCH (09:07)
[2019-05-17] MEDS: Cyanocobalamin (Vitamin B12) 1,000 MCG Tab PO SCH ×2 (09:08→16:10)
[2019-05-17] MEDS: Gabapentin 100 MG Cap PO SCH ×2 (09:08→19:57)
[2019-05-17] MEDS: Sodium Chloride 0.65% Nasal Spray 45 ML Bottle NAS SCH ×2 (09:08→19:56)
[2019-05-17] MEDS: Pantoprazole 40 MG Tab.CR PO SCH (09:08)
[2019-05-17] MEDS: Fluticasone-Salmeterol 232-14 MCG Powder Inhalent INH SCH ×2 (09:09→19:56)
[2019-05-17] MEDS: Acetaminophen/HYDROcodone 325-5 MG Tab PO SCH ×2 (16:09→19:57)
[2019-05-17] MEDS: Allopurinol 300 MG Tab PO SCH (16:10)
[2019-05-17] MEDS: Pramipexole 0.125 MG Tab PO SCH (16:10)
[2019-05-17] MEDS: Zinc (Zinc Gluconate) 50 MG Tab PO SCH (16:10)
[2019-05-17] MEDS: Pramipexole 0.5 MG Tab PO SCH (19:56)
[2019-05-17] MEDS: Warfarin 2.5 MG Tab PO SCH (19:57)
[2019-05-17] MEDS: Citalopram 20 MG Tab PO SCH (19:57)
[2019-05-18] MEDS: Polyethylene Glycol 3350 Powder 17 GM Packet PO SCH (08:54)
[2019-05-18] MEDS: Sodium Chloride 0.65% Nasal Spray 45 ML Bottle NAS SCH ×2 (08:54→19:52)
[2019-05-18] MEDS: Fluticasone-Salmeterol 232-14 MCG Powder Inhalent INH SCH ×2 (08:54→19:52)
[2019-05-18] MEDS: Potassium Chloride 10 MEQ Tab.ER PO SCH ×2 (08:55→17:15)
[2019-05-18] MEDS: Torsemide 20 MG Tab PO SCH ×2 (08:55→16:11)
[2019-05-18] MEDS: Gabapentin 100 MG Cap PO SCH ×2 (08:55→19:52)
[2019-05-18] MEDS: Pantoprazole 40 MG Tab.CR PO SCH (08:56)
[2019-05-18] MEDS: Cyanocobalamin (Vitamin B12) 1,000 MCG Tab PO SCH ×2 (08:56→16:11)
[2019-05-18] MEDS: Metoprolol Succinate 50 MG Tab.ER PO SCH (08:56)
[2019-05-18] MEDS: Digoxin 125 MCG Tab PO SCH (08:57)
[2019-05-18] MEDS: Cephalexin 250 MG Cap PO SCH ×4 (08:57→19:52)
[2019-05-18] MEDS: Pramipexole 0.125 MG Tab PO SCH (16:11)
[2019-05-18] MEDS: Acetaminophen/HYDROcodone 325-5 MG Tab PO SCH ×2 (16:12→19:52)
[2019-05-18] MEDS: Allopurinol 300 MG Tab PO SCH (16:12)
[2019-05-18] MEDS: Zinc (Zinc Gluconate) 50 MG Tab PO SCH (16:13)
[2019-05-18] MEDS: Warfarin 5 MG Tab PO SCH (19:52)
[2019-05-18] MEDS: Citalopram 20 MG Tab PO SCH (19:52)
[2019-05-18] MEDS: Pramipexole 0.5 MG Tab PO SCH (19:53)
[2019-05-19] MEDS: Cyanocobalamin (Vitamin B12) 1,000 MCG Tab PO SCH ×2 (08:45→15:45)
[2019-05-19] MEDS: Gabapentin 100 MG Cap PO SCH ×2 (08:45→19:31)
[2019-05-19] MEDS: Fluticasone-Salmeterol 232-14 MCG Powder Inhalent INH SCH ×2 (08:45→19:29)
[2019-05-19] MEDS: Torsemide 20 MG Tab PO SCH ×2 (08:45→15:45)
[2019-05-19] MEDS: Potassium Chloride 10 MEQ Tab.ER PO SCH ×2 (08:45→17:26)
[2019-05-19] MEDS: Pantoprazole 40 MG Tab.CR PO SCH (08:46)
[2019-05-19] MEDS: Polyethylene Glycol 3350 Powder 17 GM Packet PO SCH (08:46)
[2019-05-19] MEDS: Metoprolol Succinate 50 MG Tab.ER PO SCH (08:46)
[2019-05-19] MEDS: Sodium Chloride 0.65% Nasal Spray 45 ML Bottle NAS SCH ×2 (08:46→19:30)
[2019-05-19] MEDS: Digoxin 125 MCG Tab PO SCH (08:46)
[2019-05-19] MEDS: Acetaminophen/HYDROcodone 325-5 MG Tab PO SCH ×2 (15:45→19:30)
[2019-05-19] MEDS: Allopurinol 300 MG Tab PO SCH (15:45)
[2019-05-19] MEDS: Pramipexole 0.125 MG Tab PO SCH (15:45)
[2019-05-19] MEDS: Zinc (Zinc Gluconate) 50 MG Tab PO SCH (15:45)
[2019-05-19] MEDS: Citalopram 20 MG Tab PO SCH (19:30)
[2019-05-19] MEDS: Pramipexole 0.5 MG Tab PO SCH (19:30)
[2019-05-19] MEDS: Warfarin 2.5 MG Tab PO SCH (19:31)
[2019-05-20] MEDS: Potassium Chloride 10 MEQ Tab.ER PO SCH ×2 (08:07→17:03)
[2019-05-20] MEDS: Gabapentin 100 MG Cap PO SCH ×2 (08:07→19:33)
[2019-05-20] MEDS: Metoprolol Succinate 50 MG Tab.ER PO SCH (08:07)
[2019-05-20] MEDS: Digoxin 125 MCG Tab PO SCH (08:07)
[2019-05-20] MEDS: Sodium Chloride 0.65% Nasal Spray 45 ML Bottle NAS SCH ×2 (08:08→19:33)
[2019-05-20] MEDS: Fluticasone-Salmeterol 232-14 MCG Powder Inhalent INH SCH ×2 (08:08→19:33)
[2019-05-20] MEDS: Cyanocobalamin (Vitamin B12) 1,000 MCG Tab PO SCH ×2 (08:08→17:03)
[2019-05-20] MEDS: Torsemide 20 MG Tab PO SCH ×2 (08:08→17:07)
[2019-05-20] MEDS: Pantoprazole 40 MG Tab.CR PO SCH (08:08)
[2019-05-20] MEDS: Polyethylene Glycol 3350 Powder 17 GM Packet PO SCH (08:10)
[2019-05-20] MEDS: Allopurinol 300 MG Tab PO SCH (17:02)
[2019-05-20] MEDS: Pramipexole 0.125 MG Tab PO SCH (17:03)
[2019-05-20] MEDS: Zinc (Zinc Gluconate) 50 MG Tab PO SCH (17:03)
[2019-05-20] MEDS: Acetaminophen/HYDROcodone 325-5 MG Tab PO SCH ×2 (17:03→19:33)
[2019-05-20] MEDS: Pramipexole 0.5 MG Tab PO SCH (19:33)
[2019-05-20] MEDS: Warfarin 2.5 MG Tab PO SCH (19:33)
[2019-05-20] MEDS: Citalopram 20 MG Tab PO SCH (19:33)
[2019-05-21 07:21] LABS: ANION GAP 13.1 mmol/L (10-20); CHLORIDE,CL 101 mmol/L (98-107); SODIUM,NA 140 mmol/L (136-145)
[2019-05-21] MEDS: Polyethylene Glycol 3350 Powder 17 GM Packet PO SCH (07:37)
[2019-05-21] MEDS: Cyanocobalamin (Vitamin B12) 1,000 MCG Tab PO SCH ×2 (07:37→15:05)
[2019-05-21] MEDS: Potassium Chloride 10 MEQ Tab.ER PO SCH ×2 (07:37→17:59)
[2019-05-21] MEDS: Gabapentin 100 MG Cap PO SCH ×2 (07:37→19:40)
[2019-05-21] MEDS: Metoprolol Succinate 50 MG Tab.ER PO SCH (07:37)
[2019-05-21] MEDS: Digoxin 125 MCG Tab PO SCH (07:37)
[2019-05-21] MEDS: Pantoprazole 40 MG Tab.CR PO SCH (07:37)
[2019-05-21] MEDS: Sodium Chloride 0.65% Nasal Spray 45 ML Bottle NAS SCH ×2 (07:38→19:37)
[2019-05-21] MEDS: Fluticasone-Salmeterol 232-14 MCG Powder Inhalent INH SCH ×2 (07:38→19:37)
[2019-05-21] MEDS: Torsemide 20 MG Tab PO SCH ×2 (09:00→15:05)
[2019-05-21] MEDS: Acetaminophen/HYDROcodone 325-5 MG Tab PO SCH ×2 (15:04→19:40)
[2019-05-21] MEDS: Zinc (Zinc Gluconate) 50 MG Tab PO SCH (15:05)
[2019-05-21] MEDS: Pramipexole 0.125 MG Tab PO SCH (15:05)
[2019-05-21] MEDS: Allopurinol 300 MG Tab PO SCH (15:05)
--- NOTE | 2019-05-21 15:39 | PN ---
Progress Note for TAMIKO FARIA Date: 05/21/2019 Room #: VM.212 SUBJECTIVE: This is an 79-year-old seen today on swing bed for a diabetic foot ulcer with blistering over her toes and a heart failure exacerbation. She feels her breathing is doing really well. She states that the weights sometimes are taken with the quilts on the bed. Her swelling is improved. She has been working with Therapy. She is walking up to 200, but in the surgical shoe with the walker, trying to have good position. PT states she tends to drag her foot. She has completed Keflex. She does not have any fever or chills. She cannot feel her toes. She has diabetic neuropathy. Her diabetes is actually under good control. OBJECTIVE: Vital Signs: Her weight is 86.9 kg, pulse 73, temperature 97.4, blood pressure 120/60, respiratory rate 18, and O2 of 91 on room air. General: She is in no acute distress. Heart: Irregularly irregular with murmur. Lungs: Lung sounds are clear to auscultation bilaterally without crackles or wheezes. Extremities: Warm and dry. Just trace edema to both ankles. Mental Status: She is alert. She is orientated x3. Skin: The foot is examined. It is warm and dry. She has a dorsal pedis pulse that is palpated. The bottom of the foot, the distal plantar aspect is actually improving and shrinking that area of large ulcer. Unfortunately, the digits 2, 3, and 4 are now almost purple. The 2nd digit in particular has almost an open sore. It gives me the concern for like a dry gangrene. 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 There is no significant drainage. There is no foul odor. LABORATORY DATA: Lab work that was done today. White count is normal, hemoglobin stable at 11.4, platelets up to 154. INR 2.8. Sodium 140; potassium 4.1; creatinine 1.6 and BUN 37, both are improved; glucose 112, highest blood sugar she has had is actually 112. ASSESSMENT AND PLAN: 1. Diabetic foot infection and ulcers. Completed antibiotics. No active infection, but concern for healing. She has had multiple previous interventions with ABIs in Vascular. At this point, I even contacted Wound Clinic, and they recommended just protection. We will continue with local wound dressing with nonadherent dressing and padding and get her to Wound Clinic on the , and an appointment was already made with Podiatry on the . 2. Chronic diastolic heart failure. She is doing well on the increased furosemide, tolerating that. We will monitor her lab work weekly. 3. Atrial fibrillation. She was restarted on her digoxin. There has been no bradycardia. We will continue to monitor. 4. Type 2 diabetes with painful neuropathy. We will continue her Neurontin and her pain medications. She did also mention to the nurse that she has been maybe having some hallucinations, probably it is medication related. 5. Chronic anemia. 6. Chronic kidney disease. 7. Obstructive sleep apnea, on CPAP. 8. Pulmonary hypertension. 9. Chronic anxiety and depression. 10.Reactive airway disease that is not asthma. 11.Need for assistance with ADLs. PLAN: The patient is evaluated by Occupational therapy today who will be able to work with her for a couple of days. Social Service is involved in her care. There is not a nursing bed available in [facility], and she is refusing to go out of town. We will attempt to try to update her daughter as well. Again, this is Dr. Card dictating this note on Tamiko Faria, who is needing assistance for healing of her wounds as well as recovery from an acute heart failure exacerbation. MKA: 05/21/2019 14:53:08 MODL: 05/21/2019 15:15:55 /[id number]
[2019-05-21] MEDS: Citalopram 20 MG Tab PO SCH (19:40)
[2019-05-21] MEDS: Warfarin 5 MG Tab PO SCH (19:40)
[2019-05-21] MEDS: Pramipexole 0.5 MG Tab PO SCH (19:40)
[2019-05-22] MEDS: Sodium Chloride 0.65% Nasal Spray 45 ML Bottle NAS SCH ×2 (07:59→19:41)
[2019-05-22] MEDS: Fluticasone-Salmeterol 232-14 MCG Powder Inhalent INH SCH ×2 (07:59→19:41)
[2019-05-22] MEDS: Potassium Chloride 10 MEQ Tab.ER PO SCH ×2 (08:00→17:36)
[2019-05-22] MEDS: Cyanocobalamin (Vitamin B12) 1,000 MCG Tab PO SCH ×2 (08:00→16:31)
[2019-05-22] MEDS: Gabapentin 100 MG Cap PO SCH ×2 (08:00→19:42)
[2019-05-22] MEDS: Torsemide 20 MG Tab PO SCH ×2 (08:00→16:30)
[2019-05-22] MEDS: Pantoprazole 40 MG Tab.CR PO SCH (08:00)
[2019-05-22] MEDS: Digoxin 125 MCG Tab PO SCH (08:00)
[2019-05-22] MEDS: Metoprolol Succinate 50 MG Tab.ER PO SCH (08:00)
[2019-05-22] MEDS: Polyethylene Glycol 3350 Powder 17 GM Packet PO SCH (08:01)
--- NOTE | 2019-05-22 10:29 | PCM.SN ---
- Free Text/Narrative Note: Her toes look better today less like Gangrene. She has a wound clinic visit tomorrow and Podiatry on planning to go home with HH if no Nh bed available. I will attempt to update her daughter today with her permission. Ideally she would stay in a care facility even assisted living. She is not agreeable due to the cost.
[2019-05-22] MEDS: Acetaminophen/HYDROcodone 325-5 MG Tab PO SCH ×2 (16:30→19:42)
[2019-05-22] MEDS: Zinc (Zinc Gluconate) 50 MG Tab PO SCH (16:31)
[2019-05-22] MEDS: Pramipexole 0.125 MG Tab PO SCH (16:31)
[2019-05-22] MEDS: Allopurinol 300 MG Tab PO SCH (16:31)
[2019-05-22] MEDS: Citalopram 20 MG Tab PO SCH (19:42)
[2019-05-22] MEDS: Pramipexole 0.5 MG Tab PO SCH (19:42)
[2019-05-22] MEDS: Warfarin 2.5 MG Tab PO SCH (19:42)
[2019-05-23] MEDS: Metoprolol Succinate 50 MG Tab.ER PO SCH (09:09)
[2019-05-23] MEDS: Pantoprazole 40 MG Tab.CR PO SCH (09:10)
[2019-05-23] MEDS: Fluticasone-Salmeterol 232-14 MCG Powder Inhalent INH SCH ×2 (09:10→20:36)
[2019-05-23] MEDS: Sodium Chloride 0.65% Nasal Spray 45 ML Bottle NAS SCH ×2 (09:10→20:36)
[2019-05-23] MEDS: Potassium Chloride 10 MEQ Tab.ER PO SCH ×2 (09:10→17:59)
[2019-05-23] MEDS: Torsemide 20 MG Tab PO SCH ×2 (09:10→17:58)
[2019-05-23] MEDS: Gabapentin 100 MG Cap PO SCH ×2 (09:10→20:34)
[2019-05-23] MEDS: Digoxin 125 MCG Tab PO SCH (09:10)
[2019-05-23] MEDS: Cyanocobalamin (Vitamin B12) 1,000 MCG Tab PO SCH ×2 (09:10→17:59)
[2019-05-23] MEDS: Polyethylene Glycol 3350 Powder 17 GM Packet PO SCH (09:11)
[2019-05-23] MEDS: Allopurinol 300 MG Tab PO SCH (17:59)
[2019-05-23] MEDS: Zinc (Zinc Gluconate) 50 MG Tab PO SCH (17:59)
[2019-05-23] MEDS: Pramipexole 0.125 MG Tab PO SCH (17:59)
[2019-05-23] MEDS: Acetaminophen/HYDROcodone 325-5 MG Tab PO SCH ×2 (17:59→20:34)
[2019-05-23] MEDS: Warfarin 2.5 MG Tab PO SCH (20:34)
[2019-05-23] MEDS: Pramipexole 0.5 MG Tab PO SCH (20:34)
[2019-05-23] MEDS: Citalopram 20 MG Tab PO SCH (20:34)
[2019-05-24] MEDS: Acetaminophen/HYDROcodone 325-5 MG Tab PO SCH ×2 (01:36→17:09)
[2019-05-24] MEDS: Torsemide 20 MG Tab PO SCH ×2 (07:40→17:08)
[2019-05-24] MEDS: Potassium Chloride 10 MEQ Tab.ER PO SCH ×2 (07:40→17:09)
[2019-05-24] MEDS: Gabapentin 100 MG Cap PO SCH (07:40)
[2019-05-24] MEDS: Cyanocobalamin (Vitamin B12) 1,000 MCG Tab PO SCH ×2 (07:40→17:09)
[2019-05-24] MEDS: Pantoprazole 40 MG Tab.CR PO SCH (07:40)
[2019-05-24] MEDS: Sodium Chloride 0.65% Nasal Spray 45 ML Bottle NAS SCH (07:41)
[2019-05-24] MEDS: Polyethylene Glycol 3350 Powder 17 GM Packet PO SCH (07:41)
[2019-05-24] MEDS: Metoprolol Succinate 50 MG Tab.ER PO SCH (07:41)
[2019-05-24] MEDS: Fluticasone-Salmeterol 232-14 MCG Powder Inhalent INH SCH (07:41)
[2019-05-24 07:42] VITALS: BP 122/69; PULSE 78
[2019-05-24] MEDS: Digoxin 125 MCG Tab PO SCH (07:42)
--- NOTE | 2019-05-24 10:12 | PCM.DCSUM1 ---
Discharge Summary - Hospital Course Brief History: Ms. Faria is an 79 yo female who was admitted to swing bed for strengthening and wound cares prior to return home after an acute admission for a diabetic foot infection and CHF exacerbation. - Discharge Data Discharge Date: 05/24/19 Discharge Disposition: Home, W Home Health Agency 06 Condition: Fair - Referral to Home Health Date of Face to Face Encounter: 05/22/19 Reason for Homebound Status: foot wound need for PT, limits mobility, CHF Primary Care Physician: Rea Card DO Skilled Need: nursing for teaching and assessment and wound cares, PT for mobility, and OT for ADL's to instruct - Discharge Diagnosis/Problem(s) (1) Cellulitis in diabetic foot SNOMED Code(s): 956211761 ICD Code: E11.628 - TYPE 2 DIABETES MELLITUS WITH OTHER SKIN COMPLICATIONS; L03.119 - CELLULITIS OF UNSPECIFIED PART OF LIMB Status: Resolved Current Visit: No (2) Diabetic foot ulcers SNOMED Code(s): 038551866 ICD Code: E11.621 - TYPE 2 DIABETES MELLITUS WITH FOOT ULCER; L97.509 - NON- PRESSURE CHRONIC ULCER OTH PRT UNSP FOOT W UNSP SEVERITY Status: Chronic Current Visit: No Qualifiers: Diabetic foot ulcer location: unspecified part of foot Diabetes mellitus type: type 2 Laterality: unspecified laterality Non-pressure ulcer stage: unspecified non-pressure ulcer stage Qualified Code(s): E11.621 - Type 2 diabetes mellitus with foot ulcer; L97.509 - Non-pressure chronic ulcer of other part of unspecified foot with unspecified severity (3) Diastolic CHF due to valvular disease SNOMED Code(s): 489396864 ICD Code: I38 - ENDOCARDITIS, VALVE UNSPECIFIED; I50.30 - UNSPECIFIED DIASTOLIC (CONGESTIVE) HEART FAILURE Status: Chronic Current Visit: No (4) Renal insufficiency SNOMED Code(s): 333538598, 243097482 ICD Code: N28.9 - DISORDER OF KIDNEY AND URETER, UNSPECIFIED Status: Chronic Current Visit: No (5) Anxiety and depression SNOMED Code(s): 584458282 ICD Code: F41.8 - OTHER SPECIFIED ANXIETY DISORDERS Status: Chronic Priority: Low Current Visit: No (6) Aortic stenosis SNOMED Code(s): 87760469 ICD Code: I35.0 - NONRHEUMATIC AORTIC (VALVE) STENOSIS Status: Chronic Priority: High Current Visit: No Qualifiers: Cardiac valve disease etiology: etiology unspecified Qualified Code(s): I35.0 - Nonrheumatic aortic (valve) stenosis (7) Atrial fibrillation SNOMED Code(s): 07386952 ICD Code: I48.91 - UNSPECIFIED ATRIAL FIBRILLATION Status: Chronic Priority: Medium Current Visit: No Qualifiers: Atrial fibrillation type: persistent (8) Diabetes mellitus SNOMED Code(s): 33677321 ICD Code: E11.9 - TYPE 2 DIABETES MELLITUS WITHOUT COMPLICATIONS Status: Chronic Priority: Medium Current Visit: No Qualifiers: Diabetes mellitus type: type 2 Diabetes mellitus lobsterman insulin use: without usp use Diabetes mellitus complication status: with neurologic complications Diabetes mellitus complication detail: with polyneuropathy Qualified Code(s): E11.42 - Type 2 diabetes mellitus with diabetic polyneuropathy (9) SHERWIN on CPAP SNOMED Code(s): 55089018 ICD Code: G47.33 - OBSTRUCTIVE SLEEP APNEA (ADULT) (PEDIATRIC); 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 Status: Chronic Priority: Medium Current Visit: No (10) Obesity SNOMED Code(s): 124182909, 482915373 ICD Code: E66.9 - OBESITY, UNSPECIFIED Status: Chronic Priority: Medium Current Visit: No Qualifiers: Obesity type: unspecified obesity type Obesity classification: unspecified obesity classification Serious obesity comorbidity presence: with serious comorbidity Qualified Code(s): E66.9 - Obesity, unspecified (11) Pulmonary hypertension SNOMED Code(s): 54428593 ICD Code: I27.20 - PULMONARY HYPERTENSION, UNSPECIFIED Status: Chronic Priority: High Current Visit: No - Patient Summary/Data Operative Procedure(s) Performed: none Complications: none Consults: Consultations 05/15/19 09:23 Consult to Case Management/Bunk House Worker [CONS] Routine OT Evaluation and Treatment [CONS] Routine PT Evaluation and Treatment [CONS] Routine 05/18/19 09:06 OT Evaluation and Treatment [CONS] Routine Labs Pending at D/C: none Recommended Follow-up Testing/Procedures: follow-up with wound care Planned Operative Procedure(s) after DC: none Hospital Course: Patient was admitted to swing bed and her wound cares were continued. She completed her course of antibiotics. She was seen at the [facility] wound clinic yesterday with updated recommendations given. She will have home health coming in on and they will do her wound cares with those visits. The patient will not have to do any wound cares herself. She had no recurrence of any issues with shortness of breath or leg swelling during her swing bed stay. She progressed well with therapies and it was not felt she met criteria to continue on swing bed. It was discussed with the patient that the recommendation is for her to go to a SNF; however, she has declined that and she is her own decision maker. Therefore, she will be discharged home with home health today. Her swing bed stay was otherwise uncomplicated. She will follow-up with her PCP as scheduled. - Patient Instructions Diet: Low Sodium, Diabetic Diet Activity: As Tolerated Driving: Do Not Drive Showering/Bathing: May Shower Wound/Incision Care: Keep Operative Site/Wound Site Clean and Dry Notify Provider of: Fever, Increased Pain, Swelling and Redness, Nausea and/or Vomiting - Discharge Plan *PRESCRIPTION DRUG MONITORING PROGRAM REVIEWED*: No *COPY OF PRESCRIPTION DRUG MONITORING REPORT IN PATIENT SHASHI: No Prescriptions/Med Rec: Digoxin 125 mcg PO Q2D #15 tablet Torsemide [Demadex] 80 mg PO BIDDIURETIC #240 tablet Home Medications: Home Meds Allopurinol 300 mg PO DAILY@1600 09/04/14 [History] Cyanocobalamin (Vitamin B-12) [Vitamin B-12] 1,000 mcg PO BID@0800,1600 [History] Zinc Gluconate [Zinc] 50 mg PO DAILY@1600 04/02/15 [History] Fluticasone Propionate [Flonase] 1 spray NASBOTH BID PRN 04/01/17 [History] Pramipexole [Mirapex] 0.25 mg PO DAILY@1600 06/04/17 [History] Acetaminophen 1,000 mg PO Q6HR PRN 10/24/18 [History] Gabapentin [Neurontin] 100 mg PO ACBREAKFAST 10/24/18 [History] Gabapentin [Neurontin] 200 mg PO BEDTIME 10/24/18 [History] Nitroglycerin [Nitrostat] 0.4 mg SL ASDIRECTED PRN 10/24/18 [History] Ondansetron HCl [Ondansetron] 4 mg PO Q6HR PRN 10/24/18 [History] Pantoprazole Sodium [Protonix] 40 mg PO DAILY 01/13/19 [History] Acetaminophen/HYDROcodone [[place] 325-10 MG] 1 tab PO Q12H PRN tablet 02/22/19 [ Rx] Metoprolol Succinate 50 mg PO DAILY 03/30/19 [History] Sennosides/Docusate Sodium [Senna Plus 8.6-50 mg Tablet] 1 tab PO DAILY [History] Potassium Chloride [Klor-Con 10] 20 meq PO BIDMEALS #60 tab.er 04/02/19 [Rx] Warfarin [Coumadin] 2.5 mg PO SUTUTHSA tablet 04/02/19 [Rx] Bisacodyl [Dulcolax] 5 mg PO DAILY PRN 05/15/19 [History] Citalopram Hydrobromide [Celexa] 40 mg PO BEDTIME 05/15/19 [History] Magnesium Citrate [Citrate of Magnesia] 296 ml PO DAILY PRN 05/15/19 [History] Pramipexole [Mirapex] 0.5 mg PO BEDTIME 05/15/19 [History] Digoxin 125 mcg PO Q2D #15 tablet 05/23/19 [Rx] Fluticasone/Salmeterol [Fluticasone-Salmeterol 232-14 MCG Powder Inha] 1 puff INH BID inhaler 05/23/19 [Rx] Polyethylene Glycol 3350 [MiraLAX] 17 gm PO DAILY PRN packet 05/23/19 [Rx] Torsemide [Demadex] 80 mg PO BIDDIURETIC #240 tablet 05/23/19 [Rx] Warfarin [Coumadin] 5 mg PO MOFR@2000 tablet 05/23/19 [Rx] Oxygen Therapy Mode: CPAP Referrals: Rea Card DO [Primary Care Provider] - 06/07/19 1:30 pm (You have a follow up appt. with Dr. Kinsey Card on June 07, 2019 at 1:30---[facility]) - Discharge Summary/Plan Comment DC Time >30 min.: No - General Info Date of Service: 05/24/19 Subjective Update: Patient states she is feeling well today and is prepared for dismissal home. She has some soreness in her back and feet but nothing that is unusual for her. She is happy that her ankles are still visible and that she has not had any increase in swelling. She denies any shortness of breath. - Review of Systems General: Reports: No Symptoms HEENT: Reports: No Symptoms Pulmonary: Reports: No Symptoms Cardiovascular: Reports: No Symptoms Gastrointestinal: Reports: No Symptoms Genitourinary: Reports: No Symptoms Musculoskeletal: Reports: No Symptoms Skin: Reports: No Symptoms Neurological: Reports: No Symptoms - Patient Data Vitals - Most Recent: Last Vital Signs Temp 36.4 C 05/24/19 05:29 Pulse 78 05/24/19 07:42 Resp 17 05/24/19 05:29 BP 122/69 05/24/19 07:41 Pulse Ox 92 L 05/24/19 08:00 Weight - Most Recent: 82.372 kg I&O - Last 24 hours: Intake & Output 05/23/19 05/24/19 05/24/19 22:59 06:59 14:59 Intake Total 240 300 240 Balance 240 300 240 Lab Results - Last 24 hrs: Laboratory Results - last 24 hr 05/24/19 Range/Units 06:17 PT 30.0 H (10.0-12.8) SEC INR 2.7 (2.0-3.5) Med Orders - Current: Current Medications Acetaminophen (Tylenol Extra Strength) 1,000 mg PO Q6H PRN PRN Reason: mild pain Last Admin: 05/23/19 20:46 Dose: 1,000 mg Hydrocodone Bitart/Acetaminophen ([place] 325-10 Mg) 1 tab PO Q12H PRN PRN Reason: Pain Last Admin: 05/20/19 13:24 Dose: 1 tab Hydrocodone Bitart/Acetaminophen ([place] 325-5 Mg) 1 tab PO BID@1600,2000 [facility] Last Admin: 05/24/19 01:36 Dose: Not Given Allopurinol (Zyloprim) 300 mg PO DAILY@1600 [facility] Last Admin: 05/23/19 17:59 Dose: 300 mg Bisacodyl (Dulcolax) 5 mg PO DAILY PRN PRN Reason: Constipation Citalopram Hydrobromide (Celexa) 40 mg PO BEDTIME [facility] Last Admin: 05/23/19 20:34 Dose: 40 mg Cyanocobalamin (Vitamin B12) 1,000 mcg PO BID@0800,1600 [facility] Last Admin: 05/24/19 07:40 Dose: 1,000 mcg Digoxin (Lanoxin) 125 mcg PO DAILY [facility] Last Admin: 05/24/19 07:42 Dose: 125 mcg Gabapentin (Neurontin) 100 mg PO DAILY [facility] Last Admin: 05/24/19 07:40 Dose: 100 mg Gabapentin (Neurontin) 200 mg PO BEDTIME [facility] Last Admin: 05/23/19 20:34 Dose: 200 mg Magnesium Citrate (Citrate Of Magnesia) 296 ml PO DAILY PRN PRN Reason: Constipation Metoprolol Succinate (Toprol Xl) 50 mg PO DAILY [facility] Last Admin: 05/24/19 07:41 Dose: 50 mg Nitroglycerin (Nitrostat) 0.4 mg SL ASDIRECTED PRN PRN Reason: Chest Pain Ondansetron HCl (Zofran Odt) 4 mg PO Q6H PRN PRN Reason: nausea Oxymetazoline HCl (Nasal Decongestant [place]) 0 ml LISA BID PRN PRN Reason: Congestion Pantoprazole Sodium (Protonix) 40 mg PO DAILY [facility] Last Admin: 05/24/19 07:40 Dose: 40 mg Polyethylene Glycol (Miralax) 17 gm PO DAILY PRN PRN Reason: Constipation Polyethylene Glycol (Miralax) 17 gm PO DAILY [facility] Last Admin: 05/24/19 07:41 Dose: Not Given Potassium Chloride (Klor-Con 10) 20 meq PO BIDMEALS [facility] Last Admin: 05/24/19 07:40 Dose: 20 meq Pramipexole Dihydrochloride (Mirapex) 0.25 mg PO DAILY@1600 [facility] Last Admin: 05/23/19 17:59 Dose: 0.25 mg Pramipexole Dihydrochloride (Mirapex) 0.5 mg PO BEDTIME [facility] Last Admin: 05/23/19 20:34 Dose: 0.5 mg Fluticasone/Salmeterol (Fluticasone-Salmeterol 232-14 Mcg Powder Inha) 1 puff INH BID [facility] Last Admin: 05/24/19 07:41 Dose: 1 puff Senna/Docusate Sodium (Senna Plus) 1 tab PO DAILY [facility] Last Admin: 05/24/19 07:41 Dose: Not Given Sodium Chloride ([place] Nasal [place]) 1 ml LISA BID [facility] Last Admin: 05/24/19 07:41 Dose: 1 squirt Torsemide (Demadex) 80 mg PO BIDDIURETIC [facility] Last Admin: 05/24/19 07:40 Dose: 80 mg Warfarin Sodium (Coumadin) 2.5 mg PO SuTuWeThSa@1999 [facility] Last Admin: 05/23/19 20:34 Dose: 2.5 mg Warfarin Sodium (Coumadin) 5 mg PO MOFR@1999 [facility] Last Admin: 05/21/19 19:40 Dose: 5 mg Zinc Gluconate (Zinc) 50 mg PO DAILY@1600 [facility] Last Admin: 05/23/19 17:59 Dose: 50 mg Discontinued Medications Cephalexin (Keflex) 250 mg PO QID [facility] Stop: 05/18/19 23:00 Last Admin: 05/18/19 19:52 Dose: 250 mg - Exam General: Reports: Alert, Oriented, Cooperative, No Acute Distress HEENT: Reports: Pupils Equal, Pupils Reactive, Mucous Membr. Moist/[place] Neck: Reports: Supple, Trachea Midline, No Thyromegaly. Denies: Lymphadenopathy Lungs: Reports: Clear to Auscultation, Normal Respiratory Effort Cardiovascular: Reports: Regular Rate, Regular Rhythm, Murmurs GI/Abdominal Exam: Normal Bowel Sounds, Soft, Non-Tender, No Organomegaly, No Distention, No Mass Extremities: Non-Tender, No Pedal Edema, Normal Capillary Refill Skin: Reports: Warm, Dry Neurological: Reports: No New Focal Deficit
[2019-05-24] MEDS: Zinc (Zinc Gluconate) 50 MG Tab PO SCH (17:09)
[2019-05-24] MEDS: Pramipexole 0.125 MG Tab PO SCH (17:09)
[2019-05-24] MEDS: Allopurinol 300 MG Tab PO SCH (17:09)
== END 2019-05-24 19:05 | disposition home health service (06) | DRG 638 ==
LOC: VM.MS 11:40
PROVIDERS: ADMIT Internal Medicine; ATTEND Internal Medicine
DX: E11.621 Type 2 diabetes mellitus with foot ulcer (principal); I38 Endocarditis, valve unspecified; I50.32 Chronic diastolic (congestive) heart failure; L03.115 Cellulitis of right lower limb; L97.519 Non-pressure chronic ulcer of other part of right foot with unspecified severity; E11.628 Type 2 diabetes mellitus with other skin complications; F41.8 Other specified anxiety disorders; I35.0 Nonrheumatic aortic (valve) stenosis; I48.91 Unspecified atrial fibrillation; E11.42 Type 2 diabetes mellitus with diabetic polyneuropathy; G47.33 Obstructive sleep apnea (adult) (pediatric); E66.9 Obesity, unspecified; I27.20 Pulmonary hypertension, unspecified; D64.9 Anemia, unspecified; D69.6 Thrombocytopenia, unspecified; Z96.643 Presence of artificial hip joint, bilateral; N18.9 Chronic kidney disease, unspecified; Z79.4 Long term (current) use of insulin; Z79.01 Long term (current) use of anticoagulants; Z91.048 Other nonmedicinal substance allergy status; Z88.1 Allergy status to other antibiotic agents; Z88.7 Allergy status to serum and vaccine; Z91.013 Allergy to seafood; Z79.899 Other long term (current) drug therapy; Z88.8 Allergy status to other drugs, medicaments and biological substances; Z99.89 Dependence on other enabling machines and devices; Z91.041 Radiographic dye allergy status; Z79.84 Long term (current) use of oral hypoglycemic drugs
CPT/HCPCS: 36415; 80048; 82962; 85025; 85610; 94760; 97110-GP; 97116-GP; 97165-GO; 97530-GP; 97535-GO; A9270-GY

== ENCOUNTER 2019-05-30 12:50 | Emergency (ER) | payer MEDICARE, OTHER ==
--- NOTE | 2019-05-30 13:21 | CT ---
[id number] CT/CT Head WO IV EXAM: CT Head WO IV CLINICAL DATA: FELL, STRUCK HEAD, PT ON COUMADIN. COMPARISON STUDY: November 28, 2018. FINDINGS: No intracranial hemorrhage, extra-axial fluid collection, mass, or acute ischemia. Small scalp contusion overlying the left parieto-occipital region. No underlying calvarial fracture. IMPRESSION: Small left parieto-occipital scalp contusion without underlying calvarial fracture or acute intracranial hemorrhage. Buck Larkin MD 05/30/19 [id number] Thank you for allowing us to participate in the care of your patient.
--- NOTE | 2019-05-30 13:28 | CT ---
[id number] CT/CT Cervical Spine WO IV EXAM: CT Cervical Spine WO IV INDICATION: FELL, STRUCK HEAD, ON COUMADIN (TRAUMA). COMPARISON: November 2018. DISCUSSION: No fracture or compression deformity. Vertebral bodies remain in normal alignment. Advanced changes of spondylosis throughout the spine, including both degenerative disc disease and facet joint arthropathy. Findings result in straightening of the normal cervical lordosis. No prevertebral soft tissue edema. Lung apices are clear. IMPRESSION: No acute findings in the cervical spine. Buck Larkin MD 05/30/19 [id number] Thank you for allowing us to participate in the care of your patient.
[2019-05-30 13:35] LABS: CHLORIDE,CL 103 mmol/L (98-107); SODIUM,NA 142 mmol/L (136-145)
[2019-05-30 13:40] LABS: ANION GAP 14.5 mmol/L (10-20)
--- NOTE | 2019-05-31 07:50 | EDM.PDOC ---
ED HPI GENERAL MEDICAL PROBLEM - General Chief Complaint: Head Injury Time Seen by Provider: 05/30/19 12:51 Source of Information: Reports: Patient History Limitations: Reports: No Limitations - History of Present Illness INITIAL COMMENTS - FREE TEXT/NARRATIVE: Pt. presents to ER following a mechanical fall. Pt. states that she lost her balance and fell backward, striking the occiput in the floor and sustaining a hematoma to the scalp. Pt. was made a trauma code as she was anticoagulated. She denies any headache. No confusion. Complains of high cervical spine discomfort, but states that she has chronic back pain. Denies any other acute discomfort. No chest pain or shortness of breast. Onset: Today Onset Date: 05/31/19 Location: Reports: Head - Related Data Allergies Allergy/AdvReac Type Severity Reaction Status Date / Time cefazolin [From Ancef] Allergy Severe Anaphylactic Verified 05/30/19 13:17 Shock adhesive Allergy Intermediate Hives Verified 05/30/19 13:17 azithromycin [From Zithromax] Allergy Intermediate Hives Verified 05/30/19 13:17 ezetimibe [From Zetia] Allergy Other Verified 05/30/19 13:17 tetanus toxoid, adsorbed Allergy Cannot Verified 05/30/19 13:17 Remember amoxicillin AdvReac Diarrhea Verified 05/30/19 13:17 atorvastatin [From Lipitor] AdvReac Muscle Verified 05/30/19 13:17 Aches atorvastatin calcium AdvReac Muscle Verified 05/30/19 13:17 [From Lipitor] Aches clindamycin [From Cleocin] AdvReac Mouth Sores Verified 05/30/19 13:17 shellfish derived AdvReac Vomiting Verified 05/30/19 13:17 simvastatin [From Zocor] AdvReac Muscle Verified 05/30/19 13:17 Aches IV contrast Allergy Other Uncoded 03/30/19 09:57 Home Meds: Home Meds Cyanocobalamin (Vitamin B-12) [Vitamin B-12] 1,000 mcg PO BID@0800,1600 [History] allopurinoL [Allopurinol] 300 mg PO DAILY@1600 09/04/14 [History] Zinc Gluconate [Zinc] 50 mg PO DAILY@1600 04/02/15 [History] Pramipexole [Mirapex] 0.25 mg PO DAILY@1600 06/04/17 [History] Acetaminophen 1,000 mg PO Q6HR PRN 10/24/18 [History] Gabapentin [Neurontin] 100 mg PO ACBREAKFAST 10/24/18 [History] Gabapentin [Neurontin] 200 mg PO BEDTIME 10/24/18 [History] Nitroglycerin [Nitrostat] 0.4 mg SL ASDIRECTED PRN 10/24/18 [History] Ondansetron HCl [Ondansetron] 4 mg PO Q6HR PRN 10/24/18 [History] Pantoprazole Sodium [Protonix] 40 mg PO DAILY 01/13/19 [History] Acetaminophen/HYDROcodone [[place] 325-10 MG] 1 tab PO Q12H PRN tablet 02/22/19 [ Rx] Metoprolol Succinate 50 mg PO BEDTIME 03/30/19 [History] Sennosides/Docusate Sodium [Senna Plus 8.6-50 mg Tablet] 1 tab PO DAILY [History] Potassium Chloride [Klor-Con 10] 20 meq PO BIDMEALS #60 tab.er 04/02/19 [Rx] Warfarin [Coumadin] 2.5 mg PO SUTUTHSA tablet 04/02/19 [Rx] Citalopram Hydrobromide [Celexa] 40 mg PO BEDTIME 05/15/19 [History] Magnesium Citrate [Citrate of Magnesia] 296 ml PO DAILY PRN 05/15/19 [History] Pramipexole [Mirapex] 0.5 mg PO BEDTIME 05/15/19 [History] bisacodyL [Dulcolax] 5 mg PO DAILY PRN 05/15/19 [History] Digoxin 125 mcg PO Q2D #15 tablet 05/23/19 [Rx] Fluticasone/Salmeterol [Fluticasone-Salmeterol 232-14 MCG Powder Inha] 1 puff INH BID inhaler 05/23/19 [Rx] Polyethylene Glycol 3350 [MiraLAX] 17 gm PO DAILY PRN packet 05/23/19 [Rx] Torsemide [Demadex] 80 mg PO BIDDIURETIC #240 tablet 05/23/19 [Rx] Warfarin [Coumadin] 5 mg PO MOFR@2000 tablet 05/23/19 [Rx] Escitalopram [Lexapro] 20 mg PO DAILY 05/30/19 [History] Lovastatin 20 mg PO BEDTIME 05/30/19 [History] Past Medical History HEENT History: Reports: None, Allergic Rhinitis, Cataract, Macular Degeneration , Other (See Below) Other HEENT History: astigmatism, presbyopia, myopia, pseudophakia Cardiovascular History: Reports: Afib, Blood Clots/VTE/DVT, Heart Failure, Heart Murmur, High Cholesterol, Pulmonary Hypertension Other Cardiovascular History: Aortic stenosis, leg swelling Respiratory History: Reports: Sleep Apnea, Other (See Below) Other Respiratory History: pneumonia 2013, reactive airway disease that is not asthma Gastrointestinal History: Reports: GERD Genitourinary History: Reports: Diabetic Nephropathy, Other (See Below) Other Genitourinary History: Microscopic hematuria 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: Reports: Musculoskeletal History: Reports: Gout, Osteoarthritis, Other (See Below) Other Musculoskeletal History: Restless leg syndrome Neurological History: Reports: None, Neuropathy, Diabetic, Other (See Below) Other Neuro History: syncope Psychiatric History: Reports: Anxiety, Depression Endocrine/Metabolic History: Reports: Diabetes, Type II, Obesity/BMI 30+, Osteopenia, Other (See Below) Other Endocrine/Metabolic History: B12 deficiency Hematologic History: Reports: None Immunologic History: Reports: None Oncologic (Cancer) History: Reports: Breast Dermatologic History: Reports: Cellulitis, Other (See Below) Other Dermatologic History: dry skin, yeast infections, diabetic foot ulcer, gangerene of left foot - Past Surgical History HEENT Surgical History: Reports: Cataract Surgery, Tonsillectomy, Other (See Below) Other HEENT Surgeries/Procedures: capsulotomy Cardiovascular Surgical History: Reports: None Respiratory Surgical History: Reports: None GI Surgical History: Reports: Appendectomy, Cholecystectomy Female Surgical History: Reports: Hysterectomy, Mastectomy, Tubal Ligation, Other (See Below) Other Female Surgeries/Procedures: left mastectomy Endocrine Surgical History: Reports: None Neurological Surgical History: Reports: None Musculoskeletal Surgical History: Reports: Hip Replacement, Other (See Below) Other Musculoskeletal Surgeries/Procedures:: Left elbow surgery. Chronic osteomyelitis of left foot Oncologic Surgical History: Reports: Mastectomy Dermatological Surgical History: Reports: None Social & Family History - Family History Family Medical History: Noncontributory Cardiac: Reports: PVD/COD Oncologic: Reports: Lung - Caffeine Use Caffeine Use: Reports: Tea ED ROS GENERAL - Review of Systems Review Of Systems: See Below Constitutional: Reports: No Symptoms HEENT: Reports: Other (headache) Respiratory: Reports: No Symptoms Cardiovascular: Reports: No Symptoms Endocrine: Reports: No Symptoms GI/Abdominal: Reports: No Symptoms : Reports: No Symptoms Musculoskeletal: Reports: Neck Pain Skin: Reports: No Symptoms Neurological: Reports: Headache Psychiatric: Reports: No Symptoms Hematologic/Lymphatic: Reports: No Symptoms Immunologic: Reports: No Symptoms ED EXAM, HEAD INJURY - Physical Exam Exam: See Below Exam Limited By: No Limitations General Appearance: Alert, WD/WN, No Apparent Distress Head: Atraumatic, Normocephalic Nexus Criteria: Posterior, Midline Cervical Tenderness. No: Evidence of Intoxication, Altered Level of Consciousness, Focal Neurological Deficit, Painful Distraction Injuries Eyes: Bilateral Eye: EOMI, Normal Inspection, Nystagmus, PERRL Ears: Normal External Exam, Normal Canal, Hearing Grossly Normal, Normal TMs Nose: Normal Inspection, Normal Mucousa, No Blood Throat/Mouth: Normal Inspection, Normal Lips, Normal Teeth, Normal Gums, Normal Oropharynx, Normal Voice, No Airway Compromise Neck: Normal Alignment, Normal Inspection, Spinous Processes Tender, Stiff Neck , Tender Midline Respiratory: No Respiratory Distress, Lungs Clear, Normal Breath Sounds, No Accessory Muscle Use, Chest Non-Tender Cardiovascular: Normal Peripheral Pulses, Regular Rate, Rhythm, No Edema, No Gallop, No JVD, No Murmur, No Rub GI/Abdominal Exam: Normal Bowel Sounds, Soft, Non-Tender, No Organomegaly, No Distention, No Abnormal Bruit, No Mass, Pelvis Stable (Female) Exam: Deferred Rectal (Female) Exam: Deferred Back Exam: Normal Inspection, Full Range of Motion Extremities: Normal Inspection, Normal Range of Motion, Non-Tender, No Pedal Edema, Normal Capillary Refill Neurologic: No Motor/Sensory Deficits, Alert, Normal Mood/Affect, Oriented x 3 Skin: Normal Color, Warm/Dry Course - Orders/Labs/Meds Orders: Active Orders 24 hr Category Date Time Status EKG 12 Lead [EKG Documentation Completion] [RC] STAT Care 05/30/19 13:28 Active Labs: Laboratory Tests 05/30/19 05/30/19 05/30/19 Range/Units 13:08 13:08 13:08 WBC 6.9 (4.0-10.0) x10^3/uL RBC 4.23 (4.00-5.50) x10^6/uL Hgb 12.2 (12.0-16.0) g/dL Hct 38.5 (33.0-47.0) % MCV 91.0 (78.0-93.0) fL MCH 28.8 (26.0-32.0) pg MCHC 31.7 L (32.0-36.0) g/dL RDW Coeff of Erum 14.7 (10.0-15.0) % Plt Count 136 (130-400) x10^3/uL Neut % (Auto) 65.5 (50.0-80.0) % Lymph % (Auto) 25.8 (25.0-50.0) % [place] % (Auto) 7.3 (2.0-11.0) % Eos % (Auto) 1.3 (0.0-4.0) % Baso % (Auto) 0.1 L (0.2-1.2) % PT 37.3 H (10.0-12.8) SEC INR 3.3 (2.0-3.5) Sodium 142 (136-145) mmol/L Potassium 4.5 (3.5-5.1) mmol/L Chloride 103 (98-107) mmol/L Carbon Dioxide 29 (21-32) mmol/L Anion Gap 14.5 (10-20) mmol/L BUN 48 H (7-18) mg/dL Creatinine 1.8 H (0.55-1.02) mg/dL Est Cr Clr Drug Dosing TNP Estimated GFR (MDRD) 27 Glucose 160 H (74-106) mg/dL Calcium 9.4 (8.5-10.1) mg/dL Corrected Calcium 9.80 (8.5-10.1) mg/dL Total Bilirubin 0.4 (0.2-1.0) mg/dL AST 26 (15-37) U/L ALT 26 (14-59) U/L Alkaline Phosphatase 211 H (46-116) U/L Total Protein 8.5 H (6.4-8.2) g/dL Albumin 3.5 (3.4-5.0) g/dL Globulin 5.0 Albumin/Globulin Ratio 0.70 - Radiology Interpretation Free Text/Narrative:: CT brain and c-spine negative for acute pathology. Departure - Departure Time of Disposition: 14:05 Disposition: Home, Self-Care 01 Clinical Impression: Strain of neck muscle, Scalp contusion - Discharge Information Instructions: Head Injury, Adult, Facial or Scalp Contusion, [id number] Referrals: Rea Card DO [Primary Care Provider] - Forms: ED Department Discharge Additional Instructions: Home to rest. Tylenol as needed for pain. Ice scalp for 10-15 min every 1-2 hours. Return to ER if worsening discomfort, headache, confusion, troubles with speech or walking. - My Orders Last 24 Hours: My Active Orders 05/30/19 13:28 EKG 12 Lead [EKG Documentation Completion] [RC] STAT - Assessment/Plan Last 24 Hours: My Active Orders 05/30/19 13:28 EKG 12 Lead [EKG Documentation Completion] [RC] STAT Plan: Home to rest. Tylenol as needed for pain. Ice scalp for 10-15 min every 1-2 hours. Return to ER if worsening discomfort, headache, confusion, troubles with speech or walking.
== END 2019-05-30 14:05 | disposition home or self-care (01) ==
LOC: VM.ED 12:50
DX: S16.1XXA Strain of muscle, fascia and tendon at neck level, initial encounter (principal); S00.03XA Contusion of scalp, initial encounter; E11.21 Type 2 diabetes mellitus with diabetic nephropathy; I48.91 Unspecified atrial fibrillation; I50.9 Heart failure, unspecified; E11.40 Type 2 diabetes mellitus with diabetic neuropathy, unspecified; F41.9 Anxiety disorder, unspecified; F32.9 Major depressive disorder, single episode, unspecified; E66.9 Obesity, unspecified; K21.9 Gastro-esophageal reflux disease without esophagitis; Z88.1 Allergy status to other antibiotic agents; Z88.7 Allergy status to serum and vaccine; Z88.8 Allergy status to other drugs, medicaments and biological substances; Z79.899 Other long term (current) drug therapy; Z91.041 Radiographic dye allergy status; W19.XXXA Unspecified fall, initial encounter
CPT/HCPCS: 36415; 70450; 72125; 80053; 85025; 85610; 93005; 99284-25; 99284-GF

== ENCOUNTER 2019-10-27 15:19 | Inpatient (IN) | payer MEDICARE, OTHER ==
[2019-10-27] MEDS ORDERED: Furosemide 40 MG/4 ML VIAL IV ONE (15:30)
[2019-10-27] MEDS ORDERED: Furosemide 40 MG/4 ML VIAL ONE (15:42)
[2019-10-27] MEDS ORDERED: LORazepam 2 MG/ML SDV IVPUSH ONE ×2 (15:55→16:15)
[2019-10-27 16:08] LABS: PTT,PARTIAL THROMBOPLSTIN TIME 33.9 SEC (25.6-32.8)
[2019-10-27] MEDS ORDERED: cefTRIAXone 2 GM Vial IVPUSH ONE (16:10)
--- NOTE | 2019-10-27 16:14 | CR ---
[id number] RAD/RAD Chest PA or AP 1V EXAM: FRONTAL CHEST INDICATION: RESPIRATORY DISTRESS. COMPARISON: March 30, 2019. DISCUSSION: Cardiomegaly without evidence of congestive heart failure. Motion mildly limits assessment. Bibasilar scarring with no acute infiltrates identified. Metallic structure overlying the left lower lobe bronchovascular structures. IMPRESSION: 1. Cardiomegaly without evidence of pulmonary edema. Jose Manuel Prince MD 10/27/19 [id number] Thank you for allowing us to participate in the care of your patient.
[2019-10-27] MEDS ORDERED: Acetaminophen 650 MG Supp RECTAL ONE (16:27)
[2019-10-27 16:28] LABS: CHLORIDE,CL 100 mmol/L (98-107); SODIUM,NA 138 mmol/L (136-145)
[2019-10-27] MEDS ORDERED: HYDROmorphone 1 MG/ML Syringe IVPUSH ONE (16:28)
[2019-10-27 16:31] LABS: ANION GAP 24.7 mmol/L (10-20)
[2019-10-27] MEDS ORDERED: HYDROmorphone 0.5 MG/0.5 ML Syringe ONE (16:38)
--- NOTE | 2019-10-27 17:14 | EDM.PDOC ---
ED HPI GENERAL MEDICAL PROBLEM - General Chief Complaint: Respiratory Problem Stated Complaint: CODE BLUE Time Seen by Provider: 10/27/19 15:19 Source of Information: Reports: EMS History Limitations: Reports: Respiratory Distress - History of Present Illness INITIAL COMMENTS - FREE TEXT/NARRATIVE: Patient presents to ER per EMS after was found on the floor in her home by her immigration case manager. Patient had told EMS was there for 3 hours but minimal response after. Hypoxic and tachypneic at scene. Nonrebreather placed at 15 liters. Face cyanotic for EMS. Was lying on right side, has multiple pressure ulcers and blisters noted on side. Tachycardic, heart rate in the 150s. Blood pressure 160/p per EMS. Did note weakness in right side on arrival but moving all extremities once loaded. Uncooperative, grabbing out and restless per EMS. Last known well was last evening when granddaughter talked to her. History of diabetes, diet-controlled, hypertension, CHF, Diabetic neuropathy, chronic pain. Was at the wound care clinic for her right foot, no noted infection there at that time. Onset: Today Duration: Hour(s): Location: Reports: Generalized Severity: Severe Associated Symptoms: Reports: Fever/Chills, Shortness of Breath, Weakness Treatments PROVIDER RELATIONS SPECIALIST: Reports: Oxygen - Related Data Allergies Allergy/AdvReac Type Severity Reaction Status Date / Time cefazolin [From Ancef] Allergy Severe Anaphylactic Verified 05/30/19 13:17 Shock adhesive Allergy Intermediate Hives Verified 05/30/19 13:17 azithromycin [From Zithromax] Allergy Intermediate Hives Verified 05/30/19 13:17 ezetimibe [From Zetia] Allergy Other Verified 05/30/19 13:17 tetanus toxoid, adsorbed Allergy Cannot Verified 05/30/19 13:17 Remember amoxicillin AdvReac Diarrhea Verified 05/30/19 13:17 atorvastatin [From Lipitor] AdvReac Muscle Verified 05/30/19 13:17 Aches atorvastatin calcium AdvReac Muscle Verified 05/30/19 13:17 [From Lipitor] Aches clindamycin [From Cleocin] AdvReac Mouth Sores Verified 05/30/19 13:17 shellfish derived AdvReac Vomiting Verified 05/30/19 13:17 simvastatin [From Zocor] AdvReac Muscle Verified 05/30/19 13:17 Aches IV contrast Allergy Other Uncoded 03/30/19 09:57 Home Meds: Home Meds Cyanocobalamin (Vitamin B-12) [Vitamin B-12] 1,000 mcg PO BID@0800,1600 [History] allopurinoL [Allopurinol] 300 mg PO DAILY@1600 09/04/14 [History] Zinc Gluconate [Zinc] 50 mg PO DAILY@1600 04/02/15 [History] Pramipexole [Mirapex] 0.25 mg PO DAILY@1600 06/04/17 [History] Acetaminophen 1,000 mg PO Q6HR PRN 10/24/18 [History] Gabapentin [Neurontin] 100 mg PO ACBREAKFAST 10/24/18 [History] Gabapentin [Neurontin] 200 mg PO BEDTIME 10/24/18 [History] Nitroglycerin [Nitrostat] 0.4 mg SL ASDIRECTED PRN 10/24/18 [History] ondansetron HCL [Ondansetron] 4 mg PO Q6HR PRN 10/24/18 [History] Pantoprazole Sodium [Protonix] 40 mg PO DAILY 01/13/19 [History] Acetaminophen/HYDROcodone [[place] 325-10 MG] 1 tab PO Q12H PRN tablet 02/22/19 [ Rx] Metoprolol Succinate 50 mg PO BEDTIME 03/30/19 [History] Sennosides/Docusate Sodium [Senna Plus 8.6-50 mg Tablet] 1 tab PO DAILY [History] Potassium Chloride [Klor-Con 10] 20 meq PO BIDMEALS #60 tab.er 04/02/19 [Rx] Warfarin [Coumadin] 2.5 mg PO SUTUTHSA tablet 04/02/19 [Rx] Citalopram Hydrobromide [Celexa] 40 mg PO BEDTIME 05/15/19 [History] Magnesium Citrate [Citrate of Magnesia] 296 ml PO DAILY PRN 05/15/19 [History] Pramipexole [Mirapex] 0.5 mg PO BEDTIME 05/15/19 [History] bisacodyL [Dulcolax] 5 mg PO DAILY PRN 05/15/19 [History] Digoxin 125 mcg PO Q2D #15 tablet 05/23/19 [Rx] Fluticasone/Salmeterol [Fluticasone-Salmeterol 232-14 MCG Powder Inha] 1 puff INH BID inhaler 05/23/19 [Rx] Torsemide [Demadex] 80 mg PO BIDDIURETIC #240 tablet 05/23/19 [Rx] Warfarin [Coumadin] 5 mg PO MOFR@2000 tablet 05/23/19 [Rx] polyethylene glycoL 3350 [MiraLAX] 17 gm PO DAILY PRN packet 05/23/19 [Rx] Escitalopram [Lexapro] 20 mg PO DAILY 05/30/19 [History] Lovastatin 20 mg PO BEDTIME 05/30/19 [History] Past Medical History HEENT History: Reports: None, Allergic Rhinitis, Cataract, Macular Degeneration , Other (See Below) Other HEENT History: astigmatism, presbyopia, myopia, pseudophakia Cardiovascular History: Reports: Afib, Blood Clots/VTE/DVT, Heart Failure, Heart Murmur, High Cholesterol, Pulmonary Hypertension Other Cardiovascular History: Aortic stenosis, leg swelling Respiratory History: Reports: Sleep Apnea, Other (See Below) Other Respiratory History: pneumonia 2013, reactive airway disease that is not asthma Gastrointestinal History: Reports: GERD Genitourinary History: Reports: Diabetic Nephropathy, Other (See Below) Other Genitourinary History: Microscopic hematuria [employer]ED[employer] 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: 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: Musculoskeletal History: Reports: Gout, Osteoarthritis, Other (See Below) Other Musculoskeletal History: Restless leg syndrome Neurological History: Reports: None, Neuropathy, Diabetic, Other (See Below) Other Neuro History: syncope Psychiatric History: Reports: Anxiety, Depression Endocrine/Metabolic History: Reports: Diabetes, Type II, Obesity/BMI 30+, Osteopenia, Other (See Below) Other Endocrine/Metabolic History: B12 deficiency Hematologic History: Reports: None Immunologic History: Reports: None Oncologic (Cancer) History: Reports: Breast Dermatologic History: Reports: Cellulitis, Other (See Below) Other Dermatologic History: dry skin, yeast infections, diabetic foot ulcer, gangerene of left foot - Past Surgical History HEENT Surgical History: Reports: Cataract Surgery, Tonsillectomy, Other (See Below) Other HEENT Surgeries/Procedures: capsulotomy Cardiovascular Surgical History: Reports: None Respiratory Surgical History: Reports: None GI Surgical History: Reports: Appendectomy, Cholecystectomy Female Surgical History: Reports: Hysterectomy, Mastectomy, Tubal Ligation, Other (See Below) Other Female Surgeries/Procedures: left mastectomy Endocrine Surgical History: Reports: None Neurological Surgical History: Reports: None Musculoskeletal Surgical History: Reports: Hip Replacement, Other (See Below) Other Musculoskeletal Surgeries/Procedures:: Left elbow surgery. Chronic osteomyelitis of left foot Oncologic Surgical History: Reports: Mastectomy Dermatological Surgical History: Reports: None Social & Family History - Family History Family Medical History: Noncontributory Cardiac: Reports: PVD/COD Oncologic: Reports: Lung - Tobacco Use Smoking Status *Q: Unknown Ever Smoked - Caffeine Use Caffeine Use: Reports: Tea ED ROS GENERAL - Review of Systems Review Of Systems: Unable To Obtain Reason Not Obtained: obtunded on arrival ED EXAM, GENERAL - Physical Exam Exam: See Below Exam Limited By: Respiratory Distress General Appearance: Severe Distress (patient dusky to cyanotic from upper shoulders through face, tachypneic. ) Eye Exam: Bilateral Eye: PERRL Ears: Normal External Exam, Normal TMs Nose: Normal Inspection, Normal Mucosa, No Blood Throat/Mouth: Normal Inspection, Normal Oropharynx Head: Normocephalic Neck: Normal Inspection, Supple, Non-Tender Respiratory/Chest: Lungs Clear, Respiratory Distress Cardiovascular: Irregularly Irregular GI/Abdominal: Normal Bowel Sounds, Soft Extremities: Other (patient has abrasion under right breast, bruising to right shoulder. Blisters and open pressure ulcers to right hip/thigh. Swelling noted in right eye. Has bandage to left foot, large callus to right foot with previous right great toe amputated.) Skin Exam: Cyanosis, Decubitus, Ecchymosis Course - Orders/Labs/Meds Orders: Active Orders 24 hr Category Date Time Status Urinary Catheter Assessment [RC] ASDIRECTED Care 10/27/19 16:22 Active CULTURE BLOOD [BC] Stat Lab 10/27/19 16:15 Received CULTURE BLOOD [BC] Stat Lab 10/27/19 16:24 Results CULTURE URINE [RM] Stat Lab 10/27/19 15:57 Received Resuscitation Status Routine Resus Stat 10/27/19 16:54 Ordered Labs: Laboratory Tests 10/27/19 10/27/19 10/27/19 Range/Units 15:40 15:40 15:40 WBC 21.7 H* (4.0-10.0) x10^3/uL RBC 4.42 (4.00-5.50) x10^6/uL Hgb 12.6 (12.0-16.0) g/dL Hct 38.9 (33.0-47.0) % MCV 88.0 D (78.0-93.0) fL MCH 28.5 (26.0-32.0) pg MCHC 32.4 (32.0-36.0) g/dL RDW Coeff of Erum 18.3 H (10.0-15.0) % Plt Count 183 (130-400) x10^3/uL Add Manual Diff Yes Neutrophils % (Manual) 80 (50-80) % Band Neutrophils % 6 (0-6) % Lymphocytes % (Manual) 7 L (25-50) % Monocytes % (Manual) 7 (2-11) % Platelet Estimate Adequate Giant Platelets Occasional H Anisocytosis 3+ marked H PT 15.0 H (9.5-12.3) SEC INR 1.4 L (2.0-3.5) APTT 33.9 H (25.6-32.8) SEC D-Dimer, Quantitative 3.43 H (<=0.58) mg/LFEU POC ABG pH (7.35-7.45) POC ABG pCO2 (35-45) mmHG POC ABG pO2 (80-105) mmHG POC ABG HCO3 (22-26) mmol/L POC ABG Total CO2 (23-27) mmol/L POC ABG O2 Sat (95-98) % POC ABG Base Excess (-2-3) mmol/L POC FiO2 Sodium 138 (136-145) mmol/L Potassium 3.7 (3.5-5.1) mmol/L Chloride 100 (98-107) mmol/L Carbon Dioxide 17 L D (21-32) mmol/L Anion Gap 24.7 H (10-20) mmol/L BUN 39 H (7-18) mg/dL Creatinine 2.7 H (0.55-1.02) mg/dL Est Cr Clr Drug Dosing TNP Estimated GFR (MDRD) 17 Glucose 297 H (74-106) mg/dL Lactic Acid (0.4-2.0) mmol/L Calcium 9.3 (8.5-10.1) mg/dL Corrected Calcium 9.86 (8.5-10.1) mg/dL Total Bilirubin 2.4 H (0.2-1.0) mg/dL AST 164 H (15-37) U/L ALT 63 H (14-59) U/L Alkaline Phosphatase 238 H (46-116) U/L Creatine Kinase 5171 H* (26-192) U/L POC Troponin I (0.00-0.08) ng/mL C-Reactive Protein (<=0.9) mg/dL NT-Pro-B Natriuret Pep 11267 H (<=450) pg/mL Total Protein 8.3 H (6.4-8.2) g/dL Albumin 3.3 L (3.4-5.0) g/dL Globulin 5.0 Albumin/Globulin Ratio 0.66 POC Result Comm Urine Color (YELLOW) Urine Appearance (CLEAR) Urine pH (5.0-8.0) Ur Specific [place] Urine Protein (NEGATIVE) mg/dL Urine Glucose (UA) (NEGATIVE) mg/dL Urine Ketones (NEGATIVE) mg/dL Urine Occult Blood (NEGATIVE) Urine Nitrite (NEGATIVE) Urine Bilirubin (NEGATIVE) Urine Urobilinogen (0.2) EU/dL Ur Leukocyte Esterase (NEGATIVE) Urine RBC (NOT SEEN) /HPF Urine WBC (NOT SEEN) /HPF Ur Squamous Epith Cells (NEGATIVE) /HPF Urine Bacteria (NEGATIVE) /HPF Urine Mucus (NEGATIVE) /LPF 10/27/19 10/27/19 10/27/19 Range/Units 15:40 15:40 15:42 WBC (4.0-10.0) x10^3/uL RBC (4.00-5.50) x10^6/uL Hgb (12.0-16.0) g/dL Hct (33.0-47.0) % MCV (78.0-93.0) fL MCH (26.0-32.0) pg MCHC (32.0-36.0) g/dL RDW Coeff of Erum (10.0-15.0) % Plt Count (130-400) x10^3/uL Add Manual Diff Neutrophils % (Manual) (50-80) % Band Neutrophils % (0-6) % Lymphocytes % (Manual) (25-50) % Monocytes % (Manual) (2-11) % Platelet Estimate Giant Platelets Anisocytosis PT (9.5-12.3) SEC INR (2.0-3.5) APTT (25.6-32.8) SEC D-Dimer, Quantitative (<=0.58) mg/LFEU POC ABG pH (7.35-7.45) POC ABG pCO2 (35-45) mmHG POC ABG pO2 (80-105) mmHG POC ABG HCO3 (22-26) mmol/L POC ABG Total CO2 (23-27) mmol/L POC ABG O2 Sat (95-98) % POC ABG Base Excess (-2-3) mmol/L POC FiO2 Sodium (136-145) mmol/L Potassium (3.5-5.1) mmol/L Chloride (98-107) mmol/L Carbon Dioxide (21-32) mmol/L Anion Gap (10-20) mmol/L BUN (7-18) mg/dL Creatinine (0.55-1.02) mg/dL Est Cr Clr Drug Dosing Estimated GFR (MDRD) Glucose (74-106) mg/dL Lactic Acid 5.6 H* (0.4-2.0) mmol/L Calcium (8.5-10.1) mg/dL Corrected Calcium (8.5-10.1) mg/dL Total Bilirubin (0.2-1.0) mg/dL AST (15-37) U/L ALT (14-59) U/L Alkaline Phosphatase (46-116) U/L Creatine Kinase (26-192) U/L POC Troponin I 3.52 H* (0.00-0.08) ng/mL C-Reactive Protein 28.7 H (<=0.9) mg/dL NT-Pro-B Natriuret Pep (<=450) pg/mL Total Protein (6.4-8.2) g/dL Albumin (3.4-5.0) g/dL Globulin Albumin/Globulin Ratio POC Result Comm Called critical res Urine Color (YELLOW) Urine Appearance (CLEAR) Urine pH (5.0-8.0) Ur Specific [place] Urine Protein (NEGATIVE) mg/dL Urine Glucose (UA) (NEGATIVE) mg/dL Urine Ketones (NEGATIVE) mg/dL Urine Occult Blood (NEGATIVE) Urine Nitrite (NEGATIVE) Urine Bilirubin (NEGATIVE) Urine Urobilinogen (0.2) EU/dL Ur Leukocyte Esterase (NEGATIVE) Urine RBC (NOT SEEN) /HPF Urine WBC (NOT SEEN) /HPF Ur Squamous Epith Cells (NEGATIVE) /HPF Urine Bacteria (NEGATIVE) /HPF Urine Mucus (NEGATIVE) /LPF 10/27/19 10/27/19 Range/Units 15:57 16:19 WBC (4.0-10.0) x10^3/uL RBC (4.00-5.50) x10^6/uL Hgb (12.0-16.0) g/dL Hct (33.0-47.0) % MCV (78.0-93.0) fL MCH (26.0-32.0) pg MCHC (32.0-36.0) g/dL RDW Coeff of Erum (10.0-15.0) % Plt Count (130-400) x10^3/uL Add Manual Diff Neutrophils % (Manual) (50-80) % Band Neutrophils % (0-6) % Lymphocytes % (Manual) (25-50) % Monocytes % (Manual) (2-11) % Platelet Estimate Giant Platelets Anisocytosis PT (9.5-12.3) SEC INR (2.0-3.5) APTT (25.6-32.8) SEC D-Dimer, Quantitative (<=0.58) mg/LFEU POC ABG pH 7.384 (7.35-7.45) POC ABG pCO2 31 L (35-45) mmHG POC ABG pO2 195 H (80-105) mmHG POC ABG HCO3 19 L (22-26) mmol/L POC ABG Total CO2 20 L (23-27) mmol/L POC ABG O2 Sat 100 H (95-98) % POC ABG Base Excess -6 L (-2-3) mmol/L POC FiO2 1.00 Sodium (136-145) mmol/L Potassium (3.5-5.1) mmol/L Chloride (98-107) mmol/L Carbon Dioxide (21-32) mmol/L Anion Gap (10-20) mmol/L BUN (7-18) mg/dL Creatinine (0.55-1.02) mg/dL Est Cr Clr Drug Dosing Estimated GFR (MDRD) Glucose (74-106) mg/dL Lactic Acid (0.4-2.0) mmol/L Calcium (8.5-10.1) mg/dL Corrected Calcium (8.5-10.1) mg/dL Total Bilirubin (0.2-1.0) mg/dL AST (15-37) U/L ALT (14-59) U/L Alkaline Phosphatase (46-116) U/L Creatine Kinase (26-192) U/L POC Troponin I (0.00-0.08) ng/mL C-Reactive Protein (<=0.9) mg/dL NT-Pro-B Natriuret Pep (<=450) pg/mL Total Protein (6.4-8.2) g/dL Albumin (3.4-5.0) g/dL Globulin Albumin/Globulin Ratio POC Result Comm Urine Color Yellow (YELLOW) Urine Appearance Turbid H (CLEAR) Urine pH 5.5 (5.0-8.0) Ur Specific [place] 1.020 Urine Protein 100 H (NEGATIVE) mg/dL Urine Glucose (UA) Negative (NEGATIVE) mg/dL Urine Ketones Trace H (NEGATIVE) mg/dL Urine Occult Blood Moderate H (NEGATIVE) Urine Nitrite Negative (NEGATIVE) Urine Bilirubin Moderate H (NEGATIVE) Urine Urobilinogen 1.0 (0.2) EU/dL Ur Leukocyte Esterase Large H (NEGATIVE) Urine RBC 40-50 H (NOT SEEN) /HPF Urine WBC >100 H (NOT SEEN) /HPF Ur Squamous Epith Cells Occasional H (NEGATIVE) /HPF Urine Bacteria Moderate H (NEGATIVE) /HPF Urine Mucus Few H (NEGATIVE) /LPF Meds: Medications Discontinued Medications Generic Name Dose Route Start Last Admin Trade Name Freq PRN Reason Stop Dose Admin Acetaminophen 650 mg 10/27/19 16:27 Tylenol RECTAL 10/27/19 16:28 NOW ONE Furosemide Confirm 10/27/19 15:42 Lasix Administered 10/27/19 15:43 Dose 40 mg .ROUTE .STK-MED ONE Hydromorphone HCl 0.5 mg 10/27/19 16:28 Dilaudid IVPUSH 10/27/19 16:29 ONETIME ONE Hydromorphone HCl Confirm 10/27/19 16:38 Dilaudid Administered 10/27/19 16:39 Dose 0.5 mg .ROUTE .STK-MED ONE Lorazepam 0.5 mg 10/27/19 15:55 Ativan IVPUSH 10/27/19 15:56 STAT ONE Lorazepam 0.5 mg 10/27/19 16:15 Ativan IVPUSH 10/27/19 16:16 STAT ONE - Re-Assessments/Exams Free Text/Narrative Re-Assessment/Exam: 10/27/19 17:26 See [facility] noted for treatment done, blood pressures and temp. Ultimately, patient was placed on biPaP due to tachypneic and hypoxia. Responded well to this. Temp 101. Blood cultures, lactic acid obtained and Rocephin 2 gm IV given. Had been given Lasix and IV fluids prior to labs. Labs reviewed. Multiple critical abnormals. WBC high at 21.7, CRP 28.7. D-dimer 3.43, PrBNP 66448, Troponin 3.52, CK 5171. Liver enzymes elevated Over the course of ER stay, patient did respond well to BiPaP, was able to be weaned back down to a NRB and maintained oxygen sats. Tylenol supp given for the fever. 500 ml of NS given. Ativan 0.5 given IV due to restlessness, Dilaudid given for pain. Discussed transfer with daughter and patient due to sepsis and multiple critical labs. Adamantly against this. Daughter notes DNR status, does not want aggressive cares for her mother. Wants to treat the infection and keep her comfortable. Is aware of the critical status of her mother and that she could while here as well as her mother agrees with non transfer. Dr. Khan called. Does not feel comfortable with caring for patient due to her current critical status. Daughter again voices does not want her transferred. Dr. Rea Card, usual primary care provider, was called and consulted with daughter. Dr. Card is willing to be attending provider here for the patient. Will admit to inpatient status here. See orders. Departure - Departure Time of Disposition: 17:34 Disposition: Admitted As Inpatient 64 Condition: Critical Clinical Impression: Sepsis, Palliative care status, SHERWIN on CPAP, Acute on chronic kidney failure UTI (urinary tract infection) Qualifiers: Urinary tract infection type: acute cystitis Hematuria presence: with hematuria Qualified Code(s): N30.01 - Acute cystitis with hematuria CHF (congestive heart failure) Qualifiers: Heart failure type: unspecified Heart failure chronicity: acute on chronic Qualified Code(s): I50.9 - Heart failure, unspecified Diabetic foot ulcers Qualifiers: Diabetic foot ulcer location: unspecified part of foot Diabetes mellitus type: type 2 Laterality: unspecified laterality Non-pressure ulcer stage: unspecified non-pressure ulcer stage Qualified Code(s): E11.621 - Type 2 diabetes mellitus with foot ulcer Diabetes mellitus Qualifiers: Diabetes mellitus type: type 2 Diabetes mellitus 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 insulin use: without detention use Diabetes mellitus complication status: with neurologic complications Diabetes mellitus complication detail: with polyneuropathy Qualified Code(s): E11.42 - Type 2 diabetes mellitus with diabetic polyneuropathy - Discharge Information *PRESCRIPTION DRUG MONITORING PROGRAM REVIEWED*: No *COPY OF PRESCRIPTION DRUG MONITORING REPORT IN PATIENT SHASHI: No Sepsis Event Note - Focused Exam Date Exam was Performed: 10/27/19 Time Exam was Performed: 17:15 - Problem List & Annotations (1) Sepsis SNOMED Code(s): 87458569 Code(s): A41.9 - SEPSIS, UNSPECIFIED ORGANISM Status: Acute Priority: High Current Visit: Yes Qualifiers: Sepsis type: sepsis due to unspecified organism Sepsis acute organ dysfunction status: with acute organ dysfunction Severe sepsis acute organ dysfunction type: acute respiratory failure Acute respiratory failure type: with hypoxia Severe sepsis shock status: without septic shock Qualified Code (s): A41.9 - Sepsis, unspecified organism; R65.20 - Severe sepsis without septic shock; J96.01 - Acute respiratory failure with hypoxia (2) Acute on chronic kidney failure SNOMED Code(s): 746510004 Code(s): N17.9 - ACUTE KIDNEY FAILURE, UNSPECIFIED; N18.9 - CHRONIC KIDNEY DISEASE, UNSPECIFIED Status: Acute Priority: High Current Visit: Yes Qualifiers: Chronic kidney disease stage: stage 4 (severe) (3) CHF (congestive heart failure) SNOMED Code(s): 91734506 Code(s): I50.9 - HEART FAILURE, UNSPECIFIED Status: Acute Priority: High Current Visit: Yes Qualifiers: Heart failure type: diastolic Heart failure chronicity: acute on chronic Qualified Code(s): I50.33 - Acute on chronic diastolic (congestive) heart failure (4) Palliative care status SNOMED Code(s): 499671319 Code(s): Z51.5 - ENCOUNTER FOR PALLIATIVE CARE Status: Acute Priority: High Current Visit: Yes (5) Urinary tract infection SNOMED Code(s): 23503204 Code(s): N39.0 - URINARY TRACT INFECTION, SITE NOT SPECIFIED Status: Acute Priority: High Current Visit: Yes Qualifiers: Urinary tract infection type: acute cystitis Hematuria presence: without hematuria Qualified Code(s): N30.00 - Acute cystitis without hematuria (6) Diabetes mellitus SNOMED Code(s): 46693668 Code(s): E11.9 - TYPE 2 DIABETES MELLITUS WITHOUT COMPLICATIONS Status: Chronic Priority: Medium Current Visit: Yes Qualifiers: Diabetes mellitus type: type 2 Diabetes mellitus detention insulin use: without detention use Diabetes mellitus complication status: with neurologic complications Diabetes mellitus complication detail: with polyneuropathy Qualified Code(s): E11.42 - Type 2 diabetes mellitus with diabetic polyneuropathy (7) Diabetic foot ulcers SNOMED Code(s): 157922310 Code(s): E11.621 - TYPE 2 DIABETES MELLITUS WITH FOOT ULCER; L97.509 - NON- PRESSURE CHRONIC ULCER OTH PRT UNSP FOOT W UNSP SEVERITY Status: Chronic Priority: Medium Current Visit: Yes Qualifiers: Diabetes mellitus type: type 2 Laterality: left Non-pressure ulcer stage : unspecified non-pressure ulcer stage (8) SHERWIN on CPAP SNOMED Code(s): 54202266 Code(s): G47.33 - OBSTRUCTIVE SLEEP APNEA (ADULT) (PEDIATRIC); 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 Status: Chronic Priority: Medium Current Visit: Yes - Problem List Review Problem List Initiated/Reviewed/Updated: Yes - My Orders Last 24 Hours: My Active Orders 10/27/19 15:57 CULTURE URINE [RM] Stat 10/27/19 16:15 CULTURE BLOOD [BC] Stat 10/27/19 16:22 Urinary Catheter Assessment [RC] ASDIRECTED 10/27/19 16:24 CULTURE BLOOD [BC] Stat 10/27/19 16:54 Resuscitation Status Routine - Assessment/Plan Last 24 Hours: My Active Orders 10/27/19 15:57 CULTURE URINE [RM] Stat 10/27/19 16:15 CULTURE BLOOD [BC] Stat 10/27/19 16:22 Urinary Catheter Assessment [RC] ASDIRECTED 10/27/19 16:24 CULTURE BLOOD [BC] Stat 10/27/19 16:54 Resuscitation Status Routine Assessment:: Sepsis UTI Acute on Chronic Kidney Failure Acute on Chronic CHF Palliative care patient Diabetes Type II with associated foot ulcer Plan: Admit to Dr. Rea Card, acute inpatient. Will continue IV fluids, Rocephin 2 gm. Further orders and H & P per Dr. Card
[2019-10-27] MEDS: Sodium Chloride 0.9% 1,000 ML IV SCH (20:03)
[2019-10-27] MEDS: Ciprofloxacin in D5W 200 MG in Premix Bag 1 BAG IV SCH ×2 (20:06)
[2019-10-27] MEDS: HYDROmorphone 0.5 MG/0.5 ML Syringe IV PRN (21:32)
[2019-10-27] MEDS ORDERED: Polyethylene Glycol 3350 Powder 17 GM Packet PO PRN (21:38)
[2019-10-27] MEDS ORDERED: Nitroglycerin 0.4 MG Tab.SL SL PRN (21:38)
[2019-10-27] MEDS ORDERED: Acetaminophen/HYDROcodone 325-10 MG Tab PO PRN (21:38)
[2019-10-27] MEDS ORDERED: Magnesium Citrate Solution 296 ML Bottle PO PRN (21:38)
[2019-10-27] MEDS ORDERED: Acetaminophen 500 MG Tab PO PRN (21:38)
[2019-10-27] MEDS ORDERED: Ondansetron 4 MG Tab.DIS PO PRN (21:38)
[2019-10-27] MEDS ORDERED: Bisacodyl 5 MG Tab PO PRN (21:38)
[2019-10-27] MEDS ORDERED: Warfarin 2.5 MG Tab PO SCH (21:45)
--- NOTE | 2019-10-27 22:05 | PCM.HP.2 ---
H&P History of Present Illness - General Date of Service: 10/27/19 Admit Problem/Dx: Admission Diagnosis/Problem Admission Diagnosis/Problem Sepsis Source of Information: Patient, Family, Provider - History of Present Illness Initial Comments - Free Text/Narative: 79 yo came to ER by EMS after being found unresponsive at home. Last known well was last night and her special population paraprofessional found her sounds like she fell and was down at least 3 hours. She did not recognize me but was able to answer questions but denies falling. She has bruises. IN ER she had sats of 60 % she was blue in color and required bipap but has now been weaned off to Nasal canula. Met sepsis criteria by temp and WBC count and got 2 grams of Rocephin. Likely source is UTI. She has had past UTI's and told me she had burning and odor coming on for a couple days this time. She had been confused at her wound clinic appointment earlier in the week also. She denies SOB but has chest pain which she really can't explain what it feels like. Is on coumadin and INR only 1.4 her pill box was brought in and no pills were taken yesterday or today she says she might have missed some coumadin doses. HAs a known hx of Diastolic CHF and even has a Cardiomem monitor but no longer uses it. She had an elevated troponin and has aortic stenosis but no documented obstructive CAD. She has not wanted aggressive treatments and has completely refused transfer to [place] many times. This was also discussed with her Daughter Xiomy who is in agreement with the patients wishes. She doesn't want her to be in pain and she has had a lot of painful diabetic neuropathy and arthritis pain for which she uses 2 Hydrocodone per day. She received several doses of IV dilaudid and ativan in the ER which was to help tolerate the Bipap. She also got a liter of fluid and lasix. CK was elevated to 5000. Onset of Symptoms: Reports: Today Duration of Symptoms: Reports: Hour(s): Generalized Pain Score (Numeric/FACES): 8 - Related Data Allergies/Adverse Reactions: Allergies Allergy/AdvReac Type Severity Reaction Status Date / Time cefazolin [From Ancef] Allergy Severe Anaphylactic Verified 05/30/19 13:17 Shock adhesive Allergy Intermediate Hives Verified 05/30/19 13:17 azithromycin [From Zithromax] Allergy Intermediate Hives Verified 05/30/19 13:17 ezetimibe [From Zetia] Allergy Other Verified 05/30/19 13:17 tetanus toxoid, adsorbed Allergy Cannot Verified 05/30/19 13:17 Remember amoxicillin AdvReac Diarrhea Verified 05/30/19 13:17 atorvastatin [From Lipitor] AdvReac Muscle Verified 05/30/19 13:17 Aches atorvastatin calcium AdvReac Muscle Verified 05/30/19 13:17 [From Lipitor] Aches clindamycin [From Cleocin] AdvReac Mouth Sores Verified 05/30/19 13:17 shellfish derived AdvReac Vomiting Verified 05/30/19 13:17 simvastatin [From Zocor] AdvReac Muscle Verified 05/30/19 13:17 Aches IV contrast Allergy Other Uncoded 03/30/19 09:57 Home Medications: Home Meds Cyanocobalamin (Vitamin B-12) [Vitamin B-12] 1,000 mcg PO BID@0800,1600 [History] allopurinoL [Allopurinol] 300 mg PO DAILY@1600 09/04/14 [History] Zinc Gluconate [Zinc] 50 mg PO DAILY@1600 04/02/15 [History] Pramipexole [Mirapex] 0.25 mg PO DAILY@1600 06/04/17 [History] Acetaminophen 1,000 mg PO Q6HR PRN 10/24/18 [History] Gabapentin [Neurontin] 100 mg PO ACBREAKFAST 10/24/18 [History] Gabapentin [Neurontin] 200 mg PO BEDTIME 10/24/18 [History] Nitroglycerin [Nitrostat] 0.4 mg SL ASDIRECTED PRN 10/24/18 [History] ondansetron HCL [Ondansetron] 4 mg PO Q6HR PRN 10/24/18 [History] Pantoprazole Sodium [Protonix] 40 mg PO DAILY 01/13/19 [History] Acetaminophen/HYDROcodone [[place] 325-10 MG] 1 tab PO Q12H PRN tablet 02/22/19 [ Rx] Metoprolol Succinate 50 mg PO BEDTIME 03/30/19 [History] Sennosides/Docusate Sodium [Senna Plus 8.6-50 mg Tablet] 1 tab PO DAILY [History] Potassium Chloride [Klor-Con 10] 20 meq PO BIDMEALS #60 tab.er 04/02/19 [Rx] Warfarin [Coumadin] 2.5 mg PO SUTUTHSA tablet 04/02/19 [Rx] Citalopram Hydrobromide [Celexa] 40 mg PO BEDTIME 05/15/19 [History] Magnesium Citrate [Citrate of Magnesia] 296 ml PO DAILY PRN 05/15/19 [History] Pramipexole [Mirapex] 0.5 mg PO BEDTIME 05/15/19 [History] bisacodyL [Dulcolax] 5 mg PO DAILY PRN 05/15/19 [History] Digoxin 125 mcg PO Q2D #15 tablet 05/23/19 [Rx] Fluticasone/Salmeterol [Fluticasone-Salmeterol 232-14 MCG Powder Inha] 1 puff INH BID inhaler 05/23/19 [Rx] Torsemide [Demadex] 80 mg PO BIDDIURETIC #240 tablet 05/23/19 [Rx] Warfarin [Coumadin] 5 mg PO MOFR@2000 tablet 05/23/19 [Rx] polyethylene glycoL 3350 [MiraLAX] 17 gm PO DAILY PRN packet 05/23/19 [Rx] Escitalopram [Lexapro] 20 mg PO DAILY 05/30/19 [History] Lovastatin 20 mg PO BEDTIME 05/30/19 [History] Past Medical History HEENT History: Reports: Allergic Rhinitis, Cataract, Macular Degeneration, Other (See Below) Other HEENT History: astigmatism, presbyopia, myopia, pseudophakia Cardiovascular History: Reports: Afib, Blood Clots/VTE/DVT, Heart Failure, Heart Murmur, High Cholesterol, [place], Pulmonary Hypertension Other Cardiovascular History: Aortic stenosis, leg swelling Respiratory History: Reports: Sleep Apnea, Other (See Below) Other Respiratory History: pneumonia 2014, reactive airway disease that is not asthma Gastrointestinal History: Reports: GERD Genitourinary History: Reports: Diabetic Nephropathy, Other (See Below) Other Genitourinary History: Microscopic hematuria ED PHYSICIANS History: Reports: Musculoskeletal History: Reports: Gout, Osteoarthritis, Other (See Below) Other Musculoskeletal History: Restless leg syndrome Neurological History: Reports: None, Neuropathy, Diabetic, Other (See Below) Other Neuro History: syncope Psychiatric History: Reports: Anxiety, Depression Endocrine/Metabolic History: Reports: Diabetes, Type II, Obesity/BMI 30+, Osteopenia, Other (See Below) Other Endocrine/Metabolic History: B12 deficiency Hematologic History: Reports: None Immunologic History: Reports: None Oncologic (Cancer) History: Reports: Breast Dermatologic History: Reports: Cellulitis, Other (See Below) Other Dermatologic History: dry skin, yeast infections, diabetic foot ulcer, gangerene of left foot - Past Surgical History HEENT Surgical History: Reports: Cataract Surgery, Tonsillectomy, Other (See Below) Other HEENT Surgeries/Procedures: capsulotomy Cardiovascular Surgical History: Reports: None Respiratory Surgical History: Reports: None GI Surgical History: Reports: Appendectomy, Cholecystectomy Female Surgical History: Reports: Hysterectomy, Mastectomy, Tubal Ligation, Other (See Below) Other Female Surgeries/Procedures: left mastectomy Endocrine Surgical History: Reports: None Neurological Surgical History: Reports: None Musculoskeletal Surgical History: Reports: Hip Replacement, Other (See Below) Other Musculoskeletal Surgeries/Procedures:: Left elbow surgery. Chronic osteomyelitis of left foot Oncologic Surgical History: Reports: Mastectomy Dermatological Surgical History: Reports: None Social & Family History - Family History Family Medical History: Noncontributory Cardiac: Reports: PVD/COD Oncologic: Reports: Lung - Tobacco Use Smoking Status *Q: Never Smoker - Caffeine Use Caffeine Use: Reports: Tea H&P Review of Systems - Review of Systems: Review Of Systems: See Below General: Reports: Fever, Weakness HEENT: Reports: Eye Pain. Denies: Headaches Pulmonary: Reports: No Symptoms. Denies: Shortness of Breath, Cough Cardiovascular: Reports: Chest Pain Gastrointestinal: Reports: No Symptoms Genitourinary: Reports: Burning Musculoskeletal: Reports: Back Pain (Chronic ) Skin: Reports: Bruising, Rash Psychiatric: Reports: Confusion Neurological: Reports: Confusion Hematologic/Lymphatic: Reports: No Symptoms Exam - Exam Exam: See Below - Vital Signs Vital Signs: Last Vital Signs Temp 99.8 F 10/27/19 18:46 Pulse 127 H 10/27/19 18:46 Resp 20 10/27/19 18:46 BP 115/59 L 10/27/19 18:46 Pulse Ox 100 10/27/19 18:46 Weight: 81.692 kg - Exam Quality Assessment: Supplemental Oxygen General: Lethargic HEENT: Conjunctiva Clear, EOMI, Hearing Intact, Normal Nasal Septum (mucous membranes very dry, erythema around the R eye) Neck: Supple, Trachea Midline, +2 Carotid Pulse wo Bruit. No: Lymphadenopathy, JVD Lungs: Clear to Auscultation, Normal Respiratory Effort Cardiovascular: Irregular Rhythm, Tachycardia, Systolic Murmur GI/Abdominal Exam: Normal Bowel Sounds, Soft, Non-Tender Extremities: Normal Range of Motion ( ffffffffffffffffffffffffffffffffffffffffffffffffffffffffffffffffffffffffffffffff ffffffffffffffffffffffffffffffffffffffffffff ), Non-Tender, No Pedal Edema Skin: Warm, Dry, Ecchymosis (right shoulder bruising and also noted blisters and redness to the RLQ and redness under both breasts ) Neurological: Strength Equal Bilateral Neuro Extensive - Mental Status: Disorientation to Person, Disorientation to Place, Disorientation to Time, Memory Loss-Remote Events, Opens Eyes to Commands Psychiatric: Normal Mood - Patient Data Lab Results Last 24 hrs: Laboratory Results - last 24 hr 10/27/19 10/27/19 10/27/19 Range/Units 15:40 15:40 15:40 WBC 21.7 H* (4.0-10.0) x10^3/uL RBC 4.42 (4.00-5.50) x10^6/uL Hgb 12.6 (12.0-16.0) g/dL Hct 38.9 (33.0-47.0) % MCV 88.0 D (78.0-93.0) fL MCH 28.5 (26.0-32.0) pg MCHC 32.4 (32.0-36.0) g/dL RDW Coeff of Erum 18.3 H (10.0-15.0) % Plt Count 183 (130-400) x10^3/uL Add Manual Diff Yes Neutrophils % (Manual) 80 (50-80) % Band Neutrophils % 6 (0-6) % Lymphocytes % (Manual) 7 L (25-50) % Monocytes % (Manual) 7 (2-11) % Platelet Estimate Adequate Giant Platelets Occasional H Anisocytosis 3+ marked H PT 15.0 H (9.5-12.3) SEC INR 1.4 L (2.0-3.5) APTT 33.9 H (25.6-32.8) SEC D-Dimer, Quantitative 3.43 H (<=0.58) mg/LFEU POC ABG pH (7.35-7.45) POC ABG pCO2 (35-45) mmHG POC ABG pO2 (80-105) mmHG POC ABG HCO3 (22-26) mmol/L POC ABG Total CO2 (23-27) mmol/L POC ABG O2 Sat (95-98) % POC ABG Base Excess (-2-3) mmol/L POC FiO2 Sodium 138 (136-145) mmol/L Potassium 3.7 (3.5-5.1) mmol/L Chloride 100 (98-107) mmol/L Carbon Dioxide 17 L D (21-32) mmol/L Anion Gap 24.7 H (10-20) mmol/L BUN 39 H (7-18) mg/dL Creatinine 2.7 H (0.55-1.02) mg/dL Est Cr Clr Drug Dosing TNP Estimated GFR (MDRD) 17 Glucose 297 H (74-106) mg/dL POC Glucose (74-106) mg/dL Lactic Acid (0.4-2.0) mmol/L Calcium 9.3 (8.5-10.1) mg/dL Corrected Calcium 9.86 (8.5-10.1) mg/dL Total Bilirubin 2.4 H (0.2-1.0) mg/dL AST 164 H (15-37) U/L ALT 63 H (14-59) U/L Alkaline Phosphatase 238 H (46-116) U/L Creatine Kinase 5171 H* (26-192) U/L POC Troponin I (0.00-0.08) ng/mL C-Reactive Protein (<=0.9) mg/dL NT-Pro-B Natriuret Pep 72154 H (<=450) pg/mL Total Protein 8.3 H (6.4-8.2) g/dL Albumin 3.3 L (3.4-5.0) g/dL Globulin 5.0 Albumin/Globulin Ratio 0.66 POC Result Comm Urine Color (YELLOW) Urine Appearance (CLEAR) Urine pH (5.0-8.0) Ur Specific [place] Urine Protein (NEGATIVE) mg/dL Urine Glucose (UA) (NEGATIVE) mg/dL Urine Ketones (NEGATIVE) mg/dL Urine Occult Blood (NEGATIVE) Urine Nitrite (NEGATIVE) Urine Bilirubin (NEGATIVE) Urine Urobilinogen (0.2) EU/dL Ur Leukocyte Esterase (NEGATIVE) Urine RBC (NOT SEEN) /HPF Urine WBC (NOT SEEN) /HPF Ur Squamous Epith Cells (NEGATIVE) /HPF Urine Bacteria (NEGATIVE) /HPF Urine Mucus (NEGATIVE) /LPF 10/27/19 10/27/19 10/27/19 Range/Units 15:40 15:40 15:42 WBC (4.0-10.0) x10^3/uL RBC (4.00-5.50) x10^6/uL Hgb (12.0-16.0) g/dL Hct (33.0-47.0) % MCV (78.0-93.0) fL MCH (26.0-32.0) pg MCHC (32.0-36.0) g/dL RDW Coeff of Erum (10.0-15.0) % Plt Count (130-400) x10^3/uL Add Manual Diff Neutrophils % (Manual) (50-80) % Band Neutrophils % (0-6) % Lymphocytes % (Manual) (25-50) % Monocytes % (Manual) (2-11) % Platelet Estimate Giant Platelets Anisocytosis PT (9.5-12.3) SEC INR (2.0-3.5) APTT (25.6-32.8) SEC D-Dimer, Quantitative (<=0.58) mg/LFEU POC ABG pH (7.35-7.45) POC ABG pCO2 (35-45) mmHG POC ABG pO2 (80-105) mmHG POC ABG HCO3 (22-26) mmol/L POC ABG Total CO2 (23-27) mmol/L POC ABG O2 Sat (95-98) % POC ABG Base Excess (-2-3) mmol/L POC FiO2 Sodium (136-145) mmol/L Potassium (3.5-5.1) mmol/L Chloride (98-107) mmol/L Carbon Dioxide (21-32) mmol/L Anion Gap (10-20) mmol/L BUN (7-18) mg/dL Creatinine (0.55-1.02) mg/dL Est Cr Clr Drug Dosing Estimated GFR (MDRD) Glucose (74-106) mg/dL POC Glucose (74-106) mg/dL Lactic Acid 5.6 H* (0.4-2.0) mmol/L Calcium (8.5-10.1) mg/dL Corrected Calcium (8.5-10.1) mg/dL Total Bilirubin (0.2-1.0) mg/dL AST (15-37) U/L ALT (14-59) U/L Alkaline Phosphatase (46-116) U/L Creatine Kinase (26-192) U/L POC Troponin I 3.52 H* (0.00-0.08) ng/mL C-Reactive Protein 28.7 H (<=0.9) mg/dL NT-Pro-B Natriuret Pep (<=450) pg/mL Total Protein (6.4-8.2) g/dL Albumin (3.4-5.0) g/dL Globulin Albumin/Globulin Ratio POC Result Comm Called critical res Urine Color (YELLOW) Urine Appearance (CLEAR) Urine pH (5.0-8.0) Ur Specific [place] Urine Protein (NEGATIVE) mg/dL Urine Glucose (UA) (NEGATIVE) mg/dL Urine Ketones (NEGATIVE) mg/dL Urine Occult Blood (NEGATIVE) Urine Nitrite (NEGATIVE) Urine Bilirubin (NEGATIVE) Urine Urobilinogen (0.2) EU/dL Ur Leukocyte Esterase (NEGATIVE) Urine RBC (NOT SEEN) /HPF Urine WBC (NOT SEEN) /HPF Ur Squamous Epith Cells (NEGATIVE) /HPF Urine Bacteria (NEGATIVE) /HPF Urine Mucus (NEGATIVE) /LPF 10/27/19 10/27/19 10/27/19 Range/Units 15:57 16:19 19:00 WBC (4.0-10.0) x10^3/uL RBC (4.00-5.50) x10^6/uL Hgb (12.0-16.0) g/dL Hct (33.0-47.0) % MCV (78.0-93.0) fL MCH (26.0-32.0) pg MCHC (32.0-36.0) g/dL RDW Coeff of Erum (10.0-15.0) % Plt Count (130-400) x10^3/uL Add Manual Diff Neutrophils % (Manual) (50-80) % Band Neutrophils % (0-6) % Lymphocytes % (Manual) (25-50) % Monocytes % (Manual) (2-11) % Platelet Estimate Giant Platelets Anisocytosis PT (9.5-12.3) SEC INR (2.0-3.5) APTT (25.6-32.8) SEC D-Dimer, Quantitative (<=0.58) mg/LFEU POC ABG pH 7.384 (7.35-7.45) POC ABG pCO2 31 L (35-45) mmHG POC ABG pO2 195 H (80-105) mmHG POC ABG HCO3 19 L (22-26) mmol/L POC ABG Total CO2 20 L (23-27) mmol/L POC ABG O2 Sat 100 H (95-98) % POC ABG Base Excess -6 L (-2-3) mmol/L POC FiO2 1.00 Sodium (136-145) mmol/L Potassium (3.5-5.1) mmol/L Chloride (98-107) mmol/L Carbon Dioxide (21-32) mmol/L Anion Gap (10-20) mmol/L BUN (7-18) mg/dL Creatinine (0.55-1.02) mg/dL Est Cr Clr Drug Dosing Estimated GFR (MDRD) Glucose (74-106) mg/dL POC Glucose (74-106) mg/dL Lactic Acid 3.2 H* (0.4-2.0) mmol/L Calcium (8.5-10.1) mg/dL Corrected Calcium (8.5-10.1) mg/dL Total Bilirubin (0.2-1.0) mg/dL AST (15-37) U/L ALT (14-59) U/L Alkaline Phosphatase (46-116) U/L Creatine Kinase (26-192) U/L POC Troponin I (0.00-0.08) ng/mL C-Reactive Protein (<=0.9) mg/dL NT-Pro-B Natriuret Pep (<=450) pg/mL Total Protein (6.4-8.2) g/dL Albumin (3.4-5.0) g/dL Globulin Albumin/Globulin Ratio POC Result Comm Urine Color Yellow (YELLOW) Urine Appearance Turbid H (CLEAR) Urine pH 5.5 (5.0-8.0) Ur Specific [place] 1.020 Urine Protein 100 H (NEGATIVE) mg/dL Urine Glucose (UA) Negative (NEGATIVE) mg/dL Urine Ketones Trace H (NEGATIVE) mg/dL Urine Occult Blood Moderate H (NEGATIVE) Urine Nitrite Negative (NEGATIVE) Urine Bilirubin Moderate H (NEGATIVE) Urine Urobilinogen 1.0 (0.2) EU/dL Ur Leukocyte Esterase Large H (NEGATIVE) Urine RBC 40-50 H (NOT SEEN) /HPF Urine WBC >100 H (NOT SEEN) /HPF Ur Squamous Epith Cells Occasional H (NEGATIVE) /HPF Urine Bacteria Moderate H (NEGATIVE) /HPF Urine Mucus Few H (NEGATIVE) /LPF 10/27/19 10/27/19 Range/Units 19:06 21:15 WBC (4.0-10.0) x10^3/uL RBC (4.00-5.50) x10^6/uL Hgb (12.0-16.0) g/dL Hct (33.0-47.0) % MCV (78.0-93.0) fL MCH (26.0-32.0) pg MCHC (32.0-36.0) g/dL RDW Coeff of Erum (10.0-15.0) % Plt Count (130-400) x10^3/uL Add Manual Diff Neutrophils % (Manual) (50-80) % Band Neutrophils % (0-6) % Lymphocytes % (Manual) (25-50) % Monocytes % (Manual) (2-11) % Platelet Estimate Giant Platelets Anisocytosis PT (9.5-12.3) SEC INR (2.0-3.5) APTT (25.6-32.8) SEC D-Dimer, Quantitative (<=0.58) mg/LFEU POC ABG pH (7.35-7.45) POC ABG pCO2 (35-45) mmHG POC ABG pO2 (80-105) mmHG POC ABG HCO3 (22-26) mmol/L POC ABG Total CO2 (23-27) mmol/L POC ABG O2 Sat (95-98) % POC ABG Base Excess (-2-3) mmol/L POC FiO2 Sodium (136-145) mmol/L Potassium (3.5-5.1) mmol/L Chloride (98-107) mmol/L Carbon Dioxide (21-32) mmol/L Anion Gap (10-20) mmol/L BUN (7-18) mg/dL Creatinine (0.55-1.02) mg/dL Est Cr Clr Drug Dosing Estimated GFR (MDRD) Glucose (74-106) mg/dL POC Glucose 221 H (74-106) mg/dL Lactic Acid (0.4-2.0) mmol/L Calcium (8.5-10.1) mg/dL Corrected Calcium (8.5-10.1) mg/dL Total Bilirubin (0.2-1.0) mg/dL AST (15-37) U/L ALT (14-59) U/L Alkaline Phosphatase (46-116) U/L Creatine Kinase (26-192) U/L POC Troponin I 4.50 H* (0.00-0.08) ng/mL C-Reactive Protein (<=0.9) mg/dL NT-Pro-B Natriuret Pep (<=450) pg/mL Total Protein (6.4-8.2) g/dL Albumin (3.4-5.0) g/dL Globulin Albumin/Globulin Ratio POC Result Comm Called critical res Urine Color (YELLOW) Urine Appearance (CLEAR) Urine pH (5.0-8.0) Ur Specific [place] Urine Protein (NEGATIVE) mg/dL Urine Glucose (UA) (NEGATIVE) mg/dL Urine Ketones (NEGATIVE) mg/dL Urine Occult Blood (NEGATIVE) Urine Nitrite (NEGATIVE) Urine Bilirubin (NEGATIVE) Urine Urobilinogen (0.2) EU/dL Ur Leukocyte Esterase (NEGATIVE) Urine RBC (NOT SEEN) /HPF Urine WBC (NOT SEEN) /HPF Ur Squamous Epith Cells (NEGATIVE) /HPF Urine Bacteria (NEGATIVE) /HPF Urine Mucus (NEGATIVE) /LPF Result Diagrams: 10/27/19 15:40 10/27/19 15:40 Ken Results Last 24 hrs: Microbiology 10/27/19 16:24 Anaerobic Blood Culture - Final Blood - Venous - Lab Draw EKG INTERPRETATION EKG Date: 10/27/19 Rhythm: A-Fib [place]: LAD-Left [place] Deviation P-Wave: Absent QRS: Normal ST-T: Elevated Sepsis Event Note - Evaluation Sepsis Screening Result: Severe Sepsis Risk - Focused Exam Vital Signs: Vital Signs Temp Temp Pulse Resp BP Pulse Ox Pulse Ox 10/27/19 18:46 99.8 F 127 H 20 115/59 L 100 100 10/27/19 17:05 98.9 F 10/27/19 16:35 101 F H 10/27/19 16:27 101.1 F H 123 H 24 H 99 10/27/19 16:23 130 H 24 H 99 10/27/19 16:08 129 H 48 H 153/105 H 100 10/27/19 15:21 101.1 F H 133 H 60 H 207/104 H 66 L Date Exam was Performed: 10/27/19 Time Exam was Performed: 21:50 - Problem List (1) Sepsis SNOMED Code(s): 51661470 ICD Code: A41.9 - SEPSIS, UNSPECIFIED ORGANISM Status: Acute Priority: High Current Visit: Yes Qualifiers: Sepsis type: sepsis due to unspecified organism Sepsis acute organ dysfunction status: with acute organ dysfunction Severe sepsis acute organ dysfunction type: acute renal failure Acute renal failure type: unspecified Severe sepsis shock status: without septic shock Qualified Code(s): A41.9 - Sepsis, unspecified organism; R65.20 - Severe sepsis without septic shock; N17.9 - Acute kidney failure, unspecified (2) Acute on chronic kidney failure SNOMED Code(s): 352270943 ICD Code: N17.9 - ACUTE KIDNEY FAILURE, UNSPECIFIED; N18.9 - CHRONIC KIDNEY DISEASE, UNSPECIFIED Status: Acute Priority: High Current Visit: Yes Qualifiers: Acute renal failure type: unspecified Chronic kidney disease stage: stage 4 (severe) Qualified Code(s): N17.9 - Acute kidney failure, unspecified; N18.4 - Chronic kidney disease, stage 4 (severe) (3) CHF (congestive heart failure) SNOMED Code(s): 53687435 ICD Code: I50.9 - HEART FAILURE, UNSPECIFIED Status: Acute Priority: High Current Visit: Yes Qualifiers: Heart failure type: diastolic Heart failure chronicity: acute on chronic Qualified Code(s): I50.33 - Acute on chronic diastolic (congestive) heart failure (4) Palliative care status SNOMED Code(s): 074202691 ICD Code: Z51.5 - ENCOUNTER FOR PALLIATIVE CARE Status: Acute Priority: Medium Current Visit: Yes (5) Urinary tract infection SNOMED Code(s): 99366204 ICD Code: N39.0 - URINARY TRACT INFECTION, SITE NOT SPECIFIED Status: Acute Priority: High Current Visit: Yes Qualifiers: Urinary tract infection type: acute cystitis Hematuria presence: without hematuria Qualified Code(s): N30.00 - Acute cystitis without hematuria (6) Diabetes mellitus SNOMED Code(s): 45189176 ICD Code: E11.9 - TYPE 2 DIABETES MELLITUS WITHOUT COMPLICATIONS Status: Chronic Priority: Medium Current Visit: Yes Qualifiers: Diabetes mellitus type: type 2 Diabetes mellitus rodent exterminator insulin use: without rodent exterminator use Diabetes mellitus complication status: with neurologic complications Diabetes mellitus complication detail: with polyneuropathy Qualified Code(s): E11.42 - Type 2 diabetes mellitus with diabetic polyneuropathy (7) SHERWIN on CPAP SNOMED Code(s): 16702387 ICD Code: G47.33 - OBSTRUCTIVE SLEEP APNEA (ADULT) (PEDIATRIC); 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 Status: Chronic Priority: Medium Current Visit: Yes (8) NSTEMI (non-ST elevated myocardial infarction) SNOMED Code(s): 91816980 ICD Code: I21.4 - NON-ST ELEVATION (NSTEMI) MYOCARDIAL INFARCTION Status: Acute Priority: High Current Visit: Yes (9) Anxiety and depression SNOMED Code(s): 911086927 ICD Code: F41.8 - OTHER SPECIFIED ANXIETY DISORDERS Status: Chronic Priority: Low Current Visit: No (10) Aortic stenosis SNOMED Code(s): 31643192 ICD Code: I35.0 - NONRHEUMATIC AORTIC (VALVE) STENOSIS Status: Chronic Priority: High Current Visit: No Qualifiers: Cardiac valve disease etiology: etiology unspecified Qualified Code(s): I35.0 - Nonrheumatic aortic (valve) stenosis (11) Atrial fibrillation SNOMED Code(s): 47456353 ICD Code: I48.91 - UNSPECIFIED ATRIAL FIBRILLATION Status: Chronic Priority: Medium Current Visit: No Qualifiers: Atrial fibrillation type: persistent (12) Obesity SNOMED Code(s): 589453803, 100220571 ICD Code: E66.9 - OBESITY, UNSPECIFIED Status: Chronic Priority: Medium Current Visit: No Qualifiers: Obesity type: unspecified obesity type Obesity classification: unspecified obesity classification Serious obesity comorbidity presence: with serious comorbidity Qualified Code(s): E66.9 - Obesity, unspecified (13) Pulmonary hypertension SNOMED Code(s): 09678633 ICD Code: I27.20 - PULMONARY HYPERTENSION, UNSPECIFIED Status: Chronic Priority: High Current Visit: No (14) Rhabdomyolysis SNOMED Code(s): 266530634 ICD Code: M62.82 - RHABDOMYOLYSIS Status: Acute Priority: High Current Visit: Yes Qualifiers: Rhabdomyolysis type: traumatic Encounter type: initial encounter Qualified Code(s): T79.6XXA - Traumatic ischemia of muscle, initial encounter Problem List Initiated/Reviewed/Updated: Yes Orders Last 24hrs: Active Orders 24 hr Category Date Time Status Patient Status [ADT] Routine ADT 10/27/19 18:46 Active Antiembolic Devices [RC] 08, Care 10/27/19 18:49 Active Blood Glucose Check, Bedside [RC] 07,11,17,20 Care 10/27/19 18:46 Active Cardiac Monitoring [RC] 02,06,10,14,18,22 Care 10/27/19 18:48 Active Dietary Supplements [RC] 10,14 Care 10/27/19 18:50 Active EKG 12 Lead [EKG Documentation Completion] [RC] STAT Care 10/27/19 15:20 Active Height and Weight [RC] 07 Care 10/27/19 18:46 Active Intake and Output [RC] 06,18 Care 10/27/19 18:48 Active Oxygen Therapy [RC] .PRN Care 10/27/19 18:46 Active Up With Assistance [RC] 08,20 Care 10/27/19 18:46 Active Urinary Catheter Assessment [RC] 08,20 Care 10/27/19 16:22 Active VTE/DVT Education [RC] .PRN Care 10/27/19 18:46 Active Vital Signs [RC] 02,06,10,14,18,22 Care 10/27/19 18:46 Active Wound Care [RC] 08,20 Care 10/27/19 18:52 Active [employer] Diet [DIET] Diet 10/27/19 Breakfast Active Head wo Cont [CT] Routine Exams 10/27/19 18:44 Taken CBC WITH AUTO DIFF [HEME] AM Lab 10/28/19 05:15 Ordered COMPREHENSIVE METABOLIC PN,CMP [CHEM] AM Lab 10/28/19 05:15 Ordered CREATINE KINASE,CK [CHEM] Routine Lab 10/28/19 07:00 Ordered CULTURE BLOOD [BC] Stat Lab 10/27/19 16:15 Received CULTURE BLOOD [BC] Stat Lab 10/27/19 16:24 Results CULTURE URINE [RM] Stat Lab 10/27/19 15:57 Received INR,PT,PROTHROMBIN TIME [COAG] Routine Lab 10/28/19 07:00 Ordered LACTIC ACID [CHEM] Routine Lab 10/28/19 07:00 Ordered TROPONIN I [CHEM] Routine Lab 10/28/19 07:00 Ordered Acetaminophen [Tylenol Extra Strength] Med 10/27/19 21:38 Pending 1,000 mg PO Q6HR PRN Acetaminophen/HYDROcodone [[place] 325-10 MG] Med 10/27/19 21:38 Pending 1 tab PO BID PRN Ciprofloxacin in D5W [Cipro in D5W 200 MG/100 ML] 200 Med 10/27/19 20:00 Active mg Premix Bag 1 bag IV Q12HR Cyanocobalamin (Vitamin B12) [Vitamin B12] Med 10/28/19 08:00 Ordered 1,000 mcg PO BID@0800,1600 Digoxin [Lanoxin] Med 10/27/19 21:45 Ordered 125 mcg PO Q2D Docusate Sodium/Sennosides [Senna Plus] Med 10/28/19 08:00 Ordered 1 tab PO DAILY Gabapentin [Neurontin] Med 10/28/19 07:00 Ordered 100 mg PO ACBREAKFAST HYDROmorphone [Dilaudid] Med 10/27/19 18:49 Active 0.5 mg IV Q2H PRN Magnesium Citrate [Citrate of Magnesia] Med 10/27/19 21:38 Ordered 296 ml PO DAILY PRN Metoprolol Succinate [Toprol XL] Med 10/27/19 21:41 Ordered 50 mg PO BEDTIME Nitroglycerin [Nitrostat] Med 10/27/19 21:38 Ordered 0.4 mg SL ASDIRECTED PRN Nystatin [Nystatin Crm] Med 10/27/19 20:00 Active 0 gm TOP BID Ondansetron Med 10/27/19 21:38 Ordered 4 mg PO Q6HR PRN Pantoprazole [ProTONIX] Med 10/28/19 08:00 Ordered 40 mg PO DAILY Pramipexole Med 10/28/19 16:00 Ordered 0.25 mg PO DAILY@1600 Pramipexole [Mirapex] Med 10/28/19 20:00 Ordered 0.5 mg PO BEDTIME Sodium Chloride 0.9% [Normal Saline] 1,000 ml Med 10/27/19 19:00 Active IV ASDIRECTED Warfarin [Coumadin] Med 10/27/19 21:45 Ordered 2.5 mg PO SUTUTHSA Warfarin [Coumadin] Med 10/29/19 20:00 Ordered 5 mg PO MOFR@2000 Zinc Gluconate [Zinc] Med 10/28/19 16:00 Ordered 50 mg PO DAILY@1600 allopurinoL [Zyloprim] Med 10/28/19 16:00 Ordered 300 mg PO DAILY@1600 bisacodyL [Dulcolax] Med 10/27/19 21:38 Ordered 5 mg PO DAILY PRN polyethylene glycoL 3350 [MiraLAX] Med 10/27/19 21:38 Ordered 17 gm PO DAILY PRN CPAP [RESPCARE] Routine Oth 10/27/19 18:55 Active Sequential Compression Device [OM.PC] Per Unit Routine Oth 10/27/19 18:48 Ordered Medication Orders Acetaminophen (Tylenol Extra Strength) 1,000 mg PO Q6HR PRN PRN Reason: Pain Hydrocodone Bitart/Acetaminophen ([place] 325-10 Mg) 1 tab PO BID PRN PRN Reason: Pain Allopurinol (Zyloprim) 300 mg PO DAILY@1600 [facility] Bisacodyl (Dulcolax) 5 mg PO DAILY PRN PRN Reason: Constipation Cyanocobalamin (Vitamin B12) 1,000 mcg PO BID@0800,1600 [facility] Digoxin (Lanoxin) 125 mcg PO Q2D [facility] Gabapentin (Neurontin) 100 mg PO ACBREAKFAST [facility] Hydromorphone HCl (Dilaudid) 0.5 mg IV Q2H PRN PRN Reason: Pain Last Admin: 10/27/19 21:32 Dose: 0.5 mg Ciprofloxacin/Dextrose 200 mg/ (Premix) 100 mls @ 100 mls/hr IV Q12HR [facility] Last Admin: 10/27/19 20:06 Dose: 100 mls/hr Sodium Chloride (Normal Saline) 1,000 mls @ 100 mls/hr IV ASDIRECTED DOMINIK Last Admin: 10/27/19 20:03 Dose: 100 mls/hr Magnesium Citrate (Citrate Of Magnesia) 296 ml PO DAILY PRN PRN Reason: Constipation Metoprolol Succinate (Toprol Xl) 50 mg PO BEDTIME [facility] Nitroglycerin (Nitrostat) 0.4 mg SL ASDIRECTED PRN PRN Reason: Chest Pain Non-Formulary Medication (Ondansetron) 4 mg PO Q6HR PRN PRN Reason: Nausea Non-Formulary Medication (Pramipexole) 0.25 mg PO DAILY@1600 [facility] Non-Formulary Medication (Zinc Gluconate [Zinc]) 50 mg PO DAILY@1600 [facility] Nystatin (Nystatin Crm) 0 gm TOP BID [facility] Pantoprazole Sodium (Protonix) 40 mg PO DAILY [facility] Polyethylene Glycol (Miralax) 17 gm PO DAILY PRN PRN Reason: Constipation Pramipexole Dihydrochloride (Mirapex) 0.5 mg PO BEDTIME [facility] Senna/Docusate Sodium (Senna Plus) 1 tab PO DAILY [facility] Warfarin Sodium (Coumadin) 2.5 mg PO SUTUTHSA [facility] Warfarin Sodium (Coumadin) 5 mg PO MOFR@2000 [facility] Assessment/Plan Comment:: 1. Sepsis secondary to UTI 2. UTI 3. Fall with Rhabdomyalsis 4. Acute on Chronic kidney injury 5. NSTEMI likely due to aortic stenosis with sepsis 6. Chronic diastolic CHF 7. Aortic stenosis 8. Diabetes with painful neuropathy and a left heel ulcer 9. Skin rash versus burn to the RLQ 10. Obesity 11. SHERWIN on CPAP 12. Palliative cares 13. Chronic pain and osteoarthritis 14. Confusion and unresponsive 15. Atrial Fibrillation with RVR Plan: Head CT IV cipro Await blood cultures Continue Normal saline 100 ml per hr Repeat Labs in AM and monitor strict IN and Outs Telemetry Patient and family wish for palliative treatments like fluids and antibiotics no transfer to [place] planned for her [place] Continue BB and digoxin Coumadin for DVT prophylaxis may start Lovenox if head CT is ok - Mortality Measure Prognosis:: Poor
[2019-10-28] MEDS ORDERED: Metoprolol Succinate 50 MG Tab.ER PO SCH (00:15)
[2019-10-28] MEDS: Pramipexole 0.5 MG Tab PO SCH ×2 (00:20→19:13)
[2019-10-28] MEDS: Nystatin Crm 30 GM Tube TOP SCH ×3 (00:20→21:56)
[2019-10-28] MEDS ORDERED: Digoxin 125 MCG Tab PO ONE (00:30)
[2019-10-28] MEDS ORDERED: Warfarin 2.5 MG Tab PO ONE (01:45)
[2019-10-28] MEDS: HYDROmorphone 0.5 MG/0.5 ML Syringe IV PRN ×4 (02:22→16:22)
[2019-10-28] MEDS: Sodium Chloride 0.9% 1,000 ML IV SCH ×2 (06:36→23:15)
[2019-10-28] MEDS ORDERED: Pantoprazole 40 MG Tab.CR PO SCH (07:00)
[2019-10-28] MEDS ORDERED: Gabapentin 100 MG Cap PO SCH ×3 (07:00→20:00)
[2019-10-28] MEDS: Ciprofloxacin in D5W 200 MG in Premix Bag 1 BAG IV SCH ×2 (08:20)
[2019-10-28] MEDS: Cyanocobalamin (Vitamin B12) 1,000 MCG Tab PO SCH ×2 (08:23→19:04)
[2019-10-28 09:07] LABS: ANION GAP 17.8 mmol/L (10-20)
[2019-10-28] MEDS ORDERED: Amiodarone 200 MG Tab PO SCH (10:00)
[2019-10-28] MEDS ORDERED: Digoxin 125 MCG Tab PO SCH (10:30)
[2019-10-28] MEDS ORDERED: Acetaminophen 500 MG Tab PO PRN (10:35)
[2019-10-28] MEDS ORDERED: Ondansetron 4 MG/2 ML SDV IVPUSH PRN (10:43)
[2019-10-28] MEDS ORDERED: Enoxaparin 40 MG/0.4 ML Syringe SUBCUT SCH (10:45)
--- NOTE | 2019-10-28 12:09 | PN ---
Progress Note for CHAI CHOUDHURY Date: 10/28/2019 Room #: VM.214 SUBJECTIVE: This is hospital day #2 on an 79-year-old admitted with sepsis, was found unresponsive at home down on the floor at least 3 hours. This morning, she is alert and orientated x2. She was not able to give me the month, but did agree with me that it was October and did report that she did not fall, she slid out of her chair, but is not able to give me the time. She states she has pain really all over. It is better when she is still. She just received some IV Dilaudid just prior to me seeing her, which has helped. She feels a little short of breath and still has a little bit of chest pain. She has a known history of diastolic heart failure, EF 65%, and aortic stenosis. Her troponin unfortunately went up to 13 today. She has her atrial fibrillation. She has been in RVR with rates between 120 and 160 most of the night. Unfortunately, her blood cultures today were 3 of 3 bottles positive for gram-positive cocci in clusters. Her last fever was at 2 a.m., it was 100.8. She has been afebrile since then. She has not had any significant urine output yet. She has not really eaten anything since she was admitted last evening. She says her stomach is a little upset, Sometimes, she gets constipated, but she does not feel she is constipated now. She had been missing her pills for a few days. She did have a head CT due to her bruise on the right eye which was negative for any bleeding. The patient has also been refusing the SCDs due to pain while wearing them. She is on warfarin, but is subtherapeutic due to missing her pills. The patient has also received 2 mg of IV Dilaudid since her admission. OBJECTIVE: Vital Signs: This morning, the patient has a weight of 85.8 kg. She is up 5 pounds since admission. Temperature 97.7, pulse 159, blood pressure 116/67, respiratory rate 17, and O2 of 92% on 2 L. Her T-max was 101.8 at around 2 a.m. General: She is in no acute distress. She is resting comfortably in bed, sort of sideways, leaving that left heel off the bed, possibly due to discomfort from it. She has nearly pinpoint pupils, but is able to follow me and track with her eyes and answer questions appropriately, although when she tries to give longer responses, she sort of falls back asleep. She is alert and orientated x2. She recognizes me as a doctor, but did not use my name. She is aware she is at the hospital and that she got here by ambulance. Heart: Irregularly irregular with murmur. It is tachycardic. Respiratory: Her lung sounds are clear to auscultation bilaterally without crackles or wheezes. Abdomen: Positive bowel sounds. It is soft and nondistended, but she has some mild tenderness, especially in the suprapubic area. Extremities: Warm and dry. There is no edema in her legs. No pitting. Her arms are more puffy than yesterday. In fact, her wrist band is not quite fitting. She does have the ulcer to the left heel. There is no drainage. No surrounding redness. I did not probe it today. Skin: She also has a burn noted to her right lower quadrant. She admits that she had been using a heating pad. The bruising seems to be better over the right eye, and swelling there has improved. Psychiatric: She does not seem overly depressed, and she is not anxious. LABORATORY DATA: Lab work does show her white count of 17.4, so improved; hemoglobin 13.3; and platelets down slightly to 144. INR up to 1.5. Sodium 140, potassium 3.8, chloride 103, bicarbonate 23, BUN 47, creatinine 2.4, and glucose 190. Lactic down to 2.3. Calcium 10.2. Bilirubin 1.7, improved; AST 246; ALT 82; and alkaline phosphatase 210. CK up to 7544 and troponin up to 13.4. Albumin down to 2.8. Blood cultures returned 3 for 3 gram-positive cocci in clusters. Head CT did not reveal any acute bleeding that was done. ASSESSMENT AND PLAN: 1. Sepsis. Likely source was urinary tract infection; however, now with gram- positive bacteremia, that is a more serious illness. The patient has no desire to go to [place]. She would like to stay here for treatment and go on comfort cares if things do not improve. Working diagnosis would be potentially endocarditis. She otherwise has pain all over her body and does have that left heel ulcer. She could have an osteomyelitis there or anywherein her spine. We will hold off on further imaging. We will start her on IV vancomycin and repeat blood cultures today. 2. Urinary tract infection. She will remain on Cipro. I will change her to 400 every 18 hours. 3. Rhabdomyolysis. She was down on the ground. Denies falling, but CK is rising. We will have to continue fluids 100 per hour due to her history of heart failure. As long as her blood pressures are maintaining, I will start her on IV Lasix to see if her urine output picks up. Consider increasing fluids if needed, but we will monitor her heart failure and respiratory status closely. 4. Acute on chronic kidney injury. Her creatinine actually improved. 5. Non-ST elevation myocardial infarction, likely due to her underlying aortic stenosis with sepsis and RVR. She is on medical management with her beta lucy. We will start her on low-dose heparin more for deep venous thrombosis prophylaxis. I am also going to give her aspirin. We will hold off on statins due to the elevated CK. 6. Atrial fibrillation with rapid ventricular response. I am going to start her on some oral amiodarone. She will continue digoxin, but we will give it daily. She is also on her metoprolol. 7. Elevated LFTs. Bilirubin slightly improved. ALT and AST trending up. Possibly due to her rhabdomyolysis. We will continue to monitor daily. 8. Chronic diastolic heart failure. Ejection fraction 65%. Stable, without exacerbation. We are restarting Lasix while giving her fluids due to her 5- pound weight gain. 9. Diabetes with painful peripheral neuropathy and a left heel ulcer. Her Neurontin will go back to 100 twice daily to help with pain. We have also restarted her Cymbalta. 10.Burn to the right lower quadrant. We will be putting some Silvadene cream on this. This does not appear to be an infectious source, but is a second- degree burn. Blisters are still mostly intact. We will continue local wound cares. 11.Palliative cares. 12.Chronic pain due to osteoarthritis and painful diabetic neuropathy. She will continue on her same doses of hydrocodone. IV Dilaudid is available. 13.Confusion and unresponsiveness due to her sepsis. This seems to be improving. 14.Malnutrition. 15.Type 2 diabetes with hyperglycemia due to her acute illness. We will continue with q.i.d. Accu-Cheks, and I will be giving her 8 units daily of Lantus to help with hyperglycemia. PLAN: The patient has a complicated medical illness, but due to desire for no aggressive treatments down in [place], she will be kept here. We will increase her antibiotics from just the Cipro to add IV vancomycin to cover for any staph infections. Working diagnosis is endocarditis, but potentially she had been mentioning some increasing neck pain, per her daughter. We may need to consider scanning for a more definitive source, but at this point, we are awaiting final cultures and repeat blood cultures and following lab work, fevers, and the patient's condition. We will keep her on telemetry and aggressively work on treating her RVR, especially with her elevated troponin. Ideally, she probably would benefit from cardioversion; however, with the subtherapeutic INR and inability to give her more heparin due to renal failure and risk of bleeding, we are going to avoid cardioversion at this point. I also think it might be dangerous to sedate her for the procedure, and it would be quite painful for her to do a cardioversion without. I think she is stable enough to try the medications and see how she does. I have also adjusted medications per pharmacy recommendations like her allopurinol. I do not think she has any active gout. Her swollen finger on her left, she says, is chronically like that. We will continue the Nielson for need to monitoring strict in's and out's, especially with starting Lasix. I will continue the fluid at 100 per hour and adjust that based on blood pressures and urine output. We will get her started on some insulin and try to get her eating some today. We will continue with pain control. Overall, her condition is extremely guarded, and this was discussed with the patient. If she fails to improve, she will likely transfer for comfort measures only. I will try to update her daughter about this as well. MAURICEA: 10/28/2019 10:58:53 MODL: 10/28/2019 11:45:20 /[id number] KELLY
[2019-10-28] MEDS: Heparin Sodium 5,000 Units/ML Vial SUBCUT SCH ×2 (13:46→22:46)
[2019-10-28] MEDS: Silver Sulfadiazine 1% Crm 50 GM Tube TOP SCH ×2 (13:47→19:17)
[2019-10-28] MEDS: Furosemide 40 MG/4 ML VIAL IV SCH ×2 (13:48→17:25)
[2019-10-28] MEDS: DULoxetine 20 MG Cap PO SCH (13:56)
[2019-10-28] MEDS: Allopurinol 300 MG Tab PO SCH ×2 (13:57→19:04)
[2019-10-28] MEDS: Potassium Chloride 10 MEQ Tab.ER PO SCH (13:57)
[2019-10-28] MEDS: Aspirin 81 MG Tab.Chew PO SCH ×2 (13:57→19:15)
[2019-10-28] MEDS: Insulin Glarg,Human.Rec.Analog 100 Unit/ML SUBCUT SCH (13:58)
[2019-10-28] MEDS ORDERED: Zinc (Zinc Gluconate) 50 MG Tab PO SCH (16:00)
[2019-10-28] MEDS ORDERED: Allopurinol 300 MG Tab PO SCH (16:00)
[2019-10-28] MEDS ORDERED: Pramipexole 0.125 MG Tab PO SCH (16:00)
[2019-10-28] MEDS: Metoprolol Tartrate 5 MG/5 ML SDV IVPUSH SCH ×2 (16:23→21:53)
[2019-10-28] MEDS ORDERED: Amiodarone In Dextrose,Iso-Osm 360 MG in Premix Bag 1 BAG IV ONE ×2 (18:09)
[2019-10-28] MEDS: Acetaminophen/HYDROcodone 325-10 MG Tab PO SCH ×2 (19:04→21:57)
[2019-10-28] MEDS ORDERED: Pantoprazole 40 MG Vial IVPUSH SCH (20:00)
[2019-10-28] MEDS ORDERED: Sodium Chloride 0.9% 500 ML IV ONE (22:08)
[2019-10-28] MEDS ORDERED: Digoxin 500 MCG/2 ML Amp IVPUSH ONE (23:01)
[2019-10-28] MEDS: HYDROmorphone 1 MG/ML Syringe IV PRN (23:03)
[2019-10-29] MEDS: HYDROmorphone 1 MG/ML Syringe IV PRN ×4 (01:20→11:20)
[2019-10-29] MEDS ORDERED: Ciprofloxacin in D5W 400 MG in Premix Bag 1 BAG IV SCH ×2 (02:00)
[2019-10-29 02:28] VITALS: PULSE 124
[2019-10-29] MEDS: Metoprolol Tartrate 5 MG/5 ML SDV IVPUSH SCH (04:00)
[2019-10-29 06:35] VITALS: BP 80/45
[2019-10-29] MEDS: Nystatin Crm 30 GM Tube TOP SCH (08:31)
[2019-10-29] MEDS: DULoxetine 20 MG Cap PO SCH (08:31)
[2019-10-29] MEDS: Silver Sulfadiazine 1% Crm 50 GM Tube TOP SCH (08:32)
[2019-10-29] MEDS: Cyanocobalamin (Vitamin B12) 1,000 MCG Tab PO SCH (08:32)
[2019-10-29] MEDS: Potassium Chloride 10 MEQ Tab.ER PO SCH (08:33)
[2019-10-29] MEDS: Insulin Glarg,Human.Rec.Analog 100 Unit/ML SUBCUT SCH (08:34)
--- NOTE | 2019-10-29 08:46 | CT ---
[id number] CT/CT Head WO IV EXAM: NONCONTRAST HEAD CT INDICATION: CONFUSION COMPARISON: May 30, 2019. DISCUSSION: Stable mild to moderate generalized atrophy. Stable mild chronic small vessel ischemic changes. No mass effect or midline shift. No acute hemorrhage or extra-axial fluid collection. No acute territorial infarct is identified. Preseptal right periorbital soft tissue swelling. Left maxillary sinus mucosal retention cyst. IMPRESSION: 1. No acute intracranial findings. 2. Right facial soft tissue swelling. Jose Manuel Prince MD 10/29/19 0844 Thank you for allowing us to participate in the care of your patient.
[2019-10-29] MEDS ORDERED: Acetaminophen 650 MG Supp RECTAL PRN (08:49)
[2019-10-29] MEDS ORDERED: Atropine 1% Ophth Soln 5 ML BOTTLE SL PRN (08:53)
[2019-10-29] MEDS ORDERED: HYDROmorphone 0.5 MG/0.5 ML Syringe IV SCH (09:00)
[2019-10-29] MEDS ORDERED: LORazepam 2 MG/ML SDV IV PRN (11:02)
[2019-10-29] MEDS ORDERED: Lidocaine 2% Viscous Solution 15 ML Cup PO PRN (11:02)
--- NOTE | 2019-10-29 12:13 | PN ---
Progress Note for CHAI CHOUDHURY Date: 10/29/2019 Room #: VM.214 SUBJECTIVE: This is hospital day #3 on an 79-year-old admitted with sepsis, working diagnosis was a UTI, but blood cultures did come back 3/3 positive for a probable staph species and her urine is growing gram-negative rods. Yesterday morning, the patient was more alert and able to answer questions like that she had slid out of her chair at home and that she had pain really all over. She had chest pain still, although she felt it was mild. Her heart rates were quite fast with her AFib and RVR, and unfortunately, she did not take her pills. She sort of pocketed them in her mouth. By afternoon, we had discovered this and gave her IV metoprolol which helps some and then initiated her on amiodarone drip, but unfortunately, her blood pressure dropped to 70, so that was stopped and she was given a bolus of fluids overnight which did bring her blood pressure up. The patient was then less responsive. I had spoken with her daughter, Xiomy by phone about information that the patient's blood cultures were positive and I was concerned about staph and that this would be an infection we might not be able to cure because we do not know the source and the patient has not wanted any aggressive surgeries or treatments. Daughter is a nurse and could understand the severity of the situation and decision was made to focus on pain control, to continue the antibiotics and fluids for now, but if she worsened, we would switch her over to full comfort measures. Xiomy was then going to update family who did come to see the patient. Her lactic acid did trend down to 2.3, but overnight when she was hypotensive, she also spiked a fever of 101.3 despite being on IV Cipro and IV vancomycin. The patient was also discovered to have a blood sugar of just 27 around 6 a.m. this morning. Her blood sugars were in the 200s, then in the high 180s yesterday. She got 5 units of Lantus onetime, but was not eating. Her CK level also corona to 7500 yesterday and her troponin corona to 13, white count did improve slightly to 17.4. Taking this all into account, discussion was had with the daughter this morning and the patient will continue to focus on comfort. She is wearing her CPAP and getting p.r.n. Dilaudid regularly from the nurses. We will also schedule it. OBJECTIVE: Vital Signs: Her temperature this morning 99.7, pulse 124, blood pressure 80/45, respiratory rate 30, O2 of 89 on 8 L through her CPAP. General: She is in no acute distress. She is resting there peacefully. She did not respond to verbal or painful stimuli. HEENT: I did open her eyes, could see her pupils were 2 to 3 mm, equal, but she did not focus with the eyes. Heart: Irregularly irregular with murmur. Lungs: Lung sounds were decreased effort resting in the bed, but I did not hear any wheezing. Abdomen: Nondistended. She did not appear to grimace in any pain. Extremities: Her arms did have some purple discoloration distally. The puffiness was actually slightly better than yesterday. She had some bruising noted from lying on her right side prior to admission. The left heel ulcer was in place. I did not undo the bandaging to take an assessment of this today. LABORATORY DATA: Lab work was attempted this morning, but was not obtained due to goals of care being patient comfort. ASSESSMENT: 1. Severe sepsis due to gram-positive bacteremia which is a probable Staphylococcus aureus, unknown source. Discussed it could be the heel ulcer, even though her leg did not show cellulitis. It could be deep and osteomyelitis that would have required a untdt-bop-ztyc amputation. It could be an endocarditis given that her troponin is so high or even a diskitis given that she has had some neck pain recently. At this point, we have stopped antibiotics and are focusing our efforts on pure comfort measures. 2. Gram-negative urinary tract infection. She has been getting IV Cipro. We went ahead and stopped this. She has a catheter in place for comfort. 3. Rhabdomyolysis due to her being down on the ground. No further lab monitoring is going to be done and we are stopping IV fluids. 4. Eifew-ch-fhxfqap kidney injury, likely due to her acute infections and rhabdomyolysis. 5. Egy-EV-wokmeiexv myocardial infarction with underlying aortic stenosis with her sepsis and rapid ventricular response as well contributing. We stopped the aspirin, statins, beta blockers, all treatments at this point, other than treatments that focus on comfort. 6. Atrial fibrillation with rapid ventricular response. We will stop the telemetry. We will stop doing vitals as it appears to bother her to get blood pressures per family. 7. Elevated LFTs, probably due to the severe sepsis and rhabdomyolysis. No further monitoring will be pursued. 8. Chronic diastolic heart failure. She did not appear to be having respiratory edema, pulmonary edema. I actually believe her breathing troubles were more due to her underlying infection and severe sepsis. Her initial chest x-ray did not show any pneumonia. Her EF was last checked in 2018 and was 65%. She also has severe pulmonary HTN 9. Moderate malnutrition. 10.Palliative cares. 11.Diabetes with painful neuropathy and a left heel ulcer, now with severe hypoglycemia, probably due to the Lantus that was given as well as the Cipro and multi-organ failure. 12.Burn to the right lower quadrant. We can continue Silvadene cream. 13.Chronic pain due to osteoarthritis and painful diabetic neuropathy. We will stop her oral agents. She is not able to take these and utilize IV Dilaudid which I will schedule. 14.Obstructive sleep apnea. She will continue her CPAP as needed for comfort. She has more family coming from [id number] PLAN: The patient is transitioned over to comfort cares. I will stop fluids and antibiotics. She has IV narcotics available for pain control. Order medications for secretions and other medications as she needs them. I updated her daughter at bedside who is comfortable with this plan. It should also be noted with the patient's acute renal failure that she has had very limited urine output. MKA: 10/29/2019 10:57:47 MODL: 10/29/2019 11:32:13 /[id number] KELLY
--- NOTE | 2019-10-29 16:31 | PCM.DCSUM1 ---
Discharge Summary - Hospital Course Free Text/Narrative:: Patient admitted for severe sepsis with blood cultures positive for staph and even repeat cultures yesterday after IV antibiotics still positive. Patient had refused transfer or ICU care on admit and was managed with fluids and IV antibiotics. Family was updated about the severity of the situation and given her that her overall condition was worsening and she was going into multiorgan failure full comfort measures were initiated. See dictated detailed progress noted from today. - Discharge Data Discharge Date: 10/29/19 Discharge Disposition: 20 Condition: - Referral to [facility] Primary Care Physician: Rea Card, DO - Discharge Diagnosis/Problem(s) (1) Sepsis SNOMED Code(s): 43031406 ICD Code: A41.9 - SEPSIS, UNSPECIFIED ORGANISM Status: Acute Priority: High Problem Details: Staph Aureus bacteremia high grade possibly endocarditis Qualifiers: Sepsis type: methicillin susceptible Staphylococcus aureus Sepsis acute organ dysfunction status: with acute organ dysfunction Severe sepsis acute organ dysfunction type: acute renal failure Acute renal failure type: with acute tubular necrosis Severe sepsis shock status: without septic shock Qualified Code(s): A41.01 - Sepsis due to Methicillin susceptible Staphylococcus aureus; R65.20 - Severe sepsis without septic shock; N17.0 - Acute kidney failure with tubular necrosis (2) Acute on chronic kidney failure SNOMED Code(s): 637635567 ICD Code: N17.9 - ACUTE KIDNEY FAILURE, UNSPECIFIED; N18.9 - CHRONIC KIDNEY DISEASE, UNSPECIFIED Status: Acute Priority: High Problem Details: oliguric Qualifiers: Acute renal failure type: with acute tubular necrosis Chronic kidney disease stage: stage 4 (severe) Qualified Code(s): N17.0 - Acute kidney failure with tubular necrosis; N18.4 - Chronic kidney disease, stage 4 (severe) (3) CHF (congestive heart failure) SNOMED Code(s): 69846150 ICD Code: I50.9 - HEART FAILURE, UNSPECIFIED Status: Acute Priority: High Qualifiers: Heart failure type: diastolic Heart failure chronicity: chronic Qualified Code(s): I50.32 - Chronic diastolic (congestive) heart failure (4) Palliative care status SNOMED Code(s): 318002765 ICD Code: Z51.5 - ENCOUNTER FOR PALLIATIVE CARE Status: Acute Priority: Medium (5) Urinary tract infection SNOMED Code(s): 77504984 ICD Code: N39.0 - URINARY TRACT INFECTION, SITE NOT SPECIFIED Status: Acute Priority: High Problem Details: gram negative Qualifiers: Urinary tract infection type: acute cystitis Hematuria presence: without hematuria Qualified Code(s): N30.00 - Acute cystitis without hematuria (6) Diabetes mellitus SNOMED Code(s): 62549348 ICD Code: E11.9 - TYPE 2 DIABETES MELLITUS WITHOUT COMPLICATIONS Status: Chronic Priority: Medium Qualifiers: Diabetes mellitus type: 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 2 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 Diabetes mellitus complication status: with neurologic complications Diabetes mellitus complication detail: with polyneuropathy Qualified Code(s): E11.42 - Type 2 diabetes mellitus with diabetic polyneuropathy (7) SHERWIN on CPAP SNOMED Code(s): 77151031 ICD Code: G47.33 - OBSTRUCTIVE SLEEP APNEA (ADULT) (PEDIATRIC); 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 Status: Chronic Priority: Medium (8) NSTEMI (non-ST elevated myocardial infarction) SNOMED Code(s): 38518194 ICD Code: I21.4 - NON-ST ELEVATION (NSTEMI) MYOCARDIAL INFARCTION Status: Acute Priority: High Problem Details: aortic stenosis (9) Anxiety and depression SNOMED Code(s): 655982994 ICD Code: F41.8 - OTHER SPECIFIED ANXIETY DISORDERS Status: Chronic Priority: Low (10) Aortic stenosis SNOMED Code(s): 07351166 ICD Code: I35.0 - NONRHEUMATIC AORTIC (VALVE) STENOSIS Status: Chronic Priority: High Qualifiers: Cardiac valve disease etiology: etiology unspecified Qualified Code(s): I35.0 - Nonrheumatic aortic (valve) stenosis (11) Atrial fibrillation SNOMED Code(s): 44939441 ICD Code: I48.91 - UNSPECIFIED ATRIAL FIBRILLATION Status: Chronic Priority: High Problem Details: RVR Qualifiers: Atrial fibrillation type: persistent Qualified Code(s): I48.19 - Other persistent atrial fibrillation (12) Obesity SNOMED Code(s): 680280002, 854683224 ICD Code: E66.9 - OBESITY, UNSPECIFIED Status: Chronic Priority: Medium Qualifiers: Obesity type: unspecified obesity type Obesity classification: unspecified obesity classification Serious obesity comorbidity presence: with serious comorbidity Qualified Code(s): E66.9 - Obesity, unspecified (13) Pulmonary hypertension SNOMED Code(s): 85143590 ICD Code: I27.20 - PULMONARY HYPERTENSION, UNSPECIFIED Status: Chronic Priority: High (14) Rhabdomyolysis SNOMED Code(s): 338631000 ICD Code: M62.82 - RHABDOMYOLYSIS Status: Acute Priority: High Qualifiers: Rhabdomyolysis type: traumatic Encounter type: initial encounter Qualified Code(s): T79.6XXA - Traumatic ischemia of muscle, initial encounter - Discharge Plan *PRESCRIPTION DRUG MONITORING PROGRAM REVIEWED*: No *COPY OF PRESCRIPTION DRUG MONITORING REPORT IN PATIENT SHASHI: No Home Medications: Home Meds Cyanocobalamin (Vitamin B-12) [Vitamin B-12] 1,000 mcg PO BID@0800,1600 [History] allopurinoL [Allopurinol] 300 mg PO DAILY@1600 09/04/14 [History] Zinc Gluconate [Zinc] 50 mg PO DAILY@1600 04/02/15 [History] Pramipexole [Mirapex] 0.25 mg PO DAILY@1600 06/04/17 [History] Acetaminophen 1,000 mg PO Q6HR PRN 10/24/18 [History] Gabapentin [Neurontin] 100 mg PO BID 10/24/18 [History] Nitroglycerin [Nitrostat] 0.4 mg SL ASDIRECTED PRN 10/24/18 [History] ondansetron HCL [Ondansetron] 4 mg PO Q6HR PRN 10/24/18 [History] Pantoprazole Sodium [Protonix] 40 mg PO DAILY 01/13/19 [History] Metoprolol Succinate 50 mg PO BEDTIME 03/30/19 [History] Sennosides/Docusate Sodium [Senna Plus 8.6-50 mg Tablet] 1 tab PO BEDTIME [History] Potassium Chloride [Klor-Con 10] 20 meq PO BIDMEALS #60 tab.er 04/02/19 [Rx] Fluticasone/Salmeterol [Fluticasone-Salmeterol 232-14 MCG Powder Inha] 1 puff INH BID inhaler 05/23/19 [Rx] Torsemide [Demadex] 80 mg PO BIDDIURETIC #240 tablet 05/23/19 [Rx] Budesonide/Formoterol Fumarate [Budesonide-Formoterol 160-4.5] 1 puff IH BID [History] DULoxetine [Cymbalta] 40 mg PO BEDTIME 10/27/19 [History] Hydrocodone/Acetaminophen [Hydrocodone-Acetamin 5-325 mg] 1 tab PO BID@1600, 2000 10/27/19 [History] Multivitamin [Daily Multiple Vitamin] 1 tab PO ASDIRECTED 10/27/19 [History] Pramipexole [Mirapex] 2 tab PO DAILY@1900 10/27/19 [History] Warfarin [Coumadin] 1 tab PO ASDIRECTED 10/27/19 [History] Warfarin [Coumadin] 1.25 mg PO ASDIRECTED 10/28/19 [History] Digoxin 125 mcg PO MOWEFR 10/29/19 [History] Forms: ED Department Discharge Referrals: Rea Card DO [Primary Care Provider] - - Discharge Summary/Plan Comment DC Time >30 min.: No - Patient Data Vitals - Most Recent: Last Vital Signs Temp 99.7 F 10/29/19 06:00 Pulse 124 H 10/29/19 06:00 Resp 30 H 10/29/19 06:00 BP 80/45 L 10/29/19 06:00 Pulse Ox 89 L 10/29/19 06:00 Weight - Most Recent: 83.915 kg I&O - Last 24 hours: Intake & Output 10/29/19 10/29/19 10/29/19 06:59 14:59 22:59 Intake Total 2280 Output Total 100 Balance 2180 Lab Results - Last 24 hrs: Laboratory Results - last 24 hr 10/28/19 10/28/19 10/29/19 Range/Units 18:47 21:11 06:55 POC Glucose 161 H 110 H 21 L* (74-106) mg/dL 10/29/19 Range/Units 06:59 POC Glucose 27 L* (74-106) mg/dL EBONY Results - Last 24 hrs: Microbiology 10/27/19 16:24 Aerobic Blood Culture - Final Blood - Venous - Lab Draw Probable Staphylococcus Sp Anaerobic Blood Culture - Final 10/27/19 16:15 Aerobic Blood Culture - Final Blood - Venous Probable Staphylococcus Sp Anaerobic Blood Culture - Final Gram Positive Cocci 10/28/19 17:51 Aerobic Blood Culture - Preliminary Blood Gram Positive Cocci Anaerobic Blood Culture - Preliminary Gram Positive Cocci In Clustrs 10/27/19 15:57 Urine Culture - Preliminary Urine, Catheterized Gram Negative Rods Med Orders - Current: Current Medications Discontinued Medications Acetaminophen (Tylenol) 650 mg RECTAL NOW ONE Stop: 10/27/19 16:28 Last Admin: 10/27/19 16:35 Dose: 650 mg Acetaminophen (Tylenol Extra Strength) 1,000 mg PO Q6H PRN PRN Reason: Pain Last Admin: 10/28/19 02:03 Dose: 1,000 mg Acetaminophen (Tylenol Extra Strength) 500 mg PO Q6H PRN PRN Reason: Pain Acetaminophen (Tylenol) 650 mg RECTAL Q6H PRN PRN Reason: Pain Hydrocodone Bitart/Acetaminophen ([place] 325-10 Mg) 1 tab PO BID PRN PRN Reason: Pain Hydrocodone Bitart/Acetaminophen ([place] 325-10 Mg) 0.5 tab PO BID@1600,2000 [facility] Last Admin: 10/28/19 21:57 Dose: Not Given Allopurinol (Zyloprim) 300 mg PO DAILY@1600 [facility] Allopurinol (Zyloprim) 200 mg PO DAILY@1600 [facility] Last Admin: 10/28/19 19:04 Dose: Not Given Amiodarone HCl (Cordarone) 200 mg PO BID [facility] Last Admin: 10/28/19 13:56 Dose: 200 mg Aspirin (Aspirin) 81 mg PO BEDTIME [facility] Last Admin: 10/28/19 19:15 Dose: Not Given Atropine Sulfate (Atropine 1% Ophth Soln) 0 ml SL Q2H PRN PRN Reason: secretions Bisacodyl (Dulcolax) 5 mg PO DAILY PRN PRN Reason: Constipation Ceftriaxone Sodium (Rocephin) 2 gm IVPUSH STAT ONE Stop: 10/27/19 16:11 Last Admin: 10/27/19 16:10 Dose: 2 gm Cyanocobalamin (Vitamin B12) 1,000 mcg PO BID@0800,1600 [facility] Last Admin: 10/29/19 08:32 Dose: Not Given Digoxin (Lanoxin) 125 mcg PO Q2D [facility] Digoxin (Lanoxin) 125 mcg PO ONETIME ONE Stop: 10/28/19 00:31 Last Admin: 10/28/19 00:20 Dose: 125 mcg Digoxin (Lanoxin) 125 mcg PO DAILY [facility] Last Admin: 10/28/19 13:56 Dose: 125 mcg Digoxin (Lanoxin) 125 mcg IVPUSH ONETIME ONE Stop: 10/28/19 23:02 Last Admin: 10/28/19 23:11 Dose: 125 mcg Duloxetine HCl (Cymbalta) 40 mg PO DAILY [facility] Last Admin: 10/29/19 08:31 Dose: Not Given Enoxaparin Sodium (Lovenox) 40 mg SUBCUT Q24H DOMINIK Furosemide (Lasix) Confirm Administered Dose 40 mg .ROUTE .STK-MED ONE Stop: 10/27/19 15:43 Last Admin: 10/27/19 15:33 Dose: 40 mg Furosemide (Lasix) 40 mg IV ONETIME ONE Stop: 10/27/19 15:31 Last Admin: 10/27/19 18:51 Dose: Not Given Furosemide (Lasix) 40 mg IV BIDDIURETIC [facility] Last Admin: 10/28/19 17:25 Dose: Not Given Gabapentin (Neurontin) 100 mg PO ACBREAKFAST [facility] Last Admin: 10/28/19 11:33 Dose: Not Given Gabapentin (Neurontin) 100 mg PO ACBREAKFAST [facility] Stop: 10/28/19 07:01 Last Admin: 10/28/19 06:22 Dose: 100 mg Gabapentin (Neurontin) 100 mg PO BID DOMINIK Heparin Sodium (Porcine) (Heparin Sodium) 5,000 units SUBCUT Q12H [facility] Last Admin: 10/28/19 22:46 Dose: 5,000 units Hydromorphone HCl (Dilaudid) 0.5 mg IVPUSH ONETIME ONE Stop: 10/27/19 16:29 Last Admin: 10/27/19 18:20 Dose: Not Given Hydromorphone HCl (Dilaudid) Confirm Administered Dose 0.5 mg .ROUTE .STK-MED ONE Stop: 10/27/19 16:39 Last Admin: 10/27/19 16:33 Dose: 0.5 mg Hydromorphone HCl (Dilaudid) 0.5 mg IV Q2H PRN PRN Reason: Pain Last Admin: 10/28/19 16:22 Dose: 0.5 mg Hydromorphone HCl (Dilaudid) 0.5 mg IV Q2H PRN PRN Reason: Pain Last Admin: 10/29/19 11:20 Dose: 0.5 mg Hydromorphone HCl (Dilaudid) 0.5 mg IV Q6H [facility] Last Admin: 10/29/19 08:29 Dose: 0.5 mg Ciprofloxacin/Dextrose 200 mg/ (Premix) 100 mls @ 100 mls/hr IV Q12HR [facility] Last Admin: 10/28/19 08:20 Dose: 100 mls/hr Sodium Chloride (Normal Saline) 1,000 mls @ 150 mls/hr IV ASDIRECTED [facility] Last Admin: 10/28/19 23:15 Dose: 150 mls/hr Ciprofloxacin/Dextrose 400 mg/ (Premix) 200 mls @ 200 mls/hr IV Q18H [facility] Last Admin: 10/29/19 01:26 Dose: 200 mls/hr Vancomycin HCl 1.5 gm/ Sodium (Chloride) 250 mls @ 165 mls/hr IV Q24H [facility] Last Admin: 10/28/19 13:50 Dose: 165 mls/hr Amiodarone HCl/Dextrose 360 mg (/ Premix) 200 mls @ 500 mls/hr IV .BOLUS ONE Stop: 10/28/19 18:32 Last Admin: 10/28/19 19:12 Dose: 500 mls/hr Sodium Chloride (Normal Saline) 500 mls @ 500 mls/hr IV ONETIME ONE Stop: 10/28/19 23:07 Last Admin: 10/28/19 22:54 Dose: 500 mls/hr Insulin Glargine (Lantus) 5 unit SUBCUT DAILY [facility] Last Admin: 10/29/19 08:34 Dose: Not Given Lidocaine HCl (Xylocaine 2% Viscous) 5 ml PO Q4H PRN PRN Reason: Pain Lorazepam (Ativan) 0.5 mg IVPUSH STAT ONE Stop: 10/27/19 15:56 Last Admin: 10/27/19 15:54 Dose: 0.5 mg Lorazepam (Ativan) 0.5 mg IVPUSH STAT ONE Stop: 10/27/19 16:16 Last Admin: 10/27/19 15:54 Dose: 0.5 mg Lorazepam (Ativan) 0.5 mg IV Q4H PRN PRN Reason: Restlessness or Anxiety Magnesium Citrate (Citrate Of Magnesia) 296 ml PO DAILY PRN PRN Reason: Constipation Metoprolol Succinate (Toprol Xl) 50 mg PO BEDTIME [facility] Last Admin: 10/28/19 00:20 Dose: 50 mg Metoprolol Tartrate (Lopressor) 5 mg IVPUSH Q6H [facility] Last Admin: 10/29/19 04:00 Dose: Not Given Nitroglycerin (Nitrostat) 0.4 mg SL ASDIRECTED PRN PRN Reason: Chest Pain Nystatin (Nystatin Crm) 0 gm TOP BID [facility] Last Admin: 10/29/19 08:31 Dose: Not Given Ondansetron HCl (Zofran Odt) 4 mg PO Q6H PRN PRN Reason: Nausea Ondansetron HCl (Zofran) 4 mg IVPUSH Q8H PRN PRN Reason: Nausea Pantoprazole Sodium (Protonix) 40 mg PO ACBREAKFAST [facility] Last Admin: 10/28/19 06:22 Dose: 40 mg Pantoprazole Sodium (Protonix Iv) 40 mg IVPUSH Q24H [facility] Last Admin: 10/28/19 21:26 Dose: 40 mg Polyethylene Glycol (Miralax) 17 gm PO DAILY PRN PRN Reason: Constipation Potassium Chloride (Klor-Con 10) 20 meq PO WITHBREAKFAST [facility] Last Admin: 10/29/19 08:33 Dose: Not Given Pramipexole Dihydrochloride (Mirapex) 0.25 mg PO DAILY@1600 [facility] Last Admin: 10/28/19 19:03 Dose: Not Given Pramipexole Dihydrochloride (Mirapex) 0.5 mg PO DAILY@1900 [facility] Last Admin: 10/28/19 19:13 Dose: Not Given Senna/Docusate Sodium (Senna Plus) 1 tab PO DAILY [facility] Last Admin: 10/29/19 08:32 Dose: Not Given Silver Sulfadiazine (Silvadene 1% Cream 50 Gm) 0 gm TOP BID [facility] Last Admin: 10/29/19 08:32 Dose: Not Given Warfarin Sodium (Coumadin) 2.5 mg PO SUTUTHSA [facility] Last Admin: 10/28/19 11:33 Dose: Not Given Warfarin Sodium (Coumadin) 5 mg PO MOFR@1999 [facility] Warfarin Sodium (Coumadin) 2.5 mg PO ONETIME ONE Stop: 10/28/19 01:46 Last Admin: 10/28/19 02:03 Dose: 2.5 mg Warfarin Sodium (Coumadin) 2.5 mg PO DAILY@1999 [facility] Zinc Gluconate (Zinc) 50 mg PO DAILY@1600 [facility] Last Admin: 10/28/19 19:35 Dose: Not Given
[2019-10-29] MEDS ORDERED: Warfarin 2.5 MG Tab PO SCH (20:00)
[2019-10-29] MEDS ORDERED: Warfarin 5 MG Tab PO SCH (20:00)
[2019-10-30] MEDS ORDERED: Digoxin 125 MCG Tab PO SCH (08:00)
== END 2019-10-29 14:05 | disposition expired | DRG 871 ==
LOC: VM.ED 15:19 → VM.MS 17:04
PROVIDERS: ADMIT Physician Assistant Medical; ATTEND Internal Medicine
DX: A41.9 Sepsis, unspecified organism (principal); N30.01 Acute cystitis with hematuria; E11.621 Type 2 diabetes mellitus with foot ulcer; A41.01 Sepsis due to Methicillin susceptible Staphylococcus aureus; N17.0 Acute kidney failure with tubular necrosis; I21.4 Non-ST elevation (NSTEMI) myocardial infarction; I13.0 Hypertensive heart and chronic kidney disease with heart failure and stage 1 through stage 4 chronic kidney disease, or unspecified chronic kidney disease; I50.33 Acute on chronic diastolic (congestive) heart failure; N18.9 Chronic kidney disease, unspecified; N18.4 Chronic kidney disease, stage 4 (severe); N17.9 Acute kidney failure, unspecified; J30.9 Allergic rhinitis, unspecified; I50.32 Chronic diastolic (congestive) heart failure; I48.91 Unspecified atrial fibrillation; N30.00 Acute cystitis without hematuria; I48.19 Other persistent atrial fibrillation; M86.672 Other chronic osteomyelitis, left ankle and foot; L97.429 Non-pressure chronic ulcer of left heel and midfoot with unspecified severity; E44.0 Moderate protein-calorie malnutrition; H35.30 Unspecified macular degeneration; R65.20 Severe sepsis without septic shock; Z51.5 Encounter for palliative care; E11.42 Type 2 diabetes mellitus with diabetic polyneuropathy; G47.33 Obstructive sleep apnea (adult) (pediatric); I35.0 Nonrheumatic aortic (valve) stenosis; F41.9 Anxiety disorder, unspecified; F32.9 Major depressive disorder, single episode, unspecified; E66.9 Obesity, unspecified; I27.20 Pulmonary hypertension, unspecified; T79.6XXA Traumatic ischemia of muscle, initial encounter; E78.00 Pure hypercholesterolemia, unspecified; K21.9 Gastro-esophageal reflux disease without esophagitis; E11.21 Type 2 diabetes mellitus with diabetic nephropathy; E11.22 Type 2 diabetes mellitus with diabetic chronic kidney disease; H52.4 Presbyopia; H52.209 Unspecified astigmatism, unspecified eye; M10.9 Gout, unspecified; M19.90 Unspecified osteoarthritis, unspecified site; G25.81 Restless legs syndrome; Z91.048 Other nonmedicinal substance allergy status; T21.22XA Burn of second degree of abdominal wall, initial encounter; M85.80 Other specified disorders of bone density and structure, unspecified site; E11.65 Type 2 diabetes mellitus with hyperglycemia; Z96.649 Presence of unspecified artificial hip joint; G89.29 Other chronic pain; W19.XXXA Unspecified fall, initial encounter; T21.02XA Burn of unspecified degree of abdominal wall, initial encounter; E53.8 Deficiency of other specified B group vitamins; Z79.01 Long term (current) use of anticoagulants; Z99.81 Dependence on supplemental oxygen; Z88.1 Allergy status to other antibiotic agents; Z88.8 Allergy status to other drugs, medicaments and biological substances; Z91.09 Other allergy status, other than to drugs and biological substances; Z91.013 Allergy to seafood; Z91.041 Radiographic dye allergy status; I25.2 Old myocardial infarction; Z85.3 Personal history of malignant neoplasm of breast; Z98.49 Cataract extraction status, unspecified eye; Z90.89 Acquired absence of other organs; Z90.49 Acquired absence of other specified parts of digestive tract; Z90.710 Acquired absence of both cervix and uterus; Z98.51 Tubal ligation status; Z88.7 Allergy status to serum and vaccine; Z86.718 Personal history of other venous thrombosis and embolism; Z87.01 Personal history of pneumonia (recurrent); Z90.12 Acquired absence of left breast and nipple; Z79.899 Other long term (current) drug therapy; Z68.35 Body mass index [BMI] 35.0-35.9, adult
CPT/HCPCS: 36415; 36600; 51702; 70450; 71045; 80053; 81001; 82550; 82803; 82962; 83605; 83880; 84484; 85025; 85379; 85610; 85730; 86140; 87040; 87077; 87086; 87088; 87186; 93005; 94660; 94760; 99284-GF; 99285-25; A9270-GY; C9113; J0282; J0696; J0744; J1160; J1170; J1644; J1815-GY; J1940; J2060; J3370; J3490; J7030; J7040; J7050